=== PATIENT | male | born 1955 | race Caucasian/White ===

== ENCOUNTER 2024-07-25 11:10 | Emergency (ER) | payer MEDICARE, SELFPAY ==
[2024-07-25 11:11] VITALS: BP 145/95; PULSE 107; RESP 18; TEMP 36.7; O2SAT 98; BMI 31.5
--- NOTE | 2024-07-25 11:21 | EKG12_ITS ---
Test Reason : SOB Blood Pressure : */* mmHG Vent. Rate : 104 BPM Atrial Rate : 104 BPM P-R Int : 136 ms QRS Dur : 68 ms QT Int : 326 ms P-R-T Axes : 52 -15 82 degrees QTcB Int : 428 ms Sinus tachycardia with Premature atrial complexes Inferior infarct , age undetermined Abnormal ECG No previous ECGs available Confirmed by Jeramy Samson ([id number]), sound editor IAN STRANGE ([id number]) on 07/30/2024 10:05:40 AM Referred By: SHAWNEE Confirmed By: Jeramy Samson
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
--- NOTE | 2024-07-25 11:30 | RAD_ITS ---
PROCEDURE: CHEST 1 VIEW (PORTABLE) 07/25/2024 REASON FOR EXAM: CHEST PAIN TECHNIQUE: Frontal view of the chest. COMPARISON: Chest radiograph 07/25/2024 FINDINGS: Hardware: None. Heart: Normal size and appearance. Lungs: Lungs are clear. Bones: Unremarkable. Other: No pleural effusions. No pneumothorax RAD/Chest 1 View (Portable) IMPRESSION: No radiographic evidence of an acute cardiopulmonary process Reading Location: [facility]
[2024-07-25 11:59] LABS: Absolute Lymphocyte Count 1.72 X10^3/uL (0.83-4.51); Absolute Neutrophil Count 5.5 X10^3/uL (2.0-7.7); Basophil# 0.04 X10^3/uL; Basophil% 0.5 % (0-1); Eosinophil# 0.32 X10^3/uL; Eosinophils% 3.9 % (0-5); Hematocrit 41.3 % (40-54); Hemoglobin 14.5 g/dL (13.0-16.5); Lymphocyte # 1.72 X10^3/ul (0.83-4.51); Lymphocyte % 21.1 % (19-41); Mean Corp Hgb Conc 35.1 g/dL (32-36); Mean Corpuscular Hgb 31.3 pg (27.0-32.0); Mean Platelet Vol. 10.2 fl (6.2-12.0); Monocyte# 0.53 X10^3/uL; Monocyte% 6.5 % (0-10); NRBC Flagged by Analyzer 0 % (0-5); Neutrophil % 67.6 % (47-70); Platelet Count 317 K/mm3 (150-450); RBC Distribution Width CV 12.2 % (11.6-14.6); Red Blood Count 4.64 M/mm3 (4.6-6.2); White Blood Count 8.1 K/mm3 (4.4-11.0)
[2024-07-25 12:15] LABS: D-Dimer Quantitative (DVT/PE) 0.47 FEU/ug/m (0.27-0.49)
[2024-07-25 12:55] LABS: Anion Gap 12 (5-15); BUN 28 mg/dL (4-19); BUN/Creat Ratio 24.8 RATIO (10-20); Calcium,Total 10.2 mg/dL (7.6-11.0); Carbon Dioxide 20.1 mmol/L (21.0-32.0); Chloride 107 mmol/L (98-108); Creatinine, Serum 1.13 mg/dL (0.70-1.20); EST Glomerular Filtration Rate 71 (>60); Estimated Creatinine Clearance 81.92 ml/min (50-250); Glucose 98 mg/dL (70-99); Potassium 4.2 mmol/L (3.3-5.1); Sodium Level 139 mmol/L (133-145); Troponin T High Sensitivity 15 ng/L (<=22)
[2024-07-25 13:03] VITALS: BP 143/94; PULSE 106; O2SAT 96
[2024-07-25 13:14] VITALS: BP 143/94; PULSE 109; RESP 18; TEMP 36.6; O2SAT 96
[2024-07-25] MEDS: Aspirin 325 MG Tablet PO (13:29)
[2024-07-25 15:00] VITALS: BP 148/81; PULSE 106; RESP 19
[2024-07-25 15:27] LABS: Troponin T High Sens 2 HR 16 ng/L (<=22)
[2024-07-25 15:47] VITALS: BP 160/83; PULSE 103; RESP 15; O2SAT 96
== END 2024-07-25 15:47 | disposition home or self-care (01) ==
PROVIDERS: Emergency Provider Emergency Medicine; PCP Internal Medicine; Visit Provider Emergency Medicine
DX: R06.09 Other forms of dyspnea (principal); I10 Essential (primary) hypertension; Z79.899 Other long term (current) drug therapy; Z87.891 Personal history of nicotine dependence
CPT/HCPCS: 71045; 80048; 84484; 85025; 85379; 93005; 99283; A4216

== ENCOUNTER → 2024-07-29 | Outpatient (CLI) | payer MEDICARE, SELFPAY ==
--- NOTE | 2024-07-29 06:24 | ECHOCS_ITS ---
Reason For Study : DYSPNEA/SOB Procedure This was a 2D Doppler, Color Flow transthoracic echocardiogram. The study was technically difficult. Exam performed in department. Left Ventricle Normal LV size. Mild concentric left ventricular hypertrophy. Left ventricular systolic function is normal. The left ventricular ejection fraction is 60 %. Stage 1 diastolic dysfunction. No regional wall motion abnormalities noted. Right Ventricle Normal RV size. Normal systolic function. Atria Normal left atrium. Normal right atrium. Mitral Valve Normal mitral valve. Tricuspid Valve Normal tricuspid valve. Mild tricuspid valve insufficiency. Pulmonary artery systolic pressure is 26 mmHg. Aortic Valve Trisinus/trileaflet aortic valve. Pulmonic Valve Normal pulmonic valve. Great Vessels Normal aortic root. The pulmonary artery is normal size. Inferior vena cava collapse with respiration. Pericardium/Pleural No pericardial effusion. Medication Diluted definity 2ml given slow IV push to enhance endocardial definition. Performed a rapid injection of agitated mix of 9 cc saline and 1cc air to assess for atrial septal defect. MMode/2D Measurements & Calculations LVIDd: 4.3 cm IVSd: 1.3 cm Ao root diam: 3.2 cm LVIDs: 2.9 cm LVPWd: 1.3 cm RVDd: 3.1 cm FS: 30.8 % LAV(MOD-bp): 33.5 ml LVAd ap4: 30.9 cm2 SV(MOD-sp4): 55.9 ml LAV(MOD-bp) Indexed: 14.5 ml/m2 LVLd ap4: 8.1 cm SI(MOD-sp4): 24.1 ml/m2 LAV(MOD-sp2): 35.9 ml EDV(MOD-sp4): 98.0 ml LAV(MOD-sp4): 29.7 ml EDV(sp4-el): 100.0 ml LVAs ap4: 18.1 cm2 LVLs ap4: 7.0 cm ESV(MOD-sp4): 42.1 ml ESV(sp4-el): 39.9 ml EF(MOD-sp4): 57.0 % EF(sp4-el): 60.1 % SV(sp4-el): 60.1 ml LA A4 area: 13.1 cm2 LA dimension(2D): 3.5 cm RA A4 area: 13.1 cm2 TAPSE: 2.2 cm Time Measurements MV dec time: 0.27 sec Doppler Measurements & Calculations MV E max tyler: 39.9 cm/sec Lat Peak E' Tyler: 6.2 cm/sec Med Peak E' Tyler: 6.4 cm/sec MV A max tyler: 87.9 cm/sec E/E' lat: 6.5 E/E' med: 6.2 MV E/A: 0.45 Ao V2 max: 116.4 cm/sec LV V1 max: 88.3 cm/sec PA V2 max: 128.2 cm/sec Ao max P.4 mmHg LV V1 max P.1 mmHg TR max tyler: 240.5 cm/sec TR max P.1 mmHg ECHO/Echo Complete W/ Contrast Interpretation Summary Normal LV size. Left ventricular systolic function is normal. The left ventricular ejection fraction is 60 %. Mild concentric left ventricular hypertrophy. Stage 1 diastolic dysfunction. Contrast injection was performed. Ordering Physician: Yunior Edgar Referring Physician: ROB BACK Performed By: Jessica Lizama RDCS
--- NOTE | 2024-07-29 17:17 | STRESSREP ---
Stress Test Report Pharmacologic myocardial perfusion stress test. 69-year-old man with a history of dyspnea on exertion Resting EKG demonstrates sinus rhythm with a rate of 76 bpm. Resting blood pressure is 146/88 mmHg. 0.4 mg of regadenoson was infused per usual protocol followed by rapid intravenous saline flush injection. Continuous EKG monitoring was performed. The maximum heart rate was 111 bpm which was 72% of max impacted heart rate the maximum workload was 1 metabolic equivalent. At rest there were no ST or T wave changes noted to suggest ischemia and at peak infusion nonspecific ST changes were noted which did not meet the criteria for ischemia. No clinical angina is noted. The final blood pressure was 128/80 mmHg. Myocardial perfusion protocol. 14.8 mCi of technetium 99m sestamibi was injected at rest. 0.4 mg of regadenoson was infused per usual protocol. At peak infusion 44.5 mCi of technetium 99m sestamibi was injected stress images were obtained stress and rest images were reconstructed and compared in the short axis vertical long and horizontal long axis. Gated images were also obtained. Perfusion SPECT analysis: Review of the stress images demonstrate normal uptake of tracer noted in all areas of the myocardium. The resting images similar demonstrated normal uptake of tracer noted in all areas of the myocardium. No areas of reversibility are noted to suggest ischemia and no previous infarct is noted. Gated SPECT analysis: The gated ejection fraction is 63%. Conclusion: Normal pharmacologic myocardial perfusion stress test. Preserved ejection fraction.
== END | disposition home or self-care (01) ==
PROVIDERS: PCP Internal Medicine; Referring Provider Emergency Medicine; Visit Provider Emergency Medicine
DX: R06.09 Other forms of dyspnea (principal); R06.02 Shortness of breath
CPT/HCPCS: 78452; 93017; 93306; A9500; Q9957; A4216; C8929; J2785

== ENCOUNTER → 2024-09-14 | Outpatient (CLI) | payer MEDICARE, SELFPAY | END | disposition home or self-care (01) | LOC: PSN 07:54 | PROVIDERS: PCP Internal Medicine; Referring Provider Internal Medicine Critical Care Medicine; Visit Provider Internal Medicine Critical Care Medicine | DX: R06.02 Shortness of breath (principal) | CPT/HCPCS: 94060; 94726; 94729 ==

== ENCOUNTER → 2024-09-25 | Outpatient (CLI) | payer MEDICARE, SELFPAY ==
--- NOTE | 2024-09-25 07:06 | US_ITS ---
PROCEDURE: ABD LIMITED W/ ELASTOGRAPHY REASON FOR EXAM: ABD PAIN, BLOATING, NAUSEA COMPARISON: None. TECHNIQUE: Right upper quadrant abdominal ultrasound. Lopez ElastQ Imaging shear wave elastography for non-invasive assessment of liver tissue stiffness. Lopez EPIQ Elite. FINDINGS: LIVER: Size: Unremarkable Length: 16.7 cm Echotexture: Diffusely echogenic suggesting fatty infiltration Contour: Normal Lesions: None identified Elastography: EQI Med: 10.2 kPa EQI Med Tyler: 1.83 m/s IQR/Med: 20 %* GALLBLADDER: Normal COMMON BILE DUCT: Normal measuring 3.8 mm . PANCREAS: Normal Visualized portions of the right kidney are unremarkable. No right upper quadrant ascites. US/ABD Limited w/ Elastography IMPRESSION: MODERATE HEPATIC FIBROSIS Fatty infiltration of the liver. Reference Values: SRU <1.37 m/s (5.7kPa): No to mild fibrosis 1.37 m/s - 2.2 m/s: Moderate to severe fibrosis >2.2 m/s (15kPa): Significant fibrosis / cirrhosis METAVIR Score F2 or higher: 1.34 m/s (5.7kPa) F3 or higher: 1.55 m/s (7.3kPa) F4: 1.80 m/s (10kPa) * If the IQR/Med is >30%, the variance in the measurements is a large and the a ccuracy of the measurement may be in question. Reading Location: [place] [id number]
== END | disposition home or self-care (01) ==
PROVIDERS: PCP Internal Medicine; Referring Provider Nurse Practitioner Acute Care; Visit Provider Nurse Practitioner Acute Care
DX: R10.9 Unspecified abdominal pain (principal); R14.0 Abdominal distension (gaseous); R11.0 Nausea
CPT/HCPCS: 76705; 76981

== ENCOUNTER → 2024-10-01 | Outpatient (CLI) | payer MEDICARE, SELFPAY ==
[2024-10-01 12:46] VITALS: PULSE 101; PULSE 104; PULSE 106; PULSE 108; PULSE 110; PULSE 113; PULSE 114; PULSE 115; O2SAT 95; O2SAT 96; O2SAT 97; O2SAT 98
--- OUTSIDE RECORDS SUMMARY | 2024-10-01 21:12 | XMS RPT_ITS | CCD ---
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 Name Role Phone Pcp, No Primary Care Provider UnavailPaola Ventura Primary Care Provider Paola Lofton Primary Care Provider Paola Lofton MD Primary Care Provider DR PAOLA LOFTON MD Primary Care Physician Paola Lofton Attending Unavailable PROVIDER, UNKNOWN Referring Unavailable Paola Lofton Primary Care Unavailable Lauren Renner Primary Care Unavailable Lauren Renner Attending Unavailable PROVIDER, UNKNOWN Referring Unavailable Lauren Renner Primary Care Unavailable Lauren Renner Attending Unavailable PROVIDER, UNKNOWN Referring Unavailable Rob Back MD Primary Care Provider [phone] Rob Back MD Primary Care Provider Dr. Yunior Edgar MD Emergency Provider [phone] Dr. Rob Back MD Primary Care Provider Dr. Yunior Edgar MD Attending Provider [phone] Dr. Yunior Edgar MD Referring Provider Dr. Leon Boyd MD Other Provider Dr. Leon Boyd MD Attending Provider Dr. Rob Back MD Referring Provider Dr. Bryan Zhang DO Attending Provider Dr. Bryan Zhang DO Referring Provider Osman WALTERS-CCynthia Attending Provider ROB BACK Primary Care Unavailable ROB BACK Attending Unavailable OSMAN BRAND Attending Unavailable ROB BACK Primary Care Unavailable ROB BACK Primary Care Unavailable OSMAN BRAND Attending Unavailable ROB BACK Primary Care Unavailable KINGSROB ZAMUDIO Attending Unavailable Bryan Zhang Referring Unavailable Bryan Zhang Attending Unavailable [facility], Rob Primary Care Unavailable Cynthia Brewer Attending Unavailable Wiliam, Rob Primary Care Unavailable Cynthia Brewer Referring Unavailable Bryan Zhang Referring Unavailable Bryan Zhang Attending Unavailable Wiliam, Rob Primary Care Unavailable Wiliam, Rob Primary Care Unavailable Leon Boyd Attending Unavailable Bryan Zhang Attending Unavailable WiliamRob Referring Unavailable [facility], Rob Primary Care Unavailable [facility], Rob Primary Care Unavailable Wiliam, Rob Referring Unavailable Cynthia Brewer Attending Unavailable Wiliam, Rob Primary Care Unavailable Leon Boyd Consulting Unavailable Yunior Edgar Referring Unavailable Yunior Edgar Attending Unavailable [facility] Rob Primary Care Unavailable Yunior Edgar Attending Unavailable Rolan Grace Attending Unavailable Rob Back Primary Care Unavailable Medications Current Medications Medication Drug Class(es) Dates Sig (Normalized) Sig (Original) [id number] 200 actuat albuterol 0.09 mg/actuat metered dose inhaler (9 sources) beta2-Adrenergic Agonist Start: 08-27-2024 Albuterol Sulfate 90 mcg/actuation HFA aerosol inhaler Active 2 NMA INHALATION EVERY 4 HOURS as needed August 27, 2024 12:00am Start: 08-06-2024 End: 08-06-2025 take 2 puff(s) by inhalation every four hours as needed for wheezing albuterol (ProAir HFA) 108 (90 Base) MCG/ACT inhaler Inhale 2 puffs every 4 hours as needed for wheezing or shortness of breath. 8.5 g 3 08/06/2024 08/06/2025 Active amLODIPine 10 mg oral tablet (20 sources) Dihydropyridine Calcium Channel Mehran Start: 02-07-2022 End: 09-28-2024 take 1 tablet by mouth once daily amLODIPine (Norvasc) 10 MG tablet TAKE 1 TABLET (10 MG) BY MOUTH DAILY. 90 tablet 1 09/28/2024 Active amphetamine aspartate 5 mg / amphetamine sulfate 5 mg / dextroamphetamine saccharate 5 mg / dextroamphetamine sulfate 5 mg oral tablet (20 sources) Central Nervous System Stimulant Start: 07-25-2024 Dextroamphetami ne-Amphetamine 20 mg tablet Active 1 {tbl} PO TWICE A DAY July 25, 2024 12:00am Start: 02-13-2023 take 1 tablet by oscar th twice daily amphetamine-dextroamphetamine (Adderall) 20 MG tablet Take 1 tablet by mouth 2 times daily. 02/13/2023 Active bifidobacterium animalis [id number] unt / lactobacillus acidophilus [id number] unt oral capsule (5 sources) Start: 09-02-2024 take 1 capsule by mouth once daily Probiotic Product (Align) 10 MG capsule Take 1 capsule by mouth daily. 15 capsule 09/02/2024 Active hydroCHLOROthiazide (1 source) Thiazide Diuretic Start: 03-08-2018 hydroCHLOROthiazide Oral, qDay, 0 Refill(s) Start Date: 03/08/18 Status: Ordered lisinopril 40 mg oral tablet (20 sources) Angiotensin Converting Enzyme Inhibitor Start: 02-07-2022 End: 09-28-2024 take 1 tablet by mouth once daily lisinopril 40 MG tablet TAKE 1 TABLET BY MOUTH EVERY DAY 90 tablet 1 09/28/2024 Active Start: 12-26-2016 take 1 dose by mouth once huy y lisinopril Dose : 20 mg =, Oral, qDay Start Date: 12/26/16 Status: Ordered pantoprazole 40 mg delayed release oral tablet (20 sources) Proton Pump Inhibitor Start: 09-02-2024 take 1 tablet by mouth once daily pantoprazole (ProtoNix) 40 MG EC tablet Indications: Dyspepsia Take 1 tablet (40 mg) by mouth daily. Do not crush, chew, or split. 90 tablet 1 09/02/2024 Active Start: 02-09-2022 End: 07-24-2024 take 1 tablet by mouth once daily before mealtime pantoprazole (ProtoNix) 40 MG EC tablet take 1 tablet by mouth every morning before meals 02/09/2022 07/24/2024 Discontinued polyethylene glycol 3350 953067 mg / potassium chloride 2970 mg / sodium bicarbonate 6740 mg / sodium chloride 5860 mg / sodium sulfate 69548 mg powder for oral solution (1 source) Osmotic Laxative Start: 09-14-2024 Peg 3350-Electrolytes (Golytely) 236-22.74-6.74 -5.86 gram recon soln Active 240 mL PO Q10M 4000 September 14, 2024 12:00am as directed for split dose bowel prep QUEtiapine 25 mg oral tablet (18 sources) Atypical Antipsychotic Start: 07-07-2024 take 1 tablet by mouth once daily QUEtiapine (SEROquel) 25 MG tablet Take 25 mg by mouth Nightly. 07/07/2024 Active 24 hr venlafaxine 37.5 mg extended release oral capsule (20 sources) Serotonin and Norepinephrine Reuptake Inhibitor Start: 02-10-2023 take 1 capsule by mouth once daily venlafaxine XR (Effexor XR) 37.5 MG 24 hr capsule Take 37.5 mg by mouth daily. 02/10/2023 Active Start: 02-23-2022 End: 07-24-2024 take 1 capsule by mouth once daily in the evening venlafaxine XR (Effexor XR) 75 MG 24 hr capsule Take 75 mg by mouth every evening. 02/23/2022 07/24/2024 Discontinued Completed/Discontinued Medications Medication Drug Class(es) Dates Sig (Normalized) Sig (Original) cyclobenzaprine hydrochloride 10 mg oral tablet (16 sources) Muscle Relaxant Start: 02-19-2022 End: 07-24-2024 take 1 tablet by mouth three times daily as needed cyclobenzaprine (Flexeril) 10 MG tablet Take 10 mg by mouth 3 times daily as needed. 02/19/2022 07/24/2024 Discontinued meloxicam 15 mg oral tablet (20 sources) Nonsteroidal Anti-inflammatory Drug Start: 08-27-2024 End: 09-14-2024 take 1 tablet by mouth once daily Meloxicam 15 mg tablet Discontinued 15 mg PO daily August 27, 2024 12:00am September 14, 2024 2:38pm Start: 12-30-2022 End: 08-05-2024 take 1 tablet by mouth once daily meloxicam (Mobic) 15 MG tablet Take 15 mg by mouth daily. 12/30/2022 08/05/2024 Discontinued (Therapy completed) predniSONE 20 mg oral tablet (17 sources) Start: 06-24-2023 End: 07-24-2024 take 1 tablet by mouth every twenty-four hours as needed predniSONE (Deltasone) 20 MG tablet Take 1 tablet (20 mg) by mouth Daily as needed (severe joint pain). 20 tablet 1 03/06/2024 07/24/2024 Discontinued Start: 05-16-2022 End: 04-30-2023 take 1 tablet by mouth every twenty-four hours as needed predniSONE (Deltasone) 20 MG tablet Take 1 tablet (20 mg) by mouth Daily as needed (severe joint pain). 10 tablet 1 04/30/2023 Active Problems Active Problems Problem Classification Problem Date Documented Da te Episodic/Chronic Abdominal pain (14 sources) Right upper quadrant pain; Translations: [Indigestion] Onset: 02-15-2021 Episodic Anxiety disorders (1 source) Anxiety 12-26-2016 Chronic Essential hypertension (6 sources) Hypertensive disorder; Translations: [Essential hypertension] Onset: 09-10-2024 12-26-2016 Chronic Hypertension with complications and secondary hypertension (1 source) Secondary hypertension; Translations: [Secondary hypertension, unspecified] 07-24-2024 Chronic Malaise and fatigue (6 sources) Fatigue; Translations: [Other fatigue] Onset: 09-02-2024 09-02-2024 Episodic Nausea and vomiting (4 sources) Nausea; Translations: [Nausea] Onset: 09-14-2024 09-14-2024 Episodic Nonspecific chest pain (7 sources) Chest pain; Translations: [Chest pain, unspecified] Onset: 09-10-2024 07-24-2024 Episodic Nutritional deficiencies (3 sources) Vitamin D deficiency; Translations: [Vitamin D deficiency, unspecified] Onset: 09-02-2024 09-02-2024 Chronic Nutritional deficiencies (3 sources) Cobalamin deficiency; Translations: [Deficiency of other specified B group vitamins] Onset: 09-02-2024 09-02-2024 Episodic Other disorders of stomach and duodenum (1 source) Indigestion 09-02-2024 Episodic Other gastrointestinal disorders (2 sources) Swollen abdomen; Translations: [Abdominal distension (gaseous)] 09-02-2024 Episodic Other gastrointestinal disorders (2 sources) Diarrhea; Translations: [Diarrhea, unspecified] 09-14-2024 Episodic Other gastrointestinal disorders (2 sources) Abdominal bloating; Translations: [Abdominal distension (gaseous)] 09-14-2024 Episodic Other gastrointestinal disorders (4 sources) Abdominal distension (gaseous); Translations: [Abdominal distension (gaseous)] Onset: 09-02-2024 Episodic Other liver diseases (2 sources) Fatty (change of) liver, not elsewhere classified; Translations: [Fatty (change of) liver, not elsewhere classified] Onset: 02-15-2021 Chronic Other lower respiratory disease (6 sources) Dyspnea; Translations: [Dyspnea, unspecified] 07-24-2024 Episodic Other lower respiratory disease (3 sources) Dyspnea on exertion; Translations: [Other forms of dyspnea] 07-25-2024 Episodic Other lower respiratory disease (4 sources) Shortness of breath; Translations: [Shortness of breath] Onset: 09-02-2024 Episodic Other lower respiratory disease (2 sources) Shortness of breath; Translations: [Shortness of Breath] Onset: 07-24-2024 Episodic Other lower respiratory disease (1 source) Other forms of dyspnea; Translations: [Other forms of dyspnea] Onset: 08-04-2024 Episodic Other nervous system disorders (5 sources) Slurred speech; Translations: [Slurred speech] Onset: 09-10-2024 09-10-2024 Episodic Other nervous system disorders (1 source) Slurred speech; Translations: [Slurred speech] Onset: 09-10-2024 Episodic Other screening for suspected conditions (not mental disorders or infectious disease) (6 sources) Patient encounter status; Translations: [Encounter for screening for malignant neoplasm of prostate] Onset: 09-02-2024 09-02-2024 Episodic Syncope (5 sources) Syncope and collapse; Translations: [Syncope and collapse] 02-14-2023 Episodic Unclassified (1 source) Patient encounter status 09-02-2024 Past or Other Problems Problem Classification Problem Date Documented Da te Episodic/Chronic Biliary tract disease (2 sources) Cholecystitis, unspecified; Translations: [Cholecystitis, unspecified] Onset: 02-15-2021 Episodic Other diseases of kidney and ureters (2 sources) Cyst of kidney, acquired; Translations: [Cyst of kidney, acquired] Onset: 02-15-2021 Episodic Other non-traumatic joint disorders (2 sources) Pain in right knee; Translations: [Pain in right knee] Onset: 11-06-2021 Episodic Results Test Name Value Interpretation Reference Range Facility ABD Limited w/ Elastographyo n 09-25-2024 ABD Limited w/ Elastography [facility] Imaging Services [address] [place] [address] [id number] ABD Limited w/ Elastography MR#: [id number] Acct: [id number] Name: LAUREN ESCALANTE Rep #: [id number] : 1955 M 69 From: Tor cross MD PCP: Dr. Rob Back MD Status: REG CLI Study: ABD Limited w/ Elastography Date of Exam: 08/29 Exam# [id number] Ordering Dr: Cynthia Brewer CHEMIST PHYSICALApril Yates PROCEDURE: ABD LIMITED W/ ELASTOGRAPHY REASON FOR EXAM: ABD PAIN, BLOATING, NAUSEA COMPARISON: None. TECHNIQUE: Right upper quadrant abdominal ultrasound. Lopez ElastQ Imaging shear wave elastography for non- invasive assessment of liver tissue stiffness. Lopez EPIQ Elite. FINDINGS: LIVER: Size: Unremarkable Length: 16.7 cm Echotexture: Diffusely echogenic suggesting fatty infiltration Contour: Normal Lesions: None identified Elastography: EQI Med: 10.2 kPa EQI Med Irasema: 1.83 m/s IQR/Med: 20 %* GALLBLADDER: Normal COMMON BILE DUCT: Normal measuring 3.8 mm . PANCREAS: Normal Visualized portions of the right kidney are unremarkable. No right upper quadrant ascites. US/ABD Limited w/ Elastography IMPRESSION: MODERATE HEPATIC FIBROSIS Fatty infiltration of the liver. Reference Values: SRU <1.37 m/s (5.7kPa): No to mild fibrosis 1.37 m/s - 2.2 m/s: Moderate to severe fibrosis >2.2 m/s (15kPa): Significant fibrosis / cirrhosis METAVIR Score F2 or higher: 1.34 m/s (5.7kPa) F3 or higher: 1.55 m/s (7.3kPa) F4: 1.80 m/s (10kPa) * If the IQR/Med is >30%, the variance in the measurements is a large and the accuracy of the measurement may be in question. Reading Location: [place] [address] CC: MARCELO Brewer; Dr. Rob Back MD Manager Social Responsibility: Signed Normal [facility] 36on 09-23-2024 36 S: pt calling [facility] with question about labs B: today A: pt has been feeling unwell lately. Has been seen and had multiple tests done. Concerned about lyme disease. R: RN advised pt that he can have the lab test done whenever he is able. Pt asking for the lab requisition to be printed out for him to pickle maker, he can be in tomorrow, he does not have a printer. Advised pt that RN will send message to the office for the morning, pt voiced understanding. Reason for Disposition Question about upcoming scheduled surgery, procedure or test, no triage required, and triager able to answer question Protocols used: Information Only Call - No [facility] Message released to patient as written. I placed an order for a Lyme disease test that is not in our system so had to be entered as a miscellaneous send out. He can print out the paper and have it done at [facility], although it may be better for him to come the appointment to discuss since testing for Lyme disease is not straightforward. Patient's further questions if applicable: Patient verbalized understanding. Were all questions from office addressed or relayed to the patient from encounter: N/A [facility] 36on 09-22-2024 36 S: Patient is calling the [facility] with request for lab test B: Symptom onset: chronic, GARCIA 09/10/24 (reviewed) A: Patient complains of: Chronic fatigue/SOB with exertion, joint pains/stiffness, intermittent headaches (no current headache), intermittent slurred speech and watery eyes/light sensitivity Currently speaking in full sentences, speech is clear These are not new symptoms. 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 Back. Advised a message would be sent to provider for review and consideration of his request. Patient verbalizes understanding. Advised patient to call back with new or worsening symptoms. Reason for Disposition MILD longstanding difficulty breathing (e.g., minimal/no SOB at rest, SOB with walking, pulse <100) and SAME as normal Protocols used: Breathing [facility] Repor ton 09-14-2024 Gastroenterology Visit Report [facility] Gastroenterology [address] [address] OFFICE VISIT Date of Service: 09/14/24 MR#: [id number] Acct: [id number] Name: LAUREN ESCALANTE Rep #: [id number] : 1955 Provider: MARCELO remy Age/Sex: 69/M [place] [facility] Status: Signed Intake Vital Signs 08/27/24 08:07 09/14/24 14:39 Height 6 ft 1 in 6 ft 1 in Weight: 242 lb 241 lb 4 oz BMI 31.9 31.8 BP 137/91 H 160/89 H Blood Pressure Location Lt brachial Position Sitting Respiration 18 18 Pulse 96 109 H Pulse Source Monitor Temp 97.5 F L Pulse Oximetry (%) 95 96 Oxygen Delivery Method room air room air Intake Visit Reasons: Right Upper Quadrant Pain Chief Complaint: abdominal pain, SOB Band Instrument Maker Required: No Accompanied by: Self Is patient in pain?: No Allergies No Known Allergies Allergy (Verified 09/14/24 14:37) Medications ???Medication ???Instructions ???Recorded ???Confirmed ???Type amlodipine 10 mg tablet 10 mg PO DAILY 07/25/24 09/14/24 H istory dextroamphetamine-a mphetamine 20 1 tab PO BID 07/25/24 09/14/24 His tory mg tablet lisinopril 40 mg tablet 40 mg PO DAILY 07/25/24 09/14/24 H istory quetiapine 25 mg tablet 25 mg PO QHS 07/25/24 09/14/24 His tory venlafaxine 37.5 mg 37.5 mg PO DAILY 07/25/24 09/14/24 History capsule,extended release 24 hr albuterol sulfate 90 mcg/actuation 2 puff inhalation Q4 PRN 5 09/14/24 History aerosol inhaler pantoprazole 40 mg tablet,delayed 40 mg PO QDAY 09/14/24 09/14/24 H istory release peg 3350-electrolytes 236 240 ml PO Q10M #4,000 mL 09/14/24 09/14/24 Rx gram-22.74 gram-6.74 gram-5.86 gram solution (Golytely) Have you fallen in the past year?: Yes PFSH Medical History Depression Pneumothorax Surgical History History of tonsillectomy H/O hernia repair History of appendectomy History of right knee surgery Family History Mother Heart disease Cancer ovarian Hypertension Father Myocardial infarction Social History household members: none current occupational status: retired pets and animals: Yes pets and animals: dog(s) history of recent travel: No Smoking Status: Former smoker alcohol intake: current alcohol intake frequency: holidays/special occasions only substance use type: does not use well-balanced diet: about half the time caffeine: Yes what type of physical activity do you participate in: none HPI HPI Chief Complaint: abdominal pain, SOB Details: LAUREN ESCALANTE, is a 69 M who presents to the office today for PULMONARY CONSULT 08/27/2024 The patient reported that he has been experiencing worsening dyspnea since the beginning of June 2024. His outpatient cardiac workup has been negative to date, including pharmacologic stress test and echocardiogram. Surface echocardiogram completed here in July 2024 did reveal evidence of stage I diastolic dysfunction with a pulmonary artery systolic pressure of 26 mmHg. The patient has a very limited 70-txro-ongt smoking history, having quit completely in 2019. He did not grow up in a smoking household. The patient has never previously been diagnosed with asthma. The patient is currently retired, having worked previously in the [employer] trades. The patient's primary care provider did provide him with an albuterol rescue inhaler in the past. However, the patient reported that the medication did not provide any symptom relief. He denied any recent medication changes. His weight has been steadily increasing over the course of the last several years. In fact, the patient reported that over the last year his weight has increased by approximately 30 pounds. He currently denies any fevers, chills or night sweats. In addition, he denies any chest tightness, wheezing or cough. - abdominal cramping, bloating - reports he is not one to go to the doctor - seen by pulmonology for SOB - reports he was not going to retire until he was 70y/o but had to retire due to increased SOB 07/25/2024 HGB 14.5 - reports he does not feel well today, bloated, gassy, and fatigued - RUQ pain, can be cramping - experiences acid reflux c/o weight gain - weight is up about 30lbs in the past 18 months - reports he had an episode of white/qiu stool 2 years ago - reports stools are now very yellow - EtOH - occasional, couple drinks a month - IBU infrequent use - he has never had a colonoscopy - he now has urgency with BM - having accidents with stools - watery stools, has urgency to go and then reports he will sit (more content not included)... Normal [facility] Office Visiton 09-10-2024 Follow-up visit [id number] Lauren Escalante 1955 M Date Provider Department Center 09/10/2024 [id number] BRAND [facility] Family History Problem Relation Age of Onset Heart disease Mother Ovarian cancer Mother High Blood Pressure Mother Family Status - Relation Status Age at Mother Level of Service:12901 CO OFFICE/OUTPATIENT ESTABLISHED MOD MDM 30 MIN Reason for Visit and Comments: Follow-up [660191] - Patient states here for lab results Normal [facility] Progress Noteon 09-10-2024 Progress Note . [facility] [address] [facility] [address] Dept: [phone] Dept Visit type: Established Reason for Visit: Follow-up (Patient states here for lab results) Assessment and Plan Hypertension Stable on amlodipine 10 mg and lisinopril 40 mg daily. No changes at this time. Dyspepsia Patient recently started on pantoprazole. Patient states slight improvement in symptoms. Fatigue Reviewed lab work with patient which is not concerning. Patient has upcoming appointment with GI and Pulmonology. Referred patient to cardiology as follow up for previous ED visit and neurology for evaluation. Patient has upcoming appointment with Dr. Back. 1. Primary hypertension 2. Dyspepsia 3. Fatigue, unspecified type 4. Chest pain, unspecified type - [facility] 5. Slurred speech - [facility] Neu[facility] No follow-ups on file. Subjective This is a 69-year-old gentleman with past medical history significant for ADHD, hypertension, obesity presents today for follow-up for fatigue. Patient was previously seen by Dr. Back who ordered lab work to evaluate patient's ongoing fatigue and shortness of breath. Patient was also referred to pulmonology and gastroenterology. States he does have appointment with gastroenterology this upcoming Saturday. Was prescribed an inhaler which he states has been improving his shortness of breath. Patient states he uses the inhaler a couple of times per day. Patient had previously been seen in this office in early June and was sent to the emergency department for chest pain and shortness of breath. Statesworkup in the emergency department was unremarkable. Patient was advised to remain in the hospital for observation but patient declined. Patient did have outpatient stress test on July 29 which was normal. Patient states he does continue to have chest pains that come and go randomly. Patient feels this could be related to his GERD. Patient is also concerned about vague neurological symptoms. Patient states he notices his speech is somewhat slurred, shuffles his feet when he walks, and is difficult for him to climb stairs because his legs feel heavy. Review of Systems HENT: Negative. Respiratory: Negative. Cardiovascular: Negative. Gastrointestinal: Negative. Musculoskeletal: Negative. Allergies[1] Current Medications[2] Medical History[3] Social History Tobacco Use Smoking status: Never Smokeless tobacco: Never Substance Use Topics Alcohol use: Never Surgical History[4] Family History[5] Objective BP 135/84 Pulse 104 Ht 6' 1 (1.854 m) Wt 240 lb (109 kg) SpO2 95% BMI 31.66 kg/m? Physical Exam Vitals reviewed. Constitutional: Appearance: Normal appearance. Cardiovascular: Rate and Rhythm: Normal rate and regular rhythm. Heart sounds: Normal heart sounds. Pulmonary: Effort: Pulmonary effort is normal. Breath sounds: Normal breath sounds. Musculoskeletal: General: Normal range of motion. Neurological: General: No focal deficit present. Mental Status: He is alert. Psychiatric: Mood and Affect: Mood normal. Data Reviewed and Summarized Labs: Imaging/Testing: Osman Brand APRN - JAMES [1] No Known Allergies [2] Current Outpatient Medications Medication Sig Dispense Refill albuterol (ProAir HFA) 108 (90 Base) MCG/ACT inhaler Inhale 2 puffs every 4 hours as needed for wheezing or shortness of breath. 8.5 g 3 amLODIPine (Norvasc) 10 MG tablet TAKE 1 TABLET (10 MG) BY MOUTH DAILY. 30 tablet 0 amphetamine-dextroa mphetamine (Adderall) 20 MG tablet Take 1 tablet by mouth 2 times daily. lisinopril 40 MG tablet TAKE 1 TABLET BY MOUTH EVERY DAY 30 tablet 0 pantoprazole (ProtoNix) 40 MG EC tablet Take 1 tablet (40 mg) by mouth daily. Do not crush, chew, or split. 90 tablet 1 Probiotic Product (Align) 10 MG capsule Take 1 capsule by mouth daily. 15 capsule 0 QUEtiapine (SEROquel) 25 MG tablet Take 25 mg by mouth Nightly. venlafaxine XR (Effexor XR) 37.5 MG 24 hr capsule Take 37.5 mg by mouth daily. No current facility-administer ed medications for this visit. [3] Past Medical History: Diagnosis Date Depression Hypertension [4] Past Surgical History: Procedure Laterality Date APPENDECTOMY HERNIA REPAIR KNEE CARTILAGE SURGERY TONSILLECTOMY (HISTORICAL) [5] Family History Problem Relation Name Age of Onset Heart disease Mother Ovarian cancer Mother High Blood Pressure Mother Normal [facility] Office Visiton 09-02-2024 Follow-up visit [id number] Lauren Escalante 1955 M Date Provider Department Center 09/02/2024 [id number] BACK [facility] Family History Problem Relation Age of Onset Heart disease Mother Ovarian cancer Mother High Blood Pressure Mother Family Status - Relation Status Age at Mother Level of Service:86926 CO OFFICE/OUTPATIENT ESTABLISHED MOD MDM 30 MIN Reason for Visit and Comments: Follow-up [205644] - Follow up for abdominal fluid retention and bloating, SOB Normal [facility] Progress Noteon 09-02-2024 Progress Note . [facility] [address] [place] [address] [facility] [address] Dept: [phone] Dept Visit type: Established Reason for Visit: Follow-up (Follow up for abdominal fluid retention and bloating, SOB) Assessment and Plan 1. Fatigue, unspecified type - TSH - T4, free - CBC auto differential - Comprehensive metabolic panel - Vitamin D Deficiency Screening (Vit D 25) - Vitamin B12 2. B12 deficiency - Vitamin B12 3. Vitamin D deficiency - Comprehensive metabolic panel - Vitamin D Deficiency Screening (Vit D 25) 4. Shortness of breath - Comprehensive metabolic panel 5. Encounter for screening prostate specific antigen (PSA) measurement - PSA Screening 6. Dyspepsia - pantoprazole (ProtoNix) 40 MG EC tablet; Take 1 tablet (40 mg) by mouth daily. Do not crush, chew, or split., Starting 09/02/2024, Normal - External referral to Gastroenterology 7. Generalized abdominal pain 8. Encounter for screening colonoscopy - External referral to Gastroenterology 9. Abdominal distension - External referral to Gastroenterology Fatigue -symptoms are concerning. Check TSH, CBC, CMP, vitamin D, vitamin B12. Abdominal distention/bloating /GERD -symptoms are concerning for dyspepsia although he also has fairly full abdomen on exam. We will treat for dyspepsia with pantoprazole, monitor progress and plan for follow-up visit in 1 month. I also recommended that he take a probiotic for the next 2 weeks. He has never had a screening colonoscopy. Given his ongoing abdominal symptoms and lack of prior colonoscopy he was referred to gastroenterology for additional evaluation. Shortness of breath -following with [facility] [place] in [place]. Subjective HPI This is a 69-year-old gentleman with past medical history significant for ADHD, hypertension, obesity presents today for ongoing evaluation of shortness of breath and fatigue symptoms. He had been seen most recently by Osman Brand on 07/24/2024. Shortness of breath - patient had interval follow up visit with [place] [facility] in [place]. He is planning to have 6 minute walk test ordered and PFTs. Abdominal bloating - states that symptoms have worsened. States that when he eats he feels much worse. Feels that abdomen is full. He has been having increase in acid reflex symptoms as well. States that if he eats anything salad he gets an upset stomach. He has been waking up nauseated for the past few weeks. He states that he has had increase in flatulence as well. He has had fecal urgency, has to use RR first thing in the morning, sometimes has to have 2-3 BM at the beginning of the day. Shortness of breath - seems to have worsened since last visit. He thinks that this may be due to worsening abdominal issues / distention. Fatigue - states that with worsening shortness of breath he has developed worsened fatigue, drowsiness. Review of Systems Constitutional: Positive for fatigue. Respiratory: Positive for shortness of breath. Gastrointestinal: Positive for abdominal distention. Negative for constipation. No Known Allergies Current Outpatient Medications Medication Sig Dispense Refill albuterol (ProAir HFA) 108 (90 Base) MCG/ACT inhaler Inhale 2 puffs every 4 hours as needed for wheezing or shortness of breath. 8.5 g 3 amLODIPine (Norvasc) 10 MG tablet TAKE 1 TABLET (10 MG) BY MOUTH DAILY. 30 tablet 0 amphetamine-dextroa mphetamine (Adderall) 20 MG tablet Take 1 tablet by mouth 2 times daily. lisinopril 40 MG tablet TAKE 1 TABLET BY MOUTH EVERY DAY 30 tablet 0 QUEtiapine (SEROquel) 25 MG tablet Take 25 mg by mouth Nightly. venlafaxine XR (Effexor XR) 37.5 MG 24 hr capsule Take 37.5 mg by mouth daily. pantoprazole (ProtoNix) 40 MG EC tablet Take 1 tablet (40 mg) by mouth daily. Do not crush, chew, or split. 90 tablet 1 Probiotic Product (Align) 10 MG capsule Take 1 capsule by mouth daily. 15 capsule 0 No current facility-administer ed medications for this visit. Past Medical History: Diagnosis Date Depression Hypertension Social History Tobacco Use Smoking status: Never Smokeless tobacco: Never Substance Use Topics Alcohol use: Never Past Surgical History: Procedure Laterality Date APPENDECTOMY HERNIA REPAIR KNEE CARTILAGE SURGERY TONSILLECTOMY (HISTORICAL) Family History Problem Relation Name Age of Onset Heart disease Mother Ovarian cancer Mother High Blood Pressure Mother Objective BP (!) 144/85 Pulse 100 Ht 6' 1 (1.854 m) Wt 236 lb (107 kg) SpO2 98% BMI 31.14 kg/m? Physical Exam Constitutional: General: He is not in acute distress. Appearance: He is not toxic-appearing. HENT: Head: Normocephalic and atraumatic. Eyes: General: No scleral icterus. Pulmonary: Effort: No respiratory distress. Abdominal: Tenderness: There is no abdominal tenderness. There is no guarding. (more content not included)... Normal [facility] Pulmonary Visit Reporton Pulmonary Visit Report [facility] [place] [address] [place] [address] OFFICE VISIT Date of Service: 08/27/24 MR#: [id number] Acct: [id number] Name: LAUREN ESCALANTE Rep #: [id number] : 1955 Provider: Dr. Bryan Zhang DO Age/Sex: 69/M Location: [facility] Status: Signed Assessment and Plan Assessment and Plan (1) Shortness of breath: Status: Chronic Plan: The patient presented today for the evaluation of exertional dyspnea, without any significant tobacco abuse history. He has had a full cardiac workup already completed, which was negative. His surface echocardiogram did reveal evidence of stage I diastolic dysfunction, but there was no evidence of pulmonary hypertension. At this time, we will plan to obtain baseline pulmonary function studies along with a 6-minute walk test to assess for any exertional hypoxemia. I do suspect that the patient's shortness of breath may be secondary to his significant weight gain over the course the last several years coupled with generalized deconditioning. Orders: Orders Simple Pulmonary Exercise Test Today R06.02 - Shortness of breath PFT Complete - DLCO, Spirometry b/a bronchodilators, lung volumes Today R06.02 - Shortness of breath HPI HPI Comments Details: The patient is a 69-year-old male who presents to the clinic today in referral for the evaluation of shortness of breath. The patient reported that he has been experiencing worsening dyspnea since the beginning of June 2024. His outpatient cardiac workup has been negative to date, including pharmacologic stress test and echocardiogram. Surface echocardiogram completed here in July 2024 did reveal evidence of stage I diastolic dysfunction with a pulmonary artery systolic pressure of 26 mmHg. The patient has a very limited [id number] smoking history, having quit completely in 2019. He did not grow up in a smoking household. The patient has never previously been diagnosed with asthma. 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 The patient's primary care provider did provide him with an albuterol rescue inhaler in the past. However, the patient reported that the medication did not provide any symptom relief. He denied any recent medication changes. His weight has been steadily increasing over the course of the last several years. In fact, the patient reported that over the last year his weight has increased by approximately 30 pounds. He currently denies any fevers, chills or night sweats. In addition, he denies any chest tightness, wheezing or cough. 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 Required: No Accompanied by: Self Allergies No Known Allergies Allergy (Verified 08/27/24 09:34) Medications ???Medication ???Instructions ???Recorded ???Confirmed ???Type amlodipine 10 mg tablet 10 mg PO DAILY 07/25/24 08/27/24 H istory dextroamphetamine-a mphetamine 20 1 tab PO BID 07/25/24 08/27/24 His tory mg tablet lisinopril 40 mg tablet 40 mg PO DAILY 07/25/24 08/27/24 H istory quetiapine 25 mg tablet 25 mg PO QHS 07/25/24 08/27/24 His tory venlafaxine 37.5 mg 37.5 mg PO DAILY 07/25/24 08/27/24 History capsule,extended release 24 hr albuterol sulfate 90 mcg/actuation 2 puff inhalation Q4 PRN 5 08/27/24 History aerosol inhaler meloxicam 15 mg tablet 15 mg PO QDAY 08/27/24 08/27/24 Hi story Have you [facility] in the past year?: [facility] History (Updated 08/27/24 @ 11:[address] Bryan Zhang, DO) Pneumothorax Surgical History (Updated 08/27/24 @ 09:36 by Migdalia Smith LPN) History of right knee surgery Family History (Updated 08/27/24 @ 09:37 by Migdalia Smith LPN) Mother Heart disease Cancer ovarian Father Myocardial infarction Social History (Updated 08/27/24 @ 09:39 by Migdalia Smith LPN) household members: none current occupational status: retired pets and animals: Yes pets and animals: dog(s) history of recent travel: No Smoking Status: Former smoker alcohol intake: current alcohol intake frequency: holidays/special occasions only substance use type: does not use well-balanced diet: about half the time caffeine: Yes what type of physical activity do you participate in: none Review of Systems Resp Respiratory: Yes as per HPI Exam Const Constitutional: Positive conversant, cooperative, in no ac (more content not included)... Normal [facility] 08-13-2024 36 Faxed again to [facility]. [facility] 08-12-2024 36 Message released to patient as written. Please call [facility] for an appt [phone] Patient's further questions if applicable: Pt called and states that the pulm office has not received his referral. Please advise Were all questions from office addressed or relayed to the patient from encounter: Any [facility] 08-10-2024 36 Name of caller: Lauren Contact phone number: [phone] Relationship to Patient: patient Provider: Wiliam Practice: Soheila SERRANO Chief Complaint/Reason for Call: A referral was placed for External referral to Pulmonology for Shortness of breath [R06.02] and weakness of legs. Patient has appointment with pulmonology on 08.27.2024. He wants to switch to [facility] because it is closer to his home and a sooner appointment. This is at [facility]. Wants it to be urgent. Best time of day caller can be reached: any Patient advised that office/PCP has 24-48 business hours to return their call: Yes [facility] 08-06-2024 36 Faxed to location [facility] 36 Name of caller: Lauren Contact phone number: [phone] Relationship to Patient: patient Provider: Dr Back Practice: Martita SERRANO Chief Complaint/Reason for Call: Please fax Please send referral to Dr. Gilberto Rice in [place] Best time of day caller can be reached: any Patient advised that office/PCP has 24-48 business hours to return their call: Yes [facility] 36 Name of caller: Lauren Contact phone number: [phone] Relationship to Patient: patient Provider: Wiliam Practice: Soheila SERRANO Chief Complaint/Reason for Call: Patient states he still waiting for new inhaler prescription to be sent to pharmacy [facility]/pharm[id number] - [place], [place] - [address] patient needs that as soon as possible. Please advise patient when done. Best time of day caller can be reached: any Patient advised that office/PCP has 24-48 business hours to return their call: Yes Normal [facility] Office Visiton 08-05-2024 Follow-up visit [id number] Lauren Escalante 1955 M Date Provider Department Center 08/05/2024 [id number] BACK [facility] Family History Problem Relation Age of Onset Heart disease Mother Ovarian cancer Mother High Blood Pressure Mother Family Status - Relation Status Age at Mother Level of Service:24111 CO OFFICE/OUTPATIENT ESTABLISHED MOD MDM 30 MIN Reason for Visit and Comments: Results [95] - To review labs from [facility], to know what the next step will be Normal [facility] Progress Noteon 08-05-2024 Progress Note . [facility] [address] [facility] [address] Dept: [phone] Dept Visit type: Established Reason for Visit: Results (To review labs from [facility], to know what the next step will be ) Assessment and Plan 1. Shortness of breath - External referral to Pulmonology Exertional shortness of breath -reviewed recent evaluation which included emergency department visit with troponin which was negative, pharmacologic stress test which was negative, and echocardiogram which did not show any abnormalities explaining shortness of breath symptoms. Patient will be trialed on albuterol, referred to pulmonology for additional evaluation given worsening shortness of breath symptoms. Subjective HPI This is a 69-year-old gentleman with past medical history significant for ADHD, hypertension, obesity presents today for ongoing evaluation of shortness of breath and fatigue symptoms. He had been seen most recently by Osman Brand on 07/24/2024. SOB / Fatigue - had previously been seen by Osman for this with several tests ordered/completed which did not explain his symptoms - stress test, echocardiogram, and bloodwork completed in the emergency department. He endorses shortness of breath and fatigue. He had retired in June 29. 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 Review of Systems Constitutional: Positive for fatigue. Respiratory: Positive for shortness of breath. No Known Allergies Current Outpatient Medications Medication Sig Dispense Refill amLODIPine (Norvasc) 10 MG tablet Take 1 tablet (10 mg) by mouth daily. 30 tablet 0 lisinopril 40 MG tablet Take 1 tablet (40 mg) by mouth daily. 30 tablet 0 QUEtiapine (SEROquel) 25 MG tablet Take 25 mg by mouth Nightly. venlafaxine XR (Effexor XR) 37.5 MG 24 hr capsule Take 37.5 mg by mouth daily. amphetamine-dextroa mphetamine (Adderall) 20 MG tablet Take 1 tablet by mouth 2 times daily. (Patient not taking: Reported on 08/05/2024) meloxicam (Mobic) 15 MG tablet Take 15 mg by mouth daily. (Patient not taking: Reported on 08/05/2024) No current facility-administer ed medications for this visit. Past Medical History: Diagnosis Date Depression Hypertension Social History Tobacco Use Smoking status: Never Smokeless tobacco: Never Substance Use Topics Alcohol use: Never Past Surgical History: Procedure Laterality Date APPENDECTOMY HERNIA REPAIR KNEE CARTILAGE SURGERY TONSILLECTOMY (HISTORICAL) Family History Problem Relation Name Age of Onset Heart disease Mother Ovarian cancer Mother High Blood Pressure Mother Objective BP (!) 159/85 Pulse (!) 113 Ht 6' 1 (1.854 m) Wt 238 lb (108 kg) SpO2 98% BMI 31.40 kg/m? Physical Exam Constitutional: General: He is not in acute distress. Appearance: He is not toxic-appearing. HENT: Head: Normocephalic and atraumatic. Eyes: General: No scleral icterus. Cardiovascular: Rate and Rhythm: Normal rate and regular rhythm. Heart sounds: No murmur heard. No gallop. Pulmonary: Effort: No respiratory distress. Breath sounds: No wheezing or rales. Musculoskeletal: Cervical back: Normal range of motion. Skin: General: Skin is warm and dry. Neurological: Mental Status: He is alert. Mental status is at baseline. Psychiatric: Mood and Affect: Mood normal. Data Reviewed and Summarized Labs: Imaging/Testing: Rob Back MD [facility] 36on 08-03-2024 36 Scanned into media [facility] 36 No records received yet. [facility] 36 Name of caller: Lauren Contact phone number: [phone] Relationship to Patient: patient Provider: Wiliam Practice: LUIS SERRANO Chief Complaint/Reason for Call: Patient following up on status of record request. Patient states he was originally seen in [place] ED for a suspected blockage, but declined admission and decided to come back for outpatient testing. Patient is anxious to get these results as he feels like something is wrong. Please advise. Best time of day caller can be reached: any Patient advised that office/PCP has 24-48 business hours to return their call: No [facility] 36on 07-31-2024 36 Called to request medical records from [facility]. Recently lab results from 07/25/24. Patient is also requesting from results from stress test and cardio ultrasound. All records were requested [facility] 36 Name of caller: Lauren Contact phone number: [phone] Relationship to Patient: patient Provider: Practice: Martita SERRANO Chief Complaint/Reason for Call: Patient calling for lab result done at [facility]. Labs, stress trest and US of heart. Please advise. Best time of day caller can be reached: any Patient advised that office/PCP has 24-48 business hours to return their call: no [facility] 36on 07-30-2024 36 Reviewed chart. It appears he has another PCP filling his meds. Also appears to be seeing psychiatry. Was seen here acutely. We cannot refill the seroquel-needs to come from psychiatry. Need to clarify if he is seeing other provider for BP meds-if not he needs FU here because last OV was just sent to ER . [facility] 36 GARCIA: 07/24/2024, no follow up on file [facility] Cardiovascular stress test r eportOrdered By: Leon Boyd on 07-29-2024 Study report [facility] [address] [place] [address] MR#: [id number] Acct: [id number] Name: ESCALATNELAUREN MAURILIO Rep #: [id number] : 1955 69 From: Leon Boyd MD Primary Care: Dr. Rob Back MD Status: REG CLI Referring Dr: Yunior Edgar MD Sex: M C Stress Test Report Pharmacologic myocardial perfusion stress test. 69-year-old man with a history of dyspnea on exertion Resting EKG demonstrates sinus rhythm with a rate of 76 bpm. Resting blood pressure is 146/88 mmHg. 0.4 mg of regadenoson was infused per usual protocol followed by rapid intravenous saline flush injection. Continuous EKG monitoringwas performed. The maximum heart rate was 111 bpm which was 72% of max impactedheart rate the maximum workload was 1 metabolic equivalent. At rest there were no ST or T wave changes noted to suggest ischemia and at peak infusion nonspecific ST changes were noted which did not meet the criteria for ischemia. No clinical angina is noted. The final blood pressure was 128/80 mmHg. Myocardial perfusion protocol. 14.8 mCi of technetium 99m sestamibi was injected at rest. 0.4 mg of regadenoson was infused per usual protocol. At peak infusion 44.5 mCi of technetium 99m sestamibi was injected stress images were obtained stress and rest images were reconstructed and compared in the short axis vertical long and horizontal long axis. Gated images were also obtained. Perfusion SPECT analysis: Review of the stress images demonstrate normal uptake of tracer noted in all areas of the myocardium. The resting images similar demonstrated normal uptake of tracer noted in all areas of the myocardium. No areas of reversibility are noted to suggest ischemia and no previous infarct is noted. Gated SPECT analysis: The gated ejection fraction is 63%. Conclusion: Normal pharmacologic myocardial perfusion stress test. Preserved ejection fraction. 07/29/241717 Date _ Leon Boyd MD CC: Dr. Yunior Edgar MD; Dr. Rob Back MD ~ Date Dictated: 07/29/241716 Date Transcribed: 07/29/241716 Manager Social Responsibility: [place] Signed [facility] Work Phone: Echo Complete W/ Contraston 07-29-2024 Echo Complete W/ Contrast [facility] [address] [place] [id number] Echo Complete W/ Contrast 07/29/24825 MR#: [id number] Acct: [id number] Name: LAUREN ESCALANTE Rep #: [id number] : 1955 69 From: Leon Boyd MD Attending Dr: Dr. Yunior Edgar MD Status: REG C Ordering Dr: Yunior Edgar MD Date: 07/29/24 Location: CVS Sex: M C Admitted: Reason For Study : DYSPNEA/SOB Procedure This was a 2D Doppler, Color Flow transthoracic echocardiogram. The study was technically difficult. Exam performed in department. Left Ventricle Normal LV size. Mild concentric left ventricular hypertrophy. Left ventricular systolic function is normal. The left ventricular ejection fraction is 60 %. Stage 1 diastolic dysfunction. No regional wall motion abnormalities noted. Right Ventricle Normal RV size. Normal systolic function. Atria Normal left atrium. Normal right atrium. Mitral Valve Normal mitral valve. Tricuspid Valve Normal tricuspid valve. Mild tricuspid valve insufficiency. Pulmonary artery systolic pressure is 26 mmHg. Aortic Valve Trisinus/trileaflet aortic valve. Pulmonic Valve Normal pulmonic valve. Great Vessels Normal aortic root. The pulmonary artery is normal size. Inferior vena cava collapse with respiration. Pericardium/Pleural No pericardial effusion. Medication Diluted definity 2ml given slow IV push to enhance endocardial definition. Performed a rapid injection of agitated mix of 9 cc saline and 1cc air to assess for atrial septal defect. MMode/2D Measurements Calculations LVIDd: 4.3 cm IVSd: 1.3 cm Ao root diam: 3.2 cm LVIDs: 2.9 cm LVPWd: 1.3 cm RVDd: 3.1 cm FS: 30.8 % __ LAV(MOD-bp): 33.5 ml LVAd ap4: 30.9 cm2 SV(MOD-sp4): 55.9 ml LAV(MOD-bp) Indexed: 14.5 ml/m2 LVLd ap4: 8.1 cm SI(MOD-sp4): 24.1 ml/m2 LAV(MOD-sp2): 35.9 ml EDV(MOD-sp4): 98.0 ml LAV(MOD-sp4): 29.7 ml EDV(sp4-el): 100.0 ml LVAs ap4: 18.1 cm2 LVLs ap4: 7.0 cm ESV(MOD-sp4): 42.1 ml ESV(sp4-el): 39.9 ml EF(MOD-sp4): 57.0 % EF(sp4-el): 60.1 % __ SV(sp4-el): 60.1 ml LA A4 area: 13.1 cm2 LA dimension(2D): 3.5 cm __ RA A4 area: 13.1 cm2 TAPSE: 2.2 cm Time Measurements MV dec time: 0.27 sec Doppler Measurements Calculations MV E max irasema: 39.9 cm/sec Lat Peak E' Irasema: 6.2 cm/sec Med Peak E' Irasema: 6.4 cm/sec MV A max irasema: 87.9 cm/sec E/E' lat: 6.5 E/E' med: 6.2 MV E/A: 0.45 __ Ao V2 max: 116.4 cm/sec LV V1 max: 88.3 cm/sec PA V2 max: 128.2 cm/sec Ao max P.4 mmHg LV V1 max P.1 mmHg __ TR max irasema: 240.5 cm/sec TR max P.1 mmHg ECHO/Echo Complete W/ Contrast Interpretation Summary Normal LV size. Left ventricular systolic function is normal. The left ventricular ejection fraction is 60 %. Mild concentric left ventricular hypertrophy. Stage 1 diastolic dysfunction. Contrast injection was performed. __ Ordering Physician: Yunior Edgar Referring Physician: ROB BACK Performed By: Jessica Lizama RDCS 07/29/24 1608 Date Leon Boyd MD CC: Dr. Yunior Edgar MD; Dr. Rob Back MD Date Dictated: 07/29/24825 Date Transcribed: 07/29/24 1607 Manager Social Responsibility: Signed Normal [facility] Echocardiogram study reportO rdered By: Leon Boyd on 07-29-2024 Study report [facility] Cardi[facility] [place] [address] Echo Complete W/ Contrast 07/29/24825 MR#: [id number] Acct: [id number] Name: LAUREN ESCALANTE Rep #:[id number] : 1955 69 From: Leon Hurtado Attending Dr: Dr. Yunior Edgar MD S tatus: REG CLI Ordering Dr: Yunior Edgar MD Date: 06/23 Location: CVS Sex: M C Admitted: Reason For Study : DYSPNEA/SOB Procedure This was a 2D Doppler, Color Flow transthoracic echocardiogram. The study was technically difficult. Exam performed in department. Left Ventricle Normal LV size. Mild concentric left ventricular hypertrophy. Left ventricular systolic function is normal. The left ventricular ejection fraction is 60 %. Stage 1 diastolic dysfunction. No regional wall motion abnormalities noted. Right Ventricle Normal RV size. Normal systolic function. Atria Normal left atrium. Normal right atrium. Mitral Valve Normal mitral valve. Tricuspid Valve Normal tricuspid valve. Mild tricuspid valve insufficiency. Pulmonary artery systolic pressure is 26 mmHg. Aortic Valve Trisinus/trileaflet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 of symptoms and patient's history of not adequately controlled hypertension my concern is that patient is having some sort of cardiac event Ihave recurrent referred patient to the emergency department. Patient states he will make arrangements to take care of his dog and go to [place] emergency room. 1. Secondary hypertension 2. Dyspnea, unspecified type 3. Chest pain, unspecified type No follow-ups on file. Subjective This is a pleasant 67-year-old gentleman with past medical history significant for ADHD, hypertension, and obesity who presents today for various symptoms. Patient states that approximately 3 weeks he is having difficulty completing tasks that he was previously able to complete without interference. Patient reports increased shortness of breath especially when exerting himself such as going up stairs, overall lack of energy, palpitations, chest tightness and chest pain, and generalized weakness. Denies headache, blurred vision, dizziness. Patient reports compliance with medications except for his Adderall which he states he has not been taking since onset of symptoms. Review of Systems Constitutional: Positive for activity change. Respiratory: Positive for chest tightness and shortness of breath. Cardiovascular: Positive for chest pain and palpitations. Neurological: Positive for weakness. No Known Allergies Current Outpatient Medications Medication Sig Dispense Refill amLODIPine (Norvasc) 10 MG tablet Take 10 mg by mouth in the morning. amphetamine-dextroa mphetamine (Adderall) 20 MG tablet Take 1 tablet by mouth 2 times daily. lisinopril 40 MG tablet Take 40 mg by mouth in the morning. meloxicam (Mobic) 15 MG tablet Take 15 mg by mouth daily. QUEtiapine (SEROquel) 25 MG tablet Take 25 mg by mouth Nightly. venlafaxine XR (Effexor XR) 37.5 MG 24 hr capsule Take 37.5 mg by mouth daily. No current facility-administer ed medications for this visit. Past Medical History: Diagnosis Date Depression Hypertension Social History Tobacco Use Smoking status: Never Smokeless tobacco: Never Substance Use Topics Alcohol use: Never Past Surgical History: Procedure Laterality Date APPENDECTOMY HERNIA REPAIR KNEE CARTILAGE SURGERY TONSILLECTOMY (HISTORICAL) Family History Problem Relation Name Age of Onset Heart disease Mother Ovarian cancer Mother High Blood Pressure Mother Objective BP (!) 146/96 Pulse (!) 112 Ht 6' 1 (1.854 m) Wt 239 lb (108 kg) SpO2 96% BMI 31.53 kg/m? Physical Exam Vitals reviewed. Constitutional: Appearance: Normal appearance. Cardiovascular: Rate and Rhythm: Normal rate and regular rhythm. Heart sounds: Normal heart sounds. Pulmonary: Effort: Pulmonary effort is normal. Breath sounds: Normal breath sounds. Musculoskeletal: General: Normal range of motion. Neurological: General: No focal deficit present. Mental Status: He is alert. Psychiatric: Mood and Affect: Mood normal. Data Reviewed and Summarized Labs: Imaging/Testing: Osman Brand APRN - [facility] 36on 07-20-2024 36 S: Patient spoke with [facility] nurse regarding SOB with exertion, weak, HR concerns B: Onset of symptoms/concern 3 weeks A: Patient is SOB, weak. Resting HR is 120 (used his pulse ox), pulse ox in the high 90s. Results were from 07/21/2024. Patient has had multiple episodes with exertion, then elevated heartrate. Patient was told for a mitral valve prolapse, then told he didn't have it. Patient had blacked out at work about 1 1/2 years ago. Patient has been dizzy at times lately. Patient has had angina. R: Patient scheduled on 07/24/2024 at 10:20 am with Chava Brand [facility]. Insurance verified. Patient instructed to arrive 15 minutes prior to appointment, bring photo ID, insurance cards, copayment if required. Patient instructed to call back with new or worsening symptoms. Reason for Disposition Palpitations and no improvement after following Care Advice Protocols used: Heart Rate and Heartbeat [id number]-[place] [facility] 36on 03-06-2024 36 Pt informed, encouraged him to schedule a follow up after the first of the year when he has insurance [facility] 36 S: Patient spoke with [facility] nurse regarding medication request B: Onset of symptoms/concern several months A: Patient having generalized oint pain today, requesting prednisone to be ordered. Patient is active, still able to move around. Patient has aching and stiffness, 5/10 pain. Noted in chart, patient was ordered prednisone 20 mg tablets in the past to take as needed for severe joint pain. Last RX was 05/16/2022. GARCIA-02/14/2023 Allergies & pharmacy verified. Patient is currently without insurance, states he should have it starting April 2024. R: Message sent to provider's office for review. Reason for Disposition Caller has NON-URGENT medicine question about med that PCP or specialist prescribed and triager unable to answer question Protocols used: Medication [facility] 09-27-2023 36 S: Patient spoke with [facility] nurse regarding achy joints B: Onset of symptoms/concern couple days A: Patient states all his joints ache. States this last happened 06/24/[address] Back prescribed Prednisone 20 mg to be taken daily as needed for joint pain. He is requesting a precription for the prednisone be sent to his pharmacy: [facility] [address] [place] [address] in [place]. R: Please call patient at # [phone] when prescription sent to pharmacy or with further recommendations. Allergies and Pharmacy reviewed. No further needs at this time. Reason for Disposition Prescription refill request for NON-ESSENTIAL medicine (i.e., no harm to patient if med not taken) and triager unable to refill per department policy Prescription request for new medicine (not a refill) Protocols used: Medication Refill and Renewal [id number], Medication Question [facility] .Auto Diffon 12-29-2021 Basophil, Absolute 0.0 10 3/mcL Normal 0.0-0.2 [facility] ([place]) Comment on above: Performed By: #### B MP, GFR #### [address] [address] Basophils/100 WBC (Bld) 0.5 % Normal 0.0-2.5 [facility] ([place]) Comment on above: Performed By: #### B MP, GFR #### [address] [address] Eosinophil, Absolute 0.0 10 3/mcL Normal 0.0-0.4 [facility] ([place]) Comment on above: Performed By: #### B MP, GFR #### [address] [address] Eosinophils/100 WBC (Bld) 0.3 % Normal 0.0-7.0 [facility] ([place]) Comment on above: Performed By: #### B MP, GFR #### [address] [address] Lymphocyte, Absolute 1.9 10 3/mcL Normal 0.8-3.9 [facility] ([place]) Comment on above: Performed By: #### B MP, GFR #### [address] [address] Lymphocytes/100 WBC (Bld) 24.4 % Normal 10.0-50.0 [facility] ([place]) Comment on above: Performed By: #### B MP, GFR #### [address] [address] Monocyte, Absolute 0.5 10 3/mcL Normal 0.2-1.0 [facility] ([place]) Comment on above: Performed By: #### B MP, GFR #### [address] [address] Monocytes/100 WBC (Bld) 6.4 % Normal 1.7-13.0 A [facility] ([place]) Comment on above: Performed By: #### B MP, GFR #### [address] [address] Neutrophils/100 WBC (Bld) 68.4 % Normal 37.0-80.0 [facility] ([place]) Comment on above: Performed By: #### B MP, GFR #### [address] [address] .GFRon 12-29-2021 GFR 92 ml/min/1.73sqm Normal [facility] ([place]) Comment on above: Result Comment: GFR Population mean for , Non- Americans Ages 20-29 = 116 mL/min/1.73 sq.m. Ages 30-39 = 107 mL/min/1.73 sq.m. Ages 40-49 = 99 mL/min/1.73 sq.m. Ages 50-59 = 93 mL/min/1.73 sq.m. Ages 60-69 = 85 mL/min/1.73 sq.m. Ages 70+ = 75 mL/min/1.73 sq.m. Chronic Kidney Disease: Less than 60 mL/min/1.73 square meters End Stage Renal Disease: Less than 15 mL/min/1.73 square meters Performed By: #### B MP, GFR #### [address] [address] GFR Non- 76 ml/min/1.73sqm Normal [facility] ([place]) Comment on above: Result Comment: GFR Population mean for , Non- Americans Ages 20-29 = 116 mL/min/1.73 sq.m. Ages 30-39 = 107 mL/min/1.73 sq.m. Ages 40-49 = 99 mL/min/1.73 sq.m. Ages 50-59 = 93 mL/min/1.73 sq.m. Ages 60-69 = 85 mL/min/1.73 sq.m. Ages 70+ = 75 mL/min/1.73 sq.m. Chronic Kidney Disease: Less than 60 mL/min/1.73 square meters End Stage Renal Disease: Less than 15 mL/min/1.73 square meters Performed By: #### B MP, GFR #### [address] [address] .NEUABSon 12-29-2021 Neutrophil, Absolute 5.2 10 3/mcL Normal 2.9-6.2 [facility] ([place]) Comment on above: Performed By: #### B MP, GFR #### [address] [address] BMPon 12-29-2021 BUN/Creatinine Ratio 21 ratio Normal 7-27 [facility] ([place]) Comment on above: Performed By: #### B MP, GFR #### [address] [address] Calcium [Mass/Vol] 9.1 mg/dL Normal 8.4-10.2 Counts include 234 beds at the [facility] ([place]) Comment on above: Performed By: #### B MP, GFR #### [address] [address] Chloride [Moles/Vol] 108 mmol/L High 98-107 [facility] ([place]) Comment on above: Performed By: #### B MP, GFR #### [address] [address] CO2 [Moles/Vol] 27 mmol/L Normal 23-31 [facility] ([place]) Comment on above: Performed By: #### B MP, GFR #### [address] [address] Creatinine [Mass/Vol] 0.99 mg/dL Normal 0.70-1.30 [facility] ([place]) Comment on above: Performed By: #### B MP, GFR #### [address] [address] Electrolyte Balance 9.0 mEq/L Normal 4.0-15.0 [facility] ([place]) Comment on above: Performed By: #### B MP, GFR #### [address] [address] Glucose [Mass/Vol] 108 mg/dL Normal 80-115 Counts include 234 beds at the [facility] ([place]) Comment on above: Performed By: #### B MP, GFR #### [address] [address] Potassium [Moles/Vol] 4.4 mmol/L Normal 3.5-5.1 [facility] ([place]) Comment on above: Performed By: #### B MP, GFR #### [address] [address] Sodium [Moles/Vol] 144 mmol/L Normal 136-145 Counts include 234 beds at the [facility] ([place] Comment on above: Performed By: #### B MP, GFR #### [address] [address] Urea nitrogen [Mass/Vol] 21 mg/dL High 7-18 [facility] ([place]) Comment on above: Performed By: #### B MP, GFR #### [address] [address] CBCon 12-29-2021 Erythrocyte distribution width (RBC) [Ratio] 13.2 % Normal 11.5-14.5 [facility] ([place] Comment on above: Performed By: #### B MP, GFR #### [address] [address] Hematocrit (Bld) [Volume fraction] 42.7 % Normal 42.0-52.0 [facility] ([place] Comment on above: Performed By: #### B MP, GFR #### [address] [address] Hgb 14.7 G/dL Normal 14.0-18.0 [facility] ([place] Comment on above: Performed By: #### B MP, GFR #### [address] [address] MCH (RBC) [Entitic mass] 31.2 pg Normal 27.0-31.2 [facility] ([place] Comment on above: Performed By: #### B MP, GFR #### [address] [address] MCHC 34.5 G/dL Normal 31.8-35.4 [facility] ([place] Comment on above: Performed By: #### B MP, GFR #### [address] [address] MCV (RBC) [Entitic vol] 90.4 fL Normal 80.0-94.0 A [facility] ([place] Comment on above: Performed By: #### B MP, GFR #### [address] [address] Platelet 284 10 3/mcL Normal 130-400 [facility] ([place] Comment on above: Performed By: #### B MP, GFR #### [address] [address] Platelet mean volume (Bld) [Entitic vol] 9.2 fL Normal 7.4-10.4 [facility] ([place] Comment on above: Performed By: #### B MP, GFR #### [address] [place], [place] [address] RBC 4.72 10 6/mcL Normal 4.04-6.13 [facility] ([place] Comment on above: Performed By: #### B MP, GFR #### [address] [place], [place] [address] WBC 7.6 10 3/mcL Normal 4.6-10.8 [facility] ([place] Comment on above: Performed By: #### B MP, GFR #### [address] [place], [place] [address] LABORATORYOrdered By: Annmarie Rutledge on 12-29-2021 Basophil, Absolute 0.0 103/mcL Invalid Interpretation Code 0.0 - 0.2 10^3/mcL AO Workflow SS Basophils/100 WBC (Bld) 0.5 % Invalid Interpretation Code 0.0 - 2.5 % AO Workflow SS Eosinophil, Absolute 0.0 103/mcL Invalid Interpretation Code 0.0 - 0.4 10^3/mcL AO Workflow SS Eosinophils/100 WBC (Bld) 0.3 % Invalid Interpretation Code 0.0 - 7.0 % AO Workflow SS Erythrocyte distribution width (RBC) [Ratio] 13.2 % Invalid Interpretation Code 11.5 - 14.5 % AO Workflow SS Hematocrit (Bld) [Volume fraction] 42.7 % Invalid Interpretation Code 42.0 - 52.0 % AO Workflow SS Hemoglobin (Bld) [Mass/Vol] 14.7 G/dL Invalid Interpretation Code 14.0 - 18.0 G/dL AO Workflow SS Lymphocyte, Absolute 1.9 103/mcL Invalid Interpretation Code 0.8 - 3.9 10^3/mcL AO Workflow SS Lymphocytes/100 WBC (Bld) 24.4 % Invalid Interpretation Code 10.0 - 50.0 % AO Workflow SS MCH (RBC) [Entitic mass] 31.2 pg Invalid Interpretation Code 27.0 - 31.2 pg AO Workflow SS MCHC 34.5 G/dL Invalid Interpretation Code 31.8 - 35.4 G/dL AO Workflow SS MCV (RBC) [Entitic vol] 90.4 fL Invalid Interpretation Code 80.0 - 94.0 fL AO Workflow SS Monocyte, Absolute 0.5 103/mcL Invalid Interpretation Code 0.2 - 1.0 10^3/mcL AO Workflow SS Monocytes/100 WBC (Bld) 6.4 % Invalid Interpretation Code 1.7 - 13.0 % AO Workflow SS Neutrophil, Absolute 5.2 103/mcL Invalid Interpretation Code 2.9 - 6.2 10^3/mcL AO Workflow SS Neutrophils/100 WBC (Bld) 68.4 % Invalid Interpretation Code 37.0 - 80.0 % AO Workflow SS Platelet mean volume (Bld) [Entitic vol] 9.2 fL Invalid Interpretation Code 7.4 - 10.4 fL AO Workflow SS Platelets (Bld) [#/Vol] 284 103/mcL Invalid Interpretation Code 130 - 400 10^3/mcL AO Workflow SS RBC (Bld) [#/Vol] 4.72 106/mcL Invalid Interpretation Code 4.04 - 6.13 10^6/mcL AO Workflow SS WBC (Bld) [#/Vol] 7.6 103/mcL Invalid Interpretation Code 4.6 - 10.8 10^3/mcL AO Workflow SS LABORATORYOrdered By: Mary York on 12-29-2021 Calcium [Mass/Vol] 9.1 mg/dL Invalid Interpretation Code 8.4 - 10.2 mg/dL AO ADM SS Chloride [Moles/Vol] 108 mmol/L Invalid Interpretation Code 98 - 107 mmol/L AO ADM SS CO2 [Moles/Vol] 27 mmol/L Invalid Interpretation Code 23 - 31 mmol/L AO ADM SS Creatinine [Mass/Vol] 0.99 mg/dL Invalid Interpretation Code 0.70 - 1.30 mg/dL AO ADM SS Electrolyte Balance 9.0 mEq/L Invalid Interpretation Code 4.0 - 15.0 mEq/L AO ADM SS Glucose [Mass/Vol] 108 mg/dL Invalid Interpretation Code 80 - 115 mg/dL AO ADM SS Potassium [Moles/Vol] 4.4 mmol/L Invalid Interpretation Code 3.5 - 5.1 mmol/L AO ADM SS Sodium [Moles/Vol] 144 mmol/L Invalid Interpretation Code 136 - 145 mmol/L AO ADM SS Urea nitrogen [Mass/Vol] 21 mg/dL Invalid Interpretation Code 7 - 18 mg/dL AO ADM SS Urea nitrogen/Creatinine [Mass ratio] 21 ratio Invalid Interpretation Code 7 - 27 ratio AO ADM SS LABORATORYOrdered By: SYSTEM SYSTEM on 12-29-2021 GFR 92 ml/min/1.73sqm Invalid Interpretation Code AO Chemistry S GFR Non- 76 ml/min/1.73sqm Inval id Interpretation Code AO Chemistry S MRI Knee w/o Righton 022 MRI Knee w/o Right Submitted Clinical Information: Knee pain Study Technique: MRI of the right knee was performed using routine protocols. Sequences were obtained in the axial, sagittal, and coronal planes. Comparisons: None Findings: No acute fracture or destructive osseous lesion. Medial femorotibial compartment: No marrow edema in the medial femorotibial compartment. Horizontal tear in body and posterior horn of medial meniscus. Mild chondral thinning in central weight bearing medial femoral condyle. Rest of the articular cartilage and medial collateral ligament are intact. Lateral femorotibial compartment: No marrow edema in the lateral femorotibial compartment. Articular cartilage, lateral meniscus, fibular collateral ligament, iliotibial band, biceps femoris and popliteus are intact. Patellofemoral compartment: Patella is normal in position. Extensor mechanism is intact. 0.7 cm intermediate to high grade chondral loss in superomedial facet of patella. Rest of the articular cartilage and patellofemoral ligaments are intact. Cruciate ligaments: Anterior and posterior cruciate ligaments are intact. Mild joint effusion. No Egan's cyst. Neurovascular structures are unremarkable. Impressions: 1. Horizontal tear in body and posterior horn of medial meniscus. 2. Mild chondral thinning in central weight bearing medial femoral condyle. 3. 0.7 cm intermediate to high grade chondral loss in superomedial facet of patella. Referring physician: The radiologist can be reached at [phone] if you would like to discuss the findings. END OF REPORT 1424 Normal [place] [employer] CR Knee Complete 4+ Views Shazia gomez 11-06-2021 CR Knee Complete 4+ Views Right Patient Name: LAUREN ESCALANTE Diagnostic Radiology ACCESSION EXAM DATE/TIME PROCEDURE ORDERING PROVIDER [id number] 11/06/2021 14:03 EDT CR Knee Complete 4+ MD SARAN, LAUREN H Views Right CPT code 36774 Reason For Exam (CR Knee Complete 4+ Views Right) pain Report CLINICAL INFORMATION: Right knee pain. AP, tunnel, lateral, and sunrise views of the right knee are provided. There are no comparison studies. FINDINGS: Mild degenerative changes are noted with spurring of the tibial spine. There is no evidence of fracture or dislocation. No joint effusion is seen. The bone mineralization is within normal limits. IMPRESSION: 1. Mild degenerative changes. 2. No fracture or effusion. Report Dictated on Final Dictating Physician: MD TOBAR JEFFREY Signed Date and Time: 11/08/2021 10:12 am Signed by: MD TOBAR JEFFREY Transcribed Date and Time: 11/08/2021 10:13 Normal [facility] US Abdomen Completeon 2020 US Abdomen Complete Patient Name: LAUREN ESCALANTE Ultrasound ACCESSION EXAM DATE/TIME PROCEDURE ORDERING PROVIDER [id number] 02/15/2021 15:38 EDT US Abdomen Complete Hakan LOFTON MICHAEL CPT code 95414 Reason For Exam (US Abdomen Complete) cholecystitis Report Indication: Right upper quadrant pain. Ultrasound of the abdomen was performed. The liver is dense consistent with fatty infiltration and/or hepatocellular disease. There are no focal intrahepatic masses. The gallbladder is visualized and is without evidence of cholelithiasis. There is no intra or extrahepatic biliary ductal dilatation. The common bile duct measures 3.8 mm. The pancreas is suboptimally visualized due to overlying bowel gas. Cursory evaluation of the kidneys shows no evidence of hydronephrosis. A 1.9 x 1.6 x 1.6 cm exophytic left renal cyst is visualized. This appears to be simple. The spleen is not enlarged. The proximal portions of the aorta and IVC are within normal limits. Impression: 1. Dense liver consistent with fatty infiltration and/or hepatocellular disease. No evidence of cholelithiasis or biliary ductal dilatation. 2. 1.9 cm left renal cyst. 3. Suboptimal visualization of the pancreas. Report Dictated on Final Dictating Physician: DO GUEVARA ANTHONY Signed Date and Time: 02/16/2021 9:04 am Signed by: DO GUEVARA ANTHONY Transcribed Date and Time: 02/16/2021 9:05 Normal [facility] XR Shoulder Right 2 VWon Patient Name: LAUREN ESCALANTE Diagnostic Radiology ACCESSION EXAM DATE/TIME PROCEDURE ORDERING PROVIDER [id number] 04/07/2020 16:35 EST CR Shoulder 2+ Views Hakan LOFTON MICHAEL Right CPT code 66042 Reason For Exam (CR Shoulder 2+ Views Right) Unspecified Fracture of upper end of right humerus, S42.201D Report RIGHT SHOULDER 4 VIEWS CLINICAL INDICATION: Unspecified Fracture of upper end of right humerus, S42.201D TECHNIQUE: 4 views of the right shoulder. COMPARISON: None. FINDINGS: No acute fracture or dislocation. Mild degenerative change in the glenohumeral joint and more pronounced degenerative change in the AC joint, with somewhat lateral downward tilting acromion process. Soft tissues grossly unremarkable. IMPRESSION: 1. No acute osseous abnormality. 2. Degenerative change. Report Dictated on Workstation: MAURILIO --- Final --- Dictating Physician: MD MONACO WENDELL Signed Date and Time: 04/07/2020 5:25 pm Signed by: MD MONACO WENDELL Transcribed Date and Time: 04/07/2020 5:26 [facility], [facility], [facility] Incoming Rad[facility] - 04/07/2020 5:27 PM EST Patient Name: LAUREN ESCALANTE Diagnostic Radiology ACCESSION EXAM DATE/TIME PROCEDURE ORDERING PROVIDER [id number] 04/07/2020 16:35 EST CR Shoulder 2+ Views Hakan LOFTON MICHAEL Right CPT code 85736 Reason For Exam (CR Shoulder 2+ Views Right) Unspecified Fracture of upper end of right humerus, S42.201D Report RIGHT SHOULDER 4 VIEWS CLINICAL INDICATION: Unspecified Fracture of upper end of right humerus, S42.201D TECHNIQUE: 4 views of the right shoulder. COMPARISON: None. FINDINGS: No acute fracture or dislocation. Mild degenerative change in the glenohumeral joint and more pronounced degenerative change in the AC joint, with somewhat lateral downward tilting acromion process. Soft tissues grossly unremarkable. IMPRESSION: 1. No acute osseous abnormality. 2. Degenerative change. Report Dictated on Workstation: MAURILIO --- Final --- Dictating Physician: MD MONACO WENDELL Signed Date and Time: 04/07/2020 5:25 pm Signed by: MD MONACO WENDELL Transcribed Date and Time: 04/07/2020 5:26 [place], [place] Comprehensive Metabolic Pane hubert 02-11-2019 Albumin [Mass/Vol] 4.0 g/dL 3.5 - 5 g/dL [place], [place] ALP [Catalytic activity/Vol] 65 U/L 38 - 126 U/L [place] ALT [Catalytic activity/Vol] 38 U/L 13 - 69 U/L [place] Anion gap [Moles/Vol] 9 mmol/L [place], [place] AST [Catalytic activity/Vol] 29 U/L 15 - 46 U/L [place] Bilirubin Ql (U) 0.4 mg/dL 0.2 - 1.3 mg/dL [place] Calcium [Mass/Vol] 9.3 mg/dL 8.4 - 10. 4 mg/dL [place] Chloride [Moles/Vol] 108 mmol/L High 98 - 10 7 mmol/L [place] CO2 [Moles/Vol] 26 mmol/L 22 - 30 mmol/L [place] Creatinine [Mass/Vol] 0.84 mg/dL 0.52 - 1.25 mg/dL [place] EGFR IF NonAfrican Macedonian >60.0 >60 mL/min [place] Comment on above: Source- MDRD equatio n with creatinine calibration to IDMS(NKDEP) eGFR not recommended for drug dose adjustment GFR/1.73 sq M predicted among blacks MDRD (S/P/Bld) [Vol rate/Area] mL/min/{1.73_m2} >60 mL/min [place] Glucose [Mass/Vol] 80 mg/dL 70 - 100 mg/dL [place] Interpretation and review of laboratory results Abnormal [place] Potassium [Moles/Vol] 4.3 mmol/L 3.5 - 5.1 mmol/L [facility], [place] Protein [Mass/Vol] 6.7 g/dL 6.3 - 8.2 g/dL [place] Sodium [Moles/Vol] 143 mmol/L 135 - 145 mmol/L [facility], [place] Urea nitrogen [Mass/Vol] 18 mg/dL 7 - 20 mg/d L [place], [place] Test Performed by [facility], [address] [place] [address]. , [address] Otheron 04-18-1999 CONVERTED FINAL DIAGNOSIS A&B) TWO SEGMENTS OF TRANSECTED VAS DEFERENS, CLINICALLY RIGHT AND LEFT. [facility] CONVERTED ORDERING PROVIDER Ordering Provider: SOO HUERTA [facility] Thyroidon 04-18-1999 TSH Eric DELATORRE M.D., PATHOLOGIST (Electronic signature on file) Final Signed Out: 04/18/1999 15:15 [facility] Vital Signs Date Time Vital Sign Value Performing Clinician Dilani marce 09-14-2024 14:39-0400 Body height 185.[address] Yunior Edgar MD Work Phone: [facility] 09-14-2024 14:39-0400 Body mass index (BMI) [Ratio] 31.8 kg/m2 Dr. Yunior Edgar MD Work Phone: [facility] 09-14-2024 14:39-0400 Body weight 109.[address] Yunior Edgar MD Work Phone: [facility] 09-14-2024 14:39-0400 Diastolic blood pressure 89 mm[Hg] Dr. Yunior Edgar MD Work Phone: [facility] 09-14-2024 14:39-0400 Heart rate 109 /min Dr. Yunior Edgar MD Work Phone: [facility] 09-14-2024 14:39-0400 Respiratory rate 18 /min Dr. Yunior Edgar MD Work Phone: [facility] 09-14-2024 14:39-0400 SaO2% (BldA) [Mass fraction] 96 % Dr. Yunior Edgar MD Work Phone: [facility] 09-14-2024 14:39-0400 Systolic blood pressure 160 mm[Hg] Dr. Yunior Edgar MD Work Phone: [facility] 09-10-2024 08:09-0400 Body height 185.4 cm Osman Brand SLOT SUPERVISOR - AGRICULTURAL INSPECTOR Work Phone: [facility] 09-10-2024 08:09-0400 Body mass index (BMI) [Ratio] 31.66 kg/m2 Osman Brand SLOT SUPERVISOR - AGRICULTURAL INSPECTOR Work Phone: [facility] 09-10-2024 08:09-0400 Body weight 108.86 kg Osman Brand SLOT SUPERVISOR - AGRICULTURAL INSPECTOR Work Phone: [facility] 09-10-2024 08:09-0400 Diastolic blood pressure 84 mm[Hg] Osman Brand SLOT SUPERVISOR - AGRICULTURAL INSPECTOR Work Phone: [facility] 09-10-2024 08:09-0400 Heart rate 104 /min Osman Brand SLOT SUPERVISOR - AGRICULTURAL INSPECTOR Work Phone: [facility] 09-10-2024 08:09-0400 SaO2% (BldA) [Mass fraction] 95 % Osman Brand SLOT SUPERVISOR - AGRICULTURAL INSPECTOR Work Phone: [facility] 09-10-2024 08:09-0400 Systolic blood pressure 135 mm[Hg] Osman Brand SLOT SUPERVISOR - AGRICULTURAL INSPECTOR Work Phone: [facility] 09-02-2024 10:36-0400 Body height 185.4 cm Rob Back MD Work Phone: [facility] 09-02-2024 10:36-0400 Body mass index (BMI) [Ratio] 31.14 kg/m2 Rob Back MD Work Phone: [facility] 09-02-2024 10:36-0400 Body weight 107.05 kg Rob Back MD Work Phone: [facility] 09-02-2024 10:36-0400 Diastolic blood pressure 85 mm[Hg] Rob Back MD Work Phone: [facility] 09-02-2024 10:36-0400 Heart rate 100 /min Rob Back MD Work Phone: [facility] 09-02-2024 10:36-0400 SaO2% (BldA) [Mass fraction] 98 % Rob Back MD Work Phone: [facility] 09-02-2024 10:36-0400 Systolic blood pressure 144 mm[Hg] Rob Back MD Work Phone: [facility] 08-27-2024 08:07-0400 Body mass index (BMI) [Ratio] 31.9 kg/m2 Dr. Yunior Edgar MD Work Phone: [facility] 08-27-2024 08:07-0400 Body temperature 97.5 [degF] Dr. Yunior Edgar MD Work Phone: [facility] 08-27-2024 08:07-0400 Body weight 109.[address] Yunior Edgar MD Work Phone: [facility] 08-27-2024 08:07-0400 Diastolic blood pressure 91 mm[Hg] Dr. Yunior Edgar MD Work Phone: [facility] 08-27-2024 08:07-0400 Heart rate 96 /min Dr. Yunior Edgar MD Work Phone: [facility] 08-27-2024 08:07-0400 Respiratory rate 18 /min Dr. Yunior Edgar MD Work Phone: [facility] 08-27-2024 08:07-0400 SaO2% (BldA) [Mass fraction] 95 % Dr. Yunior Edgar MD Work Phone: [facility] 08-27-2024 08:07-0400 Systolic blood pressure 137 mm[Hg] Dr. Yunior Edgar MD Work Phone: [facility] 08-05-2024 13:23-0400 Body height 185.4 cm Rob Back MD Work Phone: [facility] 08-05-2024 13:23-0400 Body mass index (BMI) [Ratio] 31.4 kg/m2 Rob Back MD Work Phone: [facility] 08-05-2024 13:23-0400 Body weight 107.96 kg Rob Back MD Work Phone: [facility] 08-05-2024 13:23-0400 Diastolic blood pressure 85 mm[Hg] Rob Back MD Work Phone: [facility] 08-05-2024 13:23-0400 Heart rate 113 /min Rob Back MD Work Phone: [facility] 08-05-2024 13:23-0400 SaO2% (BldA) [Mass fraction] 98 % Rob Back MD Work Phone: [facility] 08-05-2024 13:23-0400 Systolic blood pressure 159 mm[Hg] Rob Back MD Work Phone: [facility] 07-25-2024 15:47-0400 Diastolic blood pressure 83 mm[Hg] Dr. Yunior Edgar MD Work Phone: [facility] 07-25-2024 15:47-0400 Heart rate 103 /min Dr. Yunior Edgar MD Work Phone: [facility] 07-25-2024 15:47-0400 Respiratory rate 15 /min Dr. Yunior Edgar MD Work Phone: [facility] 07-25-2024 15:47-0400 SaO2% (BldA) [Mass fraction] 96 % Dr. Yunior Edgar MD Work Phone: [facility] 07-25-2024 15:47-0400 Systolic blood pressure 160 mm[Hg] Dr. Yunior Edgar MD Work Phone: [facility] 07-25-2024 13:14-0400 Body temperature 98 [degF] Dr. Yunior Edgar MD Work Phone: [facility] 07-25-2024 11:11-0400 Body height 185.[address] Yunior Edgar MD Work Phone: [facility] 07-25-2024 11:11-0400 Body mass index (BMI) [Ratio] 31.5 kg/m2 Dr. Yunior Edgar MD Work Phone: [facility] 07-25-2024 11:11-0400 Body weight 108.[address] Yunior Edgar MD Work Phone: [facility] 07-24-2024 10:41-0400 Body height 185.4 cm Osman Brand APRN - AGRICULTURAL INSPECTOR Work Phone: [facility] [employer] 07-24-2024 10:41-0400 Body mass index (BMI) [Ratio] 31.53 kg/m2 Osman Brand APRN - AGRICULTURAL INSPECTOR Work Phone: [facility] [employer] 07-24-2024 10:41-0400 Body weight 108.41 kg Osman Brand APRN - AGRICULTURAL INSPECTOR Work Phone: [facility] [employer] 07-24-2024 10:41-0400 Diastolic blood pressure 96 mm[Hg] Osman Brand APRN - AGRICULTURAL INSPECTOR Work Phone: [facility] [employer] 07-24-2024 10:41-0400 Heart rate 112 /min Osman Brand APRN - AGRICULTURAL INSPECTOR Work Phone: [facility] [employer] 07-24-2024 10:41-0400 SaO2% (BldA) [Mass fraction] 96 % Osman Brand APRN - AGRICULTURAL INSPECTOR Work Phone: [facility] [employer] 07-24-2024 10:41-0400 Systolic blood pressure 146 mm[Hg] Osman Brand SLOT SUPERVISOR - AGRICULTURAL INSPECTOR Work Phone: [facility] [employer] 02-14-2023 15:04-0400 Diastolic blood pressure 77 mm[Hg] Rob Back MD Work Phone: [employer] 02-14-2023 15:04-0400 Systolic blood pressure 136 mm[Hg] Rob Back MD Work Phone: [employer] 02-14-2023 14:47-0400 Body height 185.4 cm Rob Back MD Work Phone: [employer] 02-14-2023 14:47-0400 Body mass index (BMI) [Ratio] 29.34 kg/m2 Rob Back MD Work Phone: [employer] 02-14-2023 14:47-0400 Body weight 100.88 kg Rob Back MD Work Phone: [employer] 02-14-2023 14:47-0400 Heart rate 110 /min Rob Back MD Work Phone: [employer] 02-14-2023 14:47-0400 SaO2% (BldA) [Mass fraction] 94 % Rob Back MD Work Phone: [facility] [employer] Encounters Encounter Date Encounter Type Care Provider Facility Start: 11-13-2024 ambulatory Rolan Grace Facility :[facility] Start: 10-01-2024 ambulatory Bryan Zhang Facility:[facility] Start: 09-28-2024 End: 09-28-2024 Refill Osman Brand SLOT SUPERVISOR - AGRICULTURAL INSPECTOR Work Phone: [facility] [place] Start: 09-25-2024 ambulatory Cynthia Heredia ty:[facility] Start: 09-22-2024 End: 09-23-2024 ambulatory Jana Ivan Clinical Communication Start: 09-22-2024 End: 09-23-2024 Patient encounter procedure Jana Ivan Clinical Communication Comment on above: Fatigue, unspecified type (Primary Dx) Start: 09-14-2024 End: 09-14-2024 Patient encounter procedure Cynthia ROBERTSON -[facility] Work Phone: Start: 09-14-2024 End: 09-14-[address] Yunior Edgar MD Work Phone: [facility] Work Phone: Start: 09-14-[address] Bryan Zhang DO -Pulmonary Services/Neurology Work Phone: Start: 09-14-2024 End: 09-14-2024 ambulatory Bryan Zhang Facility:[facility] Start: 09-10-2024 End: 09-10-2024 Office outpatient visit 25 minutes Osman Chen [facility] Work Phone: [facility] Comment on above: Primary hypertension (Primary Dx); Dyspepsia; Fatigue, unspecified type; Chest pain, unspecified type; Slurred speech Start: 09-10-2024 End: 09-10-2024 ambulatory ROB [facility] Start: 09-02-2024 End: 09-02-2024 Office outpatient visit 25 minutes Rob Back MD Work Phone: [facility] Comment on above: Fatigue, unspecified type (Primary Dx); B12 deficiency; Vitamin D deficiency; Shortness of breath; Encounter for screening prostate specific antigen (PSA) measurement; Dyspepsia; Generalized abdominal pain; Encounter for screening colonoscopy; Abdominal distension Start: 09-02-2024 End: 09-02-2024 ambulatory ROB LIZZ [facility] Start: 08-27-2024 End: 08-27-2024 Jennifer Antonio MD Work Phone: [facility] Start: 08-27-2024 End: 08-27-[address] Bryan Zhang DO -[facility] Work Phone: Start: 08-27-2024 End: 08-27-2024 ambulatory Bryan Zhang Facility:[facility] Start: 08-10-2024 End: 08-21-2024 Telephone encounter Rob Back MD Work Phone: [facility] Comment on above: Referral Start: 08-06-2024 End: 08-11-2024 Telephone encounter Rob Back MD Work Phone: [facility] Comment on above: New Med Request Other (Please send r devonteal to Dr. Gilberto Rice in [facility]) Start: 08-05-2024 End: 08-05-2024 Office outpatient visit 25 minutes Rob Back MD Work Phone: [facility] Comment on above: Shortness of breath (Primary Dx) Start: 08-05-2024 End: 08-05-2024 ambulatory [facility] Start: 07-31-2024 End: 07-31-2024 Telephone encounter Rob Back MD Work Phone: [facility] Comment on above: Results Start: 07-29-2024 Non-patient / Non-visit Dr. Leon Boyd MD -[facility] Start: 07-29-2024 End: 07-29-[address] Yunior Edgar MD -Cardiovascular Services Work Phone: Start: 07-29-2024 End: 07-30-2024 Refill Rob Back MD Work Phone: [facility] Start: 07-29-2024 End: 07-29-2024 ambulatory [facility] Facility:[facility] Start: 07-25-2024 End: 07-25-2024 Emergency department patient visit Dr. Yunior Edgar MD Work Phone: -Emergency Department Work Phone: Start: 07-24-2024 End: 07-24-2024 ambulatory OSMAN BRAND [facility] Start: 07-24-2024 End: 07-24-2024 Office outpatient visit 15 minutes Osman Brand APRN - AGRICULTURAL INSPECTOR Work Phone: [facility] Internal [facility] [place] Comment on above: Secondary hypertensi on (Primary Dx); Dyspnea, unspecified type; Chest pain, unspecified type Start: 07-20-2024 End: 07-20-2024 ambulatory Elise Nair RN [facility] Clinical Communication Start: 07-20-2024 End: 07-20-2024 Patient encounter procedure Elise Nair RN [facility] Clinical Communication Start: 03-06-2024 End: 03-06-2024 ambulatory Elise Nair RN [facility] Clinical Communication Start: 03-06-2024 End: 03-06-2024 Patient encounter procedure Elise Nair RN [facility] Clinical Communication Start: 09-30-2023 Refill Rob rodriguez MD Work Phone: [facility] Internal Medicine Start: 09-27-2023 End: 11-17-2023 ambulatory Rob Yun RN [facility] Clinical Communication Start: 09-27-2023 End: 11-17-2023 Patient encounter procedure Rob Yun RN [facility] Clinical Communication Start: 04-30-2023 Orders Only Rob rodriguez MD Work Phone: [facility] Internal Medicine Start: 02-20-2023 End: 02-20-2023 Subsequent hospital visit by physician Rob Back MD Work Phone: [facility] Non-Invasive Cardiology Comment on above: Syncope and collapse Start: 02-14-2023 End: 02-14-2023 Subsequent hospital visit by physician Rob Back MD Work Phone: [facility] Non-Invasive Cardiology Comment on above: Syncope and collapse Start: 02-14-2023 End: 02-14-2023 Office outpatient visit 25 minutes Rob Back MD Work Phone: [facility] Internal Medicine Comment on above: Syncope and collapse (Primary Dx) Start: 02-14-2023 ambulatory Judy Robison RN [facility] linical Communication Start: 02-14-2023 Patient encounter procedure Judy Robison RN [facility] Clinical Communication Start: 01-18-2023 Orders Only Rob rodriguez MD Work Phone: [facility] Internal Medicine Start: 05-14-2022 Telephone encounter Rob Back MD Work Phone: [facility] Internal Medicine Comment on above: Med Refill Start: 12-29-2021 End: 12-29-[address] PAOLA CLAY DO [facility] Start: 12-08-2021 ambulatory Lauren Renner [facility] Start: 11-06-2021 ambulatory Lauren Renner [facility] Start: 11-06-2021 End: 11-06-2021 Subsequent hospital visit by physician Lauren Renner MD Work Phone: [facility] Start: 02-15-2021 [facility] Start: 02-15-2021 End: 02-15-2021 Subsequent hospital visit by physician Paola Lofton MD Work Phone: [facility] Comment on above: Arrived Start: 04-07-2020 End: 04-07-2020 Subsequent hospital visit by physician Paola Lofton Work Phone: [facility] Start: 02-11-2019 End: 02-11-2019 Subsequent hospital visit by physician Paola Lofton Work Phone: [facility] Start: 04-14-1999 End: 04-14-1999 Patient encounter procedure Soo Huerta Work Phone: [facility] Start: 04-14-1999 Results Only Soo Huerta Work Phone: [facility] Procedures Date Procedure Procedure Detail Performing Clinician Start: 07-29-2024 Cardiovascular stres s test using pharmacologic stress agent Dr. Yunior Edgar MD Work Phone: Start: 07-25-2024 D-dimer assay, quantitative Dr. Yunior Edgar MD Work Phone: Comment on above: NORMAL D-Dimer level (<0.50) indicates no DVT or PE. Start: 07-25-[address] Yunior Edagr MD Work Phone: Start: 07-25-2024 Plain chest X-ray Dr. Iván Edgar MD Work Phone: Start: 02-14-2023 Ecg routine ecg w/le ast 12 lds trcg only w/o i&r Rob Back MD Work Phone: Start: 02-09-2022 Lipid 1996 panel - S claude or Plasma Rob Back MD Work Phone: Start: 04-07-2020 Radex shoulder compl ete minimum 2 views Paola Lofton Work Phone: Start: 02-11-2019 Comprehensive metabo lic panel Paola Lofton Work Phone: Start: 04-14-1999 CONVERTED SURGICAL PATHOLOGY Soo Huerta Work Phone: Plan of Treatment Date Care Activity Detail Author Start: 2032 RSV Immunization for Adults (1 - 1-dose 75+ series) RSV Immunization for Adults (1 - 1-dose 75+ series) [facility] Start: 02-09-2027 Lipid panel Lipid Panel [facility] Start: 02-09-2025 Diabetes mellitus screening Diabetes Screening [facility] Start: 02-04-2025 Depression Monitoring Depression [facility] Start: 02-03-2025 Depression Monitoring Depression [facility] Start: 01-24-2025 Depression Monitoring Depression [facility] Start: 12-31-2024 End: 12-31-2024 Patient encounter procedure 12/31/2024 7:20 AM EDT Office Visit [facility] [address] [place] [address] Twan Youssef MD [address] [place] [address] [facility] Start: 12-28-2024 Influenza vaccination Influenz a Vaccine (Season Ended) [facility] Start: 10-02-2024 End: 10-02-2024 Patient encounter procedure 10/02/2024 10:20 AM EDT Office Visit [facility] Internal Medicine [facility] [address] [place] [id number] Rob Back MD [address] [place] [address] [facility] Internal Medicine [facility] Start: 10-01-2024 Walking distance 6 minutes [facility] Start: 09-23-2024 End: 09-23-2025 Borrelia Species DNA, Qualitative Real-Time PCR, [facility] CODE 13610 - Miscellaneous Test Borrelia Species DNA, Qualitative Real-Time PCR, [facility] CODE 73117 - Miscellaneous Test Lab Routine Fatigue, unspecified type Expected: 09/23/2024 (Approximate), Expires: 09/23/2025 [facility] Comment on above: Expected: 09/23/2024 (Approximate), Expires: 09/23/2025 Start: 09-23-2024 End: 09-23-2025 Miscellaneous Test [facility] Miscellaneous Test [facility] Lab Routine Fatigue, unspecified type Expected: 09/23/2024 (Approximate), Expires: 09/23/2025 [facility] Work Phone: Comment on above: Expected: 09/23/2024 (Approximate), Expires: 09/23/2025 Start: 09-02-2024 End: 09-02-2025 25-hydroxyvitamin D3 [Mass/volume] in Serum or Plasma Vitamin D Deficiency Screening (Vit D 25) Lab Routine Fatigue, unspecified type Vitamin D deficiency Expected: 09/02/2024 (Approximate), Expires: 09/02/2025 [facility] Comment on above: Expected: 09/02/2024 (Approximate), Expires: 09/02/2025 Start: 09-02-2024 End: 09-02-2025 CBC W Auto Differential panel - Blood CBC auto differential Lab Routine Fatigue, unspecified type Expected: 09/02/2024, Expires: 09/02/2025 [facility] Comment on above: Expected: 09/02/2024 , Expires: 09/02/2025 Start: 09-02-2024 End: 09-02-2025 Cobalamin (Vitamin B12) [Mass/volume] in Serum or Plasma Vitamin B12 Lab Routine Fatigue, unspecified type B12 deficiency Expected: 09/02/2024 (Approximate), Expires: 09/02/2025 [facility] Comment on above: Expected: 09/02/2024 (Approximate), Expires: 09/02/2025 Start: 09-02-2024 End: 09-02-2025 Comprehensive metabolic 1998 panel - Serum or Plasma Comprehensive metabolic panel Lab Routine Fatigue, unspecified type Vitamin D deficiency Shortness of breath Expected: 09/02/2024 (Approximate), Expires: 09/02/2025 [facility] Comment on above: Expected: 09/02/2024 (Approximate), Expires: 09/02/2025 Start: 09-02-2024 End: 09-02-2025 PSA screening PSA Screening Lab Routine Encounter For Screening Prostate Specific Antigen (Psa) Measurement Expected: 09/02/2024 (Approximate), Expires: 09/02/2025 [facility] Comment on above: Expected: 09/02/2024 (Approximate), Expires: 09/02/2025 Start: 09-02-2024 End: 09-02-2025 Thyrotropin [Units/volume] in Serum or Plasma TSH Lab Routine Fatigue, unspecified type Expected: 09/02/2024 (Approximate), Expires: 09/02/2025 [facility] Work Phone: Comment on above: Expected: 09/02/2024 (Approximate), Expires: 09/02/2025 Start: 09-02-2024 End: 09-02-2025 Thyroxine (T4) free [Mass/volume] in Serum or Plasma T4, free Lab Routine Fatigue, unspecified type Expected: 09/02/2024 (Approximate), Expires: 09/02/2025 [facility] Comment on above: Expected: 09/02/2024 (Approximate), Expires: 09/02/2025 Start: 08-05-2024 End: 08-05-2024 Patient encounter procedure 08/05/2024 1:40 PM EDT Office Visit [facility] Internal Medicine - [address] [place] [phone] Rob Back MD [address] [place] [address] [facility] Internal Medicine [facility] Start: 07-25-2024 [facility] Start: 07-25-2024 [facility] Start: 07-24-2024 End: 07-24-2024 Patient encounter procedure 07/24/2024 10:20 AM EDT Office Visit [facility] Internal Medicine [facility] [address] [place] [phone] Osman Brand, SLOT SUPERVISOR - [facility] [address] [place] [phone] [facility] Internal Medicine [facility] Start: 12-29-2023 COVID-19 Vaccine ( season) COVID-19 Vaccine ( season) [facility] Start: 12-29-2023 Influenza vaccination [facility] Start: 05-31-2023 End: 05-31-2023 Patient encounter procedure 05/31/2023 1:20 PM EST Office Visit [facility] Internal Medicine [address] [place] [phone] Rob Back MD [address] [facility] [address] [place] [address] [facility] Internal Medicine Start: 02-14-2023 End: 02-14-2025 Cardiac holter monitor (8- 15 days) Cardiac holter monitor (8- 15 days) [facility] Routine Syncope and collapse Expected: 02/14/2023, Expires: 02/14/2025 [facility] Comment on above: Expected: 02/14/2023 , Expires: 02/14/2025 Start: 02-14-2023 End: 02-15-2024 CBC W Auto Differential panel - Blood CBC auto differential Lab Routine Syncope and collapse Expected: 02/14/2023 (Approximate), Expires: 02/15/2024 [facility] [employer] Comment on above: Expected: 02/14/2023 (Approximate), Expires: 02/15/2024 Start: 02-14-2023 End: 02-15-2024 Comprehensive metabolic 1998 panel - Serum or Plasma Comprehensive metabolic panel Lab Routine Syncope and collapse Expected: 02/14/2023 (Approximate), Expires: 02/15/2024 [facility] [employer] [facility] Work Phone: Comment on above: Expected: 02/14/2023 (Approximate), Expires: 02/15/2024 Start: 02-14-2023 End: 02-15-2024 Magnesium [Mass/volume] in Serum or Plasma Magnesium Lab Routine Syncope and collapse Expected: 02/14/2023 (Approximate), Expires: 02/15/2024 [facility] Comment on above: Expected: 02/14/2023 (Approximate), Expires: 02/15/2024 Start: 02-14-2023 End: 02-15-2024 Thyrotropin [Units/volume] in Serum or Plasma TSH Lab Routine Syncope and collapse Expected: 02/14/2023 (Approximate), Expires: 02/15/2024 [facility] Comment on above: Expected: 02/14/2023 (Approximate), Expires: 02/15/2024 Start: 12-28-2022 COVID-19 Vaccine ( season) COVID-19 Vaccine ( season) [facility] Start: 12-28-2022 Influenza vaccination Influenza Vacc ine (#1) [facility] Start: 05-23-2022 End: 05-23-2022 Patient encounter procedure 05/23/2022 Office Visit Internal Medicine Rob Back MD [address] [place] [address] [address] [place] [address] [facility] Medicine Start: 2022 Pneumococcal Vaccine : 65+ Years (1 - PCV) Pneumococcal Vaccine: 65+ Years (1 - PCV) [facility] Start: 2022 Pneumococcal Vaccine : 65+ Years (1 of 1 - PCV) Pneumococcal Vaccine: 65+ Years (1 of 1 - PCV) [facility] Start: 12-28-2021 Influenza vaccination S [facility] Start: 08-15-2021 Lipid panel [facility] Start: 12-28-2020 Influenza vaccination Flu vaccine (# 1) [facility] Work Phone: Start: 12-29-2019 Influenza vaccination C [facility] Start: 12-28-2018 Influenza vaccination Flu vaccine (# 1) [place], [place] Start: 08-15-2017 Prostate specific an tigen measurement Prostate Specific Antigen (PSA) Screening or Monitoring [facility] Start: 2017 RSV Immunization age d 60 or older (1 - 1-dose 60+ series) RSV Immunization aged 60 or older (1 - 1-dose 60+ series) [facility] Start: 2012 PROSTATE CANCER SCRE ENING DISCUSSION PROSTATE CANCER SCREENING DISCUSSION [facility] Start: 2007 Pneumococcal Vaccine : 50+ Years (1 of 1 - PCV) Pneumococcal Vaccine: 50+ Years (1 of 1 - PCV) [facility] Start: 2007 Shingles Vaccine (1 of 2) Rosario gles Vaccine (1 of 2) [facility] Start: 2007 SHINGRIX VACCINE (1 of 2) ROSARIO GRIX VACCINE (1 of 2) [facility] Start: 2007 Tuberculosis screening [facility] LIZZIE CANCER SCREENING,SEE MODIFIER [facility] Start: 2007 Zoster Vaccines (1 of 2) Zoste r Vaccines (1 of 2) [facility] Start: 2002 DIABETES SCREEN DIABETES SCREEN [facility] Start: 2002 Screening for malign ant neoplasm of colon [facility] Start: 1992 LIPID SCREEN LIPID SCREEN [facility] Start: 1976 DTaP/Tdap/Td vaccine (1 - Tdap) DTaP/Tdap/Td vaccine (1 - Tdap) [facility] Start: 1976 DTaP/Tdap/Td Vaccine s (1 - Tdap) DTaP/Tdap/Td Vaccines (1 - Tdap) [facility] Start: 1976 Urine microalbumin profile DTAP,TDAP,TD (1 - Tdap) [facility] Start: 1975 HEPATITIS C SCREENING HEPATITIS C SC [facility] Start: 1975 Hepatitis C screening S [facility] Start: 1975 HIV SCREENING HIV SCREENING [facility] Start: 1972 HIV screening HIV screen [facility] Start: 1969 COVID-19 Vaccine (1) COVID-19 Vaccin e (1) [facility] Work Phone: Start: 1969 Depression Monitoring Depression Mon itoring [facility] Start: 1969 Depression Screen Depression Screen [facility] Start: 1969 Depression Screening Depression Scre ening [facility] Start: 1962 COVID-19 Vaccine (1) COVID-19 Vaccin e (1) [facility] Start: 1957 COVID-19 Vaccine (#1) COVID-19 Vacci ne (#1) [facility] Start: 1957 Annual wellness visit Medicare Initial Physical (IPPE) [facility] Start: 1957 Hepatitis B Vaccines (1 of 3 - 3-dose series) Hepatitis B Vaccines (1 of 3 - 3-dose series) [facility] Start: 1957 Hepatitis C screening Hepatitis C sc reen [facility] Work Phone: Start: 1957 Lipid panel Lipid Panel [facility] Start: 1957 Medicare Annual Well ness (AWV) Medicare Annual Wellness (AWV) [facility] Start: 1957 Screening for malign ant neoplasm of colon [facility] End: 02-20-2023 Cardiac holter monitor (8- 15 days) [facility] Work Phone: Comment on above: Once for 1 Occurrenc es starting 02/20/2023 until 02/20/2023 ECG 12 lead ECG 12 lead CV E CG Routine Syncope and collapse 02/14/2023 3:31 PM EDT [facility] Liver stiffness by US.transient elastography [facility] Patient Education ED Dyspnea [facility] Work Phone: Patient referral [facility] Work Phone: Stress echocardiography [facility] End: 02-15-2021 US ABDOMEN COMPLETE US ABDOMEN COMPLETE Imaging Routine Once for 1 Occurrences starting 02/15/2021 until 02/15/2021 [facility] Work Phone: Comment on above: Once for 1 Occurrenc es starting 02/15/2021 until 02/15/2021 US ABDOMEN COMPLETE US ABDOMEN C OMPLETE Imaging Routine 02/15/2021 3:38 PM EDT [facility] Work Phone: End: 11-06-2021 XR KNEE RIGHT (MIN 4 VIEWS) [facility] Work Phone: Comment on above: Once for 1 Occurrenc es starting 11/06/2021 until 11/06/2021 Payers Date Payer Category Payer Self-pay [id number] 2024 Medicare MEDICARE PART A AND B [id number] 2024 Medicare [id number] 2020 Unknown 1957 Unknown [id number] 1957 Unknown [id number] 1957 Unknown [id number] Unknown [id number] Unknown [id number] Unknown [id number] Unknown [id number] Unknown [id number] Unknown [id number] Unknown [id number] Unknown [id number] Unknown [id number] Social History Date Type Detail Facility [facility] [place] [place] Start: 1955 Sex Assigned At Not on file [place], [place] [facility] Tobacco smoking consumption unknown [facility] Tobacco smoking status Never smo ked tobacco (finding) [facility] Sex Assigned At Sex [facility] Start: 02-14-2023 End: 08-05-2024 Alcohol intake Lifetime non-drinker (finding) [facility] Start: 02-14-2023 End: 08-04-2024 History of Social function [facility] Start: 02-14-2023 End: 08-04-2024 Tobacco use panel [facility] Start: 11-27-2021 End: 08-04-2024 Sex Male (finding) [facility] Start: 07-25-2024 End: 08-27-2024 Tobacco smoking status NHIS Ex-smoker (finding) [facility] Start: 1955 Sex Assigned At Male [facility] How often do you nee d to have someone help you when you read instructions, pamphlets, or other written material from your doctor or pharmacy [SILS] Never [facility] Has the electric, [employer], [employer], or water [employer] threatened to shut off services in your home in past 12Mo No [facility] How often to you hav e a drink containing alcohol? Monthly or less [facility] How often do you hav e 6 or more drinks on 1 occasion? Less than monthly [facility] How often do you nee d to have someone help you when you read instructions, pamphlets, or other written material from your doctor or pharmacy [SILS] Never [facility] Clinical Notes 05-14-2022 to 09-22-2024 Telephone Encounter - Jana Palma RN - 09/22/2024 12:08 PM EDTTelephone Encounter - Jana Palma RN - 09/22/2024 12:08 PM Ludmila Brand APRN - AGRICULTURAL INSPECTOR - 09/10/2024 8:20 AM EDT Note Date & Type Note Facility 09-22-2024 Telephone encounter Note Form atting of this note might be different from the original. S: Patient is calling the [facility] with request for lab test B: Symptom onset: chronic, GARCIA 09/10/24 (reviewed) A: Patient complains of: Chronic fatigue/SOB with exertion, joint pains/stiffness, intermittent headaches (no current headache), intermittent slurred speech and watery eyes/light sensitivity Currently speaking in full sentences, speech is clear These are not new symptoms. 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 Back. Advised a message would be sent to provider for review and consideration of his request. Patient verbalizes understanding. Advised patient to call back with new or worsening symptoms. Reason for Disposition MILD longstanding difficulty breathing (e.g., minimal/no SOB at rest, SOB with walking, pulse <100) and SAME as normal Protocols used: Breathing [id number] [facility] 09-22-2024 Miscellaneous Notes Formattin g of this note might be different from the original. S: Patient is calling the [facility] with request for lab test B: Symptom onset: chronic, GARCIA 09/10/24 (reviewed) A: Patient complains of: Chronic fatigue/SOB with exertion, joint pains/stiffness, intermittent headaches (no current headache), intermittent slurred speech and watery eyes/light sensitivity Currently speaking in full sentences, speech is clear These are not new symptoms. 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 Back. Advised a message would be sent to provider for review and consideration of his request. Patient verbalizes understanding. Advised patient to call back with new or worsening symptoms. Reason for Disposition MILD longstanding difficulty breathing (e.g., minimal/no SOB at rest, SOB with walking, pulse <100) and SAME as normal Protocols used: Breathing [id number] documented in this encounter [facility] 09-10-2024 History of Presen t illness Narrative Images from the original note were not included. . [facility] [address] [place] [address] [address] [facility] [address] Dept: [phone] Dept Visit type: Established Reason for Visit: Follow-up (Patient states here for lab results) Assessment and Plan Hypertension Stable on amlodipine 10 mg and lisinopril 40 mg daily. No changes at this time. Dyspepsia Patient recently started on pantoprazole. Patient states slight improvement in symptoms. Fatigue Reviewed lab work with patient which is not concerning. Patient has upcoming appointment with GI and Pulmonology. Referred patient to cardiology as follow up for previous ED visit and neurology for evaluation. Patient has upcoming appointment with Dr. Back. 1. Primary hypertension 2. Dyspepsia 3. Fatigue, unspecified type 4. Chest pain, unspecified type - [facility] Cardiology 5. Slurred speech - [facility] Neurology No follow-ups on file. Subjective This is a 69-year-old gentleman with past medical history significant for ADHD, hypertension, obesity presents today for follow-up for fatigue. Patient was previously seen by Dr. Back who ordered lab work to evaluate patient's ongoing fatigue and shortness of breath. Patient was also referred to pulmonology and gastroenterology. States he does have appointment with gastroenterology this upcoming Saturday. Was prescribed an inhaler which he states has been improving his shortness of breath. Patient states he uses the inhaler a couple of times per day. Patient had previously been seen in this office in early June and was sent to the emergency department for chest pain and shortness of breath. States workup in the emergency department was unremarkable. Patient was advised to remain in the hospital for observation but patient declined. Patient did have outpatient stress test on July 29 which was normal. Patient states he does continue to have chest pains that come and go randomly. Patient feels this could be related to his GERD. Patient is also concerned about vague neurological symptoms. Patient states he notices his speech is somewhat slurred, shuffles his feet when he walks, and is difficult for him to climb stairs because his legs feel heavy. Review of Systems Allergies[1] Current Medications[2] Medical History[3] Social History Tobacco Use Smoking status: Never Smokeless tobacco: Never Substance Use Topics Alcohol use: Never Surgical History[4] Family History[5] Objective BP 135/84 Pulse 104 Ht 6' 1 (1.854 m) Wt 240 lb (109 kg) SpO2 95% BMI 31.66 kg/m Physical Exam Data Reviewed and Summarized Labs: Imaging/Testing: Osman Brand APRN - JAMES [1] No Known Allergies [2] Current Outpatient Medications Medication Sig Dispense Refill albuterol (ProAir HFA) 108 (90 Base) MCG/ACT inhaler Inhale 2 puffs every 4 hours as needed for wheezing or shortness of breath. 8.5 g 3 amLODIPine (Norvasc) 10 MG tablet TAKE 1 TABLET (10 MG) BY MOUTH DAILY. 30 tablet 0 amphetamine-dextroamphetamine (Adderall) 20 MG tablet Take 1 tablet by mouth 2 times daily. lisinopril 40 MG tablet TAKE 1 TABLET BY MOUTH EVERY DAY 30 tablet 0 pantoprazole (ProtoNix) 40 MG EC tablet Take 1 tablet (40 mg) by mouth daily. Do not crush, chew, or split. 90 tablet 1 Probiotic Product (Align) 10 MG capsule Take 1 capsule by mouth daily. 15 capsule 0 QUEtiapine (SEROquel) 25 MG tablet Take 25 mg by mouth Nightly. venlafaxine XR (Effexor XR) 37.5 MG 24 hr capsule Take 37.5 mg by mouth daily. No current facility-administered medications for this visit. [3] Past Medical History: Diagnosis Date Depression Hypertension [4] Past Surgical History: Procedure Laterality Date APPENDECTOMY HERNIA REPAIR KNEE CARTILAGE SURGERY TONSILLECTOMY (HISTORICAL) [5] Family History Problem Relation Name Age of Onset Heart disease Mother Ovarian cancer Mother High Blood Pressure Mother documented in this encounter [facility] 09-10-2024 History of Presen t illness Narrative Images from the original note were not included. . [facility] [address] [place] [address] [address] [facility] [address] Dept: [phone] Dept Visit type: Established Reason for Visit: Follow-up (Patient states here for lab results) Assessment and Plan Hypertension Stable on amlodipine 10 mg and lisinopril 40 mg daily. No changes at this time. Dyspepsia Patient recently started on pantoprazole. Patient states slight improvement in symptoms. Fatigue Reviewed lab work with patient which is not concerning. Patient has upcoming appointment with GI and Pulmonology. Referred patient to cardiology as follow up for previous ED visit and neurology for evaluation. Patient has upcoming appointment with Dr. Back. 1. Primary hypertension 2. Dyspepsia 3. Fatigue, unspecified type 4. Chest pain, unspecified type - [facility] Cardiology 5. Slurred speech - [facility] Neurology No follow-ups on file. Subjective This is a 69-year-old gentleman with past medical history significant for ADHD, hypertension, obesity presents today for follow-up for fatigue. Patient was previously seen by Dr. Back who ordered lab work to evaluate patient's ongoing fatigue and shortness of breath. Patient was also referred to pulmonology and gastroenterology. States he does have appointment with gastroenterology this upcoming Saturday. Was prescribed an inhaler which he states has been improving his shortness of breath. Patient states he uses the inhaler a couple of times per day. Patient had previously been seen in this office in early June and was sent to the emergency department for chest pain and shortness of breath. States workup in the emergency department was unremarkable. Patient was advised to remain in the hospital for observation but patient declined. Patient did have outpatient stress test on July 29 which was normal. Patient states he does continue to have chest pains that come and go randomly. Patient feels this could be related to his GERD. Patient is also concerned about vague neurological symptoms. Patient states he notices his speech is somewhat slurred, shuffles his feet when he walks, and is difficult for him to climb stairs because his legs feel heavy. Review of Systems HENT: Negative. Respiratory: Negative. Cardiovascular: Negative. Gastrointestinal: Negative. Musculoskeletal: Negative. Allergies[1] Current Medications[2] Medical History[3] Social History Tobacco Use Smoking status: Never Smokeless tobacco: Never Substance Use Topics Alcohol use: Never Surgical History[4] Family History[5] Objective BP 135/84 Pulse 104 Ht 6' 1 (1.854 m) Wt 240 lb (109 kg) SpO2 95% BMI 31.66 kg/m Physical Exam Vitals reviewed. Constitutional: Appearance: Normal appearance. Cardiovascular: Rate and Rhythm: Normal rate and regular rhythm. Heart sounds: Normal heart sounds. Pulmonary: Effort: Pulmonary effort is normal. Breath sounds: Normal breath sounds. Musculoskeletal: General: Normal range of motion. Neurological: General: No focal deficit present. Mental Status: He is alert. Psychiatric: Mood and Affect: Mood normal. Data Reviewed and Summarized Labs: Imaging/Testing: CLARIBEL Ludwig CNP [1] No Known Allergies [2] Current Outpatient Medications Medication Sig Dispense Refill albuterol (ProAir HFA) 108 (90 Base) MCG/ACT inhaler Inhale 2 puffs every 4 hours as needed for wheezing or shortness of breath. 8.5 g 3 amLODIPine (Norvasc) 10 MG tablet TAKE 1 TABLET (10 MG) BY MOUTH DAILY. 30 tablet 0 amphetamine-dextroamphetamine (Adderall) 20 MG tablet Take 1 tablet by mouth 2 times daily. lisinopril 40 MG tablet TAKE 1 TABLET BY MOUTH EVERY DAY 30 tablet 0 pantoprazole (ProtoNix) 40 MG EC tablet Take 1 tablet (40 mg) by mouth daily. Do not crush, chew, or split. 90 tablet 1 Probiotic Product (Align) 10 MG capsule Take 1 capsule by mouth daily. 15 capsule 0 QUEtiapine (SEROquel) 25 MG tablet Take 25 mg by mouth Nightly. venlafaxine XR (Effexor XR) 37.5 MG 24 hr capsule Take 37.5 mg by mouth daily. No current facility-administered medications for this visit. [3] Past Medical History: Diagnosis Date Depression Hypertension [4] Past Surgical History: Procedure Laterality Date APPENDECTOMY HERNIA REPAIR KNEE CARTILAGE SURGERY TONSILLECTOMY (HISTORICAL) [5] Family History Problem Relation Name Age of Onset Heart disease Mother Ovarian cancer Mother High Blood Pressure Mother documented in this encounter [facility] 09-02-2024 History of Presen t illness Narrative Images from the original note were not included. . [facility] [address] [place] [address] [address] [facility] [address] Dept: [phone] Dept Visit type: Established Reason for Visit: Follow-up (Follow up for abdominal fluid retention and bloating, SOB) Assessment and Plan 1. Fatigue, unspecified type - TSH - T4, free - CBC auto differential - Comprehensive metabolic panel - Vitamin D Deficiency Screening (Vit D 25) - Vitamin B12 2. B12 deficiency - Vitamin B12 3. Vitamin D deficiency - Comprehensive metabolic panel - Vitamin D Deficiency Screening (Vit D 25) 4. Shortness of breath - Comprehensive metabolic panel 5. Encounter for screening prostate specific antigen (PSA) measurement - PSA Screening 6. Dyspepsia - pantoprazole (ProtoNix) 40 MG EC tablet; Take 1 tablet (40 mg) by mouth daily. Do not crush, chew, or split., Starting 09/02/2024, Normal - External referral to Gastroenterology 7. Generalized abdominal pain 8. Encounter for screening colonoscopy - External referral to Gastroenterology 9. Abdominal distension - External referral to Gastroenterology Fatigue -symptoms are concerning. Check TSH, CBC, CMP, vitamin D, vitamin B12. Abdominal distention/bloating/GERD -symptoms are concerning for dyspepsia although he also has fairly full abdomen on exam. We will treat for dyspepsia with pantoprazole, monitor progress and plan for follow-up visit in 1 month. I also recommended that he take a probiotic for the next 2 weeks. He has never had a screening colonoscopy. Given his ongoing abdominal symptoms and lack of prior colonoscopy he was referred to gastroenterology for additional evaluation. Shortness of breath -[facility] [place]. Subjective HPI This is a 69-year-old gentleman with past medical history significant for ADHD, hypertension, obesity presents today for ongoing evaluation of shortness of breath and fatigue symptoms. He had been seen most recently by Osman Brand on 07/24/2024. Shortness of breath - patient had interval follow up visit with [facility] in [place]. He is planning to have 6 minute walk test ordered and PFTs. Abdominal bloating - states that symptoms have worsened. States that when he eats he feels much worse. Feels that abdomen is full. He has been having increase in acid reflex symptoms as well. States that if he eats anything salad he gets an upset stomach. He has been waking up nauseated for the past few weeks. He states that he has had increase in flatulence as well. He has had fecal urgency, has to use RR first thing in the morning, sometimes has to have 2-3 BM at the beginning of the day. Shortness of breath - seems to have worsened since last visit. He thinks that this may be due to worsening abdominal issues / distention. Fatigue - states that with worsening shortness of breath he has developed worsened fatigue, drowsiness. Review of Systems Constitutional: Positive for fatigue. Respiratory: Positive for shortness of breath. Gastrointestinal: Positive for abdominal distention. Negative for constipation. No Known Allergies Current Outpatient Medications Medication Sig Dispense Refill albuterol (ProAir HFA) 108 (90 Base) MCG/ACT inhaler Inhale 2 puffs every 4 hours as needed for wheezing or shortness of breath. 8.5 g 3 amLODIPine (Norvasc) 10 MG tablet TAKE 1 TABLET (10 MG) BY MOUTH DAILY. 30 tablet 0 amphetamine-dextroamphetamine (Adderall) 20 MG tablet Take 1 tablet by mouth 2 times daily. lisinopril 40 MG tablet TAKE 1 TABLET BY MOUTH EVERY DAY 30 tablet 0 QUEtiapine (SEROquel) 25 MG tablet Take 25 mg by mouth Nightly. venlafaxine XR (Effexor XR) 37.5 MG 24 hr capsule Take 37.5 mg by mouth daily. pantoprazole (ProtoNix) 40 MG EC tablet Take 1 tablet (40 mg) by mouth daily. Do not crush, chew, or split. 90 tablet 1 Probiotic Product (Align) 10 MG capsule Take 1 capsule by mouth daily. 15 capsule 0 No current facility-administered medications for this visit. Past Medical History: Diagnosis Date Depression Hypertension Social History Tobacco Use Smoking status: Never Smokeless tobacco: Never Substance Use Topics Alcohol use: Never Past Surgical History: Procedure Laterality Date APPENDECTOMY HERNIA REPAIR KNEE CARTILAGE SURGERY TONSILLECTOMY (HISTORICAL) Family History Problem Relation Name Age of Onset Heart disease Mother Ovarian cancer Mother High Blood Pressure Mother Objective BP (!) 144/85 Pulse 100 Ht 6' 1 (1.854 m) Wt 236 lb (107 kg) SpO2 98% BMI 31.14 kg/m Physical Exam Constitutional: General: He is not in acute distress. Appearance: He is not toxic-appearing. HENT: Head: Normocephalic and atraumatic. Eyes: General: No scleral icterus. Pulmonary: Effort: No respiratory distress. Abdominal: Tenderness: There is no abdominal tenderness. There is no guarding. Comments: Full, ND Musculoskeletal: Cervical back: Normal range of motion. Skin: General: Skin is warm and dry. Neurological: Mental Status: He is alert. Mental status is at baseline. Psychiatric: Mood and Affect: Mood normal. Data Reviewed and Summarized Labs: Imaging/Testing: Rob Back MD documented in this encounter [facility] 08-27-2024 Evaluation note Diagnosis Onset Date Resolution SOB (shortness of breath) chronic August 27, 2024 9: 28am Abdominal pain acute September 14, 2024 1:51pm Bloating acute September 14, 2024 1:51pm Diarrhea acute September 14, 2024 1:51pm Nausea acute September 14, 2024 1:51pm [facility] Work Phone: [phone] 481-364904-17-2025 Telephone encounter Note* Telephone Encounter - Radha Lee - 08/13/2024 7:19 AM EDT Faxed again to [facility]. [id number] Miscellaneous Notes* Telephone Encounter - Radha Lee - 08/13/2024 7:19 AM EDT Faxed again to [facility]. * Telephone Encounter - Loli Guerrero - 08/12/2024 12:26 PM EDT Message released to patient as written. Please call [facility] for an appt [phone] Patient's further questions if applicable: [facility]. Please advise Were all questions from office addressed or relayed to the patient from encounter: Any * Telephone Encounter - Triston Zhang - 08/10/2024 3:23 PM EDT Name of caller: Lauren Contact phone number: [phone] Relationship to Patient: patient Provider: [facility] Practice: [facility] Chief Complaint/Reason for Call: A referral was placed for External referral to Pulmonology for Shortness of breath [R06.02] and weakness of legs. Patient has appointment with pulmonology on 08.27.2024. He wants to switch to [facility] because it is closer to his home and a sooner appointment. This is at [facility]. Wants it to be urgent. Best time of day caller can be reached: any Patient advised that office/PCP has 24-48 business hours to return their call: Yes documented in this [facility]04-16-2025 Telephone encounter Note* Telephone Encounter - Loli Guerrero - 08/12/2024 12:26 PM EDT Message released to patient as written. Please call [facility] for an appt [phone] Patient's further questions if applicable: Pt called and states that the pulm office has not received his referral. Please advise Were all questions from office addressed or relayed to the patient from encounter: Any [facility] [id number] Telephone encounter Note* Telephone Encounter - Triston Zhang - 08/10/2024 3:23 PM EDT Name of caller: Lauren Contact phone number: [phone] Relationship to Patient: patient Provider: [facility]am Practice: [facility] Chief Complaint/Reason for Call: A referral was placed for External referral to Pulmonology for Shortness of breath [R06.02] and weakness of legs. Patient has appointment with pulmonology on 08.27.2024. He wants to switch to [facility] because it is closer to his home and a sooner appointment. This is at [facility]. Wants it to be urgent. Best time of day caller can be reached: any Patient advised that office/PCP has 24-48 business hours to return their call: Yes [facility] [id number] Telephone encounter Note* Telephone Encounter - Radha Lee - 08/06/2024 10:13 AM EDT [id number] Miscellaneous Notes* Telephone Encounter - Radha Lee - 08/06/2024 10:13 AM EDT Faxed to location * Telephone Encounter - Yadi Rosario - 08/06/2024 9:44 AM EDT Name of caller: Lauren Contact phone number: [phone] Relationship to Patient: patient Provider: Dr Back Practice: [facility] Chief Complaint/Reason for Call: Please fax Please send referral to Dr. Gilberto Rice in [place] Best time of day caller can be reached: any Patient advised that office/PCP has 24-48 business hours to return their call: Yes documented in this encounterSCincinnati [facility] [id number] Telephone encounter Note* Telephone Encounter - Yadi Rosario - 08/06/2024 9:44 AM EDT Name of caller: Lauren Contact phone number: [phone] Relationship to Patient: patient Provider: Dr Back Practice: [facility] Chief Complaint/Reason for Call: Please fax Please send referral to Dr. Gilberto Rice in [place] Best time of day caller can be reached: any Patient advised that office/PCP has 24-48 business hours to return their call: Yes [facility] [id number] Telephone encounter Note* Telephone Encounter - Catherine Houser - 08/06/2024 9:35 AM EDT Name of caller: Lauren Contact phone number: [phone] Relationship to Patient: patient Provider: [facility] Practice: [facility] Chief Complaint/Reason for Call: Patient states he still waiting for new inhaler prescription to [facility] to pharmacy [facility]/pharmacy #[id number] - [place], [place] - [address] patient needs that as soon as possible. Please advise patient when done. Best time of day caller can be reached: any Patient advised that office/PCP has 24-48 business hours to return their call: Yes [facility] [id number] Miscellaneous Notes* Telephone Encounter - Catherine Houser - 08/06/2024 9:35 AM EDT Name of caller: Lauren Contact phone number: [phone] Relationship to Patient: patient Provider: [facility]am Practice: [facility] Chief Complaint/Reason for Call: Patient states he still waiting for new inhaler prescription to [place] to pharmacy [facility]/pharmacy #[id number] - [place], [place] - [address] patient needs that as soon as possible. Please advise patient when done. Best time of day caller can be reached: any Patient advised that office/PCP has 24-48 business hours to return their call: Yes documented in this [facility]04-09-2025 History of Present illness Narrative* Rob Back MD - 08/05/2024 1:40 PM EDT Images from the original note were not included. . [facility] [address] [facility] [address] Dept: [phone] Dept Visit type: Established Reason for Visit: Results (To review labs from [facility], to know what the next step will be) Assessment and Plan 1. Shortness of breath - External referral to Pulmonology Exertional shortness of breath -reviewed recent evaluation which included emergency department visit with troponin which was negative, pharmacologic stress test which was negative, and echocardiogramwhich did not show any abnormalities explaining shortness of breath symptoms. Patient will be trialed on albuterol, referred to pulmonology for additional evaluation given worsening shortness of breath symptoms. Subjective HPI This is a 69-year-old gentleman with past medical history significant for ADHD, hypertension, obesity presents today for ongoing evaluation of shortness of breath and fatigue symptoms. He had been seen most recently by Osman Brand on 07/24/2024. SOB / Fatigue - had previously been seen by Osman for this with several tests ordered/completed which did not explain his symptoms - stress test, echocardiogram, and bloodwork completed in the emergency department. He endorses shortness of breath and fatigue. He had retired in June 29. 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 Review of Systems Constitutional: Positive for fatigue. Respiratory: Positive for shortness of breath. No Known Allergies Current Outpatient Medications Medication Sig Dispense Refill amLODIPine (Norvasc) 10 MG tablet Take 1 tablet (10 mg) by mouth daily. 30 tablet 0 lisinopril 40 MG tablet Take 1 tablet (40 mg) by mouth daily. 30 tablet 0 QUEtiapine (SEROquel) 25 MG tablet Take 25 mg by mouth Nightly. venlafaxine XR (Effexor XR) 37.5 MG 24 hr capsule Take 37.5 mg by mouth daily. amphetamine-dextroamphetamine (Adderall) 20 MG tablet Take 1 tablet by mouth 2 times daily. (Patient not taking: Reported on 08/05/2024) meloxicam (Mobic) 15 MG tablet Take 15 mg by mouth daily. (Patient not taking: Reported on 08/05/2024) No current facility-administered medications for this visit. Past Medical History: Diagnosis Date Depression Hypertension Social History Tobacco Use Smoking status: Never Smokeless tobacco: Never Substance Use Topics Alcohol use: Never Past Surgical History: Procedure Laterality Date APPENDECTOMY HERNIA REPAIR KNEE CARTILAGE SURGERY TONSILLECTOMY (HISTORICAL) Family History Problem Relation Name Age of Onset Heart disease Mother Ovarian cancer Mother High Blood Pressure Mother Objective BP (!) 159/85 Pulse (!) 113 Ht 6' 1 (1.854 m) Wt 238 lb (108 kg) SpO2 98% BMI 31.40 kg/m Physical Exam Constitutional: General: He is not in acute distress. Appearance: He is not toxic-appearing. HENT: Head: Normocephalic and atraumatic. Eyes: General: No scleral icterus. Cardiovascular: Rate and Rhythm: Normal rate and regular rhythm. Heart sounds: No murmur heard. No gallop. Pulmonary: Effort: No respiratory distress. Breath sounds: No wheezing or rales. Musculoskeletal: Cervical back: Normal range of motion. Skin: General: Skin is warm and dry. Neurological: Mental Status: He is alert. Mental status is at baseline. Psychiatric: Mood and Affect: Mood normal. Data Reviewed and Summarized Labs: Imaging/Testing: Rob Back MD documented in this [facility]04-07-2025 Telephone encounter Note* Telephone Encounter - Rukhsana Suárez MA - 08/03/2024 1:39 PM EDT Scanned into media [place] [id number] Miscellaneous Notes* Telephone Encounter - Rukhsana Suárez MA - 08/03/2024 1:39 PM EDT Scanned into media * Telephone Encounter - Keena Saab LPN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 personally reviewed and interpreted this EKG as follows: Interpretation: No Acute Injury Pattern and Sinus Tachycardia Comments: Sinus tachycardia rate of 104 no acute signs of AR or ischemia. No S1Q3T3. Prior: No Prior Discharge Plan Triage Chief Complaint: Shortness of Breath ED Provider: Yunior Edgar Dx/Rx/DC Orders Clinical Impression: Exertional dyspnea Instructions: ED Dyspnea Prescriptions: No Action quetiapine 25 mg tablet 25 mg PO QHS venlafaxine 37.5 mg capsule,extended release 24hr 37.5 mg PO DAILY dextroamphetamine-amphetamine 20 mg tablet 1 tab PO BID Patient Comments: hasn't taken for about a month amlodipine 10 mg tablet 10 mg PO DAILY lisinopril 40 mg tablet 40 mg PO DAILY Other Ambulatory Orders: Stress Test Echo W/Contrast (Routine) Timeframe: 1 Day Facility: [facility] - Location: [facility] Ordered By: Dr. Yunior Edgar Primary Care Provider: Rob Back Referrals: Rob Back MD [Primary Care Provider] - As soon as possible Activity Restrictions/Additional Instructions: Tests today were normal. Concern with your exertional shortness of breath as it is could be underlying cardiac disease. There is no signs of a heart attack at this time. I have ordered an outpatient stress test. You can call them Saturday,July 27 after 10AM and see what they they can set you up to get this done. It should be done inthe next several days. For now we will take a daily full aspirin. Return if you are feeling worse or you develop chest pain or worsening shortness of breath. I would not do a lot of exertional activity at this time till we make sure your heart is okay. Print Language: Spanish Disposition Disposition: Home, Self Care What to do if you have Problems For any increased pain, shortness of breath, bleeding, nausea or vomiting, chestpain, or any unexpected problems, contact your Primary Care Provider. Call [facility] ([phone]) or report to the closest Emergency Room. Call 911 if necessary. 07/25/24 1540 <Electronically signed by Yunior Edgar MD> Cosigner Signature (if applicable): CC: Dr. Rob Back MD ~ Signed [facility] Work Phone: [phone] 863-311503-29-2025 Radiology Diagnostic study note [facility] Imaging Services [address] [place], [place] [address] Chest 1 View (Portable) MR#: [id number] Acct: [id number] Name: LAUREN ESCALANTE Rep #: [id number] : 1955 M 69 From: Pet er Peer DO PCP: Status: PRE ER Study:Chest 1 View (Portable) Date of Exam: 07/25/24 Exam# [id number] Ordering Dr: Iván Edgar MD PROCEDURE: CHEST 1 VIEW (PORTABLE) 07/25/2024 REASON FOR EXAM: CHEST PAIN TECHNIQUE: Frontal view of the chest. COMPARISON: Chest radiograph 07/25/2024 FINDINGS: Hardware: None. Heart: Normal size and appearance. Lungs: Lungs are clear. Bones: Unremarkable. Other: No pleural effusions. No pneumothorax RAD/Chest 1 View (Portable) IMPRESSION: No radiographic evidence of an acute cardiopulmonary process Reading Location[facility] CC: Dr. Yunior Edgar MD ~ Manager Social Responsibility: Signed [facility]03-28-2025 History of Present illness Narrative* Osman Brand, CLARIBEL - AGRICULTURAL INSPECTOR - 07/24/2024 10:20 AM EDT Images from the original note were not included. . [facility] [address] [place] [address] Dept: [phone] Dept Visit type: Established Reason for Visit: Shortness of Breath (States that SOB to just take a shower and go up stairs. States that he is weak at times with dizzy ness. ) Assessment and Plan Chest pain To sudden onset of symptoms and patient's history of not adequately controlled hypertension my concern is that patient is having some sort of cardiac event Ihave recurrent referred patient to the emergency department. Patient states he will make arrangements to take care of his dog and go to [place] emergency room. 1. Secondary hypertension 2. Dyspnea, unspecified type 3. Chest pain, unspecified type No follow-ups on file. Subjective This is a pleasant 67-year-old gentleman with past medical history significant for ADHD, hypertension, and obesity who presents today for various symptoms. Patient states that approximately 3 weeks he is having difficulty completing tasks that he was previously able to complete without interference. Patient reports increased shortness of breath especially when exerting himself such as going up stairs, overall lack of energy, palpitations, chest tightness and chest pain, and generalized weakness. Denies headache, blurred vision, dizziness. Patient reports compliance with medications except forhis Adderall which he states he has not been taking since onset of symptoms. Review of Systems Constitutional: Positive for activity change. Respiratory: Positive for chest tightness and shortness of breath. Cardiovascular: Positive for chest pain and palpitations. Neurological: Positive for weakness. No Known Allergies Current Outpatient Medications Medication Sig Dispense Refill amLODIPine (Norvasc) 10 MG tablet Take 10 mg by mouth in the morning. amphetamine-dextroamphetamine (Adderall) 20 MG tablet Take 1 tablet by mouth 2 times daily. lisinopril 40 MG tablet Take 40 mg by mouth in the morning. meloxicam (Mobic) 15 MG tablet Take 15 mg by mouth daily. QUEtiapine (SEROquel) 25 MG tablet Take 25 mg by mouth Nightly. venlafaxine XR (Effexor XR) 37.5 MG 24 hr capsule Take 37.5 mg by mouth daily. No current facility-administered medications for this visit. Past Medical History: Diagnosis Date Depression Hypertension Social History Tobacco Use Smoking status: Never Smokeless tobacco: Never Substance Use Topics Alcohol use: Never Past Surgical History: Procedure Laterality Date APPENDECTOMY HERNIA REPAIR KNEE CARTILAGE SURGERY TONSILLECTOMY (HISTORICAL) Family History Problem Relation Name Age of Onset Heart disease Mother Ovarian cancer Mother High Blood Pressure Mother Objective BP (!) 146/96 Pulse (!) 112 Ht 6' 1 (1.854 m) Wt 239 lb (108 kg) SpO2 96% BMI 31.53 kg/m Physical Exam Vitals reviewed. Constitutional: Appearance: Normal appearance. Cardiovascular: Rate and Rhythm: Normal rate and regular rhythm. Heart sounds: Normal heart sounds. Pulmonary: Effort: Pulmonary effort is normal. Breath sounds: Normal breath sounds. Musculoskeletal: General: Normal range of motion. Neurological: General: No focal deficit present. Mental Status: He is alert. Psychiatric: Mood and Affect: Mood normal. Data Reviewed and Summarized Labs: Imaging/Testing: CLARIBEL Ludwig CNP documented in this [facility]03-24-2025 Telephone encounter Note* Telephone Encounter - Elise Nair RN - 07/20/2024 3:16 PM EDT S: Patient spoke with [facility] nurse regarding SOB with exertion, weak, HR concerns B: Onset of symptoms/concern 3 weeks A: Patient is SOB, weak. Resting HR is 120 (used his pulse ox), pulse ox in the high 90s. Results were from 07/21/2024. Patient has had multiple episodes with exertion, then elevated heartrate. Patient was told for a mitral valve prolapse, then told he didn't have it. Patient had blacked out at work about 1 1/2 years ago. Patient has been dizzy at times lately. Patient has had angina. R: Patient scheduled on 07/24/2024 at 10:20 am with Chava Brand NP. Insurance verified. Patient instructed to arrive 15 minutes prior to appointment, bring photo ID, insurance cards, copayment if required. Patient instructed to call back with new or worsening symptoms. Reason for Disposition Palpitations and no improvement after following Care Advice Protocols used: Heart Rate and Heartbeat [id number] [facility] [id number] Miscellaneous Notes* Telephone Encounter - Elise Nair RN - 07/20/2024 3:16 PM EDT S: Patient spoke with [facility] nurse regarding SOB with exertion, weak, HR concerns B: Onset of symptoms/concern 3 weeks A: Patient is SOB, weak. Resting HR is 120 (used his pulse ox), pulse ox in the high 90s. Results were from 07/21/2024. Patient has had multiple episodes with exertion, then elevated heartrate. Patient was told for a mitral valve prolapse, then told he didn't have it. Patient had blacked out at work about 1 1/2 years ago. Patient has been dizzy at times lately. Patient has had angina. R: Patient scheduled on 07/24/2024 at 10:20 am with Chava Brand NP. Insurance verified. Patient instructed to arrive 15 minutes prior to appointment, bring photo ID, insurance cards, copayment if required. Patient instructed to call back with new or worsening symptoms. Reason for Disposition Palpitations and no improvement after following Care Advice Protocols used: Heart Rate and Heartbeat [id number] documented in this [facility]11-08-2024 Telephone encounter Note* Telephone Encounter - Ankur Stein MA - 03/06/2024 1:48 PM EST Pt informed, encouraged him to schedule a follow up after the first of the year when he has insurance [facility] [id number] Miscellaneous Notes* Telephone Encounter - Ankur Stein MA - 03/06/2024 1:48 PM EST Pt informed, encouraged him to schedule a follow up after the first of the year when he has insurance * Telephone Encounter - Elise Nair RN - 03/06/2024 12:23 PM EST S: Patient spoke with [facility] nurse regarding medication request B: Onset of symptoms/concern several months A: Patient having generalized oint pain today, requesting prednisone to be ordered. Patient is active, still able to move around. Patient has aching and stiffness, 5/10 pain. Noted in chart, patient was ordered prednisone 20 mg tablets in the past to take as needed for severe joint pain. Last RX was 05/16/2022. GARCIA-02/14/2023 Allergies & pharmacy verified. Patient is currently without insurance, states he should have it starting April 2024. R: Message sent to provider's office for review. Reason for Disposition Caller has NON-URGENT medicine question about med that PCP or specialist prescribed and triager unable to answer question Protocols used: Medication Question [id number] documented in this [facility]11-08-2024 Telephone encounter Note* Telephone Encounter - Elise Nair RN - 03/06/2024 12:23 PM EST S: Patient spoke with [facility] nurse regarding medication request B: Onset of symptoms/concern several months A: Patient having generalized oint pain today, requesting prednisone to be ordered. Patient is active, still able to move around. Patient has aching and stiffness, 5/10 pain. Noted in chart, patient was ordered prednisone 20 mg tablets in the past to take as needed for severe joint pain. Last RX was 05/16/2022. GARCIA-02/14/2023 Allergies & pharmacy verified. Patient is currently without insurance, states he should have it starting April 2024. R: Message sent to provider's office for review. Reason for Disposition Caller has NON-URGENT medicine question about med that PCP or specialist prescribed and triager unable to answer question Protocols used: Medication Question [id number] [facility] [id number] Telephone encounter Note* Telephone Encounter - Rob Yun RN - 09/27/2023 3:44 PM EDT S: Patient spoke with CAC nurse regarding achy joints B: Onset of symptoms/concern couple days A: Patient states all his joints ache. States this last happened 06/24/[address] Back prescribed Prednisone 20 mg to be taken daily as needed for joint pain. He is requesting a precription for the prednisone be sent to his pharmacy: [facility] [address] [place] [address] in [place]. R: Please call patient at # [phone] when prescription sent to pharmacy or with further recommendations. Allergies and Pharmacy reviewed. No further needs at this time. Reason for Disposition Prescription refill request for NON-ESSENTIAL medicine (i.e., no harm to patient if med not taken) and triager unable to refill per department policy Prescription request for new medicine (not a refill) Protocols used: Medication Refill and Renewal [id number], Medication Question [id number] [facility] [id number] Miscellaneous Notes* Telephone Encounter - Rob Yun RN - 09/27/2023 3:44 PM EDT S: Patient spoke with CAC nurse regarding achy joints B: Onset of symptoms/concern couple days A: Patient states all his joints ache. States this last happened 06/24/[address] Back prescribed Prednisone 20 mg to be taken daily as needed for joint pain. He is requesting a precription for the prednisone be sent to his pharmacy: [facility] [address] [facility]. in [place]. R: Please call patient at # [phone] when prescription sent to pharmacy or with further recommendations. Allergies and Pharmacy reviewed. No further needs at this time. Reason for Disposition Prescription refill request for NON-ESSENTIAL medicine (i.e., no harm to patient if med not taken) and triager unable to refill per department policy Prescription request for new medicine (not a refill) Protocols used: Medication Refill and Renewal [id number], Medication Question [id number] documented in this [facility]10-19-2023 History of Present illness Narrative* Rob Back MD - 02/14/2023 2:20 PM EDT Images from the original note were not included. . [facility] [address] [address] [address] [facility] [address] Dept: [phone] Dept Visit type: Established Reason for Visit: Follow-up (Pt states their bp is high and pt states they passed out at work) Assessment and Plan 1. Syncope and collapse - Comprehensive metabolic panel - CBC auto differential - TSH - Magnesium - ECG 12 lead - Cardiac holter monitor (8- 15 days) Syncope and collapse -unclear etiology. Patient had prodromal palpitations and does not recall passing out. Denies pain/injury. He was evaluated by EMS who recommended emergency department visit but patient declined. Blood pressure at scene was over 200/110. In office, blood pressure 136/77. Patient compliant with lisinopril and amlodipine and reports adequate blood pressures at home. Check laboratory studies as per above. Check EKG today. Arrange for 15-day cardiac event monitor to further evaluate for causes of palpitations. Encouraged hydration. Advised patient to discuss Adderall use in the context of palpitations/syncope with psychiatrist. Cautioned against use of caffeine. Patient will follow-up with me following conclusion of monitoring study or should symptoms recur. Subjective HPI This is a very pleasant 67-year-old gentleman with past medical history significant for ADHD, hypertension, obesity who presents today for same-day visit following syncopal episode. Syncope - Had episode of palpitations / syncope earlier today around 9AM while working. 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 Passed out, not sure how long he was out. States than when squad arrived his blood pressure was 200/110. He was advised to go to the emergency department but declined and scheduled same-day visit. States that he had similar palpitation symptoms about3 weeks earlier without syncope. Glaucoma - was recently started on Latanoprost HTN - compliant with lisinopril/amlodipine ADHD / depression - venlafaxine and adderall (managed by psychiatry). No recent changes to Adderalldose. Review of Systems Constitutional: Negative for chills. HENT: Negative for congestion. Respiratory: Negative for shortness of breath. Cardiovascular: Positive for palpitations. Neurological: Positive for syncope. Psychiatric/Behavioral: Negative for agitation. No Known Allergies Outpatient Medications Prior to Visit Medication Sig Dispense Refill amLODIPine (Norvasc) 10 MG tablet Take 10 mg by mouth in the morning. cyclobenzaprine (Flexeril) 10 MG tablet Take 10 mg by mouth 3 times daily as needed. lisinopril 40 MG tablet Take 40 mg by mouth in the morning. pantoprazole (ProtoNix) 40 MG EC tablet take 1 tablet by mouth every morning before meals predniSONE (Deltasone) 20 MG tablet Take 1 tablet (20 mg) by mouth Daily as needed (severe joint pain). 10 tablet 1 venlafaxine XR (Effexor XR) 75 MG 24 hr capsule Take 75 mg by mouth every evening. No facility-administered medications prior to visit. Past Medical History: Diagnosis Date Depression Hypertension Social History Tobacco Use Smoking status: Never Smokeless tobacco: Never Substance Use Topics Alcohol use: Never Past Surgical History: Procedure Laterality Date APPENDECTOMY HERNIA REPAIR KNEE CARTILAGE SURGERY TONSILLECTOMY (HISTORICAL) Family History Problem Relation Name Age of Onset Heart disease Mother Ovarian cancer Mother High Blood Pressure Mother Objective BP (!) 161/92 Pulse 110 Ht 6' 1 (1.854 m) Wt 222 lb 6.4 oz (101 kg) SpO2 94% BMI 29.34 kg/m Physical Exam HENT: Head: Normocephalic and atraumatic. Eyes: General: No scleral icterus. Pulmonary: Effort: Pulmonary effort is normal. Musculoskeletal: Cervical back: Normal range of motion. Neurological: General: No focal deficit present. Mental Status: He is alert and oriented to person, place, and time. Data Reviewed and Summarized Labs: Imaging/Testing: Rob Back MD documented in this [facility]10-19-2023 Instructions* Patient Instructions* Rob Back MD - 02/14/2023 2:20 PM EDT To schedule your heart monitor, please call the following number: Central Scheduling [phone] documented in this [facility]10-19-2023 Telephone encounter Note* Telephone Encounter - Judy Robison RN - 02/14/2023 12:28 PM EDT S: Patient spoke with CAC nurse regarding Blacked out at work today, BP was 200/110, heart palpations B: Onset of symptoms/concern Today A: Patient calling in due to he blacked out at work after having palpitations then woke up on floor, employer called EMS, BP at that time 200/110. Patient declined transport to ED at that time. Patient sent home from work. Calling in to schedule appointment. Patient states he has had palpitations in the past, but has never blacked out. Reports history of high blood pressure. Endorses ringing in the ears and dull headache at times, but declines at this time. Denies: Shortness of breath, chest pain. R: Patient advised he needs to be checked out in ED and is refusing to go in at this time. RN stressed importance of getting checked out today. States he can go to ED tomorrow. Second level triage performed with Dr. Back for recommendations. Informed patient is refusing to go to ED at this time. OK from Dr. Back to schedule patient in office today at 2:20p. Patient informed that he can come in to the office today and to make sure he goes into his appointment. No further needs at this time. Patient instructed to call back with new or worsening symptoms. Reason for Disposition Passed out (i.e., lost consciousness, collapsed and was not responding) Answer Assessment - Initial Assessment Questions 1. DESCRIPTION: Please describe your heart rate or heartbeat that you are having (e.g., fast/slow, regular/irregular, skipped or extra beats, palpitations) Feels ok now 2. ONSET: When did it start? (Minutes, hours or days) After 9am 3. DURATION: How long does it last (e.g., seconds, minutes, hours) Unsure how long it lasted 4. PATTERN Does it come and go, or has it been constant since it started? Does it get worse withexertion? Are you feeling it now? Palpitations, has been a few weeks since last episode, has never blacked out in past 5. TAP: Using your hand, can you tap out what you are feeling on a chair or table in front of you,so that I can hear? (Note: not all patients can do this) *No Answer* 6. HEART RATE: Can you tell me your heart rate? How many beats in 15 seconds? (Note: not all patients can do this) *No Answer* 7. RECURRENT SYMPTOM: Have you ever had this before? If Yes, ask: When was the last time? and What happened that time? Palpiations but never blacked out 8. CAUSE: What do you think is causing the palpitations? *No Answer* 9. CARDIAC HISTORY: Do you have any history of heart disease? (e.g., heart attack, angina, bypasssurgery, angioplasty, arrhythmia) High blood pressure 10. OTHER SYMPTOMS: Do you have any other symptoms? (e.g., dizziness, chest pain, sweating, difficulty breathing) Has noticed ringing in ears last couple of days, has had a few headaches in evening, dull headache 11. : Is there any chance you are ? When was your last menstrual period? *No Answer* Protocols used: Heart Rate and Heartbeat [id number] [facility]10-19-2023 Miscellaneous Notes* Telephone Encounter - Judy Robison RN - 02/14/2023 12:28 PM EDT S: Patient spoke with CAC nurse regarding Blacked out at work today, BP was 200/110, heart palpations B: Onset of symptoms/concern Today A: Patient calling in due to he blacked out at work after having palpitations then woke up on floor, employer called EMS, BP at that time 200/110. Patient declined transport to ED at that time. Patient sent home from work. Calling in to schedule appointment. Patient states he has had palpitations in the past, but has never blacked out. Reports history of high blood pressure. Endorses ringing in the ears and dull headache at times, but declines at this time. Denies: Shortness of breath, chest pain. R: Patient advised he needs to be checked out in ED and is refusing to go in at this time. RN stressed importance of getting checked out today. States he can go to ED tomorrow. Second level triage performed with Dr. Back for recommendations. Informed patient is refusing to go to ED at this time. OK from Dr. Back to schedule patient in office today at 2:20p. Patient informed that he can come in to the office today and to make sure he goes into his appointment. No further needs at this time. Patient instructed to call back with new or worsening symptoms. Reason for Disposition Passed out (i.e., lost consciousness, collapsed and was not responding) Answer Assessment - Initial Assessment Questions 1. DESCRIPTION: Please describe your heart rate or heartbeat that you are having (e.g., fast/slow, regular/irregular, skipped or extra beats, palpitations) Feels ok now 2. ONSET: When did it start? (Minutes, hours or days) After 9am 3. DURATION: How long does it last (e.g., seconds, minutes, hours) Unsure how long it lasted 4. PATTERN Does it come and go, or has it been constant since it started? Does it get worse withexertion? Are you feeling it now? Palpitations, has been a few weeks since last episode, has never blacked out in past 5. TAP: Using your hand, can you tap out what you are feeling on a chair or table in front of you,so that I can hear? (Note: not all patients can do this) *No Answer* 6. HEART RATE: Can you tell me your heart rate? How many beats in 15 seconds? (Note: not all patients can do this) *No Answer* 7. RECURRENT SYMPTOM: Have you ever had this before? If Yes, ask: When was the last time? and What happened that time? Palpiations but never blacked out 8. CAUSE: What do you think is causing the palpitations? *No Answer* 9. CARDIAC HISTORY: Do you have any history of heart disease? (e.g., heart attack, angina, bypasssurgery, angioplasty, arrhythmia) High blood pressure 10. OTHER SYMPTOMS: Do you have any other symptoms? (e.g., dizziness, chest pain, sweating, difficulty breathing) Has noticed ringing in ears last couple of days, has had a few headaches in evening, dull headache 11. : Is there any chance you are ? When was your last menstrual period? *No Answer* Protocols used: Heart Rate and Heartbeat [id number] documented in this [facility]01-16-2023 Telephone encounter Note* Telephone Encounter - Blanca Hdz - 05/14/2022 2:44 PM EST Name of caller: Lauren Contact phone number: [phone] Relationship to Patient: Pt Provider: Wiliam Practice: [facility] Chief Complaint/Reason for Call: Pt called in needing a refill of his Prednisone 20mg 1x daily PRN for his joint pain. I did not see any documentation of this on his chart. Pt states it was prescribed by his previous doctor and it helps with his joint pain. He also states it was discussed with Dr Back at his last visit. Pharmacy verified [id number] - [address] [phone]. Please advise. Best time of day caller can be reached: Any Patient advised that office/PCP has 24-48 business hours to return their call: No [id number] Miscellaneous Notes* Telephone Encounter - Blanca Hdz - 05/14/2022 2:44 PM EST Name of caller: Lauren Contact phone number: [phone] Relationship to Patient: Pt Provider: Wiliam Practice: [facility] Chief Complaint/Reason for Call: Pt called in needing a refill of his Prednisone 20mg 1x daily PRN for his joint pain. I did not see any documentation of this on his chart. Pt states it was prescribed by his previous doctor and it helps with his joint pain. He also states it was discussed with Dr Back at his last visit. Pharmacy verified [id number] - [address] [phone]. Please advise. Best time of day caller can be reached: Any Patient advised that office/PCP has 24-48 business hours to return their call: No documented in this [facility] + Plan note No data available for this section [facility] Evaluation note* Diagnosis Syncope and collapse- Primary documented in this encounter [facility] note* Diagnosis Syncope and collapse documented in this encounter [facility] note* Diagnosis Syncope and collapse documented in this encounter [facility] note* Diagnosis Secondary hypertension- Primary Other secondary hypertension, unspecified Dyspnea, unspecified type Chest pain, unspecified type documented in this encounter [facility] noteNo assessment information availableWMorrow County Hospital Work Phone: Evaluation note* Diagnosis Shortness of breath- Primary [facility] in [facility] encounter [facility]* Diagnosis Fatigue, unspecified type- Primary B12 deficiency Vitamin D deficiency Shortness of breath Encounter for screening prostate specific antigen (PSA) measurement Dyspepsia Dyspepsia and other specified disorders of function of stomach Generalized abdominal pain Abdominal pain, generalized Encounter for screening colonoscopy Abdominal distension Flatulence, eructation, and gas pain documented in this encounter [facility]* Diagnosis Primary hypertension- Primary Unspecified essential hypertension Dyspepsia Dyspepsia and other specified disorders of function of stomach Fatigue, unspecified type Chest pain, unspecified type Slurred speech Other speech disturbance [facility]* Diagnosis Fatigue, unspecified type- Primary [facility] No data available for this section [facility] Hospital Discharge instructions Additional Instructions Tests today were normal. Concern with your exertional shortness of breath as it is could be underlying cardiac disease. There is no signs of a heart attack at this time. I have ordered an outpatient stress test. You can call them Saturday,July 27 after 10 AM and see what they they can set you up to get this done. It should be done in the next several days. For now we will take a daily full aspirin. Return if you are feeling worse or you develop chest pain or worsening shortness of breath. I would not do a lot of exertional activity at this time till we make sure your heart is okay.[facility] Work Phone: Progress note No data available for this section [facility] Reason for referral (narrative)No reason for referral information availableWMorrow County Hospital Work Phone: Summary Purpose Family History No Family History Records Found Relationship Condition Age at Onset Recorded Date/T hardik mother Cardiac disease Unknown Malignant neoplasm Unknown Hypertension Unknown father Myocardial infarction Unknown Advance Directives No Advanced Directives Records Found Advance Directive Response Recorded Date/ Time Living Will Yes July 25, 2024 11:28am Do you have a Healthcare Power of Sapphire Stylus Grinder? Yes July 25, 2024 11:28am Name of Medical Power of Sapphire Stylus Grinder [place] July 25, 2024 11:28am Reason for Referral Specialty Diagnoses / Procedures Referred By Contac t Referred To Contact Cardiology Diagnoses Syncope and collapse Procedures Cardiac holter monitor (8- 15 days) CO EXTERNAL ECG REC>48HR<7D REVIEW & INTERPRETATION CO EXTERNAL ECG REC>48HR<7D RECORDING CO EXTERNAL ECG REC>7D<15D RECORDING CO EXTERNAL ECG REC>7D<15D REVIEW & INTERPRETATION Rob Back MD [address] [place] [address] [address] [place] [address] Referral ID Status Reason Start Date Expiration Date V isits Requested Visits Authorized [id number] Authorized 02/14/2023 08/13/2023 1 1 Chief Complaint and Reason for Visit Chief Complaint Admit Date SOB July 25, 2024 11: 10am Chief Complaint Admit Date SOB July 25, 2024 11: 10am ROMERO July 29, 2024 6:12 am Chief Complaint Admit Date SOB July 25, 2024 11: 10am ROMERO July 29, 2024 6:12 am Shortness of breath August 27, 2024 9:28am R06.02 - Shortness of breath September 14, 025 7:54am Right Upper Quadrant Pain September 14, 2024 1:51pm Reason for Visit Admit Date SOB (shortness of breath) August 27, 2024 9:28am Abdominal pain September 14, 2024 1:51p m Bloating September 14, 2024 1:51p m Diarrhea September 14, 2024 1:51p m Nausea September 14, 2024 1:51p m Additional Source Comments Source Comments (unrecognize d section and content) In the event this informatio n is protected by the Federal Confidentiality of Alcohol and Drug Abuse Patient Records regulations: The Federal rules restrict any use of the information to criminally investigate or prosecute any alcohol or drug abuse patient.[facility] Care Teams (unrecognized sec tion and content) Nail Making Machine Tender Relationship Specialty Start Date End Date Paola Lofton MD PCP - General 08/15/16 Nail Making Machine Tender Relationship Specialty Start Date End Date Rob Back MD [address] [place] [id number] PCP - General Internal Medicine 03/23/22 Nail Making Machine Tender Relationship Specialty Start Date End Date Rob Back MD [address] [place] [address] PCP - General Internal Medicine 03/23/22 Nail Making Machine Tender Relationship Specialty Start Date End Date Rob Back MD [address] [place] [address] PCP - General Internal Medicine 03/23/22 Nail Making Machine Tender Relationship Specialty Start Date End Date Rob Back MD [address] [place] [address] PCP - General Internal Medicine 03/23/22 Nail Making Machine Tender Relationship Specialty Start Date End Date Rob Back MD [address] [place] [address] PCP - General Internal Medicine 03/23/22 Nail Making Machine Tender Relationship Specialty Start Date End Date Rob Back MD [address] [place] [address] PCP - General Internal Medicine 03/23/22 Nail Making Machine Tender Relationship Specialty Start Date End Date Rob Back MD [address] [place] [address] PCP - General Internal Medicine 03/23/22 Nail Making Machine Tender Relationship Specialty Start Date End Date Rob Back MD [address] [place] [address] PCP - General Internal Medicine 03/23/22 Nail Making Machine Tender Relationship Specialty Start Date End Date Rob Back MD [address] [place] [address] [place] [address] PCP - General Internal Medicine 03/23/22 Team Status: Active Member Role Status Dates Dr. Rob Back MD Primary Care Provider Active Team Status: Inactive Member Role Status Dates Dr. Yunior Edgar MD Emergency Provider Active S tart: July 25, 2024 End: July 25, 2024 Dr. Rob Back MD Primary Care Provider Active Start: July 25, 2024 End: July 25, 2024 Nail Making Machine Tender Relationship Specialty Start Date End Date Rob Back MD [address] [place] [address] [place] [address] PCP - General Internal Medicine 03/23/22 Nail Making Machine Tender Relationship Specialty Start Date End Date Rob Back MD [address] [place] [address] PCP - General Internal Medicine 03/23/22 Team Status: Inactive Member Role Status Dates Dr. Yunior Edgar MD Attending Provider Active S tart: July 25, 2024 End: July 25, 2024 Dr. Yunior Edgar MD Emergency Provider Active S tart: July 25, 2024 End: July 25, 2024 Dr. Rob Back MD Primary Care Provider Active Start: July 25, 2024 End: July 25, 2024 Team Status: Inactive Member Role Status Dates Dr. Yunior Edgar MD Attending Provider Active S tart: July 29, 2024 End: July 29, 2024 Dr. Yunior Edgar MD Referring Provider Active S tart: July 29, 2024 End: July 29, 2024 Dr. Rob Back MD Primary Care Provider Active Start: July 29, 2024 End: July 29, 2024 Dr. Leon Boyd MD Other Provider Active Start : July 29, 2024 End: July 29, 2024 Team Status: Active Member Role Status Dates Dr. Rob Back MD Primary Care Provider Active Start: July 29, 2024 Dr. Leon Boyd MD Attending Provider Active S tart: July 29, 2024 Nail Making Machine Tender Relationship Specialty Start Date End Date Rob Back MD [address] [place] [address] [place] [address] PCP - General Internal Medicine 03/23/22 Nail Making Machine Tender Relationship Specialty Start Date End Date Rob Back MD [address] [facility] [place] [address] PCP - General Internal Medicine 03/23/22 Nail Making Machine Tender Relationship Specialty Start Date End Date Rob Back MD [address] [facility] [place] [address] PCP - General Internal Medicine 03/23/22 Nail Making Machine Tender Relationship Specialty Start Date End Date Rob Back MD [address] [facility] [place] [address] [place] [address] PCP - General Internal Medicine 03/23/22 Team Status: Inactive Member Role Status Dates Dr. Rob Back MD Primary Care Provider Active Start: August 27, 2024 End: August 27, 2024 Dr. Rob Back MD Referring Provider Active S tart: August 27, 2024 End: August 27, 2024 Dr. Bryan Zhang DO Attending Provider Active S tart: August 27, 2024 End: August 27, 2024 Team Status: Active Member Role Status Dates Dr. Rob Back MD Primary Care Provider Active Start: September 14, 2024 Dr. Bryan Zhang DO Attending Provider Active S tart: September 14, 2024 Dr. Bryan Zhang DO Referring Provider Active S tart: September 14, 2024 Team Status: Inactive Member Role Status Dates Dr. Rob Back MD Primary Care Provider Active Start: September 14, 2024 End: September 14, 2024 Dr. Rob Back MD Referring Provider Active S tart: September 14, 2024 End: September 14, 2024 MARCELO Delaney Attending Provider Active Start: September 14, 2024 End: September 14, 2024 Nail Making Machine Tender Relationship Specialty Start Date End Date Rob Back MD [address] [place] [address] [address] [place], [place] [id number] PCP - General Internal Medicine 03/23/22 (unrecognized sect ion and content) No Status Records FoundNo Status Records FoundNo Status Records FoundNo Status Records FoundNo Status Records Found INFORMATION SOURCE (unrecogn ized section and content) DATE CREATED AUTHOR 12/08/2021 [facility] dical Specialist DATE CREATED AUTHOR AUTHOR'S ORGANIZ ATION 12/30/2021 [facility] ([place]) DATE CREATED AUTHOR AUTHOR'S ORGANIZ ATION 02/05/2022 [facility] DATE CREATED AUTHOR AUTHOR'S ORGANIZ ATION 09/25/2024 [facility] DATE CREATED AUTHOR AUTHOR'S ORGANIZ ATION 10/01/2024 [facility] Care Team (unrecognized sect ion and content) Care Team Personnel Name: PAOLA LOFTON MD Member Role: Primary Care Physician Address: Address: [address] [place] [address] [id number] Care Team Related Persons Name: MARIBEL ESCALANTE Reason for Visit (unrecogniz ed section and content) Reason Comments Follow-up Pt states their bp i s high and pt states they passed out at work Specialty Diagnoses / Procedures Referred By Contenoch t Referred To Contact Cardiology Diagnoses Syncope and collapse Procedures Cardiac holter monitor (8- 15 days) CO EXTERNAL ECG REC>48HR<7D REVIEW & INTERPRETATION CO EXTERNAL ECG REC>48HR<7D RECORDING CO EXTERNAL ECG REC>7D<15D RECORDING CO EXTERNAL ECG REC>7D<15D REVIEW & INTERPRETATION Rob Back MD [address] [place] [address] [address] [place] [address] Referral ID Status Reason Start Date Expiration Date Visits Re quested Visits Authorized [id number] Closed 02/14/2023 08/13/2023 1 1 Reason Onset Date Comments Palpitations 02/14/2023 Reason Onset Date Comments Med Refill 09/30/2023 Reason Onset Date Comments Generalized Body Aches 09/27/2023 Reason Onset Date Comments Medication Problem 03/06/2024 Reason Onset Date Comments Med Refill 05/14/2022 Reason Onset Date Comments Palpitations 07/20/2024 Reason Comments Shortness of Breath States that SOB to iván byrdt take a shower and go up stairs. States that he is weak at times with dizzy ness. Reason Onset Date Comments Med Refill 07/29/2024 Reason Onset Date Comments Results 07/31/2024 Reason Comments Results To review labs from [facility], to know what the next step will be Reason Onset Date Comments New Med Request 08/06/2024 Reason Onset Date Comments Other 08/06/2024 Please send refe rral to Dr. Gilberto Rice in [place] Reason Onset Date Comments Referral 08/10/2024 Reason Comments Med Refill Reason Comments Follow-up Follow up for abdomi nal fluid retention and bloating, SOB Reason Comments Follow-up Patient states here for lab results Reason Onset Date Comments Fatigue 09/22/2024 Goals (unrecognized section and content) Goals may be documented in a n alternate section FOR RECORDS PERTAINING TO PATIENTS WHO ARE OR HAVE BEEN ENROLLED IN A CHEMICAL DEPENDENCY/SUBSTANCEABUSE PROGRAM, SOME INFORMATION MAY BE OMITTED. This clinical summary was aggregated from multiple sources. Caution should be exercised in using it in the provision of clinical care. This summary normalizes information from multiple sources, and as a consequence, information in this document may materially change the coding, format and clinical context of patient data. In addition, data may be omitted in some cases. CLINICAL DECISIONS SHOULD BE BASED ON THE PRIMARY CLINICAL RECORDS. [employer] provides no warranty or guarantee of the accuracy or completeness of information in this document.
--- NOTE | 2024-10-02 13:04 | PCM.PSN.6M ---
PSN 6 Minute Walk Test 6 Minute Walk Test 6 Minute Walk Test: 6 Minute Walk Test PSN:6-Minute Walk Test Start: 10/01/24 12:46 Freq: Status: Active Protocol: RESP.6MINW Document 10/01/24 12:46 [facility] (Rec: 10/01/24 12:52 [facility] [id number]) 6 Minute Walk Test Date Performed 10/01/24 Time Performed 12:30 Height 6 ft Weight: 242 lb Weight in Pounds 242.[address]: Bryan Zhang Assistive device None used: Pre-test Oxygen Delivery Room Air Method Pulse Ox (%) 97 Pulse Rate (60-100 101 H beats/min) Dyspnea Frank Scale ( 0 0-10) Exertion Frank Scale 6 (6-20) 1st minute Oxygen Delivery Room Air Method Pulse Ox (%) 95 Pulse Rate (60-100 106 H beats/min) Dyspnea Frank Scale ( 2 0-10) Number of Rests 0 Taken Reported Symptoms Increased Work of Breathing 2nd minute Oxygen Delivery Room Air Method Pulse Ox (%) 96 Pulse Rate (60-100 108 H beats/min) Dyspnea Frank Scale ( 3 0-10) Number of Rests 0 Taken Reported Symptoms Increased Work of Breathing 3rd minute Oxygen Delivery Room Air Method Pulse Ox (%) 96 Pulse Rate (60-100 110 H beats/min) Dyspnea Frank Scale ( 3 0-10) Number of Rests 0 Taken Reported Symptoms Increased Work of Breathing 4th minute Oxygen Delivery Room Air Method Pulse Ox (%) 96 Pulse Rate (60-100 113 H beats/min) Dyspnea Frank Scale ( 3 0-10) Number of Rests 0 Taken Reported Symptoms Increased Work of Breathing 5th minute Oxygen Delivery Room Air Method Pulse Ox (%) 95 Pulse Rate (60-100 114 H beats/min) Dyspnea Frank Scale ( 3 0-10) Number of Rests 0 Taken Reported Symptoms Increased Work of Breathing 6th minute Oxygen Delivery Room Air Method Pulse Ox (%) 96 Pulse Rate (60-100 115 H beats/min) Dyspnea Frank Scale ( 3 0-10) Exertion Frank Scale 6 (6-20) Number of Rests 0 Taken Reported Symptoms Increased Work of Breathing Post-test Oxygen Delivery Room Air Method Pulse Ox (%) 98 Pulse Rate (60-100 104 H beats/min) Dyspnea Frank Scale ( 0 0-10) Full Laps Walked 21 Partial Lap, Number 7 of Tiles Walked Total Distance 1246 Walked (ft) Interpretation Interpretation: The patient ambulated 1246 feet over the course of 6 minutes beginning on room air without assistive devices. Pretesting oxygen saturation was noted to be 97% on room air. With ambulation, the aleksey oxygen saturation was 95%. There was no significant exertional oxygen desaturation. Recommendations Recommendations: There is no indication for the use of supplemental oxygen at this time.
== END | disposition home or self-care (01) ==
LOC: PSN 12:20
PROVIDERS: PCP Internal Medicine; Referring Provider Internal Medicine Critical Care Medicine; Visit Provider Internal Medicine Critical Care Medicine
DX: R06.02 Shortness of breath (principal)
CPT/HCPCS: 94618

== ENCOUNTER → 2024-10-14 | Outpatient (CLI) | payer MEDICARE, SELFPAY ==
--- NOTE | 2024-10-14 17:25 | CT_ITS ---
PROCEDURE: CHEST WITHOUT CONTRAST 10/14/2024 REASON FOR EXAM: SOB TECHNIQUE: Chest CT without contrast. Coronal and Sagittal reconstruction series were provided. One or more dose reduction techniques were used (e.g., Automated exposure control, adjustment of the mA and/or kV according to patient size, use of iterative reconstruction technique RADIATION DOSE SUMMARY: CTDlvol: 17.05 mGy DLP: 741 mGycm COMPARISON: 07/25/2024. FINDINGS: Moderate coronary artery calcifications. 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 Subsegmental atelectatic changes/infiltrates in the left lower lobe. Please evaluate to exclude superimposed pneumonia. Fluid-filled, mildly prominent esophagus, probably mild reflux. Mild bilateral basilar atelectatic pulmonary changes. Moderate coronary artery calcifications. Mild diffuse spondylosis. Normal unenhanced main pulmonary artery and right and left pulmonary arteries. Normal bilateral peripheral pulmonary arteries. Normal thoracic aorta and visualized great vessels. There is no demonstrated aortic aneurysm. Normal heart and pericardium. Normal mediastinum. Normal hilar regions. Normal visualized trachea and bronchi. Normal pleura. Normal visualized upper abdomen. CT/Chest without Contrast IMPRESSION: IMPRESSION: Coronary artery calcification (CAC) is is present Moderate coronary artery calcifications. Left posterolateral diaphragmatic hernia is noted containing nonincarcerated fa t, chronic finding. Subsegmental atelectatic changes/infiltrates in the left lower lobe. Please anita luate to exclude superimposed pneumonia. Fluid-filled, mildly prominent esophagus, probably mild reflux. Mild bilateral basilar atelectatic pulmonary changes. Moderate coronary artery calcifications. Mild diffuse spondylosis. Reading Location: [place] [address]
== END | disposition home or self-care (01) ==
LOC: CT 17:24
PROVIDERS: PCP Internal Medicine; Referring Provider Internal Medicine; Visit Provider Internal Medicine
DX: M62.81 Muscle weakness (generalized) (principal); R06.02 Shortness of breath
CPT/HCPCS: 71250

== ENCOUNTER → 2024-10-15 | Outpatient (CLI) | payer MEDICARE, SELFPAY | END | disposition home or self-care (01) | LOC: SL 11:31 | PROVIDERS: PCP Internal Medicine; Referring Provider Nurse Practitioner Acute Care; Visit Provider Nurse Practitioner Acute Care | DX: G47.33 Obstructive sleep apnea (adult) (pediatric) (principal); G47.10 Hypersomnia, unspecified | CPT/HCPCS: 95806 ==

== ENCOUNTER 2024-11-13 10:18 | Day surgery (SDC) | payer MEDICARE, SELFPAY ==
--- NOTE | 2024-11-10 18:15 | PAT.ANE_ITS ---
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 When Was Last Pacemaker Check QUESTION #4 FULL TEXT: You/Your Family Experience fever (hyperthermia) with Anesthesia Last Oral Intake Last Oral intake: Last Oral Intake NPO since Meds taken in AM with sips of water? Meds patient instructed to take am of surgery PONV PONV - guidance and control system engineer: PONV - guidance and control system engineer Female No 11/10/24 14:53 HX of Motion Sickness Yes 11/10/24 14:53 HX of N/V After Surgery No 11/10/24 14:53 Non-Smoker Yes 11/10/24 14:53 Duration of Surgery greater No 11/10/24 14:53 than 60 minutes Number of Risk Factors 2 11/10/24 14:53 PONV Score Moderate Risk 11/10/24 14:53 Height & Weight Height & Weight: Anesthesia: Height & Weight Height 6 ft 10/27/24 08:21 Respiratory Assessment Respiratory Assessment - guidance and control system engineer: Respiratory Tract Infection Hx - guidance and control system engineer Hx Respiratory Tract Infection No 11/10/24 14:53 STOP Sleep Apnea STOP Sleep Apnea - guidance and control system engineer: STOP Sleep Apnea - guidance and control system engineer Hx Hypertension Yes 11/10/24 14:53 Hx Sleep Apnea No 11/10/24 14:53 CPAP BIPAP Do you snore loudly (louder No 11/10/24 14:53 than talking or can be heard Do you often feel tired/ No 11/10/24 14:53 fatigued/ sleepy during daytime? Has anyone observed you stop No 11/10/24 14:53 breathing during sleep? STOP Results Negative 11/10/24 14:53 QUESTION #5 FULL TEXT : Do you snore loudly (louder than talking or can be heard through closed doors)? 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 Specify any problems Hx of Preganancy in last 3 N/A 11/10/24 14:53 Months Nurse Filling Out Transfusion [facility] 11/10/24 14:53 & Questions: Date: 11/10/24 11/10/24 14:53 Time: 15:03 11/10/24 14:53 Patient unable to answer at this time (ie. confused, unrespo /Reproduction History /Reproductive History - guidance and control system engineer: /Reproductive Hx- guidance and control system engineer Hx Now No 11/10/24 14:53 Gestational Age (in weeks): EDC: Hx Hx Para Hx Section SAB No 11/10/24 14:53 PFSH Medical History Wears glasses History of steroid therapy Blackout Former smoker Shortness of breath on exertion Leg cramps History of Holter monitoring History of stress test History of echocardiogram Cardiology follow-up encounter Chest pain TD (obstructive sleep apnea) Hypertension Depression SOB (shortness of breath) Pneumothorax Home Medications ?Medication ?Instructions ?Recorded ?Last Taken ?Type amlodipine 10 mg tablet 10 mg PO DAILY 07/25/24 03/12/21 History quetiapine 25 mg tablet 25 mg PO QHS 07/25/24 History venlafaxine 37.5 mg 37.5 mg PO DAILY 07/25/24 History capsule,extended release 24 hr albuterol sulfate 90 mcg/actuation 2 puff inhalation Q 4 PRN shortness 08/27/24 Unknown History aerosol inhaler of breath or wheezing pantoprazole 40 mg tablet,delayed 40 mg PO QDAY Unknown History release peg 3350-electrolytes 236 240 ml PO Q10M #4,000 mL Unknown Rx gram-22.74 gram-6.74 gram-5.86 gram solution (Golytely) dextroamphetamine-amphetamine 20 1 tab PO BID PRN ADHD 10/27/24 Unknown History mg tablet losartan 100 mg tablet 200 mg PO QDAY 10/27/24 Unkn own History Allergy/AdvReac Type Severity Reaction Status Date / Time No Known Allergies Allergy Verified 11/10/24 14:51 Family History Mother Heart disease Cancer ovarian Hypertension Father Myocardial infarction Surgical History History of tonsillectomy H/O hernia repair History of appendectomy History of right knee surgery Social History household members: none current occupational status: retired pets and animals: Yes pets and animals: dog(s) history of recent travel: No Smoking Status: Former smoker alcohol intake: current alcohol intake frequency: holidays/special occasions only substance use type: does not use well-balanced diet: about half the time caffeine: Yes what type of physical activity do you participate in: none Audit: Pertinent Findings Pertinent Findings EKG Perinent findings: 07/25/2024. Sinus tachycardia 104 bpm. With premature atrial complexes. Inferior infarct, age undetermined. Stress test pertinent findings: July 29, 2024. EF of 63%. No areas of reversibility are noted to suggest ischemia. No previous infarct. Echo (EF%) pertinent findings: July 29, 2024. EF is 60%. PASP is 26 mmHg. No aortic valve stenosis is noted. Consult pertinent findings: October 27, 2024. Dr. Samson. 1. Tachycardia ?acute-longstanding history of sinus tachycardia. No documentation of any atrial fibrillation. Does complain of some lightheadedness and syncope. He had 1 of these when he was wearing a Holter monitor but it did not show any ectopy at the time. 2. Hypertension?blood pressure is elevated in the office today. Patient is on combination amlodipine and losartan at max doses. Patient start working on diet and exercise. And treating his sleep apnea. Patient to continue monitoring blood pressures and reassess in 3 months for possible changes to his blood pressure management. 3. Shortness of breath?chronic-no cardiovascular etiology for shortness of breath and dyspnea. Likely deconditioning. 4. Obstructive sleep apnea?acute-patient is to start CPAP in the near future. Additional pertinent findings: Holter report. 02/20/2023. Predominant rhythm was sinus rhythm to sinus tachycardia. 94 ventricular beats with a burden of less than 1%. 1174 supraventricular beats with a burden of less than 1%. There were 4 patient triggers. Recommendation Anesthesia Recommendation Anesthesia recommendation: OPTIMIZED for anesthesia
[2024-11-13] VITALS (8 sets, daily range): BP systolic 100–168; BP diastolic 61–98; PULSE 73–96; RESP 16; TEMP 36.1–36.6; O2SAT 94–99; BMI 31.0
[2024-11-13] MEDS: Lactated Ringers 1,000 ML 15 ML IV (10:58)
--- NOTE | 2024-11-13 11:45 | EGD_PTH ---
PATIENT: LAUREN ZEE LOC: EN U#:[id number] AGE/SX: 69/M ROOM: RE11/13/[address]: Dr. Rolan Grace DO : 1955 BED: DIS: 11/13/2024 SPEC #: [id number] RECD: 11/13/24 13:09 STATUS: REMY DOMINGUEZ #: [id number] ROSALVA: 11/13/24 11:[address]: Rolan Grace DEPT: SURGICAL PATHOLOGY RECD BY: Kirit Rivera ENTERED: 11/16/24 11:12 SP TYPE: EGD BIOPSY HUMAIRA DR: Dr. Todd Swain MD Tissues: A - Esophagus, NOS B - Duodenum, NOS C - Gastric mucous membrane D - Ileum, NOS E - COLON BIOPSY Procedures: Immunohistochemical Stains Surgery Specimen Level IV HEADER OPERATION: Colonoscopy with biopsy, EGD with biopsy PRE-OP DIAGNOSIS: Abdominal pain TISSUE SUBMITTED: A- Distal esophagus biopsy, B- Duodenum biopsy, C- Gastric body biopsy, D- Terminal ileum biopsy, E- Random colon biopsy MICROSCOPIC DIAGNOSIS A. Distal esophagus, biopsy: - Squamous mucosa with reactive changes and focally 16 eosinophils per high power field. 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 - Negative for dysplasia. Note: The diagnosis depends on the location of the biopsy and the extent of the mucosal irregularity. If the biopsy originates from the tubular esophagus and the mucosal irregularity extends at least 1 cm above the top of the gastric folds, this represents Almonte mucosa. If the biopsy originates from the gastric cardia an/ or the mucosal irregularity is less than 1 cm in extent, this represents intestinal metaplasia. B. Duodenum, biopsy: - Normal villous architecture without increased intraepithelial lymphocytes. C. Gastric body, biopsy: - Oxyntic mucosa with no specific pathologic change. - IHC negative for H.pylori organisms. D. Terminal ileum, biopsy: - Normal villous architecture with focal prominent mucosal lymphoid aggregates, favor reactive. E. Colon, random biopsy: - No specific pathologic change. - The histologic features of microscopic colitis are not demonstrated. MICROSCOPIC DESCRIPTION Slides are reviewed. All matched controls reacted appropriately. These tests were developed and their performance characteristics determined by [facility]. They may not have been cleared or approved by the [place]. Food and Drug Administration. The FDA has determined that such clearance or approval is not necessary. The above immunohistochemical/dualISH markers are viewed by the Pathologist. GROSS DESCRIPTION A. Received in fixative is one container labeled with the patient's name and designated Distal esophagus biopsy. The specimen consists of three irregular fragments of light otoole soft tissue that in aggregate measure 0.1 to 0.4 cm. The specimen is totally submitted in one cassette. B. Received in fixative is one container labeled with the patient's name and designated Duodenum biopsy. The specimen consists of three irregular fragments of light otoole soft tissue that in aggregate measure 0.1 to 0.3 cm. The specimen is totally submitted in one cassette. C. Received in fixative is one container labeled with the patient's name and designated Gastric body biopsy. The specimen consists of two irregular fragments of light otoole soft tissue that in aggregate measure 0.1 and 0.9 cm. The specimen is totally submitted in one cassette. D. Received in fixative is one container labeled with the patient's name and designated Terminal ileum biopsy. The specimen consists of multiple irregular fragments of light otoole soft tissue that in aggregate measure 0.1 to 0.5 cm. The specimen is totally submitted in one cassette. E. Received in fixative is one container labeled with the patient's name and designated Random colon biopsy. The specimen consists of multiple irregular fragments of light otoole soft tissue that in aggregate measure 1.9 x 0.7 x 0.1 cm. The specimen is totally submitted in one cassette. KYArash 11/16/2024 CPT:[id number]
--- NOTE | 2024-11-13 11:47 | PCM.PRE.AN2 ---
ASA Classification* ASA Classification ASA Classification: 3 Assessment & Plan Anesthesia* Anesthesia Assessment Anesthesia Assessment: Discussed sedation and/or anesthesia options, risks, benefits, and alternatives with patient/parents/legal guardian/POA. Questions invited. The patient/parents/legal guardian/POA seems to understand and agrees to proceed with anesthesia plan. Reviewed the physical assessment, medical history, allergy history and patient home medications list prior to surgery/procedure/anesthetic and documented any changes. Performed airway and anesthesia risk assessments. Anesthesia Type Anesthesia Type: MAC History Source History Obtained from:: Patient and Chart Anesthesia Focused Assessment* Temperature: 97.8 F Pulse Rate: 96 Blood Pressure: 168/98 Respiratory Rate: 16 Pulse Ox: 99 Oxygen Delivery Method: Room Air Airway Assessment Mouth opens: >3 cm Mallampati Score: II Teeth Condition: Intact, Chipped/Broken (Several chipped teeth.) and Missing (Patient is missing several teeth.) Neck Range of motion (ROM): Limited ROM (Decreased extension) Labs Anesthesia Preop lab: CBC WBC 8.1 K/mm3 (4.4-11.0) 07/25/24 11:45 07/25/24 RBC 4.64 M/mm3 (4.6-6.2) 07/25/24 11:45 07/25/24 Hgb 14.5 g/dL (13.0-16.5) 07/25/24 11:45 07/25/24 Hct 41.3 % (40-54) 07/25/24 11:45 07/25/24 Plt Count 317 K/mm3 (150-450) 07/25/24 11:45 07/25/24 CHEMISTRY Potassium 4.2 mmol/L (3.3-5.1) 07/25/24 11:45 07/25/24 Sodium 139 mmol/L (133-145) 07/25/24 11:45 07/25/24 BUN 28 mg/dL (4-19) H 07/25/24 11:45 07/25/24 Creatinine 1.13 mg/dL (0.70-1.20) 07/25/24 11:45 07/25/24 Glucose 98 mg/dL (70-99) 07/25/24 11:45 07/25/24 COAG Pre-Assessment Diagnosis/Proposed Procedure Planned Operative Procedure(s): EGD, COLONOSCOPY Anesthesia History 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 When Was Last Pacemaker Check QUESTION #4 FULL TEXT: You/Your Family Experience fever (hyperthermia) with Anesthesia Last Oral Intake Last Oral intake: Last Oral Intake NPO since 05:00 11/13/24 10:55 Meds taken in AM with sips of No 11/13/24 10:55 water? Meds patient instructed to take am of surgery Any additional information?: Yes NPO since: 05:00 (Patient finished prep at 5 AM.) Meds taken in AM with sips of water?: No PONV PONV - linoleum layer helper: PONV - linoleum layer helper Female No 11/10/24 14:53 HX of Motion Sickness Yes 11/10/24 14:53 HX of N/V After Surgery No 11/10/24 14:53 Non-Smoker Yes 11/10/24 14:53 Duration of Surgery greater No 11/10/24 14:53 than 60 minutes Number of Risk Factors 2 11/10/24 14:53 PONV Score Moderate Risk 11/10/24 14:53 Height & Weight Height & Weight: Anesthesia: Height & Weight Height 6 ft 1 in 11/13/24 10:55 Weight: 106.8 kg 11/13/24 10:55 Body Mass Index (BMI) 31.0 11/13/24 10:55 Respiratory Assessment Respiratory Assessment - linoleum layer helper: Respiratory Tract Infection Hx - linoleum layer helper Hx Respiratory Tract Infection No 11/10/24 14:53 STOP Sleep Apnea STOP Sleep Apnea - linoleum layer helper: STOP Sleep Apnea - linoleum layer helper Hx Hypertension Yes 11/10/24 14:53 Hx Sleep Apnea No 11/10/24 14:53 CPAP BIPAP Do you snore loudly (louder No 11/10/24 14:53 than talking or can be heard Do you often feel tired/ No 11/10/24 14:53 fatigued/ sleepy during daytime? Has anyone observed you stop No 11/10/24 14:53 breathing during sleep? STOP Results Negative 11/10/24 14:53 QUESTION #5 FULL TEXT : Do you snore loudly (louder than talking or can be heard through closed doors)? 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 Specify any problems Hx of Preganancy in last 3 N/A 11/10/24 14:53 Months Nurse Filling Out Transfusion [facility] 11/10/24 14:53 & Questions: Date: 11/10/24 11/10/24 14:53 Time: 15:03 11/10/24 14:53 Patient unable to answer at this time (ie. confused, unrespo /Reproduction History /Reproductive History - linoleum layer helper: /Reproductive Hx- linoleum layer helper Hx Now No 11/10/24 14:53 Gestational Age (in weeks): EDC: Hx Hx Para Hx Section SAB No 11/10/24 14:53 Active Medications Active Medications: Current Medications Generic Name Dose Route Start Last Admin Trade Name Freq PRN Reason Stop Dose Admin Lactated Ringer's 1,000 mls @ 15 mls/hr 11/13/24 10:45 11/13/24 10:58 IV 15 mls/hr .Q48H DEJA Administration PFSH Medical History Wears glasses History of steroid therapy Blackout Former smoker Shortness of breath on exertion Leg cramps History of Holter monitoring History of stress test History of echocardiogram Cardiology follow-up encounter Chest pain TD (obstructive sleep apnea) Hypertension Depression SOB (shortness of breath) Pneumothorax Home Medications ?Medication ?Instructions ?Recorded ?Last Taken ?Type amlodipine 10 mg tablet 10 mg PO DAILY 07/25/24 07/24/24 History quetiapine 25 mg tablet 25 mg PO QHS 07/25/24 07/24/24 History venlafaxine 37.5 mg 37.5 mg PO DAILY 07/25/24 07/25/24 History capsule,extended release 24 hr albuterol sulfate 90 mcg/actuation 2 puff inhalation Q4 PRN shortness 08/27/24 Unknown History aerosol inhaler of breath or wheezing pantoprazole 40 mg tablet,delayed 40 mg PO QDAY 09/14/24 Unknown History release peg 3350-electrolytes 236 240 ml PO Q10M #4,000 mL 09/14/24 Unknown Rx gram-22.74 gram-6.74 gram-5.86 gram solution (Golytely) dextroamphetamine-amphetamine 20 1 tab PO BID PRN ADHD 10/27/24 Unknown History mg tablet losartan 100 mg tablet 200 mg PO QDAY 10/27/24 Unknown History Allergy/AdvReac Type Severity Reaction Status Date / Time No Known Allergies Allergy Verified 11/13/24 10:54 Family History Mother Heart disease Cancer ovarian Hypertension Father Myocardial infarction Surgical History History of tonsillectomy H/O hernia repair History of appendectomy History of right knee surgery Social History household members: none current occupational status: retired pets and animals: Yes pets and animals: dog(s) history of recent travel: No Smoking Status: Former smoker alcohol intake: current alcohol intake frequency: holidays/special occasions only substance use type: does not use well-balanced diet: about half the time caffeine: Yes what type of physical activity do you participate in: none Review of Systems (Anesthesia) ROS Narrative System reviewed and no additional complaints, except as documented.
--- NOTE | 2024-11-13 12:18 | PCM.HP.STD ---
HPI - General General Date of Admission: 11/13/24 Date of Service: 11/13/24 Chief Complaint: Abdominal pain and diarrhea HPI Narrative LAUREN ZEE, is a 69 M who presentsChief Complaint: abdominal pain and diarrhea PULMONARY CONSULT 08/27/2024 The patient reported that he has been experiencing worsening dyspnea since the beginning of June 2024. His outpatient cardiac workup has been negative to date, including pharmacologic stress test and echocardiogram. Surface echocardiogram completed here in July 2024 did reveal evidence of stage I diastolic dysfunction with a pulmonary artery systolic pressure of 26 mmHg. The patient has a very limited [id number] smoking history, having quit completely in 2019. He did not grow up in a smoking household. The patient has never previously been diagnosed with asthma. 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 The patient's primary care provider did provide him with an albuterol rescue inhaler in the past. However, the patient reported that the medication did not provide any symptom relief. He denied any recent medication changes. His weight has been steadily increasing over the course of the last several years. In fact, the patient reported that over the last year his weight has increased by approximately 30 pounds. He currently denies any fevers, chills or night sweats. In addition, he denies any chest tightness, wheezing or cough. - abdominal cramping, bloating - reports he is not one to go to the doctor - seen by pulmonology for SOB - reports he was not going to retire until he was 70y/o but had to retire due to increased SOB 07/25/2024 HGB 14.5 - reports he does not feel well today, bloated, gassy, and fatigued - RUQ pain, can be cramping - experiences acid reflux c/o weight gain - weight is up about 30lbs in the past 18 months - reports he had an episode of white/qiu stool 2 years ago - reports stools are now very yellow - EtOH - occasional, couple drinks a month - IBU infrequent use - he has never had a colonoscopy - he now has urgency with BM - having accidents with stools - watery stools, has urgency to go and then reports he will sit there and when he finally goes it is watery - he does have some solid stools - denies any family h/o colon CA - brother with Crohn's - denies any melena but can have dark stools after taking pepto - Waking at night with bowel movements - denies any new medications - HB - can be severe, just started a medication - h/o smoking ABD 2020 1. Dense liver consistent with fatty infiltration and/or hepatocellular disease. No evidence of cholelithiasis or biliary ductal dilatation. 2. 1.9 cm left renal cyst. 3. Suboptimal visualization of the pancreas. [facility] Medical History Wears glasses History of steroid therapy Blackout Former smoker Shortness of breath on exertion Leg cramps History of Holter monitoring History of stress test History of echocardiogram Cardiology follow-up encounter Chest pain TD (obstructive sleep apnea) Hypertension Depression SOB (shortness of breath) Pneumothorax Home Medications ?Medication ?Instructions ?Recorded ?Last Taken ?Type amlodipine 10 mg tablet 10 mg PO DAILY 07/25/24 07/24/24 History quetiapine 25 mg tablet 25 mg PO QHS 07/25/24 07/24/24 History venlafaxine 37.5 mg 37.5 mg PO DAILY 07/25/24 07/25/24 History capsule,extended release 24 hr albuterol sulfate 90 mcg/actuation 2 puff inhalation Q4 PRN shortness 08/27/24 Unknown History aerosol inhaler of breath or wheezing pantoprazole 40 mg tablet,delayed 40 mg PO QDAY 09/14/24 Unknown History release peg 3350-electrolytes 236 240 ml PO Q10M #4,000 mL 09/14/24 Unknown Rx gram-22.74 gram-6.74 gram-5.86 gram solution (Golytely) dextroamphetamine-amphetamine 20 1 tab PO BID PRN ADHD 10/27/24 Unknown History mg tablet losartan 100 mg tablet 200 mg PO QDAY 10/27/24 Unknown History Allergy/AdvReac Type Severity Reaction Status Date / Time No Known Allergies Allergy Verified 11/13/24 10:54 Family History Mother Heart disease Cancer ovarian Hypertension Father Myocardial infarction Surgical History History of tonsillectomy H/O hernia repair History of appendectomy History of right knee surgery Social History household members: none current occupational status: retired pets and animals: Yes pets and animals: dog(s) history of recent travel: No Smoking Status: Former smoker alcohol intake: current alcohol intake frequency: holidays/special occasions only substance use type: does not use well-balanced diet: about half the time caffeine: Yes what type of physical activity do you participate in: none ROS Constitutional Constitutional: Denies fatigue, fever(s), poor appetite, weight gain or weight loss Gastrointestinal Gastrointestinal: Denies belching, bloating, change in bowel habits, change in stool character, chewing difficulty, coffee ground emesis, constipation, cramping, diarrhea, dyspepsia, dysphagia, early satiety, excessive flatus, fecal incontinence, heartburn, hematemesis, hematochezia, hemorrhoids, loose stools, melena, nausea, odynophagia, rectal bleeding, tenesmus, vomiting or weight changes Vital Signs Vital Signs Vital Signs: 11/13/24 10:55 11/13/24 10:55 11/13/24 11:57 Temperature 97.8 F 97.8 F Temperature Source Temporal Pulse Rate 96 96 Respiratory Rate 16 16 Respiratory Pattern Normal Blood Pressure 168/98 H 168/98 H Blood Pressure Mean 121 Blood Pressure Source Monitor Blood Pressure Position Semi-Fowlers Blood Pressure Location Left Arm Pulse Ox 99 99 Oxygen Delivery Method Room Air Room Air Weight Weight: 235 lb 7.259 oz Body Mass Index (BMI) 31.0 Physical Exam Const alert, oriented x3, no apparent distress and healthy appearing General Appearance: cooperative GI normal to inspection, nondistended, normoactive bowel sounds, soft to palpation, non-tender and non-distended Percussion: normal to percussion Rectal Exam: deferred Assessment & Plan Assessment/Plan (1) Abdominal pain: (2) Nausea: (3) Bloating: (4) Diarrhea: PLAN: Assessment and Plan Assessment and Plan (1) Abdominal pain: Status: Acute (2) Bloating: Status: Acute (3) Nausea: Status: Acute (4) Diarrhea: Status: Acute Orders: Orders ABD Limited w/ Elastography Today R10.9 - Unspecified abdominal pain, R11.0 - Nausea, R14.0 - Abdominal distension (gaseous) Medications: New peg 3350-electrolytes 236-22.74-6.74 -5.86 gram (Golytely) as directed for split dose bowel prep 240 mL PO Q10M 4,000 mL 0RF Plan 69-year-old male presents for initial consultation with complaints of nausea, heartburn, bloating, RUQ pain, and change in bowel habits. Symptoms have been ongoing for the past 1 to 2 years with a reported weight weight gain of approximately 30 pounds in the past 18 months. He has noted moderate improvement in heartburn symptoms with pantoprazole daily. He reports a generalized malaise and retiring secondary to symptoms. He reports prior cardiac and pulmonary w/u were unremarkable. He reports experiencing watery stools with urgency and difficulty with evacuation. His family history is significant for brother with Crohn's disease. He denies any prior colonoscopy or endoscopy. Abdominal ultrasound was performed in 2020 and revealed liver steatosis. I have ordered an abdominal ultrasound, stool testing, and scheduled him for bidirectional endoscopies. He will follow-up in office post procedure.
--- NOTE | 2024-11-13 12:53 | OP.CCLET_ITS ---
11/13/2024 Leonie Sands Md Re : Upper GI endoscopy procedure for Aristeo Escalante Dear Shavon This procedure was performed on Wednesday, November 13, 2024. My impressions and recommendations are as follows: Impressions : - Z-line irregular, 40 cm from the incisors. Biopsied. - Small hiatal hernia. - Erythematous mucosa in the gastric body. Biopsied. - Erythematous duodenopathy. Biopsied. Recommendations : - Discharge patient to home. - Resume previous diet. - Continue present medications. - Await pathology results. My findings are described in the full procedure note, which is enclosed. If I can be of further assistance, please feel free to contact me at . Sincerely, Rolan Grace, 11/13/2024 12:53:16 PM This report has been signed electronically.
--- NOTE | 2024-11-13 12:53 | OP.EGD_ITS ---
Patient Name: Aristeo Escalante Procedure Date: 11/13/2024 12:16 PM Date of : 1955 Age: 69 Procedure: Upper GI endoscopy Indications: Epigastric abdominal pain, Heartburn, Suspected esophageal reflux, Failure to respond to medical treatment Providers: Rolan Grace DO Medicines: Monitored Anesthesia Care Patient Profile: This is a 69 year old male. Refer to note in patient chart for documentation of history and physical. Patient has symptoms of acute abdominal cramping, chronic abdominal distention, chronic epigastric abdominal pain, chronic dyspepsia and chronic heartburn. Complications: No immediate complications. Procedure: Pre-Anesthesia Assessment: - Prior to the procedure, a History and Physical was performed, and patient medications and allergies were reviewed. The patient is competent. The risks and benefits of the procedure and the sedation options and risks were discussed with the patient. All questions were answered and informed consent was obtained. Patient identification and proposed procedure were verified by the physician in the pre-procedure area. Mental Status Examination: alert and oriented. Airway Examination: normal oropharyngeal airway and neck mobility. Respiratory Examination: clear to auscultation. CV Examination: normal. Prophylactic Antibiotics: The patient does not require prophylactic antibiotics. Prior Anticoagulants: The patient has taken no anticoagulant or antiplatelet agents except for NSAID medication. ASA Grade Assessment: II - A patient with mild systemic disease. After reviewing the risks and benefits, the patient was deemed in satisfactory condition to undergo the procedure. The anesthesia plan was to use monitored anesthesia care (MAC). Immediately prior to administration of medications, the patient was re-assessed for adequacy to receive sedatives. The heart rate, respiratory rate, oxygen saturations, blood pressure, adequacy of pulmonary ventilation, and response to care were monitored throughout the procedure. The physical status of the patient was re-assessed after the procedure. After obtaining informed consent, the endoscope was passed under direct vision. Throughout the procedure, the patient's blood pressure, pulse, and oxygen saturations were monitored continuously. The Colonoscope was introduced through the mouth, and advanced to the third part of the duodenum. Small bowel enteroscopy was deemed necessary. The upper GI endoscopy was accomplished without difficulty. The patient tolerated the procedure well. Scope In: 12:31:51 PM Scope Out: 12:35:25 PM Total Procedure Duration Time 0 hours 3 minutes 34 seconds Findings: The Z-line was irregular and was found 40 cm from the incisors. Biopsies were taken with a cold forceps for histology. A small hiatal hernia was present. Patchy mildly erythematous mucosa without bleeding was found in the gastric body. Biopsies were taken with a cold forceps for histology. Biopsies were taken with a cold forceps for Helicobacter pylori testing. Patchy mildly erythematous mucosa without active bleeding and with no stigmata of bleeding was found in the entire duodenum. Biopsies were taken with a cold forceps for histology. Verification of patient identification for the specimen was done. Estimated blood loss was minimal. Impression: - Z-line irregular, 40 cm from the incisors. Biopsied. - Small hiatal hernia. - Erythematous mucosa in the gastric body. Biopsied. - Erythematous duodenopathy. Biopsied. Recommendation: - Discharge patient to home. - Resume previous diet. - Continue present medications. - Await pathology results. Procedure Code(s): --- Professional --- 92562, Small intestinal endoscopy, enteroscopy beyond second portion of duodenum, not including ileum; with biopsy, single or multiple CPT copyright 2021 [employer]. All rights reserved. The codes documented in this report are preliminary and upon table inspector review may be revised to meet current compliance requirements. Rolan Grace DO 11/13/2024 12:53:16 PM This report has been signed electronically. Number of Addenda: 0 Note Initiated On: 11/13/2024 12:16 PM
--- NOTE | 2024-11-13 12:55 | OP.COLON_ITS ---
Patient Name: Aristeo Escalante Procedure Date: 11/13/2024 12:35 PM Date of : 1955 Age: 69 Procedure: Colonoscopy Indications: Generalized abdominal pain, Clinically significant diarrhea of unexplained origin Providers: Rolan Grace DO Medicines: Monitored Anesthesia Care Patient Profile: This is a 69 year old male. Refer to note in patient chart for documentation of history and physical. Patient has symptoms of acute abdominal cramping, chronic abdominal distention, chronic epigastric abdominal pain, chronic dyspepsia and chronic heartburn. Last Colonoscopy: several years ago. Complications: No immediate complications. Procedure: Pre-Anesthesia Assessment: - Prior to the procedure, a History and Physical was performed, and patient medications and allergies were reviewed. The patient is competent. The risks and benefits of the procedure and the sedation options and risks were discussed with the patient. All questions were answered and informed consent was obtained. Patient identification and proposed procedure were verified by the physician in the pre-procedure area. Mental Status Examination: alert and oriented. Airway Examination: normal oropharyngeal airway and neck mobility. Respiratory Examination: clear to auscultation. CV Examination: normal. Prophylactic Antibiotics: The patient does not require prophylactic antibiotics. Prior Anticoagulants: The patient has taken no anticoagulant or antiplatelet agents except for NSAID medication. ASA Grade Assessment: II - A patient with mild systemic disease. After reviewing the risks and benefits, the patient was deemed in satisfactory condition to undergo the procedure. The anesthesia plan was to use monitored anesthesia care (MAC). Immediately prior to administration of medications, the patient was re-assessed for adequacy to receive sedatives. The heart rate, respiratory rate, oxygen saturations, blood pressure, adequacy of pulmonary ventilation, and response to care were monitored throughout the procedure. The physical status of the patient was re-assessed after the procedure. After I obtained informed consent, the scope was passed under direct vision. Throughout the procedure, the patient's blood pressure, pulse, and oxygen saturations were monitored continuously. The Colonoscope was introduced through the anus and advanced to the terminal ileum. The colonoscopy was performed without difficulty. The patient tolerated the procedure well. The quality of the bowel preparation was adequate. The terminal ileum, ileocecal valve, appendiceal orifice, and rectum were photographed. Scope In: 12:36:47 PM Scope Withdrawal Time 0 hours 9 minutes 8 seconds Scope Out: 12:47:53 PM Total Procedure Duration Time 0 hours 11 minutes 6 seconds Findings: The perianal and digital rectal examinations were normal. An area of mildly congested mucosa was found in the entire colon. Biopsies were taken with a cold forceps for histology. Verification of patient identification for the specimen was done. Estimated blood loss was minimal. The terminal ileum appeared normal. Biopsies were taken with a cold forceps for histology. Verification of patient identification for the specimen was done. Estimated blood loss was minimal. Impression: - Congested mucosa in the entire examined colon. Biopsied. - The examined portion of the ileum was normal. Biopsied. Recommendation: - Discharge patient to home. - Resume previous diet. - Continue present medications. - Await pathology results. - Repeat colonoscopy in 5 years for surveillance. Procedure Code(s): --- Professional --- 79952, Colonoscopy, flexible; with biopsy, single or multiple CPT copyright 2021 [employer]. All rights reserved. The codes documented in this report are preliminary and upon automatic vulcanizing operator review may be revised to meet current compliance requirements. Rolan Grace DO 11/13/2024 12:55:16 PM This report has been signed electronically. Number of Addenda: 0 Note Initiated On: 11/13/2024 12:35 PM
--- NOTE | 2024-11-13 12:56 | OP.CCLET_ITS ---
11/13/2024 Leonie Sands Md Re : Colonoscopy procedure for Aristeo Escalante Dear Shavon This procedure was performed on Wednesday, November 13, 2024. My impressions and recommendations are as follows: Impressions : - Congested mucosa in the entire examined colon. Biopsied. - The examined portion of the ileum was normal. Biopsied. Recommendations : - Discharge patient to home. - Resume previous diet. - Continue present medications. - Await pathology results. - Repeat colonoscopy in 5 years for surveillance. My findings are described in the full procedure note, which is enclosed. If I can be of further assistance, please feel free to contact me at . Sincerely, Rolan Grace, 11/13/2024 12:55:16 PM This report has been signed electronically.
--- NOTE | 2024-11-13 12:56 | PCM.POST.ANE ---
Anesthesia: Postop Eval I Current Vital Signs Temperature: 97 F Pulse Rate: 81 Blood Pressure: 100/63 Respiratory Rate: 16 Pulse Ox: 97 Oxygen Delivery Method: Room Air Assessment Airway patent: Yes Spontaneous unlabored respirations: Yes Mental status: Awake nausea: No Vomiting: No Anesthesia Complication: No Fluid Hydration Crystalloid volume administer (ml): 600 Total IV fluid infused: 600 Progress Note Anesthesia document: Postop Eval 1 completed: Yes
--- NOTE | 2024-11-13 14:20 | PCM.POSTANE2 ---
Anesthesia Postop Eval I Sum Postop Eval Completion status Anesthesia document: Postop Eval 1 completed: Yes Anesthesia Postop Eval I Summary Anesthesia Postop Eval I Summary: Anesthesia Postop Eval I: Assessment Summary Airway patent Yes 11/13/24 12:57 [email or web address] Spontaneous unlabored Yes 11/13/24 12:57 [email or web address] respirations Mental status Awake 11/13/24 12:57 [email or web address] nausea No 11/13/24 12:57 [email or web address] Vomiting No 11/13/24 12:57 [email or web address] Anesthesia Postop Eval I: Fluid Summary Crystalloid volume administer 600 11/13/24 12:57 [email or web address] (ml) Colloids volume administered ( ml) Blood Product volume administered (ml) Total IV fluid infused 600 11/13/24 12:57 [email or web address] Anesthesia Postop Eval I: Summary Notes Anesthesia Complication No 11/13/24 12:57 [email or web address] Anesthesia Complication Comment: Post-operative progress note Anesthesia: Postop Eval II Evaluation Mental status: Awake Pain Level: 0 nausea: No Vomiting: No
== END 2024-11-13 13:33 | disposition home or self-care (01) ==
LOC: EN 10:30 → AC 10:31
PROVIDERS: PCP Internal Medicine; Referring Provider Internal Medicine Gastroenterology; Visit Provider Internal Medicine Gastroenterology
PROC: 0DJD8ZZ Inspection of Lower Intestinal Tract, Via Natural or Artificial Opening Endoscopic (ICD-10-PCS; CPT 45378; principal; 2024-11-13 11:40)
DX: K22.70 Barrett's esophagus without dysplasia (principal); R10.9 Unspecified abdominal pain; K44.9 Diaphragmatic hernia without obstruction or gangrene; R19.7 Diarrhea, unspecified; R14.0 Abdominal distension (gaseous); I10 Essential (primary) hypertension; G47.33 Obstructive sleep apnea (adult) (pediatric); Z79.899 Other long term (current) drug therapy; Z87.891 Personal history of nicotine dependence
CPT/HCPCS: 44361; 45380; 88305; 88342; J2405

== ENCOUNTER 2025-01-10 10:31 | Emergency (ER) | payer MEDICARE, SELFPAY ==
[2025-01-10 10:34] VITALS: BP 168/114; PULSE 84; RESP 16; TEMP 36.9; O2SAT 99
--- NOTE | 2025-01-10 10:38 | ED.RN ---
Dr. Casarez notified of patient's blurred vision. States he will assess patient when they are in a room.
--- NOTE | 2025-01-10 10:46 | ED.RN ---
Pt was seen walking out the door without a word. Dr Casarez was on his way back to see the pt.
--- NOTE | 2025-01-10 10:46 | EX.ED.DYSGE1 ---
HPI History of Present Illness Chief Complaint: Dizziness Narrative Narrative: This 69-year-old male signed into triage with some vision disturbance and vertiginous symptoms. container washer machine came to tell me that he has an NIHSS of 0 for her but she is responding to the possibility that this could be a stroke and asked me to come evaluate the patient. Intending to quickly, I was in the middle of patient care with another patient and asked her to put the patient in an available room since we had them. As I finished and went back to evaluate the patient properly, I unknowingly passed him in the hallway, and his room was empty with the gown on the bed, and I immediately followed him but he left the hospital and did not same thing anyone. As I was passing him in the hallway, I was able to see that he was walking normally without ataxia but other than that I was not able to evaluate this patient and he did not offer an exponential to anyone as to why he left. [facility] Medical History Wears glasses History of steroid therapy Blackout Former smoker Shortness of breath on exertion Leg cramps History of Holter monitoring History of stress test History of echocardiogram Cardiology follow-up encounter Chest pain TD (obstructive sleep apnea) Hypertension Depression SOB (shortness of breath) Pneumothorax Home Medications ?Medication ?Instructions ?Recorded ?Last Taken ?Type amlodipine 10 mg tablet 10 mg PO DAILY 07/25/24 07/24/24 History quetiapine 25 mg tablet 25 mg PO QHS 07/25/24 07/24/24 History venlafaxine 37.5 mg 37.5 mg PO DAILY 07/25/24 07/25/24 History capsule,extended release 24 hr albuterol sulfate 90 mcg/actuation 2 puff inhalation Q4 PRN shortness 08/27/24 Unknown History aerosol inhaler of breath or wheezing pantoprazole 40 mg tablet,delayed 40 mg PO QDAY 09/14/24 Unknown History release dextroamphetamine-amphetamine 20 1 tab PO BID PRN ADHD 10/27/24 Unknown History mg tablet losartan 100 mg tablet 200 mg PO QDAY 10/27/24 Unknown History Allergy/AdvReac Type Severity Reaction Status Date / Time No Known Allergies Allergy Verified 01/10/25 10:38 Family History Mother Heart disease Cancer ovarian Hypertension Father Myocardial infarction Surgical History History of tonsillectomy H/O hernia repair History of appendectomy History of right knee surgery Social History household members: none current occupational status: retired pets and animals: Yes pets and animals: dog(s) history of recent travel: No Smoking Status: Former smoker alcohol intake: current alcohol intake frequency: holidays/special occasions only substance use type: does not use well-balanced diet: about half the time caffeine: Yes what type of physical activity do you participate in: none EXAM Physical Exam Const Vital Signs: 01/10/25 10:34 Temperature 98.5 F Temperature Source Oral Pulse Rate 84 Respiratory Rate 16 Blood Pressure 168/114 H Blood Pressure Mean 132 Pulse Ox 99 Oxygen Delivery Method Room Air Discharge Plan Triage Chief Complaint: Dizziness ED Provider: Marquis Casarez Dx/Rx/DC Orders Clinical Impression: Dizziness, Visual disturbance Prescriptions: No Action albuterol sulfate 90 mcg/actuation HFA aerosol inhaler 2 puff inhalation Q4 PRN (Reason: shortness of breath or wheezing) losartan 100 mg tablet 200 mg PO QDAY pantoprazole 40 mg tablet,delayed release (DR/EC) 40 mg PO QDAY quetiapine 25 mg tablet 25 mg PO QHS venlafaxine 37.5 mg capsule,extended release 24hr 37.5 mg PO DAILY amlodipine 10 mg tablet 10 mg PO DAILY dextroamphetamine-amphetamine 20 mg tablet 1 tab PO BID PRN (Reason: ADHD) Primary Care Provider: Todd Swain Referrals: Todd Swain MD [Primary Care Provider] - Print Language: Sinhala Disposition Disposition: Elopement
--- OUTSIDE RECORDS SUMMARY | 2025-01-10 10:55 | XMS RPT_ITS | CCD ---
Author Organization [facility] CliniSymn Care Team Providers Care Upholstery Covers Inspector Name Role Phone Pcp, No Primary Care Provider Unavailabl e Paola Lofton Primary Care Provider Paola Lofton Primary Care Provider [phone] Paola Lofton MD Primary Care Provider DR PAOLA LOFTON MD Primary Care Physician Paola Lofton Attending Unavailable PROVIDER, UNKNOWN Referring Unavailable Paola Lofton Primary Care Unavailable Gunadeola, Lauren Primary Care Unavailable Gunadeola, Lauren Attending Unavailable PROVIDER, UNKNOWN Referring Unavailable Gunning, Lauren Primary Care Unavailable Gunning, Lauren Attending Unavailable PROVIDER, UNKNOWN Referring Unavailable Wong BUCIO, Rob Tamayo Primary Care Provider Wong BUCIO, Rob Tamayo Primary Care Provider Dr. Yunior Edgar MD Emergency Provider Dr. Rob Back MD Primary Care Provider Dr. Yunior Edgra MD Attending Provider Dr. Yunior Edgar MD Referring Provider Dr. Leon Boyd MD Other Provider Dr. Leon Boyd MD Attending Provider Dr. Rob Back MD Referring Provider Dr. Bryan Zhang DO Attending Provider Dr. Bryan Zhang DO Referring Provider Osman BIODIESEL PRODUCT MANAGER-CCynthia Attending Provider Osman BIODIESEL PRODUCT MANAGER-CCynthia Referring Provider Brown DO, Dr. Bryan Other Provider Cathie BIODIESEL PRODUCT MANAGER-C, Sara Attending Provider Wong BUCIO, Dr. Brooks Attending Provider Cathie BIODIESEL PRODUCT MANAGER-C, Sara Referring Provider Chapin BUCIO, Dr. Deshpande Attending Provider Shavon BUCIO, Dr. Hadley Primary Care Provider Lesly WINTER, Dr. Gongora Attending Provider Friend DO, Dr. Gongora Referring Provider Friend , Dr. Gongora Other Provider Wong BUCIO, Dr. Brooks Primary Care Provider Tom BUCIO, Dr. Hogan Attending Provider Wong BUCIO, Dr. Brooks Primary Care Provider Unavai kaden Weeman, Rob Referring Unavailable Weeman, Rob Primary Care Unavailable Edison Santos Attending Unavailable Leonie Sands Primary Care Unavailable Weeman, Rob Referring Unavailable Paola Samson Attending Unavailable Weeman, Rob Primary Care Unavailable Weeman, Rob Referring Unavailable Brand BIODIESEL PRODUCT MANAGER, Sara Attending Unavailable Weeman, Rob Primary Care Unavailable Brown, Bryan Attending Unavailable Brown, Bryan Consulting Unavailable Brown, Bryan Referring Unavailable Weeman, Rob Primary Care Unavailable Weeman, Rob Referring Unavailable Cathie BIODIESEL PRODUCT MANAGERSara Attending Unavailable Weeman, Rob Primary Care Unavailable Weeman, Rob Referring Unavailable BrownJenniek Attending Unavailable Weeman, Rob Primary Care Unavailable Weeman, Rob Referring Unavailable Cynthia Brewer Attending Unavailable Weeman, Rob Primary Care Unavailable Brown, Bryan Attending Unavailable Brown, Bryan Referring Unavailable Weeman, Rob Primary Care Unavailable Albino Boydril Attending Unavailable Friend, Rolan Referring Unavailable Friend, Rolan Attending Unavailable Friend, Rolan Consulting Unavailable Weeman, Rbo Primary Care Unavailable Weeman, Rob Primary Care Unavailable OsmanNkechiCynthia Referring Unavailable OsmanCynthia Attending Unavailable Brown, Bryan Attending Unavailable Weeman, Rob Primary Care Unavailable Brown, Bryan Referring Unavailable Weeman, Rob Primary Care Unavailable Weeman, Rob Referring Unavailable Weeman, Rob Attending Unavailable Weeman, Rob Primary Care Unavailable Yunior Edgar Attending Unavailable Weeman, Rob Primary Care Unavailable Brand BIODIESEL PRODUCT MANAGER, Sara Referring Unavailable Cathie BIODIESEL PRODUCT MANAGER, Sara Attending Unavailable Friend, Rolan Referring Unavailable Friend, Rolan Attending Unavailable WeRob avalos Primary Care Unavailable Webailey, Rob Primary Care Unavailable Bryan Zhang Referring Unavailable Bryan Zhang Attending Unavailable Lenoie Sands Primary Care Unavailable Cathie BIODIESEL PRODUCT MANAGER, Sara Referring Unavailable Cathie BIODIESEL PRODUCT MANAGER, Sara Attending Unavailable Yunior Edgar Attending Unavailable Wong, Rob Primary Care Unavailable Leon Boyd Unavailable Yunior Edgar Referring Unavailable RONNIE BOSTON Attending Unavailable OSMAN BRAND Referring Unavailable WONG, ROB Primary Care Unavailable ROB BACK Attending Unavailable WONG, ROB Primary Care Unavailable ROB BACK Attending Unavailable WONG, ROB Primary Care Unavailable ROB BACK Attending Unavailable WONG, ROB Primary Care Unavailable ROB BACK Attending Unavailable WONG, ROB Primary Care Unavailable OSMAN BRAND Attending Unavailable WONG, ROB Primary Care Unavailable OSMAN BRAND Attending Unavailable WONG, ROB Primary Care Unavailable ROB BACK Attending Unavailable ROB BACK Referring Unavailable ROB BACK Primary Care Unavailable RONNIE BOSTON Attending Unavailable RONNIE BOSTON Referring Unavailable WONG, ROB Primary Care Unavailable ROB BACK Attending Unavailable WONG, ROB Primary Care Unavailable Medications Current Medications Medication Drug Class(es) Dates Sig (Normalized) Sig (Original) [id number] 200 actuat albuterol 0.09 mg/actuat metered dose inhaler (20 sources) beta2-Adrenergic Agonist Start: 08-27-2024 Albuterol Sulfate 90 mcg/actuation HFA aerosol inhaler Active 2 NMA INHALATION EVERY 4 HOURS as needed for shortness of breath or wheezing August 27, 2024 12:00am Start: 08-06-2024 End: [...] sources) Central Nervous System Stimulant Start: 07-25-2024 End: 10-27-2024 Dextroamphetami ne-Amphetamine 20 mg tablet Active 1 {tbl} PO TWICE A DAY as needed for ADHD October 27, 2024 8:25am Start: 02-13-2023 take 1 tablet by oscar twice daily amphetamine-dextroamphetamine (Adderall) 20 MG tablet Take 1 tablet by mouth 2 times daily. 02/13/2023 Active bifidobacterium animalis [id number] unt / lactobacillus acidophilus [id number] unt oral capsule (20 sources) Start: 09-02-2024 take 1 capsule by mouth once daily Probiotic Product (Align) 10 MG capsule Take 1 capsule by mouth daily. 15 capsule 09/02/2024 Active hydroCHLOROthiazide (1 source) Thiazide Diuretic Start: 03-08-2018 hydroCHLOROthiazide Oral, qDay, 0 Refill(s) Start Date: 03/08/18 Status: Ordered losartan potassium 100 mg oral tablet (20 sources) Angiotensin 2 Receptor Mehran Start: 10-27-2024 take 2 tablets by mouth once daily Losartan 100 mg tablet Active 200 mg PO daily October 27, 2024 8:25am Start: 10-02-2024 End: 11-22-2024 take 1 tablet by mouth once daily losartan (Cozaar) 100 MG tablet Indications: Essential hypertension Take 1 tablet (100 mg) by mouth daily. 60 tablet 3 11/23/2024 Active pantoprazole 40 mg delayed release oral tablet (20 sources) Proton Pump Inhibitor Start: 09-02-2024 End: 11-23-2024 take 1 tablet by mouth once daily pantoprazole (ProtoNix) 40 MG EC tablet Indications: Dyspepsia Take 1 tablet (40 mg) by mouth daily. Do not crush, chew, or split. 90 tablet 1 11/23/2024 Active Start: 02-09-2022 End: 07-24-2024 take 1 tablet by mouth once daily before mealtime pantoprazole (ProtoNix) 40 MG EC tablet take 1 tablet by mouth every morning before meals 02/09/2022 07/24/2024 Discontinued polyethylene glycol 3350 211579 mg / potassium chloride 2970 mg / sodium bicarbonate 6740 mg / sodium chloride 5860 mg / sodium sulfate 19847 mg powder for oral solution (10 sources) Osmotic Laxative Start: 09-14-2024 Peg 3350-Electrolytes (Golytely) 236-22.74-6.74 -5.86 gram recon soln Active 240 mL PO Q10M 4000 0 September 14, 2024 12:00am as directed for split dose bowel prep QUEtiapine 25 mg oral tablet (20 sources) Atypical Antipsychotic Start: 07-07-2024 take 1 [...] times daily as needed. 02/19/2022 07/24/2024 Discontinued iopamidol (Isovue-370) 76 % injection 75 mL (2 sources) Start: 11-16-2024 End: 11-16-2024 take 75 mL intravenously once as needed 75 mL, IntraVENous, IMG once PRN, contrast, Starting on 11/16/24 at 1340, For 1 dose lisinopril 40 mg oral tablet (20 sources) Angiotensin Converting Enzyme Inhibitor Start: 02-07-2022 End: 10-13-2024 take 1 tablet by mouth once daily Lisinopril 40 mg tablet Discontinued 40 mg PO DAILY July 25, 2024 12:00am October 13, 2024 9:07am Start: 12-26-2016 take 1 dose by mouth once huy y lisinopril Dose : 20 mg =, Oral, qDay Start Date: 12/26/16 Status: Ordered meloxicam 15 mg oral tablet (20 sources) [...] mouth daily. 12/30/2022 08/05/2024 Discontinued (Therapy completed) metoprolol tartrate 100 mg oral tablet (9 sources) beta-Adrenergic Mehran Start: 11-05-2024 End: 11-24-2024 metoprolol tartrate (Lopressor) 100 MG tablet If resting HR >70 bpm then take 100mg PO metoprolol tartrate the evening prior and morning of exam. 2 tablet 11/05/2024 11/24/2024 Discontinued (Therapy completed) nitroglycerin 0.4 mg sublingual tablet (2 sources) Nitrate Vasodilator Start: 11-16-2024 End: 11-16-2024 0.8 mg, SubLINGual, Once, On Sat11/16/24 at 1345, For 1 dose, Administer one during CTA procedure Start: 11-16-2024 End: 11-16-2024 0.8 mg, SubLINGual, Once, On Sat11/16/24 at 1345, For 1 dose, Administer one during CTA procedure predniSONE 50 mg oral tablet (20 sources) Start: 10-02-2024 End: 03-31-2025 take 1 tablet by mouth once daily predniSONE (Deltasone) 50 MG tablet Indications: Muscle weakness (generalized) Take 1 tablet (50 mg) by mouth daily. 5 tablet 10/02/2024 11/24/2024 Discontinued (Therapy completed) Start: 06-24-2023 End: 07-24-2024 take 1 tablet [...] Classification Problem Date Documented Da te Episodic/Chronic Anxiety disorders (1 source) Anxiety 12-26-2016 Chronic Cardiac dysrhythmias (18 sources) Tachycardia; Translations: [Tachycardia, unspecified] Onset: 5 10-13-2024 Episodic Coronary atherosclerosis and other heart disease (8 sources) Coronary atherosclerosis; Translations: [Atherosclerotic heart disease of [place] coronary artery without angina pectoris] Onset: 5 10-29-2024 Chronic Esophageal disorders (2 sources) Gastroesophageal reflux disease; Translations: [Gastro-esophageal reflux disease without esophagitis] 12-02-2024 Chronic Essential hypertension (20 sources) Hypertensive disorder; Translations: [Essential hypertension] Onset: 5 12-26-2016 Chronic Hypertension with complications and secondary hypertension (1 source) Secondary hypertension; Translations: [Secondary hypertension, unspecified] 07-24-2024 Chronic Immunizations and screening for infectious disease (1 source) Extractable nuclear antigen positive; Translations: [Other specified abnormal immunological findings in serum] 10-16-2024 Episodic Malaise and fatigue (15 sources) Fatigue; Translations: [Other fatigue] Onset: 5 09-02-2024 Episodic Nausea and vomiting (20 sources) Nausea; Translations: [Nausea] Onset: 5 09-14-2024 Episodic Nutritional deficiencies (3 sources) Vitamin D deficiency; Translations: [Vitamin D deficiency, unspecified] Onset: 5 09-02-2024 Chronic Other connective tissue disease (7 sources) Other symptoms and signs involving the musculoskeletal system; Translations: [Other musculoskeletal symptoms referable to limbs] Onset: 5 12-31-2024 Episodic Other disorders of stomach and duodenum (1 source) Indigestion 09-02-2024 Episodic Other gastrointestinal disorders (2 sources) Swollen abdomen; Translations: [Abdominal distension (gaseous)] 09-02-2024 Episodic Other gastrointestinal disorders (20 sources) Diarrhea; Translations: [Diarrhea, unspecified] 09-14-2024 Episodic Other gastrointestinal disorders (20 sources) Abdominal bloating; Translations: [Abdominal distension (gaseous)] 09-14-2024 Episodic Other gastrointestinal disorders (1 source) Diarrhea, unspecified; Translations: [Diarrhea, unspecified] Onset: Episodic Other liver diseases (2 sources) Fatty (change of) liver, not elsewhere classified; Translations: [Fatty (change of) liver, not elsewhere classified] Onset: Chronic Other liver diseases (8 sources) Steatosis of liver; Translations: [Fatty (change of) liver, not elsewhere classified] 10-07-2024 Chronic Other lower respiratory disease (20 sources) Dyspnea; Translations: [Dyspnea, unspecified] 07-24-2024 Episodic Other lower respiratory disease (12 sources) Dyspnea on exertion; Translations: [Other forms of dyspnea] 07-25-2024 Episodic Other nervous system disorders (7 sources) Dysphasia; Translations: [Dysphasia] Onset: 5 12-31-2024 Episodic Other nervous system disorders (6 sources) Tremor; Translations: [Tremor, unspecified] 12-31-2024 Episodic Other nervous system disorders (6 sources) Paresthesia of foot ; Translations: [Paresthesia of skin] 12-31-2024 Episodic Other nervous system disorders (2 sources) Paresthesia of skin; Translations: [Paresthesia of skin] Onset: 5 Episodic Other nervous system disorders (1 source) Dysphasia; Translations: [Dysphasia] Onset: Episodic Other nervous system disorders (2 sources) Tremor, unspecified; Translations: [Tremor, unspecified] Onset: Episodic Other non-traumatic joint disorders (3 sources) Hip pain; Translations: [Pain in right hip] 12-31-2024 Episodic Other non-traumatic joint disorders (2 sources) Pain in right hip; Translations: [Pain in right hip] Onset: Episodic Other non-traumatic joint disorders (2 sources) Pain in left hip; Translations: [Pain in left hip] Onset: Episodic Other nutritional; endocrine; and metabolic disorders (15 sources) Obesity; Translations: [Obesity, unspecified] 10-13-2024 Chronic Other nutritional; endocrine; and metabolic disorders (1 source) Other obesity due to excess calories; Translations: [Other obesity due to excess calories] Onset: Chronic Other nutritional; endocrine; and metabolic disorders (1 source) Body mass index (BMI) 32.0-32.9, adult; Translations: [Body mass index [BMI] 32.0-32.9, adult] Onset: Chronic Residual codes; unclassified (14 sources) Daytime hypersomnia; Translations: [Hypersomnia, unspecified] 10-13-2024 Chronic Residual codes; unclassified (8 sources) Obstructive sleep apnea syndrome; Translations: [Obstructive sleep apnea (adult) (pediatric)] 10-26-2024 Chronic Comment on above: AHI 8.4 Residual codes; unclassified (1 source) Obstructive sleep apnea (adult) (pediatric); Translations: [Obstructive sleep apnea (adult) (pediatric)] Onset: Chronic Residual codes; unclassified (7 sources) Contact with and (suspected) exposure to other hazardous metals; Translations: [Contact with and (suspected) exposure to other hazardous metals] Onset: 5 12-31-2024 Episodic Spondylosis; intervertebral disc disorders; other back problems (10 sources) Low back pain; Translations: [Bilateral low back pain without sciatica, unspecified chronicity] 12-31-2024 Episodic Syncope (5 sources) Syncope and collapse; Translations: [Syncope and collapse] 02-14-2023 Episodic Unclassified (1 source) Patient encounter status 09-02-2024 Unclassified (1 source) Obesity, class 1; Translations: [Obesity, class 1] Onset: Unclassified (1 source) Low back pain, unspecified; Translations: [Low back pain, unspecified] Onset: Unclassified (2 sources) Other; Translations: [Other] Onset: Past or Other Problems Problem Classification Problem Date Documented Da te Episodic/Chronic Abdominal pain (20 sources) Right upper quadrant pain; Translations: [Indigestion] Onset: 02-15-2021 Episodic Biliary tract disease (2 sources) Cholecystitis, unspecified; Translations: [Cholecystitis, unspecified] Onset: 02-15-2021 Episodic Nonspecific chest pain (7 sources) Chest pain; Translations: [Chest pain, unspecified] Onset: 09-10-2024 07-24-2024 Episodic Nutritional deficiencies (3 sources) Cobalamin deficiency; Translations: [Deficiency of other specified B group vitamins] Onset: 09-02-2024 09-02-2024 Episodic Other connective tissue disease (7 sources) Muscle weakness; Translations: [Muscle weakness (generalized)] Onset: 10-02-2024 10-02-2024 Episodic Other connective tissue disease (2 sources) Muscle weakness (generalized); Translations: [Muscle weakness (generalized)] Onset: 10-02-2024 Episodic Other diseases of kidney and ureters (2 sources) Cyst of kidney, acquired; Translations: [Cyst of kidney, acquired] Onset: 02-15-2021 Episodic Other gastrointestinal disorders (4 sources) Abdominal distension (gaseous); Translations: [Abdominal distension (gaseous)] Onset: 09-02-2024 Episodic Other lower respiratory disease (4 sources) Shortness of breath; Translations: [Shortness of breath] Onset: 08-05-2024 Episodic Other lower respiratory disease (1 source) Other forms of dyspnea; Translations: [Other forms of dyspnea] Onset: 08-04-2024 Episodic Other lower respiratory disease (2 sources) Shortness of breath; Translations: [Shortness of Breath] Onset: 07-24-2024 Episodic Other nervous system disorders (5 sources) Slurred speech; Translations: [Slurred speech] Onset: 09-10-2024 09-10-2024 Episodic Other nervous system disorders (1 source) Slurred speech; Translations: [Slurred speech] Onset: 09-10-2024 Episodic Other non-traumatic joint disorders (2 sources) Pain in right knee; Translations: [Pain in right knee] Onset: 11-06-2021 Episodic Other screening for suspected conditions (not mental disorders or infectious disease) (7 sources) Patient encounter status; Translations: [Encounter for screening for malignant neoplasm of prostate] Onset: 09-02-2024 09-02-2024 Episodic Unclassified (8 sources) Bilateral leg weakness 12-31-2024 Unclassified (5 sources) Exposure to heavy metals 12-31-2024 Unclassified (1 source) Low back pain, unspecified; Translations: [Low back pain, unspecified] Onset: 12-31-2024 Results Test Name Value Interpretation Reference Range Facility 36on 01-06-2025 36 S: [facility] of [facility]igo. B: Symptoms began three months prior to call, worsening since nerve conduction test yesterday. A: Patient reporting vertigo, unsteady gait, head pressure, neck soreness, weakness in his legs, tunnel vision, and foggy feeling. Sensation exacerbated by movement. Is able, however, to stand and walk. Patient reports gradual loss of strength over the last few months. Denies earache, tinnitus, any pain, nausea, vomiting, or garbled speech. R: Dr. Boston paged for directive. Provider states these are not normal symptoms following an EMG/NCS, but it sounds like high blood pressure. Return call placed to patient, who reports BP of 137/86, NC 120. Provider directs patient to emergency department for tachycardia and stroke-like symptoms. Patient verbalizes understanding, however states he will proceed to ED in the morning. Reason for Disposition [1] Dizziness (vertigo) present now AND [2] one or more STROKE RISK FACTORS (i.e., hypertension, diabetes, prior stroke/TIA, heart attack) (Exception: Prior doctor or BIODIESEL PRODUCT MANAGER/PA evaluation for this AND no different/worse than usual.) Protocols used: Dizziness - [id number] Normal [facility] IG CONCENTRATION, BLOOD (IMM UNOFIXATION ELECTROPHORESIS)on 12-31-2024 IGA, BLOOD 237 mg/dL Normal 85-600 [facility] Comment on above: Order Comment: THIS IS A CARVE-OUT LAB: SPECIMEN MUST BE SENT TO [facility] FOR PROCESSING Performed By: #### L [id number] ####Life Skills Educator: CRIS TRIANA ([id number])[facility] ([address] IGG, BLOOD 1081 mg/dL Normal 540-1722 [facility] Comment on above: Order Comment: THIS IS A CARVE-OUT LAB: SPECIMEN MUST BE SENT TO [facility] FOR PROCESSING Performed By: #### L [id number] ####Life Skills Educator: CRIS TRIANA ([id number])[facility])[address] [place] [address] IGM, BLOOD 55 mg/dL Normal 25-265 [facility] Comment on above: Order Comment: THIS IS A CARVE-OUT LAB: SPECIMEN MUST BE SENT TO [facility] FOR PROCESSING Performed By: #### L [id number] ####Life Skills Educator: CRIS TRIANA ([id number])[facility] ([facility])[address] [place] [address] IMMUNOFIXATION ELECTROPHORES Kirsten 12-31-2024 IMMUNOFIXATION ELECTROPHORESIS Normal Pattern Normal [facility] Comment on above: Order Comment: THIS IS A CARVE-OUT LAB: SPECIMEN MUST BE SENT TO [facility] FOR PROCESSING Performed By: #### L [id number] ####Life Skills Educator: CRIS TRIANA ([id number])[facility])[address] [place] [address] RELEASED BY Cris Triana M.D. [facility] Comment on above: Order Comment: THIS IS A CARVE-OUT LAB: SPECIMEN MUST BE SENT TO [facility] FOR PROCESSING Performed By: #### L [id number] ####Life Skills Educator: CRIS TRIANA ([id number])[address] REVIEWED BY Mariya Zhang D.O. [facility] Comment on above: Order Comment: THIS IS A CARVE-OUT LAB: SPECIMEN MUST BE SENT TO [facility] FOR PROCESSING Performed By: #### L [id number] ####Life Skills Educator: CRIS TRIANA ([id number])[facility])[address] [place] [address] Laboratory - Chemistry and C hemistry - challengeon 12-31-2024 IgA [Mass/Vol] 237 mg/dL 85 - 600 mg/dL [facility] IgG [Mass/Vol] 1081 mg/dL 540 - 1722 mg/dL [facility] IgM [Mass/Vol] 55 mg/dL 25 - 265 mg/dL [facility] Protein [Mass/Vol] 6.8 g/dL 6.4 - 8.3 g/dL [facility] Comment on above: Serum protein values are higher than plasma values. Samples from recumbent persons are lower by up to 0.5 g/dL as compared to ambulatory persons. After 60 years values are lower by up to 0.2 g/dL. No Panel Informationon 12-31 Interpretation and review of laboratory results Normal [facility] Interpretation and review of laboratory results Normal [facility] Office Visiton 12-31-2024 Follow-up visit [id number] Lauren Escalante 1955 M Date Provider Department Center 12/31/2024 [id number]-MMHOARONNIE BOSTON [facility] None Family History Problem Relation Age of Onset Heart disease Mother Ovarian cancer Mother High Blood Pressure Mother Family Status - Relation Status Age at Mother Level of Service:67189 [place] OFFICE/OUTPATIENT NEW MODERATE MDM 45 MINUTES Reason for Visit and Comments: New Patient [542] Extremity Weakness [059029] Gait Problem [855425] Normal [facility] Progress Noteon 12-31-2024 Progress Note [facility] [address] [facility] [address] Dept: [phone] Dept Loc: [phone] Ronnie Boston MD Thank you for your kind request for a neurological consultation on this patient. CHIEF COMPLAINT: Chief Complaint Patient presents with New Patient Extremity Weakness Gait Problem HISTORY OF PRESENT ILLNESS: The patient is a 69 y.o. person who presents with weakness from the waist down and trouble with his talking. He reports that he feels that his upper body is strong, but his legs from the hips down are getting steadily weak over the last 4-5 years. He reports that the weakness got worse after an illness in March. Later, he denies that it was an illness, just he got more easily short of breath. 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 He reports that sometimes he is having trouble getting in and out of truck. He has to physically lift up his knees with his hands to get in and out of his truck. He has tingling in the bottom of the feet and back of the distal leg. The tingling and weird sensation is present whatever he is doing on not doing things. They are also sensitive to touch. Ibuprofen helps. He reports that he has been having lower back pain during this. Not referrring from the lower back. He is having trouble with getting words out. He sometimes has trouble getting words out that he wants to say. Further questionning reveals a tendency to stutter. Past Medical History: has a past medical history of Concussion, Depression, Hypertension, Pelvic fracture (HCC), and Sacral fracture (HCC). Past Surgical History: has a past surgical history that includes Knee cartilage surgery; Appendectomy; Hernia repair; and Tonsillectomy. Medications: Current Medications[1] Allergies: Patient has no known allergies. Social History: Social History Socioeconomic History Marital status: Spouse name: Not on file Number of children: Not on file Years of education: Not on file Highest education level: Not on file Occupational History Not on file Tobacco Use Smoking status: Never Smokeless tobacco: Never Vaping Use Vaping status: Never Used Substance and Sexual Activity Alcohol use: Yes Comment: occ Drug use: Never Sexual activity: Yes Partners: Female Other Topics Concern Not on file Social History Narrative Not on file Social Drivers of Health Financial Resource Strain: Patient Declined (08/04/2024) Overall Financial Resource Strain (CARDIA) Difficulty of Paying Living Expenses: Patient declined Food Insecurity: Patient Declined (08/04/2024) Hunger Vital Sign Worried About Running Out of Food in the Last Year: Patient declined Ran Out of Food in the Last Year: Patient declined Transportation Needs: Patient Declined (08/04/2024) PRAPARE - Transportation Lack of Transportation (Medical): Patient declined Lack of Transportation (Non-Medical): Patient declined Physical Activity: Insufficiently Active (02/09/2022) Received from [facility] Exercise Vital Sign Days of Exercise per Week: 3 days Minutes of Exercise per Session: 30 min Stress: No Stress Concern Present (02/09/2022) Received from [facility] [place] [facility] [employer] [facility] - Occupational Stress Questionnaire Feeling of Stress : Only a little Social Connections: Unknown (08/04/2024) Social Connection and Isolation Panel [NHANES] Frequency of Communication with Friends and Family: More than three times a week Frequency of Social Gatherings with Friends and Family: Patient declined Attends Yazidism Services: Patient declined Active Member of Clubs or Organizations: Patient declined Attends Club or Organization Meetings: Patient declined Marital Status: Patient declined Intimate Partner Violence: Not At Risk (02/09/2022) Received from [facility] Humiliation, Afraid, Rape, and Kick questionnaire Fear of Current or Ex-Partner: No Emotionally Abused: No Physically Abused: No Sexually Abused: No Housing Stability: Unknown (08/04/2024) Housing Stability Vital Sign Unable to Pay for Housing in the Last Year: No Number of Times Moved in the Last Year: Not on file Homeless in the Last Year: No Family History: Family History[2] REVIEW OF SYSTEMS: Review of Systems Constitutional: Negative for appetite change, chills, diaphoresis, fever and unexpected weight change. HENT: Negative for dental problem and mouth sores. Eyes: Negative for discharge and itching. Respiratory: Negative for chest tightness. Cardiovascular: Negative for chest pain and leg swelling. Gastrointestinal: Negative for rectal pain and vomiting. Endocrine: Negative for polydipsia, polyphagia and polyuria. Genitourinary: Negative for decrea (more content not included)... Normal [facility] SERUM ELECTROPHORESISon 09-0 Albumin [Mass/Vol] 4.0 g/dL Normal 3.1-4.8 [facility] Comment on above: Order Comment: THIS IS A CARVE-OUT LAB: SPECIMEN MUST BE SENT TO [facility] FOR PROCESSING Performed By: #### L [id number] ####Life Skills Educator: CRIS TRIANA ([phone])[address] ALPHA 1 0.3 g/dL Normal 0.2-0.4 [facility] Comment on above: Order Comment: THIS IS A CARVE-OUT LAB: SPECIMEN MUST BE SENT TO [facility] FOR PROCESSING Performed By: #### L [id number] ####Life Skills Educator: CRIS TRIANA ([phone])[address] [place] [address] [place] ALPHA 2 0.8 g/dL Normal 0.6-1.0 [facility] Comment on above: Order Comment: THIS IS A CARVE-OUT LAB: SPECIMEN MUST BE SENT TO [facility] FOR PROCESSING Performed By: #### L [id number] ####Life Skills Educator: CRIS TRIANA ([phone])[facility])[address] [place] [address] BETA 1 0.4 g/dl Normal 0.3-0.6 [facility] Comment on above: Order Comment: THIS IS A CARVE-OUT LAB: SPECIMEN MUST BE SENT TO [facility] FOR PROCESSING Performed By: #### L [id number] ####Life Skills Educator: CRIS TRIANA ([phone])[facility])[address] [place] [address] BETA 2 0.4 g/dl Normal 0.3-0.5 [facility] Comment on above: Order Comment: THIS IS A CARVE-OUT LAB: SPECIMEN MUST BE SENT TO [facility] FOR PROCESSING Performed By: #### L [id number] ####Life Skills Educator: CRIS TRIANA ([phone])[facility])[address] [place] [address] GAMMA GLOBULIN 1.0 g/dL Normal 0.4-1.4 [facility] Comment on above: Order Comment: THIS IS A CARVE-OUT LAB: SPECIMEN MUST BE SENT TO [facility] FOR PROCESSING Performed By: #### L [id number] ####Life Skills Educator: CRIS TRIANA ([phone])[facility])[address] [place] [address] PROTEIN FRACTION (INTERPRETATION) IN SER/PLAS BY ELECTROPHORESIS See Below Normal [facility] Comment on above: Order Comment: THIS IS A CARVE-OUT LAB: SPECIMEN MUST BE SENT TO [facility] FOR PROCESSING Result Comment: Noel Calderón. See AMPARO for additional information. Performed By: #### L [id number] ####Life Skills Educator: CRIS TRIANA ([id number])[facility])[address] [place] [address] RELEASED BY [facility] Comment on above: Order Comment: THIS IS A CARVE-OUT LAB: SPECIMEN MUST BE SENT TO [facility] FOR PROCESSING Performed By: #### L [id number] ####Life Skills Educator: CRIS TRIANA ([phone])[facility])[address] [place] [address] REVIEWED BY Sandro Gil, Ph.D. [facility] Comment on above: Order Comment: THIS IS A CARVE-OUT LAB: SPECIMEN MUST BE SENT TO [facility] FOR PROCESSING Performed By: #### L [id number] ####Life Skills Educator: CRIS TRIANA ([phone])[address] TOTAL PROTEIN (SERUM PROTEIN ELECTROPHORESIS)on 12-31-2024 Protein [Mass/Vol] 6.8 g/dL Normal 6.4-8.3 [facility] Comment on above: Order Comment: THIS IS A CARVE-OUT LAB: SPECIMEN MUST BE SENT TO [facility] FOR PROCESSING Result Comment: Seru m protein values are higher than plasma values. Samples from recumbent persons are lower by up to 0.5 g/dL as compared to ambulatory persons. After 60 years values are lower by up to 0.2 g/dL. Performed By: #### L [id number] ####Life Skills Educator: CRIS TRIANA ([phone])[address] Gastroenterology Visit Repor ton 12-02-2024 Gastroenterology Visit Report [facility] [address] [place] [address] OFFICE VISIT Date of Service: 12/02/24 MR#: [id number] Acct: [id number] Name: LAUREN ESCALANTE Rep #: [id number] : 1955 Provider: Dr. Edison hurtado MD Age/Sex: 69/M Location: [facility] [place] Status: Signed with Addenda ADDENDUM by Dr. Edison Santos MD on 12/02/24 at 1156 HPI Details: LAUREN ESCALANTE, is a 69 M who presents to the office today for Addendum Fasting profile in 2021 shows high triglyceride 247. Repeat fasting lipid profile ordered 12/02/24 1156 Date Edison Santos MD cc: [employer] MANAGER-C Cynthia Brewer; Dr. Rob Back MD * Signed Intake Vital Signs 10/26/24 08:54 11/13/24 10:55 12/02/24 10:31 Height 6 ft 6 ft 1 in 6 ft 1 in Weight: 240 lb BMI 31.6 BP 160/97 H Blood Pressure Location Lt brachial Position Sitting Pulse 112 H Pulse Oximetry (%) 96 Oxygen Delivery Method room air Intake Visit Reasons: FU Chief Complaint: Liver fibrosis Allergies No Known Allergies Allergy (Verified 12/02/24 10:21) Medications ???Medication ???Instructions ???Recorded ???Confirmed ???Type amlodipine 10 mg tablet 10 mg PO DAILY 07/25/24 12/02/24 H istory quetiapine 25 mg tablet 25 mg PO QHS 07/25/24 12/02/24 His tory venlafaxine 37.5 mg 37.5 mg PO DAILY 07/25/24 12/02/24 History capsule,extended release 24 hr albuterol sulfate 90 mcg/actuation 2 puff inhalation Q4 PRN shortne ss 08/27/24 12/02/24 History aerosol inhaler of breath or wheezing pantoprazole 40 mg tablet,delayed 40 mg PO QDAY 09/14/24 12/02/24 H istory release peg 3350-electrolytes 236 240 ml PO Q10M #4,000 mL 09/14/24 12/02/24 Rx gram-22.74 gram-6.74 gram-5.86 gram solution (Golytely) dextroamphetamine-am phetamine 20 1 tab PO BID PRN ADHD 10/27/2410/21 History mg tablet losartan 100 mg tablet 200 mg PO QDAY 10/27/24 12/02/24 H istory Have you fallen in the past year?: No [facility] Medical History Wears glasses History of steroid therapy Blackout Former smoker Shortness of breath on exertion Leg cramps History of Holter monitoring History of stress test History of echocardiogram Cardiology follow-up encounter Chest pain TD (obstructive sleep apnea) Hypertension Depression SOB (shortness of breath) Pneumothorax Surgical History History of tonsillectomy H/O [...] participate in: none HPI HPI Chief Complaint: Liver fibrosis Details: LAUREN ESCALANTE, is a 69 M who presents to the office today for hepatology consult for liver steatosis. US abd/ elastography 6.3.25- Liver measures 18.4. Stiffness 8.1 kPa 7.31.25- Fib-4 0.89 Colonoscopy 11/13/2024 Impressions : - Congested mucosa in the entire examined colon. No specific pathology change, histologic features of microscopic colitis not demonstrated - The examined portion of the ileum was normal. Normal villous architecture with focal prominent mucosal lymphoid aggregate favor reactive. EGD 11/14/2019 Impression: Z-line irregular, 40 cm from the incisors. Squamous mucosa with reactive changes and focally, 16 eosinophils per hpf. 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 - Erythematous mucosa in the gastric body. Oxyntic mucosa with no specific pathology change. IHC negative for H. pylori organisms. Erythematous duodenopathy. Normal villous architecture without increased intraepithelial lymphocytes ROS Const Constitutional: Positive for fatigue, frequent falls, headache(s) and weakness; No fever(s) or weight change ENT ENT: Positive for headache(s) and difficulty swallowing Resp Respiratory: No shortness of breath or wheezing Cardio Cardiology: No chest pain at rest or dyspnea on exertion Gastro GI: Positive for bloating, diarrhea, difficulty swallowing, excessive flatus and nausea/dyspepsia; No abdominal pain, belching, change in bowel hab (more content not included)... Normal [facility] Office Visiton 11-24-2024 Follow-up visit [id number] Lauren Escalante 1955 M Date Provider Department Center 11/24/2024 [id number] [facility] Family History Problem Relation Age of Onset Heart disease Mother Ovarian cancer Mother High Blood Pressure Mother Family Status - Relation Status Age at Mother Level of Service:89583 NC OFFICE/OUTPATIENT ESTABLISHED MOD MDM 30 MIN Reason for Visit and Comments: Other [0] - Pt wants to discuss health issues and CT scan, etc. Normal [facility] Progress Noteon 11-24-2024 Progress Note . [facility] [address] [address] [facility] [address] Dept: [phone] Dept Visit type: Established Reason for Visit: Other (Pt wants to discuss health issues and CT scan, etc.) Assessment and Plan 1. Muscle weakness (generalized) 2. Primary hypertension 3. Essential hypertension 4. Shortness of breath Muscle weakness/shortness of breath -remains of unclear etiology. I reviewed his previous evaluation which was inclusive of stress test (normal), coronary CTA (negative for obstructive disease), PFTs (essentially normal). His auto inflammatory evaluation has been essentially unremarkable except for a mildly positive CARDIOVASCULAR INVASIVE SPECIALIST antibody. He is scheduled to be evaluated by rheumatology in 2 weeks. My primary concern is that there is a neuromuscular disorder that may be causing his symptoms. He is scheduled to be evaluated by neurology on 12/31/2024. Hypertension -stable, continue current therapies. Subjective HPI This is a 69-year-old gentleman with past medical history significant for ADHD, hypertension, obesity presents today for ongoing evaluation of shortness of breath and fatigue symptoms. In interval, feels like his symptoms are accelerating. States that he has noticed some cognitive changes. He states that he has been recollecting how symptoms have changed over time - with reflection, now feels that symptoms have been present for about the past 5 years. He states that he seems to be having more bad days than good days. Fatigue / weakness - has been struggling to go up and down stairs, feels less fatigue in the morning. Shortness of breath - has had evaluation w/ pulmonology, cardiology including stress test, CTA coronary, PFT. These have not revealed the cause of his symptoms. Abdominal pain - had interval colonoscopy with biopsies showing congested mucosa of the entire mucosa. On EGD he had erythematous mucosa at gastric body and duodenum. Right-sided weakness - since last visit, he has noticed that he has had increase in right-sided weakness, states that he needs to lead with left side to climb stairs Review of Systems Constitutional: Positive for fatigue. Respiratory: Positive for shortness of breath. Neurological: Positive for weakness. Allergies[1] Current Medications[2] Medical History[3] Social History Tobacco Use Smoking status: Never Smokeless tobacco: Never Substance Use Topics Alcohol use: Never Surgical History[4] Family History[5] Objective BP 138/80 Pulse (!) 125 Ht 6' 1 (1.854 m) Wt 241 lb (109 kg) SpO2 95% BMI 31.80 kg/m? Physical Exam Constitutional: General: He is not in acute distress. Appearance: He is not toxic-appearing. HENT: Head: Normocephalic and atraumatic. Eyes: General: No scleral icterus. Pulmonary: Effort: No respiratory distress. Musculoskeletal: Cervical back: Normal range of motion. Skin: General: Skin is warm and dry. Neurological: Mental Status: He is alert. Mental status is at baseline. Psychiatric: Mood and Affect: Mood normal. Data Reviewed and Summarized Labs: Imaging/Testing: Rob Back MD [1] Not on File [2] Current Outpatient Medications Medication Sig Dispense Refill albuterol (ProAir HFA) 108 (90 Base) MCG/ACT inhaler Inhale 2 puffs every 4 hours as needed for wheezing or shortness of breath. 8.5 g 3 amLODIPine (Norvasc) 10 MG tablet TAKE 1 TABLET (10 MG) BY MOUTH DAILY. 90 tablet 1 amphetamine-dextroam phetamine (Adderall) 20 MG tablet Take 1 tablet by mouth 2 times daily. losartan (Cozaar) 100 MG tablet Take 1 tablet (100 mg) by mouth daily. 60 tablet 3 pantoprazole (ProtoNix) 40 MG EC tablet Take [...] capsule Take 37.5 mg by mouth daily. metoprolol tartrate (Lopressor) 100 MG tablet If resting HR >70 bpm then take 100mg PO metoprolol tartrate the evening prior and morning of exam. 2 tablet 0 predniSONE (Deltasone) 50 MG tablet Take 1 tablet (50 mg) by mouth daily. 5 tablet 0 No current facility-administere d medications for this visit. [3] Past Medical History: Diagnosis Date Depression Hypertension [4] Past Surgical History: Procedure Laterality Date APPENDECTOMY HERNIA REPAIR KNEE CARTILAGE SURGERY TONSILLECTOMY (HISTORICAL) [5] Family History Problem Relation Name Age of Onset Heart disease Mother Ovarian cancer Mother High Blood Pressure Mother Normal [facility] CT CORONARY CTA WITH PROV FF R-CTon 11-18-2024 CT CORONARY CTA WITH PROV FFR-CT Patient Name: LAUREN ESCALANTE : 1955 Exam Date/Time: 11/16/2024 13:26 Procedure: CT CORONARY CTA WITH PROV FFR-CT Ordering Provider: BACK JOHN Reason For Exam: shortness of breath, coronary calcifications on CT chest --------ADDENDUM #1 -------- Addendum: Extracardiac findings: Minimal left lower lobe subsegmental atelectasis versus parenchymal scar. No visualized pulmonary nodule or infiltrate. Small left medial hemidiaphragmatic fat containing hernia. No mediastinal or hilar adenopathy. Please refer to Dr. Junior's coronary CTA report for cardiac and vascular findings. Extracardiac impression: Left lower lobe subsegmental atelectasis versus parenchymal scar. Small left medial hemidiaphragmatic fat containing hernia Report Dictated on Electronically Signed By: Noel Santiago DO Electronically Signed Date/Time: 11/18/2024 5:40 PM EDT --------ORIGINAL REPORT -------- Coronary CTA Indication: 69 year-old man with chest discomfort. Study performed to evaluate for coronary artery disease. Technique: Computed tomography of the heart and surrounding structures was performed using a Caulfield multidetector scanner with cardiac gating and dose reduction techniques. Images were reconstructed and analyzed on an advanced post-processing 3D workstation. Sublingual nitroglycerin was administered for coronary dilation and oral metoprolol was taken in advance for heart rate optimization. See nursing notes for additional details of medications given in the CT department. Contrast: 75 mL Total DLP = 756.8 mGy-cm Study Quality: excellent. Extracardiac Findings: For a complete description of extracardiac structures, please refer to the accompanying radiology addendum. Cardiac Chambers and Valves: The pericardium is normal in thickness; there is moderate pericardial and epicardial fat accumulation with CT attenuation value of -89 HU suggestive of high density fat. The left and right ventricles are normal in size. The left and right atria are normal in size. The left atrial appendage is normal in appearance. The mitral valve is unremarkable by CT appearance. The aortic valve is trileaflet. Great Vessels: The ascending aorta is normal in size. The aortic arch is not included in the present study. The included portions of the descending thoracic aorta are normal in size. Coronary Anatomy: The coronaries have normal origins. There is a pattern of co- coronary dominance. Left Main Trunk: This is a large vessel that bifurcates normally into the LAD and LCx. There is a partially calcified plaque in the proximal LM without significant stenosis. Left Anterior Descending Artery: This is a large vessel that wraps around the apex after providing 3 diagonal branches. There is a diffuse partially calcified plaque in the ostium/proximal LAD with <10% stenosis. The mid LAD (between the first and second diagonal branches) is short and without significant disease. There is a diffuse partially calcified plaque in the distal LAD (just after the second diagonal branch) with mild up to 40% stenosis. There is a smooth segments of myocardial bridging in the distal LAD without significant disease, stenosis or kinks. There is a calcified plaque in the proximal segment of D2 branch without significant stenosis. Left Circumflex Artery: This is a large co-dominant vessel that gives rise to 3 obtuse marginal branches and several posterolateral branches. There is diffuse partially calcified plaque in the proximal LCx with <10% stenosis. There is a calcified plaque in the mid LCx without significant stenosis. OM1 is a tiny vessel. OM 2 is large with a noncalcified plaque in its proximal segments and mild 30-40% stenosis. Right Coronary Artery: This is a large co-dominant vessel. It gives rise to a medium sized PDA. There is a noncalcified plaque in the proximal RCA with mild 40% stenosis. There is a calcified plaque in the distal RCA without significant stenosis. CONCLUSIONS: 1. Nonobstructive coronary atherosclerosis. 2. The coronary calcium score is 123 (Agatston method). 3. Normal cardiac chambers. FFR-CT OPTION: FFR-CT is not requested for this study. CAD-RADS 2, P4 Recommendation: Preventive pharmacotherapy and risk factor modification. Consider non-atherosclerotic causes of symptoms. Beverley Junior MD Report Dictated on Electronically Signed By: Beverley Junior Electronically Signed Date/Time: 11/17/2024 9:57 AM EDT Patient Name: LAUREN ESCALANTE : 1955 Exam Date/Time: 11/16/2024 13:26 Procedure: CT CORONARY CTA WITH PROV FFR-CT Ordering Provider: BACK JOHN Reason For Exam: shortness of breath, coronary calcifications on CT chest Coronary CTA Indication: 69 year-old man with chest discomfort. Study performed to evaluate for coronary artery disease. Mer (more content not included)... Normal [facility] CTA Heart and Coronary arter ies WO and W contrast Jesika 11-17-2024 Patient Name: LAUREN ESCALANTE : 1955 Exam Date/Time: 11/16/2024 13:26 Procedure: CT CORONARY CTA WITH PROV FFR-CT Ordering Provider: BACK JOHN Reason For Exam: shortness of breath, coronary calcifications on CT chest Coronary CTA Indication: 69 year-old man with chest discomfort. Study performed to evaluate for coronary artery disease. Technique: Computed tomography of the heart and surrounding structures was performed using a ITN multidetector scanner with cardiac gating and dose reduction techniques. Images were reconstructed and analyzed on an advanced post-processing 3D workstation. Sublingual nitroglycerin was administered for coronary dilation and oral metoprolol was taken in advance for heart rate optimization. See nursing notes for additional details of medications given in the CT department. Contrast: 75 mL Total DLP = 756.8 mGy-cm Study Quality: excellent. Extracardiac Findings: For a complete description of extracardiac structures, please refer to the accompanying radiology addendum. Cardiac Chambers and Valves: The pericardium is normal in thickness; there is moderate pericardial and epicardial fat accumulation with CT attenuation value of -89 HU suggestive of high density fat. The left and right ventricles are normal in size. The left and right atria are normal in size. The left atrial appendage is normal in appearance. The mitral valve is unremarkable by CT appearance. The aortic valve is trileaflet. Great Vessels: The ascending aorta is normal in size. The aortic arch is not included in the present study. The included portions of the descending thoracic aorta are normal in size. Coronary Anatomy: The coronaries have normal origins. There is a pattern of co- coronary dominance. Left Main Trunk: This is a large vessel that bifurcates normally into the LAD and LCx. There is a partially calcified plaque in the proximal LM without significant stenosis. Left Anterior Descending Artery: This is a large vessel that wraps around the apex after providing 3 diagonal branches. There is a diffuse partially calcified plaque in the ostium/proximal LAD with <10% stenosis. The mid LAD (between the first and second diagonal branches) is short and without significant disease. There is a diffuse partially calcified plaque in the distal LAD (just after the second diagonal branch) with mild up to 40% stenosis. There is a smooth segments of myocardial bridging in the distal LAD without significant disease, stenosis or kinks. There is a calcified plaque in the proximal segment of D2 branch without significant stenosis. Left Circumflex Artery: This is a large co-dominant vessel that gives rise to 3 obtuse marginal branches and several posterolateral branches. There is diffuse partially calcified plaque in the proximal LCx with <10% stenosis. There is a calcified plaque in the mid LCx without significant stenosis. OM1 is a tiny vessel. OM 2 is large with a noncalcified plaque in its proximal segments and mild 30-40% stenosis. Right Coronary Artery: This is a large co-dominant vessel. It gives rise to a medium sized PDA. There is a noncalcified plaque in the proximal RCA with mild 40% stenosis. There is a calcified plaque in the distal RCA without significant stenosis. CONCLUSIONS: 1. Nonobstructive coronary atherosclerosis. 2. The coronary calcium score is 123 (Agatston method). 3. Normal cardiac chambers. FFR-CT OPTION: FFR-CT is not requested for this study. CAD-RADS 2, P4 Recommendation: Preventive pharmacotherapy and risk factor modification. Consider non-atherosclerotic causes of symptoms. Beverley Junior MD Report Dictated on Electronically Signed By: Beverley Junior Electronically Signed Date/Time: 11/17/2024 9:57 AM [facility] RADIOLOGY SYSTEM Beverley Junior MD - 11/17/2024 Patient Name: LAUREN ESCALANTE : 1955 Exam Date/Time: 11/16/2024 13:26 Procedure: CT CORONARY CTA WITH PROV FFR-CT Ordering Provider: BACK JOHN Reason For Exam: shortness of breath, coronary calcifications on CT chest Coronary CTA Indication: 69 year-old man with chest discomfort. Study performed to evaluate for coronary artery disease. Technique: Computed tomography of the heart and surrounding structures was performed using a Caulfield multidetector scanner with cardiac gating and dose reduction techniques. Images were reconstructed and analyzed on an advanced post-processing 3D workstation. Sublingual nitroglycerin was administered for coronary dilation and oral metoprolol was taken in advance for heart rate optimization. See nursing notes for additional details of medications given in the CT department. Contrast: 75 mL Total DLP = 756.8 mGy-cm Study Quality: excellent. Extracardiac Findings: For a complete description of extracardiac structures, please refer to the accompanying radiology addendum. Cardiac Chambers and Valves: The pericardium is normal in thickness; there is moderate pericardial and epicardial fat accumulation with CT attenuation value of -89 HU suggestive of high density fat. The left and right ventricles are normal in size. The left and right atria are normal in size. The left atrial appendage is normal in appearance. The mitral valve is unremarkable by CT appearance. The aortic valve is trileaflet. Great Vessels: The ascending aorta is normal in size. The aortic arch is not included in the present study. The included portions of the descending thoracic aorta are normal in size. Coronary Anatomy: The coronaries have normal origins. There is a pattern of co- coronary dominance. Left Main Trunk: This is a large vessel that bifurcates normally into the LAD and LCx. There is a partially calcified plaque in the proximal LM without significant stenosis. Left Anterior Descending Artery: This is a large vessel that wraps around the apex after providing 3 diagonal branches. There is a diffuse partially calcified plaque in the ostium/proximal LAD with <10% stenosis. The mid LAD (between the first and second diagonal branches) is short and without significant disease. There is a diffuse partially calcified plaque in the distal LAD (just after the second diagonal branch) with mild up to 40% stenosis. There is a smooth segments of myocardial bridging in the distal LAD without significant disease, stenosis or kinks. There is a calcified plaque in the proximal segment of D2 branch without significant stenosis. Left Circumflex Artery: This is a large co-dominant vessel that gives rise to 3 obtuse marginal branches and several posterolateral branches. There is diffuse partially calcified plaque in the proximal LCx with <10% stenosis. There is a calcified plaque in the mid LCx without significant stenosis. OM1 is a tiny vessel. OM 2 is large with a noncalcified plaque in its proximal segments and mild 30-40% stenosis. Right Coronary Artery: This is a large co-dominant vessel. It gives rise to a medium sized PDA. There is a noncalcified plaque in the proximal RCA with mild 40% stenosis. There is a calcified plaque in the distal RCA without significant stenosis. CONCLUSIONS: 1. Nonobstructive coronary atherosclerosis. 2. The coronary calcium score is 123 (Agatston method). 3. Normal cardiac chambers. FFR-CT OPTION: FFR-CT is not requested for this study. CAD-RADS 2, P4 Recommendation: Preventive pharmacotherapy and risk factor modification. Consider non-atherosclerotic causes of symptoms. Beverley Junior MD Report Dictated on Electronically Signed By: Beverley Junior Electronically Signed Date/Time: 11/17/2024 9:57 AM EDT CRV CTA Heart and Coronary arter ies WO and W contrast IVOrdered By: Beverley Junior on 11-17-2024 [facility] Work Phone: CTA Heart and Coronary arter ies WO and W contrast Jesika 11-16-2024 Radiology Study observation (narrative) Moncho Valdivia brice Nursing Noteon 11-16-2024 Nursing Note Patient arrived to CT for CTA of coronary arteries. CT imaging and nitroglycerin administration explained. Patient conveys understanding and agrees to proceed. Baseline HR 64 , BP 136/89. Nitroglycerin 0.8 mg. administered per protocol. CT imaging completed. Repeat BP 119/73 HR 70 . Denies dizziness or lightheadedness. Patient assisted to sitting position, denies dizziness or lightheadedness. Discharge instructions provided. He conveys understanding. 1 bottle of water given. Ambulated from CT with steady gait. Discharged home. Normal [facility] Colonoscopy Reporton 025 Colonoscopy Report [facility] Medical Records Department [address] [place] [address] Colonoscopy Report MR#: [id number] Acct: [id number] Name: LAUREN ESCALANTE Rep #: [id number] : 1955 69 From: Rolan Grace DO PCP: Dr. Rob Back MD Status:[facility] Patient Name: Lauren Escalante Procedure Date: 11/13/2024 12:35 PM Date of : 1955 Age: 69 Procedure: Colonoscopy Indications: Generalized abdominal pain, Clinically significant diarrhea of unexplained origin Providers: Rolan Grace DO Medicines: Monitored Anesthesia Care Patient Profile: This is a 69 year old male. Refer to note in patient chart for documentation of history and physical. Patient has symptoms of acute abdominal cramping, chronic abdominal distention, chronic epigastric abdominal pain, chronic dyspepsia and chronic heartburn. Last Colonoscopy: several years ago. Complications: No immediate complications. Procedure: Pre-Anesthesia Assessment: - Prior to the procedure, a History and Physical was performed, and patient medications and allergies were reviewed. The patient is competent. The risks and benefits of the procedure and the sedation options and risks were discussed with the patient. All questions were answered and informed consent was obtained. Patient identification and proposed procedure were verified by the physician in the pre-procedure area. Mental Status Examination: alert and oriented. Airway Examination: normal oropharyngeal airway and neck mobility. Respiratory Examination: clear to auscultation. CV Examination: normal. Prophylactic Antibiotics: The patient does not require prophylactic antibiotics. Prior Anticoagulants: The patient has taken no anticoagulant or antiplatelet agents except for NSAID medication. ASA Grade Assessment: II - A patient with mild systemic disease. After reviewing the risks and benefits, the patient was deemed in satisfactory condition to undergo the procedure. The anesthesia plan was to use monitored anesthesia care (MAC). Immediately prior to administration of medications, the patient was re-assessed for adequacy to receive sedatives. The heart rate, respiratory rate, oxygen saturations, blood pressure, adequacy of pulmonary ventilation, and response to care were monitored throughout the procedure. The physical status of the patient was re-assessed after the procedure. After I obtained informed consent, the scope was passed under direct vision. Throughout the procedure, the patient's blood pressure, pulse, and oxygen saturations were monitored continuously. The Colonoscope was introduced through the anus and advanced to the terminal ileum. The colonoscopy was performed without difficulty. The patient tolerated the procedure well. The quality of the bowel preparation was adequate. The terminal ileum, ileocecal valve, appendiceal orifice, and rectum were photographed. Scope In: 12:36:47 PM Scope Withdrawal Time 0 hours 9 minutes 8 seconds Scope Out: 12:47:53 PM Total Procedure Duration Time 0 hours 11 minutes 6 seconds Findings: The perianal and digital rectal examinations were normal. An area of mildly congested mucosa was found in the entire colon. Biopsies were taken with a cold forceps for histology. Verification of patient identification for the specimen was done. Estimated blood loss was minimal. The terminal ileum appeared normal. Biopsies were taken with a cold forceps for histology. Verification of patient identification for the specimen was done. Estimated blood loss was minimal. Impression: - Congested mucosa in the entire examined colon. Biopsied. - The examined portion of the ileum was normal. Biopsied. Recommendation: - Discharge patient to home. - Resume previous diet. - Continue present medications. - Await pathology results. - Repeat colonoscopy in 5 years for surveillance. Procedure Code(s): --- Professional --- 19791, Colonoscopy, flexible; with biopsy, single or multiple CPT copyright 2021 [employer]. All rights reserved. The codes documented in this report are preliminary and upon regional manager review may be revised to meet current compliance requirements. Rolan Grace DO 11/13/2024 12:55:16 PM This report has been signed electronically. Number of Addenda: 0 Note Initiated On: 11/13/2024 12:35 PM 11/13/24 1255 Date Rolan Grace DO Cosigner Signature: Date (if indicated) CC: Dr. Leonie Sands MD; Dr. Rob Back MD; Rolan Grace DO Date Dictated: 11/13/24 1235 Date Transcribed: Records Manager: RF Signed Normal [facility] EGD Reporton 11-13-2024 EGD Report [facility] Medical Records Department [address] [place] [address] EGD Report MR#: [id number] Acct: [id number] Name: LAUREN ESCALANTE Rep #: [id number] : 1955 69 From: Rolan Grace DO PCP: Dr. Rob Back MD Status:[facility] Patient Name: Lauren Escalante Procedure Date: 11/13/2024 12:16 PM Date of : 1955 Age: 69 Procedure: Upper GI endoscopy Indications: Epigastric abdominal pain, Heartburn, Suspected esophageal reflux, Failure to respond to medical treatment Providers: Rolan Grace DO Medicines: Monitored Anesthesia Care Patient Profile: This is a 69 year old male. Refer to note in patient chart for documentation of history and physical. Patient has symptoms of acute abdominal cramping, chronic abdominal distention, chronic epigastric abdominal pain, chronic dyspepsia and chronic heartburn. Complications: No immediate complications. Procedure: Pre-Anesthesia Assessment: - Prior to the procedure, a History and Physical was performed, and patient medications and allergies were reviewed. The patient is competent. The risks and benefits of the procedure and the sedation options and risks were discussed with the patient. All questions were answered and informed consent was obtained. Patient identification and proposed procedure were verified by the physician in the pre-procedure area. Mental Status Examination: alert and oriented. Airway Examination: normal oropharyngeal airway and neck mobility. Respiratory Examination: clear to auscultation. CV Examination: normal. Prophylactic Antibiotics: The patient does not require prophylactic antibiotics. Prior Anticoagulants: The patient has taken no anticoagulant or antiplatelet agents except for NSAID medication. ASA Grade Assessment: II - A patient with mild systemic disease. After reviewing the risks and benefits, the patient was deemed in satisfactory condition to undergo the procedure. The anesthesia plan was to use monitored anesthesia care (MAC). Immediately prior to administration of medications, the patient was re-assessed for adequacy to receive sedatives. The heart rate, respiratory rate, oxygen saturations, blood pressure, adequacy of pulmonary ventilation, and response to care were monitored throughout the procedure. The physical status of the patient was re-assessed after the procedure. After obtaining informed consent, the endoscope was passed under direct vision. Throughout the procedure, the patient's blood pressure, pulse, and oxygen saturations were monitored continuously. The Colonoscope was introduced through the mouth, and advanced to the third part of the duodenum. Small bowel enteroscopy was deemed necessary. The upper GI endoscopy was accomplished without difficulty. The patient tolerated the procedure well. Scope In: 12:31:51 PM Scope Out: 12:35:25 PM Total Procedure Duration Time 0 hours 3 minutes 34 seconds Findings: The Z-line was irregular and was found 40 cm from the incisors. Biopsies were taken with a cold forceps for histology. A small hiatal hernia was present. Patchy mildly erythematous mucosa without bleeding was found in the gastric body. Biopsies were taken with a cold forceps for histology. Biopsies were taken with a cold forceps for Helicobacter pylori testing. Patchy mildly erythematous mucosa without active bleeding and with no stigmata of bleeding was found in the entire duodenum. Biopsies were taken with a cold forceps for histology. Verification of patient identification for the specimen was done. Estimated blood loss was minimal. Impression: - Z-line irregular, 40 cm from the incisors. Biopsied. - Small hiatal hernia. - Erythematous mucosa in the gastric body. Biopsied. - Erythematous duodenopathy. Biopsied. Recommendation: - Discharge patient to home. - Resume previous diet. - Continue present medications. - Await pathology results. Procedure Code(s): --- Professional --- 43321, Small intestinal endoscopy, enteroscopy beyond second portion of duodenum, not including ileum; with biopsy, single or multiple CPT copyright 2021 [employer]. All rights reserved. The codes documented in this report are preliminary and upon regional manager review may be revised to meet current compliance requirements. Rolan Grace DO 11/13/2024 12:53:16 PM This report has been signed electronically. Number of Addenda: 0 Note Initiated On: 11/13/2024 12:16 PM 11/13/24 1253 Date Rolan Grace DO Cosigner Signature: Date (if indicated) CC: Dr. Leonie Sands MD; Dr. Rob Back MD; Rolan Grace DO Date Dictated: 11/13/24 1216 Date Transcribed: Records Manager: HANNAH Signed Normal [facility] Immunohistochemical Stainson 11-13-2024 Immunohistochemical Stains Patient Age/Sex Location Account Attending Physician LAUREN ESCALANTE 69/M EN [id number] Rolan Grace DO Specimen: [id number] Received: 11/13/24 Status: REMY Barraza Num: [id number] Spec Type: EGD BIOPSY Subm Dr: Rolan Grace DO HEADER OPERATION: Colonoscopy with biopsy, EGD with biopsy PRE-OP DIAGNOSIS: Abdominal pain TISSUE SUBMITTED: A- Distal esophagus biopsy, B- Duodenum biopsy, C- Gastric body biopsy, D- Terminal ileum biopsy, E- Random colon biopsy MICROSCOPIC DIAGNOSIS A. Distal esophagus, biopsy: - Squamous mucosa with reactive changes and focally 16 eosinophils per high power field. 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 - Negative for dysplasia. Note: The diagnosis depends on the location of the biopsy and the extent of the mucosal irregularity. If the biopsy originates from the tubular esophagus and the mucosal irregularity extends at least 1 cm above the top of the gastric folds, this represents Almonte mucosa. If the biopsy originates from the gastric cardia an/ or the mucosal irregularity is less than 1 cm in extent, this represents intestinal metaplasia. B. Duodenum, biopsy: - Normal villous architecture without increased intraepithelial lymphocytes. C. Gastric body, biopsy: - Oxyntic mucosa with no specific pathologic change. - IHC negative for H.pylori organisms. D. Terminal ileum, biopsy: - Normal villous architecture with focal prominent mucosal lymphoid aggregates, favor reactive. E. Colon, random biopsy: - No specific pathologic change. - The histologic features of microscopic colitis are not demonstrated. MICROSCOPIC DESCRIPTION Slides are reviewed. All matched controls reacted appropriately. These tests were developed and their performance characteristics determined by [facility]. They may not have been cleared or approved by the U.S. Food and Drug Administration. The FDA has determined that such clearance or approval is not necessary. The above immunohistochemical/ dualISH markers are viewed by the Pathologist. Patient Age/Sex Location Account Attending Physician LAUREN ESCALANTE/M EN [id number] Rolan Grace DO GROSS DESCRIPTION A. Received in fixative is one container labeled with the patient's name and designated Distal esophagus biopsy. The specimen consists of three irregular fragments of light otoole soft tissue that in aggregate measure 0.1 to 0.4 cm. The specimen is totally submitted in one cassette. B. Received in fixative is one container labeled with the patient's name and designated Duodenum biopsy. The specimen consists of three irregular fragments of light otoole soft tissue that in aggregate measure 0.1 to 0.3 cm. The specimen is totally submitted in one cassette. C. Received in fixative is one container labeled with the patient's name and designated Gastric body biopsy. The specimen consists of two irregular fragments of light otoole soft tissue that in aggregate measure 0.1 and 0.9 cm. The specimen is totally submitted in one cassette. D. Received in fixative is one container labeled with the patient's name and designated Terminal ileum biopsy. The specimen consists of multiple irregular fragments of light otoole soft tissue that in aggregate measure 0.1 to 0.5 cm. The specimen is totally submitted in one cassette. E. Received in fixative is one container labeled with the patient's name and designated Random colon biopsy. The specimen consists of multiple irregular fragments of light otoole soft tissue that in aggregate measure 1.9 x 0.7 x 0.1 cm. The specimen is totally submitted in one cassette. 11/16/2024 CPT:14486f7,63244 Patient Age/Sex Location Account Attending Physician LAUREN ESCALANTE/Annamarie EN [id number] Rolan Grace DO Signed (signature on file) Dr. Nevaeh Huber MD 11/20/24 1510 --------- (more content not included)... Normal [facility] Comment on above: Performed By: #### P IMHI ####[facility] [id number] [facility] [place], [address] MR/POSTOP.ANE 11-13-2024 MR/POSTOP.[facility] Medical Records Department [address] [place] [address] Anesthesia Postop Eval I 11/13/24 1256 MR#: [id number] Acct: [id number] Name: LAUREN ESCALANTE Rep #: [id number] : 1955 69 From: Hari Carvalho PCP: Dr. Rob Back MD Status:REG SDC Y Race: C Location: [place] [address] Anesthesia: Postop Eval I Current Vital Signs Temperature: 97 F Pulse Rate: 81 Blood Pressure: 100/63 Respiratory Rate: 16 Pulse Ox: 97 Oxygen Delivery Method: Room Air Assessment Airway patent: Yes Spontaneous unlabored respirations: Yes Mental status: Awake nausea: No Vomiting: No Anesthesia Complication: No Fluid Hydration Crystalloid volume administer (ml): 600 Total IV fluid infused: 600 Progress Note Anesthesia document: Postop Eval 1 completed: Yes 11/13/24 1257 Date Hari Cunningham Signature: Date CC: Signed Normal [facility] MR/[id number] 11-13-2024 MR/POSTOPAN2 [facility] Medical Records Department [address] [place] [address] Anesthesia Postop Eval II 11/13/24 1420 MR#: [id number] Acct: [id number] Name: LAUREN ESCALANTE Rep #: [id number] : 1955 69 From: Tor Puri CRNA PCP: Dr. Rob Back MD [place] [place]: C Location: EN Anesthesia Postop Eval I Sum Postop Eval Completion status Anesthesia document: Postop Eval 1 completed: Yes Anesthesia Postop Eval I Summary Anesthesia Postop Eval I Summary: Anesthesia Postop Eval I: Assessment Summary Airway patent Yes 11/13/24 12:57 [email or web address] Spontaneous unlabored Yes 11/13/24 12:57 [email or web address] respirations Mental status Awake 11/13/24 12:57 [email or web address] nausea No 11/13/24 12:57 [email or web address] Vomiting No 11/13/24 12:57 [email or web address] Anesthesia Postop Eval I: Fluid Summary Crystalloid volume administer 600 11/13/24 12:57 [email or web address] (ml) Colloids volume administered ( ml) Blood Product volume administered (ml) Total IV fluid infused 600 11/13/24 12:57 [email or web address] Anesthesia Postop Eval I: Summary Notes Anesthesia Complication No 11/13/24 12:57 [email or web address] Anesthesia Complication Comment: Post-operative progress note Anesthesia: Postop Eval II Evaluation Mental status: Awake Pain Level: 0 nausea: No Vomiting: No 11/13/24 1420 Date Tor Puri ORACLE DATABASE ADMINISTRATOR Cosigner Signature: Date CC: Signed Normal [facility] MR/Cristiane 11-10-2024 MR/[facility] Medical Records Department [address] [place] [address] PAT - Anesthesia 11/10/241814 MR#: [id number] Acct: [id number] Name: LAUREN ESCALANTE Rep #: [id number] : 1955 69 From: Caden Restrepo MD PCP: Dr. Leonie Sands MD Status:PRE SDC Y Race: C Location: EN Pre-Assessment Diagnosis/Proposed Procedure Planned Operative Procedure(s): EGD, COLONOSCOPY Anesthesia History Anesthesia History - instructor looping: Anesthesia History - instructor looping Hx Hospitalization No 11/10/24 14:53 Any Problems With Anesthesia No 11/10/24 14:53 Cholinesterase deficiency No 11/10/24 14:53 You/Your Family Experience No 11/10/24 14:53 fever (hyperthermia) with Relationship Recent Exposure to Contagious Disease Does patient have nerve No 11/10/24 14:53 stimulator Patient instructed to have device shut off --Does patient have Pacemaker or ICD? When Was Last Pacemaker Check QUESTION #4 FULL TEXT: You/Your Family Experience fever (hyperthermia) with Anesthesia Last Oral Intake Last Oral intake: Last Oral Intake NPO since Meds taken in AM with sips of water? Meds patient instructed to take am of surgery PONV PONV - instructor looping: PONV - instructor looping Female No 11/10/24 14:53 HX of Motion Sickness Yes 11/10/24 14:53 HX of N/V After Surgery No 11/10/24 14:53 Non-Smoker Yes 11/10/24 14:53 Duration of Surgery greater No 11/10/24 14:53 than 60 minutes Number of Risk Factors 2 11/10/24 14:53 PONV Score Moderate Risk 11/10/24 14:53 Height Weight Height Weight: Anesthesia: Height Weight Height 6 ft 10/27/24 08:21 Respiratory Assessment Respiratory Assessment - instructor looping: Respiratory Tract Infection Hx - instructor looping Hx Respiratory Tract Infection No 11/10/24 14:53 STOP Sleep Apnea STOP Sleep Apnea - instructor looping: STOP Sleep Apnea - instructor looping Hx Hypertension Yes 11/10/24 14:53 Hx Sleep Apnea No 11/10/24 14:53 CPAP BIPAP Do you snore loudly (louder No 11/10/24 14:53 than talking or can be heard Do you often feel tired/ No 11/10/24 14:53 fatigued/ sleepy during daytime? Has anyone observed you stop No 11/10/24 14:53 breathing during sleep? STOP Results Negative 11/10/24 14:53 QUESTION #5 FULL TEXT : Do you snore loudly (louder than talking or can be heard through closed doors)? Tobacco Use History Tobacco Use History - instructor looping: Tobacco Use History - instructor looping Tobacco Use Smoking Status Former smoker 11/10/24 14:53 Hx Tobacco Use No 11/10/24 14:53 Years Smoking Packs Smoked per Day Smoking Cessation Date was Yes - quit smoking within 11/10/24 14:53 within the last 15 years years Hx Smoking Cessation Date Hx Smoking Cessation Counseling Hematologic Medial History Hematologic Hx - instructor looping: Hematologic Medical Hx - budget counselor Hx of Blood Transfusion No 11/10/24 14:53 Hx of Transfusion in last 3 No 11/10/24 14:53 Months Date of Last Transfusion (if within last 3 months) Ever experience any problems No 11/10/24 14:53 with transfusion(s)? Specify any problems Hx of Preganancy in last 3 N/A 11/10/24 14:53 Months Nurse Filling Out Transfusion [facility] 11/10/24 14:53 Questions: Date: 11/10/24 11/10/24 14:53 Time: 15:03 11/10/24 14:53 Patient unable to answer at this time (ie. confused, unrespo /Reproducti on History /Reproducti ve History - instructor looping: /Reproducti ve Hx- instructor looping Hx Now No 11/10/24 14:53 Gestational Age (in weeks): EDC: Hx Hx Para Hx Section SAB No 11/10/24 14:53 PFSH Medical History Wears glasses History of steroid therapy Blackout Former smoker Shortness of breath on exertion Leg cramps History of Holter monitoring History of stress test History of echocardiogram Cardiology follow-up encounter Chest pain TD (obstructive sleep apnea) Hypertension Depression SOB (shortness of breath) Pneumothorax Home Medications ???Medication ???Instructions ???Recorded ???Last Taken ???Type amlodipine 10 mg tablet 10 mg PO DAILY 07/25/24 07/24/24 H istory quetiapine 25 mg tablet 25 mg PO QHS 07/25/24 07/24/24 His tory venlafaxine 37.5 mg 37.5 mg PO DAILY 07/25/24 07/25/24 History capsule,extended release 24 hr albuterol sulfate 90 mcg/actuation 2 puff inhalation Q4 PRN shortne ss 08/27/24 Unknown History aerosol inhaler of breath or wheezing pantoprazole 40 mg tablet,delayed 40 mg PO QDAY 09/14/24 Unknown Hi stor (more content not included)... Normal [facility] Office Visiton 11-05-2024 Follow-up visit [id number] Lauren Escalante 1955 M Date Provider Department Center 11/05/2024 [id number] BACK [facility] Family History Problem Relation Age of Onset Heart disease Mother Ovarian cancer Mother High Blood Pressure Mother Family Status - Relation Status Age at Mother Level of Service:01870 NC OFFICE/OUTPATIENT ESTABLISHED MOD MDM 30 MIN Reason for Visit and Comments: Follow-up [720791] - No new concerns Normal [facility] Progress Noteon 11-05-2024 Progress Note . [facility] [address] [facility] [address] Dept: [phone] Dept Visit type: Established Reason for Visit: Follow-up (No new concerns) Assessment and Plan 1. Shortness of breath 2. Essential hypertension 3. Fatigue, unspecified type Shortness of breath -has undergone multiple tests, been evaluated by pulmonology and cardiology with previous testing including PFT, sleep study, stress test without clear cause of symptoms. He is scheduled to see neurology in 2 months for potential neuromuscular causes of shortness of breath. Heart disease concerns -previous chest CT showed coronary calcifications. He also had a stress test that was negative. Patient has considerable anxiety regarding calcifications on prior stress test, requested additional evaluation. A CTA was ordered and is scheduled to be completed 11/16/2024. If this does not reveal any concerning abnormalities he plans to increase his activity to increased exercise tolerance and hopefully improve fatigue symptoms. Hypertension -slightly above goal 141/93, continue currently prescribed medications. Encourage patient to continue home monitoring. Subjective HPI This is a 69-year-old gentleman with past medical history significant for ADHD, hypertension, obesity presents today for ongoing evaluation of shortness of breath and fatigue symptoms. Having colonoscopy next Week Liver disease - had elastography ordered which showed risk of progression to severe fibrotic liver disease. Shortness of breath - still present, states that with going up or down stairs, or standing for longer periods he develops worsening shortness of breath. Has been evaluated by pulmonology in [place], completed PFT/6 minute walk test which were not remarkable. He is planning to be fitted for CPAP next week. He was also seen by a dip stand loader in [place] who did not feel that symptoms were heart related based on previous stress test. HTN - 141/93 on repeat, prescribed amlodipine 10, losartan 100 Review of Systems Constitutional: Positive for fatigue. Respiratory: Positive for shortness of breath. Neurological: Positive for weakness. Allergies[1] Current Medications[2] Medical History[3] Social History Tobacco Use Smoking status: Never Smokeless tobacco: Never Substance Use Topics Alcohol use: Never Surgical History[4] Family History[5] Objective BP (!) 151/106 Pulse 100 Ht 6' 1 (1.854 m) Wt 233 lb (106 kg) SpO2 96% BMI 30.74 kg/m? Physical Exam Constitutional: General: He is not in acute distress. Appearance: He is not toxic-appearing. HENT: Head: Normocephalic and atraumatic. Eyes: General: No scleral icterus. Pulmonary: Effort: No respiratory distress. Musculoskeletal: Cervical back: Normal range of motion. Skin: General: Skin is warm and dry. Neurological: Mental Status: He is alert. Mental status is at baseline. Psychiatric: Mood and Affect: Mood normal. Data Reviewed and Summarized Labs: Imaging/Testing: Rob Back MD [1] No Known Allergies [2] Current Outpatient Medications Medication Sig Dispense Refill albuterol (ProAir HFA) 108 (90 Base) MCG/ACT inhaler Inhale 2 puffs every 4 hours as needed for wheezing or shortness of breath. 8.5 g 3 amLODIPine (Norvasc) 10 MG tablet TAKE 1 TABLET (10 MG) BY MOUTH DAILY. 90 tablet 1 amphetamine-dextroam phetamine (Adderall) 20 MG tablet Take 1 tablet by mouth 2 times daily. losartan (Cozaar) 100 MG tablet Take 1 tablet (100 mg) by mouth daily. 60 tablet 3 pantoprazole (ProtoNix) 40 MG EC tablet Take 1 tablet (40 mg) by mouth daily. Do not crush, chew, or split. 90 tablet 1 predniSONE (Deltasone) 50 MG tablet Take 1 tablet (50 mg) by mouth daily. 5 tablet 0 Probiotic Product (Align) 10 MG capsule Take 1 capsule by mouth daily. 15 capsule 0 venlafaxine XR (Effexor XR) 37.5 MG 24 hr capsule Take 37.5 mg by mouth daily. QUEtiapine (SEROquel) 25 MG tablet Take 25 mg by mouth Nightly. (Patient not taking: Reported on 11/05/2024) No current facility-administere d medications for this visit. [3] Past Medical History: Diagnosis Date Depression Hypertension [4] Past Surgical History: Procedure Laterality Date APPENDECTOMY HERNIA REPAIR KNEE CARTILAGE SURGERY TONSILLECTOMY (HISTORICAL) [5] Family History Problem Relation Name Age of Onset Heart disease Mother Ovarian cancer Mother High Blood Pressure Mother [place] [id number] 36 completed [place] [address] Your patient has been scheduled for their CTA Angio on 11/16 at 8pm. If testing requires an insurance authorization, the authorization must be in place 48 hours prior to the scheduled test or testing will be cancelled. Thank you, Central Scheduling [place] [address] Name of caller: Jeffrey Contact phone number: [phone] Relationship to Patient: [facility] Provider: Dr Back Practice: [facility] Chief Complaint/Reason for Call: Jeffrey is requesting information as to if the patient has any chronic conditions such as diabetes, cardiovascular disorders or heart failure. Requesting a callback states patient is enrolled into their special needs program use ref#[id number]. Thank you Best time of day caller can be reached: any Patient advised that office/PCP has 24-48 business hours to return their call: Yes [place] [id number] 36 Called to discuss, will discuss further at visit 11/05/2024. [place] [id number] 36 S: Patient spoke with [facility] nurse regarding productive cough B: Onset of symptoms/concern ongoing A: Patient reports concerns about his the dip stand loader and semiconductor wafer inspector he has been seen and test results. Still having intermittent cough and shortness of breath with activity- which has been ongoing. States instead of repeating himself, has questions for Dr. Back. Is speaking in complete sentences throughout triage. R: Reminded of appointment next week 11-05-24 at 10:20am with Dr. Back. Patient asking if he can speak to Dr. Back before appointment. Patient aware message will be sent for provider's review- would also recommend keeping appointment next week. Patient understands care advice. No further needs at this time. Patient instructed to call back with new/worsening symptoms, concerns or questions. Reason for Disposition [1] Caller requests to speak ONLY to PCP AND [2] NON-URGENT question Protocols used: PCP Call - [facility] Visit Reporton Cardiology Visit Report [facility] [address] [place] [address] OFFICE VISIT Date of Service: 10/27/24 MR#: [id number] Acct: [id number] Name: LAUREN ESCALANTE Rep #: [id number] : 1955 Provider: Dr. Paola constantino MD Age/Sex: 69/M Location: [facility] [place] Status: Signed HPI HPI History of Present Illness Details: Patient is a 69-year-old pleasant white male that comes in today for a new patient visit for shortness of breath. The patient carries a history of obstructive sleep apnea recently diagnosed he is awaiting his CPAP machine to be delivered. He also has a history of hypertension longstanding sinus tachycardia and shortness of breath with fatigue. 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 This he is retired and this was a job that he was doing after prison. The patient has been evaluated by pulmonary he had a CT scan which showed calcium in his coronary arteries. He had a normal pharmacologic stress test July 2024 and his echocardiogram July 2024 showed normal LV size and function with a EF of 60% he had mild concentric LVH stage I diastolic dysfunction which is appropriate for age in someone with hypertension. Remotely the patient had a 14-day event monitor back in January 2023 which shows sinus rhythm and sinus tach maximum heart rate was 177 minimum 59 average 96. He had rare PVCs he had 5 occurrences of SVT the longest being 13 beats. The patient carries a history of sinus tachycardia for years. 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 Patient's blood pressure in office today is elevated 171/116 his heart rate was originally 118 and it dropped down to 100. He was drinking coffee during the interview and evaluation. Last lipids that I can find are from January 2022 total cholesterol 182 HDL 48 LDL 85 and triglycerides were 247. There is a family history of coronary disease the patient is not diabetic his lipids tentatively should be less than 70 on his LDL given his calcified coronary arteries he does have a longstanding history of hypertension he is a non-smoker. Intake Vital Signs 10/26/24 08:54 10/27/24 08:21 Height 6 ft 6 ft Weight: 240 lb 239 lb BMI 32.5 32.4 BP 171/97 H 171/116 H Blood Pressure Location Rt brachial Lt brachial Position Sitting Sitting Respiration 18 18 Pulse 109 H 118 H Pulse Source Monitor Temp 98.0 F Temperature Source Oral Pulse Oximetry (%) 99 95 Oxygen Delivery Method room air room air Intake Visit Reasons: ABN Chest CT (Self) Form Layer Required: No Accompanied by: Self Is patient in pain?: No Allergies No Known Allergies Allergy (Verified 10/27/24 08:21) Medications ???Medication ???Instructions ???Recorded ???Confirmed ???Type amlodipine 10 mg tablet 10 mg PO DAILY 07/25/24 10/27/24 H istory quetiapine 25 mg tablet 25 mg PO QHS 07/25/24 10/27/24 His tory venlafaxine 37.5 mg 37.5 mg PO DAILY 07/25/24 10/27/24 History capsule,extended release 24 hr albuterol sulfate 90 mcg/actuation 2 puff inhalation Q4 PRN 5 10/27/24 History aerosol inhaler pantoprazole 40 mg tablet,delayed 40 mg PO QDAY 09/14/24 10/27/24 H istory release peg 3350-electrolytes 236 240 ml PO Q10M #4,000 mL 09/14/24 10/26/24 Rx gram-22.74 gram-6.74 gram-5.86 gram solution (Golytely) dextroamphetamine-am phetamine 20 1 tab PO BID PRN 10/27/24 10/27/24 History mg tablet losartan 100 mg tablet 200 mg PO QDAY 10/27/24 10/27/24 H istory Ejection fraction %: 60 Have you fallen in the past year?: Yes PFSH Medical History SOB (shortness of breath) Hypertension TD (obstructive sleep apnea) Depression Pneumothorax Surgical History History of tonsillectomy [...] physical activity do you participate in: none ROS Const Con (more content not included)... Normal [facility] Pulmonary Visit Reporton Pulmonary Visit Report [facility] Pulmonary Medicine of [address] [place] [address] OFFICE VISIT Date of Service: 10/26/24 MR#: [id number] Acct: [id number] Name: LAUREN ESCALANTE Rep #: [id number] : 1955 Provider: MARCELO Brand Age/Sex: 69/M Location: [facility] [place].[facility] Status: Signed Assessment and Plan Assessment and Plan (1) TD (obstructive sleep apnea): Status: Acute Comment: AHI 8.4 Plan: New. Lengthy discussion about the pathophysiology of obstructive sleep apnea. We discussed the risks of untreated sleep apnea as well as the benefits. We will proceed with AutoPap 5-15 cmH2O. Initial goal will be to wear PAP at least 4 hours nightly. Ultimately, it should be worn any time spent sleeping. I have encouraged the patient to call the office with any difficulties acclimating to PAP therapy. Follow up in the office in 6 weeks. (2) SOB (shortness of breath): Status: Chronic Plan: Of unclear etiology. He would like to start an exercise program, but is concerned about coronary calcifications seen on chest CT. Cardiology consultation is pending. I did request that they add him to a cancelation wait list, if they have one. (3) Hypertension: Status: Chronic Qualifiers: Hypertension type: primary hypertension Qualified Code(s): I10 - Essential (primary) hypertension Plan: Likely contributing to his shortness of breath. (4) Obesity: Status: Chronic Qualifiers: Body mass index: BMI 32.0-32.9 Obesity classification: adult class 1 (BMI 30 - 34.9) Obesity type: due to excess calories Serious obesity comorbidity presence: with serious comorbidity Qualified Code(s): E66.811 - Obesity, class 1; E66.09 - Other obesity due to excess calories; Z68.32 - Body mass index [BMI] 32.0-32.9, adult Plan: Obstructive sleep apnea can be improved with weight loss. He has mild sleep apnea, which could be reversed with weight loss. Encouraged mild amount of weight loss. (5) Tachycardia with hypertension: Status: Acute Plan: Complicates exam, plan, care and prognosis. Could be a sign of deconditioning. I have asked him to document his heart rate and blood pressure to use for comparison as he proceeds with pap therapy for his sleep apnea. Plan Details Additional Comments: This note was generated with SignalFuse dictation software. It may contain incorrect words, spelling, and punctuation that were not noted in checking the note before signing. Follow Up: 6 Weeks HPI Sleep study results Chief Complaint: Test results HPI Comments Details: This patient presents to the office today to discuss test results. He is ambulatory and on room air. He has not recently been seen in the ED or urgent care for any respiratory illness. He has not required any antibiotics or prednisone for any breathing problems. He is not currently on any maintenance inhalers. He does utilize albuterol 1 or 2 times daily. He has a light smoking history quitting approximately 5 or 6 years ago. He is highest amount of smoking was close to a pack a day for about 4 years. He does not qualify for LDCT. He has shortness of breath on exertion. He has an occasional dry cough. He denies any sputum production or hemoptysis. He does notice occasional wheezing when lying flat. He denies any chest tightness, chest pain or palpitations. He has not had any fever, chills or body aches. He is not feeling rested in the morning. He is tired throughout the day. He does have difficulty with dry mouth. He has at least 1 episode of nocturia nightly. Test results personally reviewed with the patient: Unattended sleep study completed on October 15, 2024. Overall AHI 8.4 events per hour. Diagnosis is mild obstructive sleep apnea. Treatment options suggested are to consider trial of auto adjusting CPAP, dental device or weight loss. His primary care doctor ordered a CT of the chest without contrast that was completed on October 14, 2024. Noted is moderate coronary artery calcifications. Left posterior lateral diaphragmatic hernia is noted containing nonincarcerated fat, chronic finding. Subsegmental atelectasis changes in the left lower lobe. Fluid-filled, mildly prominent esophagus, probably mild reflux. Mild bilateral basilar atelectatic pulmonary changes. Intake Vital Signs 10/13/24 07:55 10/26/24 08:54 Height 6 ft 6 ft Weight: 239 lb 240 lb BMI 32.4 32.5 BP 168/108 H 171/97 H Blood Pressure Location Lt brachial Rt brachial Position Sitting Sitting Respiration 18 18 Pulse 102 H 109 H Pulse Source Monitor Temp 97.4 F L 98.0 F Temperature Source Temporal Artery Oral Pulse Oximetry (%) 97 99 Oxygen Delivery Method room air room air Intake Visit Reasons: Sleep study results Chief Complaint: sleep study results Is patient in pain?: No Allergies No Known Allergies Allerg (more content not included)... Normal [facility] 10-21-2024 36 We have been unable to reach your patient to schedule their testing. Test Name: ct chest 1st Attempt: voice message full, unable to leave message 10/19/24 2nd Attempt: voice message full 10/21/24 Normal [facility] 36on 10-20-2024 36 This was received. I scanned it in and routed it to you. Normal [facility] Chest without Contraston Chest without Contrast [facility] Imaging Services [address] [place] [address] Chest without Contrast MR#: [id number] Acct: [id number] Name: LAUREN ESCALANTE Rep #: [id number] : 1955 M 69 From: Chaya cohen MD PCP: Dr. Rob Back MD Status: REG CLI Study: Chest without Contrast Date of Exam: 10/14/24 Exam# [id number] Ordering Dr: Rob Back MD PROCEDURE: CHEST WITHOUT CONTRAST 10/14/2024 REASON FOR EXAM: SOB TECHNIQUE: Chest CT without contrast. Coronal and Sagittal reconstruction series were provided. One or more dose reduction techniques were used (e.g., Automated exposure control, adjustment of the mA and/or kV according to patient size, use of iterative reconstruction technique RADIATION DOSE SUMMARY: CTDlvol: 17.05 mGy DLP: 741 mGycm COMPARISON: 07/25/2024. FINDINGS: Moderate coronary artery calcifications. 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 Subsegmental atelectatic changes/infiltrates in the left lower lobe. Please evaluate to exclude superimposed pneumonia. Fluid-filled, mildly prominent esophagus, probably mild reflux. Mild bilateral basilar atelectatic pulmonary changes. Moderate coronary artery calcifications. Mild diffuse spondylosis. Normal unenhanced main pulmonary artery and right and left pulmonary arteries. Normal bilateral peripheral pulmonary arteries. Normal thoracic aorta and visualized great vessels. There is no demonstrated aortic aneurysm. Normal heart and pericardium. Normal mediastinum. Normal hilar regions. Normal visualized trachea and bronchi. Normal pleura. Normal visualized upper abdomen. CT/Chest without Contrast IMPRESSION: IMPRESSION: Coronary artery calcification (CAC) is is present Moderate coronary artery calcifications. 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 Subsegmental atelectatic changes/infiltrates in the left lower lobe. Please evaluate to exclude superimposed pneumonia. Fluid-filled, mildly prominent esophagus, probably mild reflux. Mild bilateral basilar atelectatic pulmonary changes. Moderate coronary artery calcifications. Mild diffuse spondylosis. Reading Location: [place] [address] CC: Dr. Rob Back MD Records Manager: Signed [facility] 36on 10-13-2024 36 Message released to patient as written. No answer, mailbox full. If pt calls back, okay to give him message from Dr. Allison Back MD 10/12/24 4:12 PM Borderline positive CARDIOVASCULAR INVASIVE SPECIALIST without any other positive autoimmune marker is not necessarily meaningful. I will place a rheumatology referral since he is having a progressive decline, although I think it would be beneficial to see if we can get a neurology evaluation sooner rather than later - I am going to discuss with Radha tomorrow. Patient's further questions if applicable: Patient verbalized understanding. Patient stated he would like the referral to Neurology to [facility] in [place]. Patient would like the Rheumatology referral to them as well. Patient stated at his last visit he was taken off his Blood Pressure medication and there has been an increase in the Blood Pressure. Patient would like to know if he needs to double up on the medication. Please advise and call the Patient back. Were all questions from office addressed or relayed to the patient from encounter: yes [facility] 36 No answer, mailbox full. If pt calls back, okay to give him message from Dr. Allison Back MD 10/12/24 4:12 PM Borderline positive CARDIOVASCULAR INVASIVE SPECIALIST without any other positive autoimmune marker is not necessarily meaningful. I will place a rheumatology referral since he is having a progressive decline, although I think it would be beneficial to see if we can get a neurology evaluation sooner rather than later - I am going to discuss with Radha tomorrow. Normal [facility] Pulmonary Visit Reporton Pulmonary Visit Report [facility] Pul[facility] Medicine of [place] [address] [place] [address] OFFICE VISIT Date of Service: 10/13/24 MR#: [id number] Acct: [id number] Name: LAUREN ESCALANTE Rep #: [id number] : 1955 Provider: MARCELO Brand Age/Sex: 69/M Location: [facility] [place].[facility] Status: Signed Assessment and Plan Assessment and Plan (1) Daytime hypersomnia: Status: Acute Plan: Suspicious for sleep apnea. Lengthy discussion about the pathophysiology of obstructive sleep apnea. We discussed the risks of untreated sleep apnea as well as the benefits. Sending him for an unattended sleep test. Follow up in 6 weeks to discuss test results. (2) SOB (shortness of breath): Status: Chronic Plan: Of unclear etiology. I suspect that it is likely deconditioning. However, echocardiogram did note stage I diastolic dysfunction. I we will test him for sleep apnea and treat him appropriately if indicated. I suggested that the patient would benefit from starting a light walking program. Initially 15 minutes daily, goal of 30 minutes daily. He conveys understanding and is agreeable with this plan. (3) Hypertension: Status: Chronic Qualifiers: Hypertension type: primary hypertension Qualified Code(s): I10 - Essential (primary) hypertension Plan: Likely contributing to his shortness of breath. (4) Obesity: Status: Chronic Qualifiers: Obesity type: due to excess calories Obesity classification: adult class 1 (BMI 30 - 34.9) Serious obesity comorbidity presence: with serious comorbidity Body mass index: BMI 32.0-32.9 Qualified Code(s): E66.811 - Obesity, class 1; E66.09 - Other obesity due to excess calories; Z68.32 - Body mass index [BMI] 32.0-32.9, adult Plan: Body habitus also can be contributing to his shortness of breath on exertion. The patient conveys understanding and agrees. Encouraged mild amount of weight loss. (5) Tachycardia with hypertension: Status: Acute Plan: Complicates exam, plan, care and prognosis. Could be a sign of deconditioning. May be improved with the treatment of sleep apnea, if discovered. Also could be improved with light consistent walking program. Orders: Orders Unattended Sleep Study Today G47.10 - Hypersomnia, unspecified, G47.33 - Obstructive sleep apnea (adult) (pediatric) Plan Details Additional Comments: This note was generated with SignalFuse dictation software. It may contain incorrect words, spelling, and punctuation that were not noted in checking the note before signing. Follow Up: 6 Weeks HPI 1 M FU Chief Complaint: Test results HPI Comments Details: This patient presents to the office today to discuss test results. He is ambulatory and currently on room air. He has not recently been seen in the ED or urgent care for any respiratory illness. He has not required any antibiotics or prednisone for any breathing problems. He is not currently on any maintenance inhalers. He does utilize albuterol 1 or 2 times daily. He has a light smoking history quitting approximately 5 or 6 years ago. He is highest amount of smoking was close to a pack a day for about 4 years. He has shortness of breath on exertion. He has an occasional dry cough. He denies any sputum production or hemoptysis. He does notice occasional wheezing when lying flat. He denies any chest tightness, chest pain or palpitations. He has not had any fever, chills or body aches. The patient reports that he has persistent daytime hypersomnia. He does not typically nap but is tired throughout the day. He does not matter how much time he has spent sleeping he finds himself to be tired. He does have difficulty with dry mouth. He has at least 1 episode of nocturia nightly. He is unsure if he snores, as he lives alone. Test results personally reviewed with the patient: Pulmonary function test completed on September 14, 2024. Impression, grossly normal. Pulmonary stress test completed on October 01, 2024. He was able to walk 1246 feet in 6 minutes. He did not desaturate and does not require supplemental oxygen. STOP-BANG Assessment: 1. Do you snore? Unknown 2. Are you frequently tired during the day? Y 3. Have you been observed gasping or choking while asleep? N 4. Do you have high blood pressure? Y 5. BMI - greater than 35kg/m2? N 6. Age - over 50 years old? Y 7. Neck Circumference - greater than 37 cm for females or 40 cm for males? 44 CM 8. Gender - male? Y Total STOP-BANG score = 4 which indicates HIGH risk for obstructive sleep apnea (yes to 3 or more questions = high risk of sleep apnea). Intake Vital Signs 08/27/24 08:07 10/13/24 07:55 Height 6 ft 1 in 6 ft Weight: 239 lb BMI 32.4 BP 168/108 H Blood Pressure Location Lt brachial Position Sitting Respiration 18 Pulse 102 H Pulse Source Monitor Temp 97.4 F L Temper (more content not included)... Normal [facility] 36on 10-09-2024 36 Name of caller: Lauren Escalante Contact phone number: [phone] Relationship to Patient: patient Provider: Dr. Back Practice: So[facility] SERRANO Chief Complaint/Reason for Call: Patient stated he saw on his MyChart his results for his blood work which were done 10.02.2024. Patient stated his CARDIOVASCULAR INVASIVE SPECIALIST Antibody came back positive and would like a call back from Dr. Back to discuss this result and to see what he should do next. Please advise. Thank you. Best time of day caller can be reached: Any Patient advised that office/PCP has 24-48 business hours to return their call: Yes Normal [facility] 36 Faxed to number provided Normal [facility] 36on 10-08-2024 36 Name of caller: Lauren Contact phone number: [phone] Relationship to Patient: patient Provider: Dr. Back Practice: Soheila CORTES Chief Complaint/Reason for Call: Patient called in regards to the [employer] message they received with the CT order and states that [facility] needs this order faxed and they have no way of faxing this and they would like this order faxed to #[phone]. Patient would like this faxed BENJAMIN so they can get this scheduled. Please advise. Best time of day caller can be reached: Any Patient advised that office/PCP has 24-48 business hours to return their call: No Normal [facility] 36 Name of caller: Lauren Contact phone number: [phone] Relationship to Patient: Patient Provider: Dr. Back Practice: So[facility] SERRANO Chief Complaint/Reason for Call: Pt requesting ordered CT scan be sent to him via [employer] as he can't see it. Please advise Best time of day caller can be reached: Any Patient advised that office/PCP has 24-48 business hours to return their call: No [facility] 6 Minute Walk Teston 025 6 Minute Walk Test y [facility] Pulmonary Services/Neurology [address] [place] [address] MR#: [id number] Acct: [id number] Name: LAUREN ESCALANTE Rep #: [id number] : 1955 69 From: Bryan Zhang DO Referring Dr: Bryan Zhang DO Status: REG CLI Location: PSN Date: Sex: M C PSN 6 Minute Walk Test 6 Minute Walk Test 6 Minute Walk Test: 6 Minute Walk Test PSN:6-Minute Walk Test Start: 10/01/24 12:46 Freq: Status: Active Protocol: RESP.6MINW Document 10/01/24 12:46 [facility] (Rec: 10/01/24 12:52 [facility] [id number]) 6 Minute Walk Test Date Performed 10/01/24 Time Performed 12:30 Height 6 ft Weight: 242 lb Weight in Pounds 242.[address]: Bryan Zhang Assistive device None used: Pre-test Oxygen Delivery Room Air Method Pulse Ox (%) 97 Pulse Rate (60-100 101 H beats/min) Dyspnea Frank Scale ( 0 0-10) Exertion Frank Scale 6 (6-20) 1st minute Oxygen Delivery Room Air Method Pulse Ox (%) 95 Pulse Rate (60-100 106 H beats/min) Dyspnea Frank Scale ( 2 0-10) Number of Rests 0 Taken Reported Symptoms Increased Work of Breathing 2nd minute Oxygen Delivery Room Air Method Pulse Ox (%) 96 Pulse Rate (60-100 108 H beats/min) Dyspnea Frank Scale ( 3 0-10) Number of Rests 0 Taken Reported Symptoms Increased Work of Breathing 3rd minute Oxygen Delivery Room Air Method Pulse Ox (%) 96 Pulse Rate (60-100 110 H beats/min) Dyspnea Frank Scale ( 3 0-10) Number of Rests 0 Taken Reported Symptoms Increased Work of Breathing 4th minute Oxygen Delivery Room Air Method Pulse Ox (%) 96 Pulse Rate (60-100 113 H beats/min) Dyspnea Frank Scale ( 3 0-10) Number of Rests 0 Taken Reported Symptoms Increased Work of Breathing 5th minute Oxygen Delivery Room Air Method Pulse Ox (%) 95 Pulse Rate (60-100 114 H beats/min) Dyspnea Frank Scale ( 3 0-10) Number of Rests 0 Taken Reported Symptoms Increased Work of Breathing 6th minute Oxygen Delivery Room Air Method Pulse Ox (%) 96 Pulse Rate (60-100 115 H beats/min) Dyspnea Frank Scale ( 3 0-10) Exertion Frank Scale 6 (6-20) Number of Rests 0 Taken Reported Symptoms Increased Work of Breathing Post-test Oxygen Delivery Room Air Method Pulse Ox (%) 98 Pulse Rate (60-100 104 H beats/min) Dyspnea Frank Scale ( 0 0-10) Full Laps Walked 21 Partial Lap, Number 7 of Tiles Walked Total Distance 1246 Walked (ft) Interpretation Interpretation: The patient ambulated 1246 feet over the course of 6 minutes beginning on room air without assistive devices. Pretesting oxygen saturation was noted to be 97% on room air. With ambulation, the aleksey oxygen saturation was 95%. There was no significant exertional oxygen desaturation. Recommendations Recommendations: There is no indication for the use of supplemental oxygen at this time. 10/02/24 1305 Date Bryan Zhang DO CC: Date Dictated: 10/02/24 1304 Date Transcribed: 10/02/241303 Records Manager: Dr. Bryan Zhang DO Signed Normal [facility] Office Visiton 10-02-2024 Follow-up visit [id number] Lauren Escalante 1955 Date Provider Department [place] 10/02/2024 [id number] BACK [facility] Family History Problem Relation Age of Onset Heart disease Mother Ovarian cancer Mother High Blood Pressure Mother Family Status - Relation Status Age at Mother Level of Service:29189 NC OFFICE/OUTPATIENT ESTABLISHED MOD MDM 30 MIN Reason for Visit and Comments: Follow-up [408297] - Pt not feeling well, waiting on testing and labs, fatigue, SOB, bloating, nausea, no appetite Normal [facility] Progress Noteon 10-02-2024 Progress Note . [facility] [address] [place] [address] [address] [facility] [address] Dept: [phone] Dept Visit type: Established Reason for Visit: Follow-up (Pt not feeling well, waiting on testing and labs, fatigue, SOB, bloating, nausea, no appetite) Assessment and Plan 1. Muscle weakness (generalized) - CT chest wo IV contrast - predniSONE (Deltasone) 50 MG tablet; Take 1 tablet (50 mg) by mouth daily., Starting Sat10/02/2024, Until Sat03/31/2025, Normal - CK - Sedimentation rate, automated - C-reactive protein - Myasthenia Gravis Panel with Reflex to MuSK Ab - ANALYZER MARA, IFA WITH REFLEX TITER/PATTERN, SYSTEMIC AUTOIMMUNE PANEL 1 QUEST - MYOSITIS EXTENDED PANEL 2. Shortness of breath - CT chest wo IV contrast 3. Essential hypertension - losartan (Cozaar) 100 MG tablet; Take 1 tablet (100 mg) by mouth daily., Starting Sat10/02/2024, Normal Muscle weakness -patient indicates that symptoms have unfortunately not improved since the previous visit. He continues to have shortness of breath, brain fog, fatigue/muscle weakness. He is already following with a pulmonology provider and gastroenterology provider in [place] and scheduled to have colonoscopy in a month and a half. His previous cardiac and pulmonary testing have not revealed the cause of his symptoms. My previous evaluation for reversible causes of his symptoms has not revealed any abnormalities. We will proceed with additional testing for autoimmune abnormalities that could explain his symptoms, starting with ESR/CRP, myositis/myasthenia panels, MARA reflex panel. Patient had been taking steroids intermittently for joint pain but has not taken for several months. We will trial a prednisone burst to see if it improves any of his symptoms after he is completed his lab. Occasionally patients will develop unusual fatigue/brain fog symptoms with lisinopril. I advised him to discontinue lisinopril, continue to monitor his blood pressure, if he has uncontrolled blood pressure after discontinuing lisinopril, begin losartan 100 mg daily. Shortness of breath -previous evaluation has not revealed an explanation for worsening shortness of breath symptoms. CT chest was ordered to further evaluate. Subjective HPI This is a 69-year-old gentleman with past medical history significant for ADHD, hypertension, obesity presents today for ongoing evaluation of shortness of breath and fatigue symptoms. He states that the his most bothersome symptoms are weakness, shortness of breath, brain fog. Abdominal fullness / lack of appetite - having problems tolerating diet, not eating much. He has seen Dr. Grace in [place] (account officer) and is planning to have colonoscopy in mid November. Shortness of breath - he is following with a semiconductor wafer inspector in [place], had PFT and 6 minute walk test within the past month. Fatigue - is in bed most of the time now due to fatigue, not feeling well. He lacks the strength to sit up and walk. Review of Systems Constitutional: Positive for fatigue. Respiratory: Positive for shortness of breath. Gastrointestinal: Positive for abdominal distention and abdominal pain. Allergies[1] Current Medications[2] Medical History[3] Social History Tobacco Use Smoking status: Never Smokeless tobacco: Never Substance Use Topics Alcohol use: Never Surgical History[4] Family History[5] Objective There were no vitals taken for this visit. Physical Exam Constitutional: General: He is not in acute distress. Appearance: He is not toxic-appearing. HENT: Head: Normocephalic and atraumatic. Eyes: General: No scleral icterus. Pulmonary: Effort: No respiratory distress. Musculoskeletal: Cervical back: Normal range of motion. Skin: General: Skin is warm and dry. Neurological: Mental Status: He is alert. Mental status is at baseline. Psychiatric: Mood and Affect: Mood normal. Data Reviewed and Summarized Labs: Imaging/Testing: Rob Back MD [1] No Known Allergies [2] Current Outpatient Medications Medication Sig Dispense Refill albuterol (ProAir HFA) 108 (90 Base) MCG/ACT inhaler Inhale 2 puffs every 4 hours as needed for wheezing or shortness of breath. 8.5 g 3 amLODIPine (Norvasc) 10 MG tablet TAKE 1 TABLET (10 MG) BY MOUTH DAILY. 90 tablet 1 amphetamine-dextroam phetamine (Adderall) 20 MG tablet Take 1 tablet by mouth 2 times daily. lisinopril 40 MG tablet TAKE 1 TABLET BY MOUTH EVERY DAY 90 tablet 1 pantoprazole (ProtoNix) 40 MG EC tablet Take [...] 37.5 mg by mouth daily. No current facility-administere d medications for th (more content not included)... Normal [facility] ABD Limited w/ Elastographyo n 09-25-2024 ABD Limited w/ Elastography [facility] Imaging Services [address] [place] [address] [id number] ABD Limited w/ Elastography MR#: [id number] Acct: [id number] Name: LAUREN ESCALANTE Rep #: [id number] : 1955 M 69 From: Tor cross MD PCP: Dr. Rob Back MD Status: REG CLI Study: ABD Limited w/ Elastography Date of Exam: 08/29 Exam# [id number] Ordering Dr: Cynthia Brewer PROCEDURE: ABD LIMITED W/ ELASTOGRAPHY REASON FOR EXAM: ABD PAIN, BLOATING, NAUSEA COMPARISON: None. TECHNIQUE: Right upper quadrant abdominal ultrasound. Data Elite ElastQ Imaging shear wave elastography for non- invasive assessment of liver tissue stiffness. Data Elite EPIQ Elite. FINDINGS: LIVER: Size: Unremarkable Length: [...] measurement may be in question. Reading Location: [facility] CC: MARCELO Brewer; Dr. Rob Back MD Records Manager: Signed Normal [facility] 36on 09-23-2024 36 S: pt calling [facility] with question about labs B: today A: pt has been feeling unwell lately. Has been seen and had multiple tests done. Concerned about lyme disease. R: RN advised pt that he can have the lab test done whenever he is able. Pt asking for the lab requisition to be printed out for him to pickle sorter, he can be in tomorrow, he does not have a printer. Advised pt that RN will send message to the office for the morning, pt voiced understanding. Reason for Disposition Question about upcoming scheduled surgery, procedure or test, no triage required, and triager able to answer question Protocols used: Information Only Call - No [facility] Message released to patient as written. I placed an order for a Lyme disease test that is not in our system so had to be entered as a miscellaneous send out. He can print out the paper and have it done at [facility], although it may be better for him to come the appointment to discuss since testing for Lyme disease is not straightforward. Patient's further questions if applicable: Patient verbalized understanding. Were all questions from office addressed or relayed to the patient from encounter: N/A [facility] 36on 09-22-2024 36 S: Patient is calling the [facility] with request for lab test B: Symptom [...] and SAME as normal Protocols used: Breathing [facility] Visit Repor ton 09-14-2024 Gastroenterology Visit Report [facility] Gastroenterology [address] [place] [address] OFFICE VISIT Date of Service: 09/14/24 MR#: [id number] Acct: [id number] Name: LAUREN ESCALANTE Rep #: [id number] : 1955 Provider: MARCELO remy Age/Sex: 69/M Location: [facility] Status: Signed Intake Vital Signs 08/27/24 08:07 [...] Quadrant Pain Chief Complaint: abdominal pain, SOB Form Layer Required: No Accompanied by: Self Is patient in pain?: No Allergies No Known Allergies Allergy (Verified 09/14/24 14:37) Medications ???Medication ???Instructions ???Recorded ???Confirmed ???Type amlodipine 10 mg tablet 10 mg PO DAILY 07/25/24 09/14/24 H istory dextroamphetamine-am phetamine 20 1 tab PO BID 07/25/24 09/14/24 [...] you fallen in the past year?: Yes [facility] Medical History Depression Pneumothorax Surgical History History [...] mmHg. The patient has a very limited 19-jcyj-slhn smoking history, having quit completely in 2019. He did not grow up in a smoking household. The patient has never previously been diagnosed with asthma. The patient is currently retired, having worked previously in the [employer] trades. The patient's primary care provider did [...] will sit (more content not included)... Normal [facility] Office Visiton 09-10-2024 Follow-up visit [id number] Lauren Escalante 1955 M Date Provider Department Center 09/10/2024 [id number] BRANDG [facility] Family History Problem Relation Age of Onset Heart disease Mother Ovarian cancer Mother High Blood Pressure Mother Family Status - Relation Status Age at Mother Level of Service:82822 NC OFFICE/OUTPATIENT ESTABLISHED MOD MDM 30 MIN Reason for Visit and Comments: Follow-up [[id number]] - Patient states here for lab results Normal [facility] Progress Noteon 09-10-2024 Progress Note . [facility] [address] [place] [address] Dept: [phone] Dept Visit type: Established Reason for Visit: [...] type 4. Chest pain, unspecified type - [facility] 5. Slurred speech - [facility] No follow-ups on file. Subjective This [...] MG) BY MOUTH DAILY. 30 tablet 0 amphetamine-dextroam phetamine (Adderall) 20 MG tablet Take 1 tablet [...] 37.5 mg by mouth daily. No current facility-administere d medications for this visit. [3] Past Medical History: Diagnosis Date Depression Hypertension [4] Past Surgical History: Procedure Laterality Date APPENDECTOMY HERNIA REPAIR KNEE CARTILAGE SURGERY TONSILLECTOMY (HISTORICAL) [5] Family History Problem Relation Name Age of Onset Heart disease Mother Ovarian cancer Mother High Blood Pressure Mother Normal [facility] Office Visiton 09-02-2024 Follow-up visit [id number] Lauren Escalante 1955 Date Provider Department Center 09/02/2024 [id number] BARRERA [facility] Family History Problem Relation Age of Onset Heart disease Mother Ovarian cancer Mother High Blood Pressure Mother Family Status - Relation Status Age at Mother Level of Service:67752 NC OFFICE/OUTPATIENT ESTABLISHED MOD MDM 30 MIN Reason for Visit and Comments: Follow-up [[id number]] - Follow up for abdominal fluid retention and bloating, SOB Normal [facility] Progress Noteon 09-02-2024 Progress Note . [facility] [address] [place] [address] Dept: [phone] Dept Visit type: Established Reason for Visit: [...] CBC, CMP, vitamin D, vitamin B12. Abdominal distention/bloating/ GERD -symptoms are concerning for dyspepsia although he [...] additional evaluation. Shortness of breath -following with semiconductor wafer inspector at [facility] in [place]. Subjective HPI This is a 69-year-old gentleman with past medical history significant for ADHD, hypertension, obesity presents today for ongoing evaluation of shortness of breath and fatigue symptoms. He had been seen most recently by Osman Brand on 07/24/2024. Shortness of breath - patient had interval follow up visit with [facility] in [place]. He is planning to have 6 minute [...] MG) BY MOUTH DAILY. 30 tablet 0 amphetamine-dextroam phetamine (Adderall) 20 MG tablet Take 1 tablet [...] mouth daily. 15 capsule 0 No current facility-administere d medications for this visit. Past Medical History: [...] no guarding. (more content not included)... Normal [facility] Pulmonary Visit Reporton Pulmonary Visit Report [facility] [place] [address] [place] [address] OFFICE VISIT Date of Service: 08/27/24 MR#: [id number] Acct: [id number] Name: LAUREN ESCALANTE Rep #: [id number] : 1955 Provider: Dr. Bryan Zhang, Age/Sex: 69/M Location: [facility] Status: Signed Assessment and Plan Assessment and [...] mmHg. The patient has a very limited 37-jumg-qehi smoking history, having quit completely in 2019. [...] air Intake Visit Reasons: Shortness of breath Form Layer Required: No Accompanied by: Self Allergies No Known Allergies Allergy (Verified 08/27/24 09:34) Medications ???Medication ???Instructions ???Recorded ???Confirmed ???Type amlodipine 10 mg tablet 10 mg PO DAILY 07/25/24 08/27/24 H istory dextroamphetamine-am phetamine 20 1 tab PO BID 07/25/24 08/27/24 [...] you fallen in the past year?: Yes [facility] Medical History (Updated 08/27/24 @ 11:50 by [...] in no ac (more content not included)... [facility] 08-13-2024 36 Faxed again to [facility] 08-12-2024 36 Message released to patient as written. Please call [facility] for an appt [phone] Patient's further questions if applicable: Pt called and states that the pulm office has not received his referral. Please advise Were all questions from office addressed or relayed to the patient from encounter: Any [facility] 08-10-2024 36 Name of caller: Lauren Contact phone number: [phone] Relationship to Patient: patient Provider: Wong Practice: Soheila SERRANO Chief Complaint/Reason for Call: A referral was placed for External referral to Pulmonology for Shortness of breath [R06.02] and weakness of legs. Patient has appointment with pulmonology on 08.27.2024. He wants to switch to [facility] because it is closer to his home and a sooner appointment. This is at [facility]. Wants it to be urgent. Best time of day caller can be reached: any Patient advised that office/PCP has 24-48 business hours to return their call: Yes [place] [id number] 36 Faxed to location [facility] 36 Name of caller: Lauren Contact phone number: [phone] Relationship to Patient: patient Provider: Dr Back Practice: Martita SERRANO Chief Complaint/Reason for Call: Please fax Please send referral to Dr. Gilberto Rice in [place] Best time of day caller can be reached: any Patient advised that office/PCP has 24-48 business hours to return their call: Yes [place] [address] Name of caller: Lauren Contact phone number: [phone] Relationship to Patient: patient Provider: Wong Practice: Soheila SERRANO Chief Complaint/Reason for Call: Patient states he still waiting for new inhaler prescription to be sent to pharmacy [facility]pharm[id number] - [place], [place] - [address] patient needs that as soon as possible. Please advise patient when done. Best time of day caller can be reached: any Patient advised that office/PCP has 24-48 business hours to return their call: Yes Normal [facility] Office Visiton 08-05-2024 Follow-up visit [id number] Lauren Escalante 1955 M Date Provider Department Center 08/05/2024 [id number] BARRERA [facility] Family History Problem Relation Age of Onset Heart disease Mother Ovarian cancer Mother High Blood Pressure Mother Family Status - Relation Status Age at Mother Level of Service:78550 NC OFFICE/OUTPATIENT ESTABLISHED MOD MDM 30 MIN Reason for Visit and Comments: Results [95] - To review labs from [facility], to know what the next step will be Normal [facility] Progress Noteon 08-05-2024 Progress Note . [facility] [address] [place] [address] Dept: [phone] Dept Visit type: Established Reason for Visit: Results (To review labs from [facility], to know what the next step will [...] capsule Take 37.5 mg by mouth daily. amphetamine-dextroam phetamine (Adderall) 20 MG tablet Take 1 tablet by mouth 2 times daily. (Patient not taking: Reported on 08/05/2024) meloxicam (Mobic) 15 MG tablet Take 15 mg by mouth daily. (Patient not taking: Reported on 08/05/2024) No current facility-administere d medications for this visit. Past Medical History: [...] and Summarized Labs: Imaging/Testing: Rob Back MD [facility] 36on 08-03-2024 36 Scanned into media [facility] 36 No records received yet. [facility] 36 Name of caller: Lauren Contact phone number: [phone] Relationship to Patient: patient Provider: Wong Practice: LUIS SERRANO Chief Complaint/Reason for Call: Patient following up on status of record request. Patient states he was originally seen in [place] ED for a suspected blockage, but declined admission and decided to come back for outpatient testing. Patient is anxious to get these results as he feels like something is wrong. Please advise. Best time of day caller can be reached: any Patient advised that office/PCP has 24-48 business hours to return their call: No [facility] 36on 07-31-2024 36 Called to request medical records from [facility]. Recently lab results from 07/25/24. Patient is also requesting from results from stress test and cardio ultrasound. All records were requested [facility] 36 Name of caller: Lauren Contact phone number: [phone] Relationship to Patient: patient Provider: Practice: Martita SERRANO Chief Complaint/Reason for Call: Patient calling for lab result done at [facility]. Labs, stress trest and US of heart. Please advise. Best time of day caller can be reached: any Patient advised that office/PCP has 24-48 business hours to return their call: no [facility] 36on 07-30-2024 36 Reviewed chart. It appears he has another PCP filling his meds. Also appears to be seeing psychiatry. Was seen here acutely. We cannot refill the seroquel-needs to come from psychiatry. Need to clarify if he is seeing other provider for BP meds-if not he needs FU here because last OV was just sent to ER . [facility] 36 GARCIA: 07/24/2024, no follow up on file [facility] Cardiovascular stress test r eportOrdered By: Leon Boyd on 07-29-2024 Study report [facility] Cardiovascular Services [address] [place] [address] MR#: [id number] Acct: [id number] Name: YAYOLAUREN MAURILIO Rep #: [id number] : 1955 [...] ~ Date Dictated: 07/29/241716 Date Transcribed: 07/29/241716 Records Manager: CO Signed [facility] Work Phone: Echo Complete W/ Contraston 07-29-2024 Echo Complete W/ Contrast [facility] Cardiovascular [place] [address] [address] Echo Complete W/ Contrast 07/29/24825 MR#: [id number] Acct: [id number] Name: LAUREN ESCALANTE Rep #: [id number] : 1955 69 From: Leon Boyd MD Attending Dr: Dr. Yunior Edgar MD Status: MASTER LOPES Ordering Dr: uYnior Edgar MD Date: 07/29/24 Location: [facility] Sex: [...] cm RVDd: 3.1 cm FS: 30.8 % LAV(MOD-bp): 33.5 ml LVAd ap4: 30.9 cm2 SV(MOD-sp4): 55.9 ml LAV(MOD-bp) Indexed: 14.5 ml/m2 LVLd ap4: 8.1 cm SI(MOD-sp4): 24.1 ml/m2 LAV(MOD-sp2): 35.9 ml EDV(MOD-sp4): 98.0 ml LAV(MOD-sp4): 29.7 ml EDV(sp4-el): 100.0 ml LVAs ap4: 18.1 cm2 LVLs ap4: 7.0 cm ESV(MOD-sp4): 42.1 ml ESV(sp4-el): 39.9 ml EF(MOD-sp4): 57.0 % EF(sp4-el): 60.1 % SV(sp4-el): 60.1 ml LA A4 area: 13.1 cm2 LA dimension(2D): 3.5 cm RA A4 area: 13.1 cm2 TAPSE: 2.2 [...] P.4 mmHg LV V1 max P.1 mmHg TR max irasema: 240.5 cm/sec TR max P.1 mmHg ECHO/Echo Complete W/ Contrast Interpretation Summary Normal LV size. Left ventricular systolic function is normal. The left ventricular ejection fraction is 60 %. Mild concentric left ventricular hypertrophy. Stage 1 diastolic dysfunction. Contrast injection was performed. Ordering Physician: Yunior Edgar Referring Physician: ROB BACK Performed By: Jessica Lizama RDCS 07/29/24 1608 Date Leon Boyd MD CC: Dr. Yunior Edgar MD; Dr. Rob Back MD Date Dictated: 07/29/24825 Date Transcribed: 04/02/25 1607 Records Manager: Signed Normal [facility] Echocardiogram study reportO rdered By: Leon Boyd on 07-29-2024 Study report [facility] Cardiovascular [place] [address] [address] Echo Complete W/ Contrast 07/29/24825 MR#: [id number] Acct: [id number] Name: LAUREN ESCALANTE Rep #:[id number] : 1955 69 From: Leon Hurtado Attending Dr: Dr. Yunior Edgar MD S tatus: REG CLI Ordering Dr: Yunior Edgar MD Date: 06/23 Location: [facility] Sex: M C Admitted: Reason For Study [...] cm RVDd: 3.1 cm FS: 30.8 % LAV(MOD-bp): 33.5 ml LVAd ap4: 30.9 cm2 SV(MOD-sp4): 55.9 ml LAV(MOD-bp) Indexed: 14.5 ml/m2 LVLd ap4: 8.1 cm SI(MOD-sp4): 24.1 ml/m2 LAV(MOD-sp2): 35.9 ml EDV(MOD-sp4): 98.0 ml LAV(MOD-sp4): 29.7 ml EDV(sp4-el): 100.0 ml LVAs ap4: 18.1 cm2 LVLs ap4: 7.0 cm ESV(MOD-sp4): 42.1 ml ESV(sp4-el): 39.9 ml EF(MOD-sp4): 57.0 % EF(sp4-el): 60.1 % SV(sp4-el): 60.1 ml LA A4 area: 13.1 cm2 LA dimension(2D): 3.5 cm RA A4 area: 13.1 cm2 TAPSE: 2.2 [...] P.4 mmHg LV V1 max P.1 mmHg TR max irasema: 240.5 cm/sec TR max P.1 mmHg ECHO/Echo Complete W/ Contrast Interpretation Summary Normal LV size. Left ventricular systolic function is normal. The left ventricular ejection fraction is 60 %. Mild concentric left ventricular hypertrophy. Stage 1 diastolic dysfunction. Contrast injection was performed. Ordering Physician: Yunior Edgar Referring Physician: ROB BACK Performed By: Jessica Lizama RDCS 07/29/24 1608 Date _ Leon Boyd MD CC: Dr. Yunior Edgar MD; Dr. Rob Back MD ~ Date Dictated: 07/29/24825 Date Transcribed: 07/29/241606 Records Manager: Signed [facility] Work Phone: Stress Reporton 07-29-2024 Stress Report [facility] Cardiovascular Services [address] [place] [address] MR#: [id number] Acct: [id number] Name: LAUREN ESCALANTE Rep #: [id number] : 1955 69 From: Leon Boyd MD [...] MD Date Dictated: 07/29/241716 Date Transcribed: 07/29/241716 Records Manager: CO Signed [facility] 12 Lead EKGon 07-25-2024 12 Lead EKG [facility] Cardiovascular Services [address] [place] [address] 12 Lead EKG 07/25/24 1115 MR#: [id number] Acct: [id number] Name: LAUREN ESCALANTE Rep #: [id number] : 1955 69 From: Paola Samson MD [...] previous ECGs available Confirmed by Paola Samson ([id number]), clinical editor IAN STRANGE ([id number]) on 07/30/2024 10:05:40 AM Referred By: JACQUELIN/LINWOOD Confirmed By: Paola Samson 07/30/24 1005 Date Paola Samson MD CC: Dr. Yunior Edgar MD; Dr. Rob Back MD Signed [facility] Absolute lymphocyte countOrd ered By: Yunior Edgar on 07-25-2024 Lymphocytes Auto (Unsp spec) [#/Vol] 1.72 10*3/uL 0.83-4.51 [facility] Absolute neutrophil countOrd ered By: Yunior Edgar on 07-25-2024 Neutrophils (Bld) [#/Vol] 5.5 10*3/uL 2.0-7.7 [facility] Anion gap in Serum or Plasma Ordered By: Yunior Edgar on 07-25-2024 Anion gap [Moles/Vol] 12 mmol/L 5-15 [facility] Automated lymphocyte count a s percentage of total leukocytesOrdered By: Yunior Edgar on 07-25-2024 Lymphocytes/100 WBC Auto (Unsp spec) 21.1 % 19-41 [facility] BUN/creatinine ratioOrdered By: Yunior Edgar on 07-25-2024 Urea nitrogen/Creatinine [Mass ratio] 24.8 mg/mg High 10- [facility] Basic Metabolic Profile (BMP )on 07-25-2024 BUN/CRE 24.8 RATIO High 02-15 [facility] Comment on above: Performed By: #### L 100.0100, L300.8000, L500.2500, L501.4021 ####[facility] [address] [place], [address] Calcium [Mass/Vol] 10.2 mg/dL Normal 7.6-11.0 [facility] Comment on above: Performed By: #### L 100.0100, L300.8000, L500.2500, L501.4021 ####[facility] [address] [place], [address] Chloride [Moles/Vol] 107 mmol/L Normal 98-108 [facility] Comment on above: Performed By: #### L 100.0100, L300.8000, L500.2500, L501.4021 ####[facility] [address] [place], [address] CO2 [Moles/Vol] 20.1 mmol/L Low 21.0-32.0 [facility] Comment on above: Performed By: #### L 100.0100, L300.8000, L500.2500, L501.4021 ####[facility] [address] [place], [address] Creatinine [Mass/Vol] 1.13 mg/dL Normal 0.70-1.20 [facility] Comment on above: Performed By: #### L 100.0100, L300.8000, L500.2500, L501.4021 ####[facility] [address] [place], [address] ECRCL 81.92 ml/min Normal 50-250 [facility] Comment on above: Performed By: #### L 100.0100, L300.8000, L500.2500, L501.4021 ####[facility] [address] [place], [address] GAP 12 Normal 5-15 [facility] Comment on above: Performed By: #### L 100.0100, L300.8000, L500.2500, L501.4021 ####[facility] [address] [place], [address] GFR/1.73 sq M.predicted among non-blacks MDRD (S/P/Bld) [Vol rate/Area] 71 mL/min/{1.73_m2} Normal >60 [facility] Comment on above: Result Comment: mL/m in/1.73m2 CKD-EPI Creatinine Equation (2020) Performed By: #### L 100.0100, L300.8000, L500.2500, L501.4021 ####[facility] [address] [place], [address] Glucose [Mass/Vol] 98 mg/dL Normal 70-99 [facility] Comment on above: Performed By: #### L 100.0100, L300.8000, L500.2500, L501.4021 ####[facility] [address] [place], [address] Potassium [Moles/Vol] 4.2 mmol/L Normal 3.3-5.1 [facility] Comment on above: Performed By: #### L 100.0100, L300.8000, L500.2500, L501.4021 ####[facility] [address] [place], [address] Sodium [Moles/Vol] 139 mmol/L Normal 133-145 [facility] Comment on above: Performed By: #### L 100.0100, L300.8000, L500.2500, L501.4021 ####[facility] [address] [place], [address] Urea nitrogen [Mass/Vol] 28 mg/dL High 4-19 [facility] Comment on above: Performed By: #### L 100.0100, L300.8000, L500.2500, L501.4021 ####[facility] [address] [place], [address] Basophil percentageOrdered B y: Yunior Edgar on 07-25-2024 Basophils/100 WBC (Bld) 0.5 % 0-1 [facility] CBC W/Diff, Automatedon 06-28 Absolute Lymph 1.72 X10 3/uL Normal 0.83-4.51 [facility] Comment on above: Performed By: #### L 100.0100, L300.8000, L500.2500, L501.4021 ####[facility] [address] [place], [address] Absolute Neut 5.5 X10 3/uL Normal 2.0-7.7 [facility] Comment on above: Performed By: #### L 100.0100, L300.8000, L500.2500, L501.4021 ####[facility] [address] [place], [address] Basophils/100 WBC (Bld) 0.5 % Normal 0-1 [facility] Comment on above: Performed By: #### L 100.0100, L300.8000, L500.2500, L501.4021 ####[facility] [address] [place], [address] Eosinophils/100 WBC (Bld) 3.9 % Normal 0-5 [facility] Comment on above: Performed By: #### L 100.0100, L300.8000, L500.2500, L501.4021 ####[facility] [address] [place], [address] Erythrocyte distribution width (RBC) [Ratio] 12.2 % Normal 11.6-14.6 [facility] Comment on above: Performed By: #### L 100.0100, L300.8000, L500.2500, L501.4021 ####[facility] [address] [place], [address] Hematocrit (Bld) [Volume fraction] 41.3 % Normal 40-54 [facility] Comment on above: Performed By: #### L 100.0100, L300.8000, L500.2500, L501.4021 ####[facility] [address] [place], [address] Hemoglobin (Bld) [Mass/Vol] 14.5 g/dL Normal 13.0-16.5 [facility] Comment on above: Performed By: #### L 100.0100, L300.8000, L500.2500, L501.4021 ####[facility] [address] [place], [address] IG% 0.400 Normal 0.0-0.9 [facility] Comment on above: Result Comment: IG% - Immature Granulocytes (promyelocytes, myelocytes and metamyelocytes) > 1% indicates that a LEFT SHIFT is Present. Performed By: #### L 100.0100, L300.8000, L500.2500, L501.4021 ####[facility] [address] [place], [address] Lymphocytes/100 WBC (Bld) 21.1 % Normal 19-41 [facility] Comment on above: Performed By: #### L 100.0100, L300.8000, L500.2500, L501.4021 ####[facility] [address] [place], [address] MCH (RBC) [Entitic mass] 31.3 pg Normal 27.0-32.0 [facility] Comment on above: Performed By: #### L 100.0100, L300.8000, L500.2500, L501.4021 ####[facility] [address] [place], [address] MCHC (RBC) [Mass/Vol] 35.1 g/dL Normal 32-36 [facility] Comment on above: Performed By: #### L 100.0100, L300.8000, L500.2500, L501.4021 ####[facility] [address] [place], [address] MCV (RBC) [Entitic vol] 89.0 fL Normal 80-94 [facility] Comment on above: Performed By: #### L 100.0100, L300.8000, L500.2500, L501.4021 ####[facility] [address] [place], [address] Monocytes/100 WBC (Bld) 6.5 % Normal 0-10 [facility] Comment on above: Performed By: #### L 100.0100, L300.8000, L500.2500, L501.4021 ####[facility] [address] [place], [address] Neutrophils/100 WBC (Bld) 67.6 % Normal 47-70 [facility] Comment on above: Performed By: #### L 100.0100, L300.8000, L500.2500, L501.4021 ####[facility] [address] [place], [address] Nucleated RBC (Bld) [#/Vol] 0 10*3/uL Normal 0-5 [facility] Comment on above: Performed By: #### L 100.0100, L300.8000, L500.2500, L501.4021 ####[facility] [address] [place], [address] Platelet mean volume (Bld) [Entitic vol] 10.2 fL Normal 6.2-12.0 [facility] Comment on above: Performed By: #### L 100.0100, L300.8000, L500.2500, L501.4021 ####[facility] [address] [place], [address] Platelets (Bld) [#/Vol] 317 10*3/uL Normal 150-450 [facility] Comment on above: Performed By: #### L 100.0100, L300.8000, L500.2500, L501.4021 ####[facility] [address] [place], [address] RBC (Bld) [#/Vol] 4.64 10*6/uL Normal 4.6-6.2 [facility] Comment on above: Performed By: #### L 100.0100, L300.8000, L500.2500, L501.4021 ####[facility] [address] [place], [address] RDW SD 40.0 fl Normal 35.1-43.9 [facility] Comment on above: Performed By: #### L 100.0100, L300.8000, L500.2500, L501.4021 ####[facility] [address] [place], [address] WBC (Bld) [#/Vol] 8.1 10*3/uL Normal 4.4-11.0 [facility] Comment on above: Performed By: #### L 100.0100, L300.8000, L500.2500, L501.4021 ####[facility] [address] [place], [address] Carbon dioxide, total [Moles /volume] in Central venous bloodOrdered By: Yunior Edgar on 07-25-2024 CO2 [Moles/Vol] 20.1 mmol/L Low 21.0-32.0 [facility] Chest 1 View (Portable)on Chest 1 View (Portable) [facility] Imaging Services [address] [place], [place] [address] Chest 1 View (Portable) MR#: [id number] Acct: [id number] Name: LAUREN ESCALANTE Rep #: [id number] : 1955 M 69 From: Kota Gibbs DO PCP: Status: PRE ER Study: Chest 1 View (Portable) Date of Exam: 07/25/24 Exam# [id number] Ordering Dr: Yunior Edgar MD PROCEDURE: CHEST 1 VIEW (PORTABLE) 07/25/2024 REASON FOR EXAM: CHEST PAIN TECHNIQUE: Frontal view of the chest. COMPARISON: Chest radiograph 07/25/2024 FINDINGS: Hardware: None. Heart: Normal size and appearance. Lungs: Lungs are clear. Bones: Unremarkable. Other: No pleural effusions. No pneumothorax RAD/Chest 1 View (Portable) IMPRESSION: No radiographic evidence of an acute cardiopulmonary process Reading [facility] CC: Dr. Yunior Edgar MD Records Manager: Signed Normal [facility] Chloride assayOrdered By: Duarte Edgar on 07-25-2024 Chloride [Moles/Vol] 107 mmol/L 98-108 [facility] D-Dimer Quantitative (DVT/PE )on 07-25-2024 D-DIMER QUANT 0.47 FEU/ug/m Normal 0.27-0.49 [facility] Comment on above: Result Comment: NORM AL D-Dimer level (<0.50) indicates no DVT or PE. Performed By: #### L 100.0100, L300.8000, L500.2500, L501.4021 ####[facility] [address] [place], [address] D-dimer measurement for deep venous thrombosisOrdered By: Yunior Edgar on 07-25-2024 D-Dimer Quantitative (PE/DVT) 0.47 FEU/ug/m 0.27-0.49 [facility] Comment on above: NORMAL D-Dimer level (<0.50) indicates no DVT or PE. Emergency Department Summary on 07-25-2024 Emergency Department Summary [facility] Medical Records Department [address] [place] [address] Emergency Department Summary 07/25/24 MR#: [id number] Acct: [id number] Name: LAUREN ESCALANTE Rep #: [id number] : 1955 69 From: Yunior Edgar MD [...] Recent travel Prior similar symptoms: Yes Recent Illness/Hospitalizat ion: No PFSH PFSH Medical History (Updated 07/25/24 @ 11:30 by Radha [place]) Pneumothorax Home Medications ???Medication ???Instructions ???Recorded ???Last Taken ???Type amlodipine 10 mg tablet 10 mg PO DAILY 07/25/24 07/24/24 H istory dextroamphetamine-am phetamine 20 1 tab PO BID 07/25/24 06/26/24 [...] or depression Endocrine Endocrinology: Denies cold intolerance Hematologic/Lymphati c Hematologic/Lymphati c: Denies easy bleeding, easy bruising or lymphadenopathy [...] all 4 extremities. 5 out of 5 medical management specialist strength. Dorsi plantarflexion intact. Equal symmetrical radial [...] well devel (more content not included)... Normal [facility] Eosinophil percentageOrdered By: Yunior Edgar on 07-25-2024 Eosinophils/100 WBC (Bld) 3.9 % 0-5 [facility] Erythrocyte distribution wid th ratioOrdered By: Yunior Edgar on 07-25-2024 Erythrocyte distribution width (RBC) [Ratio] 12.2 % 11.6-14.6 [facility] Erythrocyte distribution wid th standard deviationOrdered By: Yunior Edgar on 07-25-2024 Erythrocyte distribution width (RBC) [Entitic vol] 40.0 fL 35.1-43.9 [facility] Erythrocyte distribution width (RBC) [Ratio] 40.0 fl 35.1-43.9 [facility] Estimation of creatinine jodi aranceOrdered By: Yunior Edgar on 07-25-2024 Estimated Creatinine Clearance Calc 81.92 ml/min 50-250 [facility] GFR/1.73 sq M.predicted francisco javier g non-blacks MDRD (S/P/Bld) [Vol rate/Area]Ordered By: Yunior Edgar on 07-25-2024 Estimated GFR (MDRD) Non-Af Amer 71 >60 [facility] Comment on above: mL/min/1.73m2 CKD-EP I Creatinine Equation (2020) Glomerular filtration rate ( GFR) estimation/1.73 sq m using serum, plasma, or whole bOrdered By: Yunior Edgar on 07-25-2024 GFR/1.73 sq M.predicted among non-blacks MDRD (S/P/Bld) [Vol rate/Area] 71 mL/min/{1.73_m2} >60 [facility] Comment on above: mL/min/1.73m2 CKD-EP I Creatinine Equation (2020) Hematocrit Auto (Bld) [Volum e fraction]Ordered By: Yunior Edgar on 07-25-2024 Hematocrit (Bld) [Volume fraction] 41.3 % 40-54 [facility] Hemoglobin measurementOrdere d By: Yunior Edgar on 07-25-2024 Hemoglobin (Bld) [Mass/Vol] 14.5 g/dL 13.0-16.5 [facility] Immature granulocytes/100 WB C Auto (Bld)Ordered By: Yunior Edgar on 07-25-2024 Immature granulocytes/100 WBC (Bld) 0.400 % 0.0-0.9 [facility] Comment on above: IG% - Immature Granu locytes (promyelocytes, myelocytes and metamyelocytes) > 1% indicates that a LEFT SHIFT is Present. L499.0042on 07-25-2024 Trop T High Sen 16 ng/L Normal <=22 [facility] Comment on above: Performed By: #### L 499.0042 #### [facility] Laboratory [address] [place], [address] L501.4021on 07-25-2024 Trop T High Sen 15 ng/L Normal <=22 [facility] Comment on above: Performed By: #### L 100.0100, L300.8000, L500.2500, L501.4021 ####[facility] [address] [place], [address] Lymphocytes Auto (Unsp spec) [#/Vol]Ordered By: Yunior Edgar on 07-25-2024 Lymphocytes (Bld) [#/Vol] 1.72 10*3/uL 0.83-4.51 [facility] Lymphocytes/100 WBC Auto (Un sp spec)Ordered By: Yunior Edgar on 07-25-2024 Lymphocytes/100 WBC (Bld) 21.1 % 19-41 [facility] MCV (mean corpuscular volume ) determinationOrdered By: Yunior Edgar on 07-25-2024 MCV (RBC) [Entitic vol] 89.0 fL 80-94 [facility] Mean corpuscular hemoglobin (MCH) determinationOrdered By: Yunior Edgar on 07-25-2024 MCH (RBC) [Entitic mass] 31.3 pg 27.0-32.0 [facility] Mean corpuscular hemoglobin concentration (MCHC) determinationOrdered By: Yunior Edgar on 07-25-2024 MCHC (RBC) [Mass/Vol] 35.1 g/dL 32-36 [facility] Mean platelet volume determi nationOrdered By: Yunior Edgar on 07-25-2024 Platelet mean volume (Bld) [Entitic vol] 10.2 fL 6.2-12.0 [facility] Monocyte percentageOrdered B y: Yunior Edgar on 07-25-2024 Monocytes/100 WBC (Bld) 6.5 % 0-10 [facility] Neutrophil percentageOrdered By: Yunior Edgar on 07-25-2024 Neutrophils/100 WBC (Bld) 67.6 % 47-70 [facility] No Panel InformationOrdered By: Yunior Edgar on 07-25-2024 Troponin T High Sensitivity 15 ng/L <22 [facility] Nucleated red blood cell per centageOrdered By: Yunior Edgar on 07-25-2024 Nucleated RBC/100 WBC (Bld) [Ratio] 0 % 0-5 [facility] Platelet countOrdered By: Duarte Edgar on 07-25-2024 Platelets (Bld) [#/Vol] 317 10*3/uL 150-450 [facility] Potassium (Unsp spec) [Mass/ Vol]Ordered By: Yunior Edgar on 07-25-2024 Potassium [Moles/Vol] 4.2 mmol/L 3.3-5.1 [facility] Potassium measurement (mass/ volume)Ordered By: Yunior Edgar on 07-25-2024 Potassium (Unsp spec) [Mass/Vol] 4.2 mmol/L 3.3-5.1 [facility] RBC Auto (Bld) [#/Vol]Ordere d By: Yunior Edgar on 07-25-2024 RBC (Bld) [#/Vol] 4.64 10*6/uL 4.6-6.2 [facility] Serum creatinine measurement (mass/volume)Ordered By: Yunior Edgar on 07-25-2024 Creatinine [Mass/Vol] 1.13 mg/dL 0.70-1.20 [facility] Serum glucose measurement (m ass/volume)Ordered By: Yunior Edgar on 07-25-2024 Glucose [Mass/Vol] 98 mg/dL 70-99 [facility] Serum or plasma calcium cinthia urement (mass/volume)Ordered By: Yunior Edgar on 07-25-2024 Calcium [Mass/Vol] 10.2 mg/dL 7.6-11.0 [facility] Serum or plasma urea nitroge n measurement (mass/volume)Ordered By: Yunior Edgar on 07-25-2024 Urea nitrogen [Mass/Vol] 28 mg/dL High 4-19 [facility] Sodium levelOrdered By: Yunior Edgar on 07-25-2024 Sodium [Moles/Vol] 139 mmol/L 133-145 [facility] Troponin T.cardiac High sens itivity method [Mass/Vol]Ordered By: Yunior Edgar on 07-25-2024 Troponin T High Sensitivity 2 Hour 16 ng/L <22 [facility] Troponin T.cardiac [Mass/vol ume] in Serum or Plasma by High sensitivity methodOrdered By: Yunior Edgar on 07-25-2024 Troponin T.cardiac High sensitivity method [Mass/Vol] 16 ng/L <22 [facility] White blood cell (WBC) count Ordered By: Yunior Edgar on 07-25-2024 WBC (Bld) [#/Vol] 8.1 10*3/uL 4.4-11.0 [facility] Office Visiton 07-24-2024 Follow-up visit [id number] Lauren Escalante 1955 M Date Provider Department [facility] 07/24/2024 [facility] Family History Problem Relation Age of Onset Heart disease Mother Ovarian cancer Mother High Blood Pressure Mother Family Status - Relation Status Age at Mother Level of Service:78080 [place] OFFICE/OUTPATIENT ESTABLISHED LOW MDM 20 MIN Reason for Visit and Comments: Shortness of Breath [] - States that SOB to just take a shower and go up stairs. States that he is weak at times with dizzy ness. Normal [facility] Progress Noteon 07-24-2024 Progress Note . [facility] [address] [facility] [address] Dept: [phone] Dept Visit type: Established Reason for Visit: [...] care of his dog and go to [place] emergency room. 1. Secondary hypertension 2. Dyspnea, [...] 10 mg by mouth in the morning. amphetamine-dextroam phetamine (Adderall) 20 MG tablet Take 1 tablet by mouth 2 times daily. lisinopril 40 MG tablet Take 40 mg by mouth in the morning. meloxicam (Mobic) 15 MG tablet Take 15 mg by mouth daily. QUEtiapine (SEROquel) 25 MG tablet Take 25 mg by mouth Nightly. venlafaxine XR (Effexor XR) 37.5 MG 24 hr capsule Take 37.5 mg by mouth daily. No current facility-administere d medications for this visit. 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 Insurance verified. Patient instructed to arrive 15 minutes prior to appointment, bring photo ID, insurance cards, copayment if required. Patient instructed to call back with new or worsening symptoms. Reason for Disposition Palpitations and no improvement after following Care Advice Protocols used: Heart Rate and Heartbeat [id number] [facility] 36on 03-06-2024 36 Pt informed, encouraged him to schedule a follow up after the first of the year when he has insurance [facility] 36 S: Patient spoke with [facility] nurse regarding medication request B: Onset of [...] to answer question Protocols used: Medication Question [id number] Normal [facility] .Auto Diffon 12-29-2021 Basophil, Absolute 0.0 10 3/mcL Normal 0.0-0.2 [facility] ([place]) Comment on above: Performed By: #### B MP, GFR #### [address] [address] Basophils/100 WBC (Bld) 0.5 % Normal 0.0-2.5 A [facility] ([place]) Comment on above: Performed By: #### B MP, GFR #### [address] [address] Eosinophil, Absolute 0.0 10 3/mcL Normal 0.0-0.4 [facility] ([place]) Comment on above: Performed By: #### B MP, GFR #### [address] [address] Eosinophils/100 WBC (Bld) 0.3 % Normal 0.0-7.0 [facility] ([place]) Comment on above: Performed By: #### B MP, GFR #### [address] [address] Lymphocyte, Absolute 1.9 10 3/mcL Normal 0.8-3.9 [facility] ([place]) Comment on above: Performed By: #### B MP, GFR #### [address] [address] Lymphocytes/100 WBC (Bld) 24.4 % Normal 10.0-50.0 [facility] ([place] Comment on above: Performed By: #### B MP, GFR #### [address] [address] Monocyte, Absolute 0.5 10 3/mcL Normal 0.2-1.0 [facility] ([place]) Comment on above: Performed By: #### B MP, GFR #### [address] [address] Monocytes/100 WBC (Bld) 6.4 % Normal 1.7-13.0 A [facility] ([place]) Comment on above: Performed By: #### B MP, GFR #### Korina [address] [address] Neutrophils/100 WBC (Bld) 68.4 % Normal 37.0-80.0 [facility] ([place] Comment on above: Performed By: #### B MP, GFR #### [address] [address] .GFRon 12-29-2021 GFR 92 ml/min/1.73sqm Normal [facility] ([place]) Comment on above: Result Comment: GFR Population [...] Performed By: #### B MP, GFR #### [address] [address] GFR Non- 76 ml/min/1.73sqm Normal [facility] ([place] Comment on above: Result Comment: GFR Population [...] Performed By: #### B MP, GFR #### [address] [address] .NEUABSon 12-29-2021 Neutrophil, Absolute 5.2 10 3/mcL Normal 2.9-6.2 [facility] ([place]) Comment on above: Performed By: #### B MP, GFR #### [address] [address] BMPon 12-29-2021 BUN/Creatinine Ratio 21 ratio Normal 7-27 [facility] ([place]) Comment on above: Performed By: #### B MP, GFR #### [address] [address] Calcium [Mass/Vol] 9.1 mg/dL Normal 8.4-10.2 [facility] ([place]) Comment on above: Performed By: #### B MP, GFR #### [address] [address] Chloride [Moles/Vol] 108 mmol/L High 98-107 [facility] ([place] Comment on above: Performed By: #### B MP, GFR #### [address] [address] CO2 [Moles/Vol] 27 mmol/L Normal 23-31 [facility] ([place] Comment on above: Performed By: #### B MP, GFR #### [address] [address] Creatinine [Mass/Vol] 0.99 mg/dL Normal 0.70-1.30 [facility] ([place]) Comment on above: Performed By: #### B MP, GFR #### [address] [address] Electrolyte Balance 9.0 mEq/L Normal 4.0-15.0 [facility] ([place] Comment on above: Performed By: #### B MP, GFR #### [address] [address] Glucose [Mass/Vol] 108 mg/dL Normal 80-115 [facility] ([place] Comment on above: Performed By: #### B MP, GFR #### [address] [address] Potassium [Moles/Vol] 4.4 mmol/L Normal 3.5-5.1 [facility] ([place] Comment on above: Performed By: #### B MP, GFR #### [address] [address] Sodium [Moles/Vol] 144 mmol/L Normal 136-145 [facility] ([place] Comment on above: Performed By: #### B MP, GFR #### [address] [address] Urea nitrogen [Mass/Vol] 21 mg/dL High 7-18 [facility] ([place] Comment on above: Performed By: #### B MP, GFR #### [address] [address] CBCon 12-29-2021 Erythrocyte distribution width (RBC) [Ratio] 13.2 % Normal 11.5-14.5 [facility] ([place] Comment on above: Performed By: #### B MP, GFR #### [address] [address] Hematocrit (Bld) [Volume fraction] 42.7 % Normal 42.0-52.0 [facility] ([place] Comment on above: Performed By: #### B MP, GFR #### [address] [address] Hgb 14.7 G/dL Normal 14.0-18.0 [facility] ([place] Comment on above: Performed By: #### B MP, GFR #### Korina [address] [address] MCH (RBC) [Entitic mass] 31.2 pg Normal 27.0-31.2 [facility] ([place] Comment on above: Performed By: #### B MP, GFR #### Korina [address] [address] MCHC 34.5 G/dL Normal 31.8-35.4 [facility] ([place] Comment on above: Performed By: #### B MP, GFR #### Korina [address] [address] MCV (RBC) [Entitic vol] 90.4 fL Normal 80.0-94.0 A [facility] ([place]) Comment on above: Performed By: #### B MP, GFR #### [address] [address] Platelet 284 10 3/mcL Normal 130-400 [facility] ([place] Comment on above: Performed By: #### B MP, GFR #### [address] [address] Platelet mean volume (Bld) [Entitic vol] 9.2 fL Normal 7.4-10.4 [facility] ([place] Comment on above: Performed By: #### B MP, GFR #### [address] [address] RBC 4.72 10 6/mcL Normal 4.04-6.13 [facility] ([place] Comment on above: Performed By: #### B MP, GFR #### Korina [address] [address] WBC 7.6 10 3/mcL Normal 4.6-10.8 [facility] ([place] Comment on above: Performed By: #### B MP, GFR #### Korina [address] [address] LABORATORYOrdered By: Annmarie Rutledge on 12-29-2021 Basophil, [...] AO Chemistry S GFR Non- 76 ml/min/1.73sqm Invalid Interpretation Code AO Chemistry S MRI Knee [...] physician: The radiologist can be reached at [phone] if you would like to discuss the findings. END OF REPORT 1424 Normal [facility] Experimental Mechanic Electrical CR Knee Complete 4+ Views [facility] 11-06-2021 CR Knee Complete 4+ Views Right Patient Name: LAUERN ESCALANTE Diagnostic Radiology ACCESSION EXAM DATE/TIME PROCEDURE ORDERING PROVIDER [id number] 11/06/2021 14:03 EDT CR Knee Complete 4+ MD SARAN, LAUREN Harvey Views Right CPT code 27184 Reason For Exam (CR Knee Complete 4+ [...] Transcribed Date and Time: 11/08/2021 10:13 Normal [facility] US Abdomen Completeon 2020 US Abdomen Complete Patient Name: LAUREN ESCALANTE Ultrasound ACCESSION EXAM DATE/TIME PROCEDURE ORDERING PROVIDER [id number] 02/15/2021 15:38 EDT US Abdomen Complete Hakan LOFTON MICHAEL CPT code 24086 Reason For Exam (US Abdomen Complete) cholecystitis [...] Transcribed Date and Time: 02/16/2021 9:05 Normal [facility] XR Shoulder Right 2 VWon Patient Name: LAUREN ESCALANTE Diagnostic Radiology ACCESSION EXAM DATE/TIME PROCEDURE ORDERING PROVIDER [id number] 04/07/2020 16:35 EST CR Shoulder 2+ Views Hakan LOFTON MICHAEL Right CPT code 95471 Reason For Exam (CR Shoulder 2+ Views [...] WENDELL Transcribed Date and Time: 04/07/2020 5:26 [place], [place] [facility], [facility] Incoming Radiology Results From [facility] - 04/07/2020 5:27 PM EST Patient Name: LAUREN ESCALANTE Diagnostic Radiology ACCESSION EXAM DATE/TIME PROCEDURE ORDERING PROVIDER [id number] 04/07/2020 16:35 EST CR Shoulder 2+ Views Hakan LOFTON, PAOLA Right CPT code 63168 Reason For Exam (CR Shoulder 2+ Views [...] WENDELL Transcribed Date and Time: 04/07/2020 5:26 [place], [place] Comprehensive Metabolic Pane [facility] 02-11-2019 Albumin [Mass/Vol] 4.0 g/dL 3.5 - 5 g/dL [place], [place] ALP [Catalytic activity/Vol] 65 U/L 38 - 126 U/L [place] ALT [Catalytic activity/Vol] 38 U/L 13 - 69 U/L [place] Anion gap [Moles/Vol] 9 mmol/L [place], [place] AST [Catalytic activity/Vol] 29 U/L 15 - 46 U/L [place] Bilirubin Ql (U) 0.4 mg/dL 0.2 - 1.3 mg/dL [place] Calcium [Mass/Vol] 9.3 mg/dL 8.4 - 10. 4 mg/dL [place] Chloride [Moles/Vol] 108 mmol/L High 98 - 10 7 mmol/L [place] CO2 [Moles/Vol] 26 mmol/L 22 - 30 mmol/L [place] Creatinine [Mass/Vol] 0.84 mg/dL 0.52 - 1.25 mg/dL [place] EGFR IF NonAfrican Vietnamese >60.0 >60 mL/min [place] Comment on above: Source- MDRD equatio n with creatinine calibration to IDMS(NKDEP) eGFR not recommended for drug dose adjustment GFR/1.73 sq M predicted among blacks MDRD (S/P/Bld) [Vol rate/Area] mL/min/{1.73_m2} >60 mL/min [place] Glucose [Mass/Vol] 80 mg/dL 70 - 100 mg/dL [place] Interpretation and review of laboratory results Abnormal [place] Potassium [Moles/Vol] 4.3 mmol/L 3.5 - 5.1 mmol/L [place] Protein [Mass/Vol] 6.7 g/dL 6.3 - 8.2 g/dL [place] Sodium [Moles/Vol] 143 mmol/L 135 - 145 mmol/L [place] Urea nitrogen [Mass/Vol] 18 mg/dL 7 - 20 mg/dL [place] Test Per[facility] by [facility], [facility] [place] , [place] [id number] [place] [address], [place] Otheron 04-18-1999 CONVERTED FINAL DIAGNOSIS A&B) TWO SEGMENTS OF TRANSECTED VAS DEFERENS, CLINICALLY RIGHT AND LEFT. [facility] CONVERTED ORDERING PROVIDER Ordering Provider: SOO HUERTA [facility] Thyroidon 04-18-1999 TSH Eric DELATORRE M.D., PATHOLOGIST (Electronic signature on file) Final Signed Out: 04/18/1999 15:15 [facility] Vital Signs Date Time Vital Sign Value Performing Clinician Faci lity 12-31-2024 08:08-0400 Diastolic blood pressure 95 mm[Hg] Ronnie Boston MD Work Phone: [facility] 12-31-2024 08:08-0400 Heart rate 100 /min Ronnie Boston MD Work Phone: [facility] 12-31-2024 08:08-0400 Systolic blood pressure 136 mm[Hg] Ronnie Boston MD Work Phone: [facility] 12-31-2024 07:21-0400 Body height 185.4 cm Ronnie Boston MD Work Phone: [facility] 12-31-2024 07:21-0400 Body mass index (BMI) [Ratio] 30.48 kg/m2 Ronnie Boston MD Work Phone: [facility] 12-31-2024 07:21-0400 Body weight 104.78 kg Ronnie Boston MD Work Phone: [facility] 12-02-2024 10:31-0400 Body height 185.[address] Rob Back MD Work Phone: [facility] 12-02-2024 10:31-0400 Body mass index (BMI) [Ratio] 31.6 kg/m2 Dr. Rob Back MD Work Phone: [facility] 12-02-2024 10:31-0400 Body weight 108.[address] Rob Back MD Work Phone: [facility] 12-02-2024 10:31-0400 Diastolic blood pressure 97 mm[Hg] Dr. Rob Back MD Work Phone: [facility] 12-02-2024 10:31-0400 Heart rate 112 /min Dr. Rob Back MD Work Phone: [facility] 12-02-2024 10:31-0400 SaO2% (BldA) [Mass fraction] 96 % Dr. Rob Back MD Work Phone: [facility] 12-02-2024 10:31-0400 Systolic blood pressure 160 mm[Hg] Dr. Rob Back MD Work Phone: [facility] 11-24-2024 13:52-0400 Body height 185.4 cm Rob Back MD Work Phone: [facility] 11-24-2024 13:52-0400 Body mass index (BMI) [Ratio] 31.8 kg/m2 Rob Back MD Work Phone: [facility] 11-24-2024 13:52-0400 Body weight 109.32 kg Rob Back MD Work Phone: [facility] 11-24-2024 13:52-0400 Diastolic blood pressure 80 mm[Hg] Rob Back MD Work Phone: [facility] 11-24-2024 13:52-0400 Heart rate 125 /min Rob Back MD Work Phone: [facility] 11-24-2024 13:52-0400 SaO2% (BldA) [Mass fraction] 95 % Rbo Back MD Work Phone: [facility] 11-24-2024 13:52-0400 Systolic blood pressure 138 mm[Hg] Rob Back MD Work Phone: [facility] 11-16-2024 13:35-0400 Diastolic blood pressure 89 mm[Hg] Rob Back MD Work Phone: [facility] 11-16-2024 13:35-0400 Heart rate 64 /min Rob Back MD Work Phone: [facility] 11-16-2024 13:35-0400 Systolic blood pressure 136 mm[Hg] Rob Back MD Work Phone: [facility] 11-13-2024 13:06-0400 Body temperature 97 [degF] Dr. Yunior Edgar MD Work Phone: 1(224)823-202159 [place] [address] 11-13-2024 13:06-0400 Diastolic blood pressure 68 mm[Hg] Dr. Yunior Edgar MD Work Phone: 5(992)457-784859 [place] [address] 11-13-2024 13:06-0400 Heart rate 73 /min Dr. Yunior Edgar MD Work Phone: 4(458)321-209959 [place] [address] 11-13-2024 13:06-0400 Respiratory rate 16 /min Dr. Yunior Edgar MD Work Phone: 7(441)698-955459 [place] [address] 11-13-2024 13:06-0400 SaO2% (BldA) [Mass fraction] 96 % Dr. Yunior Edgar MD Work Phone: 8(095)952-311859 [place] [address] 11-13-2024 13:06-0400 Systolic blood pressure 111 mm[Hg] Dr. Yunior Edgar MD Work Phone: 7(051)095-611859 [place] [address] 11-13-2024 10:55-0400 Body height 185.[address] Yunior Edgar MD Work Phone: 8(857)606-962359 [place] [address] 11-13-2024 10:55-0400 Body mass index (BMI) [Ratio] 31 kg/m2 Dr. Yunior Edgar MD Work Phone: 4(280)015-207859 [place] [address] 11-13-2024 10:55-0400 Body weight 106.[address] Yunior Edgar MD Work Phone: 7(380)877-146059 [place] [address] 11-05-2024 10:48-0400 Diastolic blood pressure 93 mm[Hg] Rob Back MD Work Phone: [facility] 11-05-2024 10:48-0400 Systolic blood pressure 141 mm[Hg] Rob Back MD Work Phone: [facility] 11-05-2024 10:17-0400 Body height 185.4 cm Rob Back MD Work Phone: [facility] 11-05-2024 10:17-0400 Body mass index (BMI) [Ratio] 30.74 kg/m2 Rob Back MD Work Phone: [facility] 11-05-2024 10:17-0400 Body weight 105.69 kg Rob Back MD Work Phone: [facility] 11-05-2024 10:17-0400 Heart rate 100 /min Rob Back MD Work Phone: [facility] 11-05-2024 10:17-0400 SaO2% (BldA) [Mass fraction] 96 % Rob Back MD Work Phone: [facility] 10-27-2024 08:21-0400 Body height 182.[address] Yunior Edgar MD Work Phone: [facility] 10-27-2024 08:21-0400 Body mass index (BMI) [Ratio] 32.4 kg/m2 Dr. Yunior Edgar MD Work Phone: 1(043)999-263644 [place] [address] 10-27-2024 08:21-0400 Body weight 108.[address] Yunior Edgar MD Work Phone: [facility] 10-27-2024 08:21-0400 Diastolic blood pressure 116 mm[Hg] Dr. Yunior Edgar MD Work Phone: 4(695)397-202444 [place] [address] 10-27-2024 08:21-0400 Heart rate 118 /min Dr. Yunior Edgar MD Work Phone: 1(339)436-804944 [place] [address] 10-27-2024 08:21-0400 Respiratory rate 18 /min Dr. Yunior Edgar MD Work Phone: 9(468)570-025544 [place] [address] 10-27-2024 08:21-0400 SaO2% (BldA) [Mass fraction] 95 % Dr. Yunior Edgar MD Work Phone: [facility] 10-27-2024 08:21-0400 Systolic blood pressure 171 mm[Hg] Dr. Yunior Edgar MD Work Phone: [facility] 10-26-2024 08:54-0400 Body height 182.[address] Yunior Edgar MD Work Phone: 0(444)885-717659 [place] [address] 10-26-2024 08:54-0400 Body mass index (BMI) [Ratio] 32.5 kg/m2 Dr. Yunior Edgar MD Work Phone: 5(279)747-739359 [place] [address] 10-26-2024 08:54-0400 Body temperature 98 [degF] Dr. Yunior Edgar MD Work Phone: 4(274)621-591459 [place] [address] 10-26-2024 08:54-0400 Body weight 108.[address] Yunior Edgar MD Work Phone: 1(540)225-170559 [place] [address] 10-26-2024 08:54-0400 Diastolic blood pressure 97 mm[Hg] Dr. Yunior Edgar MD Work Phone: 6(748)217-520259 [place] [address] 10-26-2024 08:54-0400 Heart rate 109 /min Dr. Yunior Edgar MD Work Phone: 0(900)889-610859 [place] [address] 10-26-2024 08:54-0400 Respiratory rate 18 /min Dr. Yunior Edgar MD Work Phone: 2(067)120-331159 [place] [address] 10-26-2024 08:54-0400 SaO2% (BldA) [Mass fraction] 99 % Dr. Yunior Edgar MD Work Phone: 5(545)834-453759 [place] [address] 10-26-2024 08:54-0400 Systolic blood pressure 171 mm[Hg] Dr. Yunior Edgar MD Work Phone: 2(894)557-160359 [place] [address] 10-13-2024 07:55-0400 Body mass index (BMI) [Ratio] 32.4 kg/m2 Dr. Yunior Edgar MD Work Phone: 4(394)755-253159 [place] [address] 10-13-2024 07:55-0400 Body temperature 97.4 [degF] Dr. Yunior Edgar MD Work Phone: 2(466)598-444459 [place] [address] 10-13-2024 07:55-0400 Body weight 108.[address] Yunior Edgar MD Work Phone: 0(005)442-764559 [place] [address] 10-13-2024 07:55-0400 Diastolic blood pressure 108 mm[Hg] Dr. Yunior Edgar MD Work Phone: [facility] 10-13-2024 07:55-0400 Heart rate 102 /min Dr. Yunior Edgar MD Work Phone: [facility] 10-13-2024 07:55-0400 Respiratory rate 18 /min Dr. Yunior Edgar MD Work Phone: [facility] 10-13-2024 07:55-0400 SaO2% (BldA) [Mass fraction] 97 % Dr. Yunior Edgar MD Work Phone: [facility] 10-13-2024 07:55-0400 Systolic blood pressure 168 mm[Hg] Dr. Yunior Edgar MD Work Phone: [facility] 10-02-2024 10:26-0400 Body height 185.4 cm Rob Back MD Work Phone: [facility] 10-02-2024 10:26-0400 Body mass index (BMI) [Ratio] 31.14 kg/m2 Rob Back MD Work Phone: [facility] 10-02-2024 10:26-0400 Body weight 107.05 kg Rob Back MD Work Phone: [facility] 10-02-2024 10:26-0400 Diastolic blood pressure 90 mm[Hg] Rob Back MD Work Phone: [facility] 10-02-2024 10:26-0400 Heart rate 106 /min Rob Back MD Work Phone: [facility] 10-02-2024 10:26-0400 SaO2% (BldA) [Mass fraction] 98 % Rob Back MD Work Phone: [facility] 10-02-2024 10:26-0400 Systolic blood pressure 140 mm[Hg] Rob Back MD Work Phone: [facility] 10-01-2024 12:46-0400 Body height 182.[address] Yunior Edgar MD Work Phone: [facility] 10-01-2024 12:46-0400 Body weight 109.[address] Yunior Edgar MD Work Phone: 3(473)842-254744 [place] [address] 10-01-2024 12:46-0400 Heart rate 101 /min Dr. Yunior Edgar MD Work Phone: 3(976)494-102944 [place] [address] 10-01-2024 12:46-0400 SaO2% (BldA) [Mass fraction] 97 % Dr. Yunior Edgar MD Work Phone: 3(982)770-387944 [place] [address] 09-14-2024 14:39-0400 Body height 185.[address] Yunior Edgar MD Work Phone: 6(050)283-071559 [place] [address] 09-14-2024 14:39-0400 Body mass index (BMI) [Ratio] 31.8 kg/m2 Dr. Yunior Edgar MD Work Phone: 3(363)183-699227 [address] 09-14-2024 14:39-0400 Body weight 109.[address] Yunior Edgar MD Work Phone: 6(060)118-784544 [place] [address] 09-14-2024 14:39-0400 Diastolic blood pressure 89 mm[Hg] Dr. Yunior Edgar MD Work Phone: 9(675)875-562644 [place] [address] 09-14-2024 14:39-0400 Heart rate 109 /min Dr. Yunior Edgar MD Work Phone: 3(681)495-393644 [place] [address] 09-14-2024 14:39-0400 Respiratory rate 18 /min Dr. Yunior Edagr MD Work Phone: 9(092)814-084144 [place] [address] 09-14-2024 14:39-0400 SaO2% (BldA) [Mass fraction] 96 % Dr. Yunior Edgar MD Work Phone: 1(535)028-488944 [place] [address] 09-14-2024 14:39-0400 Systolic blood pressure 160 mm[Hg] Dr. Yunior Edgar MD Work Phone: 9(932)251-036044 [place] [address] 09-10-2024 08:09-0400 Body height 185.4 cm Osman Brand APRN [facility] Work Phone: [facility] 09-10-2024 08:09-0400 Body mass index (BMI) [Ratio] 31.66 kg/m2 Osman Brand CLIENT EXECUTIVE - [employer] Work Phone: [facility] 09-10-2024 08:09-0400 Body weight 108.86 kg Osman Brand APRN - [employer] Work Phone: [facility] 09-10-2024 08:09-0400 Diastolic blood pressure 84 mm[Hg] Osman Brand APRN - [employer] Work Phone: [facility] 09-10-2024 08:09-0400 Heart rate 104 /min Osman Brand APRN - [employer] Work Phone: [facility] 09-10-2024 08:09-0400 SaO2% (BldA) [Mass fraction] 95 % Osman Brand APRN - [employer] Work Phone: [facility] 09-10-2024 08:09-0400 Systolic blood pressure 135 mm[Hg] Osman Arnoldshannanmary lousteve CLIENT EXECUTIVE - [employer] Work Phone: [facility] 09-02-2024 10:36-0400 Body height 185.4 cm Rob Back MD Work Phone: [facility] 09-02-2024 10:36-0400 Body mass index (BMI) [Ratio] 31.14 kg/m2 Rob Back MD Work Phone: [facility] 09-02-2024 10:36-0400 Body weight 107.05 kg Rob Back MD Work Phone: [facility] 09-02-2024 10:36-0400 Diastolic blood pressure 85 mm[Hg] Rob Back MD Work Phone: [facility] 09-02-2024 10:36-0400 Heart rate 100 /min Rob Back MD Work Phone: [facility] 09-02-2024 10:36-0400 SaO2% (BldA) [Mass fraction] 98 % Rob Back MD Work Phone: [facility] 09-02-2024 10:36-0400 Systolic blood pressure 144 mm[Hg] Rob Back MD Work Phone: [facility] 08-27-2024 08:07-0400 Body mass index (BMI) [Ratio] 31.9 kg/m2 Dr. Yunior Edgar MD Work Phone: [facility] 08-27-2024 08:07-0400 Body temperature 97.5 [degF] Dr. Yunior Edgar MD Work Phone: [facility] 08-27-2024 08:07-0400 Body weight 109.[address] Yunior Edgar MD Work Phone: [facility] 08-27-2024 08:07-0400 Diastolic blood pressure 91 mm[Hg] Dr. Yunior Edgar MD Work Phone: [facility] 08-27-2024 08:07-0400 Heart rate 96 /min Dr. Yunior Edgar MD Work Phone: [facility] 08-27-2024 08:07-0400 Respiratory rate 18 /min Dr. Yunior Edgar MD Work Phone: [facility] 08-27-2024 08:07-0400 SaO2% (BldA) [Mass fraction] 95 % Dr. Yunior Edgar MD Work Phone: [facility] 08-27-2024 08:07-0400 Systolic blood pressure 137 mm[Hg] Dr. Yunior Edgar MD Work Phone: [facility] 08-05-2024 13:23-0400 Body height 185.4 cm Rob Back MD Work Phone: [facility] 08-05-2024 13:23-0400 Body mass index (BMI) [Ratio] 31.4 kg/m2 Rob Back MD Work Phone: [facility] 08-05-2024 13:23-0400 Body weight 107.96 kg Rob Back MD Work Phone: [facility] 08-05-2024 13:23-0400 Diastolic blood pressure 85 mm[Hg] Rob Back MD Work Phone: [facility] 08-05-2024 13:23-0400 Heart rate 113 /min Rob Back MD Work Phone: [facility] 08-05-2024 13:23-0400 SaO2% (BldA) [Mass fraction] 98 % Rob Back MD Work Phone: [facility] 08-05-2024 13:23-0400 Systolic blood pressure 159 mm[Hg] Rob Back MD Work Phone: [facility] 07-25-2024 15:47-0400 Diastolic blood pressure 83 mm[Hg] Dr. Ynuior Edgar MD Work Phone: 0(406)352-859544 [place] [address] 07-25-2024 15:47-0400 Heart rate 103 /min Dr. Yunior Edgar MD Work Phone: 2(094)737-257059 [place] [address] 07-25-2024 15:47-0400 Respiratory rate 15 /min Dr. Yunior Edgar MD Work Phone: 3(368)612-655527 [address] 07-25-2024 15:47-0400 SaO2% (BldA) [Mass fraction] 96 % Dr. Yunior Edgar MD Work Phone: 7(674)670-519259 [place] [address] 07-25-2024 15:47-0400 Systolic blood pressure 160 mm[Hg] Dr. Yunior Edgar MD Work Phone: 8(368)251-215627 [address] 07-25-2024 13:14-0400 Body temperature 98 [degF] Dr. Yunior Edgar MD Work Phone: 2(283)142-904544 [place] [address] 07-25-2024 11:11-0400 Body height 185.[address] Yunior Edgar MD Work Phone: 3(236)130-810044 [place] [address] 07-25-2024 11:11-0400 Body mass index (BMI) [Ratio] 31.5 kg/m2 Dr. Yunior Edgar MD Work Phone: 7(160)296-609959 [place] [address] 07-25-2024 11:11-0400 Body weight 108.[address] Yunior Edgar MD Work Phone: 6(835)257-683859 [place] [address] 07-24-2024 10:41-0400 Body height 185.4 cm Osman Cathie CLIENT EXECUTIVE - [employer] Work Phone: [facility] 07-24-2024 10:41-0400 Body mass index (BMI) [Ratio] 31.53 kg/m2 Osman Cathie CLIENT EXECUTIVE - [employer] Work Phone: [facility] 07-24-2024 10:41-0400 Body weight 108.41 kg Osman Cathie CLIENT EXECUTIVE - [employer] Work Phone: [facility] 07-24-2024 10:41-0400 Diastolic blood pressure 96 mm[Hg] Osman Cathie CLIENT EXECUTIVE - [employer] Work Phone: [facility] 07-24-2024 10:41-0400 Heart rate 112 /min Osman Cathie CLIENT EXECUTIVE - [employer] Work Phone: [facility] 07-24-2024 10:41-0400 SaO2% (BldA) [Mass fraction] 96 % Osman Cathie CLIENT EXECUTIVE - [employer] Work Phone: [facility] 07-24-2024 10:41-0400 Systolic blood pressure 146 mm[Hg] Osman Cathie CLIENT EXECUTIVE - [employer] Work Phone: [facility] 02-14-2023 15:04-0400 Diastolic blood pressure 77 mm[Hg] Rob Back MD Work Phone: [facility] 02-14-2023 15:04-0400 Systolic blood pressure 136 mm[Hg] Rob Back MD Work Phone: [facility] 02-14-2023 14:47-0400 Body height 185.4 cm Rob Back MD Work Phone: [facility] 02-14-2023 14:47-0400 Body mass index (BMI) [Ratio] 29.34 kg/m2 Rob Back MD Work Phone: [facility] 02-14-2023 14:47-0400 Body weight 100.88 kg Rob Back MD Work Phone: [facility] 02-14-2023 14:47-0400 Heart rate 110 /min Rob Back MD Work Phone: [facility] 02-14-2023 14:47-0400 SaO2% (BldA) [Mass fraction] 94 % Rob Back MD Work Phone: [facility] Encounters Encounter Date Encounter Type Care Provider Facility Start: 01-06-2025 End: 01-08-2025 ambulatory [facility] Start: 01-06-2025 End: 01-08-2025 Patient encounter procedure [facility] Start: 01-05-2025 End: 01-05-2025 Subsequent hospital visit by physician Rob Back MD Work Phone: [facility] Comment on above: Bilateral leg weakne ss; Bilateral low back pain without sciatica, unspecified chronicity; Exposure to heavy metals Start: 01-05-2025 End: 01-05-2025 ambulatory [facility] Start: 12-31-2024 End: 12-31-2024 Office outpatient new 45 minutes Ronnie Boston MD Work Phone: [facility] Comment on above: Bilateral leg weakne ss (Primary Dx); Tingling of both feet; Dysphasia; Bilateral low back pain without sciatica, unspecified chronicity; Bilateral hip pain; Exposure to heavy metals; Fatigue, unspecified type; Tremor Start: 12-31-2024 End: 12-31-2024 ambulatory [facility] Start: 12-02-2024 End: 12-02-[address] Edison Santos MD -[facility] Work Phone: Start: 12-02-2024 End: 12-02-[address] Rob Bcak MD Work Phone: -[facility] Start: 11-24-2024 End: 11-24-2024 Office outpatient visit 25 minutes Rob Back MD Work Phone: [facility] Comment on above: Muscle weakness (gen eralized) (Primary Dx); Primary hypertension; Essential hypertension; Shortness of breath Start: 11-24-2024 End: 11-24-2024 ambulatory ROB BACK [facility] Start: 11-23-2024 End: 11-23-2024 Refill Rob Back MD Work Phone: [facility] Comment on above: Dyspepsia Start: 11-22-2024 End: 11-23-2024 Refill Rob Back MD Work Phone: [facility] Comment on above: Essential hypertensi on Dyspepsia Start: 11-16-2024 End: 11-16-2024 Subsequent hospital visit by physician Rob Back MD Work Phone: [facility] [address] Comment on above: Shortness of breath; Atherosclerosis of [place] coronary artery of [place] heart without angina pectoris Start: 11-16-2024 End: 11-16-2024 ambulatory ROB [facility] Start: 11-13-2024 ambulatory Rolan Grace Facility :[facility] Start: 11-13-2024 Non-patient / Non-visit Rolan Grcae DO -[facility] Start: 11-13-2024 End: 11-13-2024 Admission to same day surgery center Rolan Grace DO -Endoscopy Work Phone: Start: 11-13-2024 End: 11-13-[address] Yunior Edgar MD Work Phone: -Endoscopy Start: 11-09-2024 ambulatory Leonie Vera Facility :[facility] Start: 11-05-2024 End: 11-05-2024 Office outpatient visit 25 minutes Rob Back MD Work Phone: [facility] Comment on above: Shortness of breath (Primary Dx); Essential hypertension; Fatigue, unspecified type Start: 11-05-2024 End: 11-05-2024 ambulatory ROB BAILEY [facility] Start: 11-03-2024 End: 11-04-2024 Telephone encounter Rob Back MD Work Phone: [facility] Comment on above: Other (Diagnosis cod es) Start: 10-29-2024 End: 10-29-2024 Orders Only Rob Back MD Work Phone: [facility] Comment on above: Shortness of breath (Primary Dx); Atherosclerosis of [place] coronary artery of [place] heart without angina pectoris Start: 10-27-2024 End: 10-27-[address] Paola Samson MD -[facility] Work Phone: Start: 10-27-2024 End: 10-27-[address] Yunior Edgar MD Work Phone: -[facility] Start: 10-26-2024 End: 10-26-2024 Patient encounter procedure Sara ROBERTSON -[facility] Work Phone: Start: 10-26-2024 End: 10-26-[address] Yunior Edgar MD Work Phone: -[facility] Start: 10-20-2024 End: 10-20-2024 Orders Only Rob Back MD Work Phone: [facility] Comment on above: Muscle weakness (gen eralized) (Primary Dx) Start: 10-16-2024 End: 10-16-2024 Orders Only Rob Back MD Work Phone: [facility] Comment on above: Positive sm/CARDIOVASCULAR INVASIVE SPECIALIST anti body (Primary Dx); Weakness Start: 10-15-2024 End: 10-15-[address] Yunior Edgar MD Work Phone: -[facility] Start: 10-15-2024 End: 10-15-2024 Patient encounter procedure Sara ROBERTSON -[facility] Work Phone: Start: 10-14-2024 End: 10-15-[address] Yunior Edgar MD Work Phone: [facility] Work Phone: Start: 10-14-2024 End: 10-14-[address] Rob Back MD -[facility] Work Phone: Start: 10-13-2024 End: 10-13-2024 Patient encounter procedure Sara Brand BIOD[employer] PRODUCT MANAGER-C -[facility] Work Phone: Start: 10-13-2024 End: 10-14-[address] Yunior Edgar MD Work Phone: [facility] Work Phone: Start: 10-09-2024 End: 12-25-2024 Telephone encounter Rob Back MD Work Phone: [facility] Comment on above: Results (Blood work from 10.02.2024); Test Scheduling Start: 10-02-2024 ambulatory Rob Back Facility:[facility] Start: 10-02-2024 Non-patient / Non-visit Dr. Bryan Zhang DO -[facility] Start: 10-02-2024 End: 10-02-2024 ambulatory [facility] Start: 10-02-2024 End: 10-02-2024 Office outpatient visit 25 minutes Rob Back MD Work Phone: [facility] Comment on above: Muscle weakness (gen eralized) (Primary Dx); Shortness of breath; Essential hypertension Start: 10-01-2024 End: 10-01-[address] Yunior Edgar MD Work Phone: [facility] Work Phone: Start: 10-01-2024 End: 10-01-[address] Bryan Zhang DO -Pulmonary Services/Neurology Work Phone: Start: 10-01-2024 End: 10-01-2024 ambulatory Bryan Zhang Facility:[facility] Start: 09-29-2024 End: 11-29-2024 Follow-up encounter Rob Back MD Work Phone: [facility] Comment on above: Lyme disease DNA, qu antitative Start: 09-28-2024 End: 09-28-2024 Refill Osman Brand CLIENT EXECUTIVE - [employer] Work Phone: [facility] Start: 09-25-2024 End: 09-25-[address] Yunior Edgar MD Work Phone: [facility] Work Phone: Start: 09-25-2024 End: 09-25-2024 Patient encounter procedure Cynthia ROBERTSON -[facility] Work Phone: Start: 09-25-2024 End: 09-25-2024 ambulatory [facility] Facility:[facility] Start: 09-23-2024 End: 10-14-2024 ambulatory [facility] Start: 09-23-2024 End: 10-14-2024 Patient encounter procedure Hui Medrano [facility] Start: 09-22-2024 End: 09-23-2024 ambulatory Jana Palma RN [facility] Start: 09-22-2024 End: 09-23-2024 Patient encounter procedure Jana Palma [facility] Comment on above: Fatigue, unspecified type (Primary Dx) Start: 09-14-2024 End: 09-14-2024 Patient encounter procedure Cynthia ROBERTSON -[facility] Work Phone: Start: 09-14-2024 End: 09-14-[address] Yunior Edgar MD Work Phone: [facility] Work Phone: Start: 09-14-2024 ambulatory [facility] Facility:[facility] Start: 09-14-2024 Non-patient / Non-visit Dr. Bryan Zhang DO -[facility] Start: 09-14-2024 End: 09-14-[address] Bryan Zhang DO -Pulmonary Services/Neurology Work Phone: Start: 09-14-2024 End: 09-14-2024 ambulatory Rob Wong Facility:[facility] Start: 09-10-2024 End: 09-10-2024 Office outpatient visit 25 minutes Osman Brand APRN [facility] Work Phone: [facility] Comment on above: Primary hypertension (Primary Dx); Dyspepsia; Fatigue, unspecified type; Chest pain, unspecified type; Slurred speech Start: 09-10-2024 End: 09-10-2024 ambulatory OSMAN BRAND [facility] Start: 09-02-2024 End: 09-02-2024 Office outpatient visit 25 minutes Rob Back MD Work Phone: [facility] Comment on above: Fatigue, unspecified type (Primary Dx); B12 deficiency; Vitamin D deficiency; Shortness of breath; Encounter for screening prostate specific antigen (PSA) measurement; Dyspepsia; Generalized abdominal pain; Encounter for screening colonoscopy; Abdominal distension Start: 09-02-2024 End: 09-02-2024 ambulatory ROB BACK [facility] Start: 08-27-2024 End: 08-27-2024 Refill Kim Antonio MD Work Phone: [facility] Start: 08-27-2024 End: 08-27-[address] Bryan Zhang DO -[facility] Work Phone: Start: 08-27-2024 End: 08-27-2024 ambulatory Rob Back Facility:[facility] Start: 08-10-2024 End: 08-21-2024 Telephone encounter Rob Back MD Work Phone: [facility] Comment on above: Referral Start: 08-06-2024 End: 08-11-2024 Telephone encounter Rob Back MD Work Phone: [facility] Comment on above: New Med Request Other (Please send r eferral to Dr. Gilberto Rice in [place]/) Start: 08-05-2024 End: 08-05-2024 Office outpatient visit 25 minutes Rob Back MD Work Phone: [facility] Comment on above: Shortness of breath (Primary Dx) Start: 08-05-2024 End: 08-05-2024 ambulatory ROB BACK [facility] Start: 07-31-2024 End: 07-31-2024 Telephone encounter Rob Back MD Work Phone: [facility] Comment on above: Results Start: 07-29-2024 Non-patient / Non-visit Dr. Leon Boyd MD -[facility] Start: 07-29-2024 End: 07-29-[address] Yunior Edgar MD -Cardiovascular Services Work Phone: Start: 07-29-2024 End: 07-30-2024 Refill Rob Back MD Work Phone: [facility] Start: 07-29-2024 End: 07-29-2024 ambulatory Yunior Edgar Facility:[facility] Start: 07-25-2024 End: 07-25-2024 Emergency department patient visit Dr. Yunior Edgar MD Work Phone: -Emergency Department Work Phone: Start: 07-24-2024 End: 07-24-2024 ambulatory OSMAN BRAND [facility] Start: 07-24-2024 End: 07-24-2024 Office outpatient visit 15 minutes Osman Brand APRN - [facility] Work Phone: [facility] Comment on above: Secondary hypertensi on (Primary Dx); Dyspnea, unspecified type; Chest pain, unspecified type Start: 07-20-2024 End: 07-20-2024 ambulatory Elise Nair RN [facility] Clinical Communication Start: 07-20-2024 End: 07-20-2024 Patient encounter procedure Elise Nair RN [facility] Communication Start: 03-06-2024 End: 03-06-2024 ambulatory Elise Nair RN [facility] Communication Start: 03-06-2024 End: 03-06-2024 Patient encounter procedure Elise Nair RN [facility] Communication Start: 09-30-2023 Refill Rob rodriguez MD Work Phone: [facility] Start: 09-27-2023 End: 11-17-2023 ambulatory Rob Yun RN [facility] Communication Start: 09-27-2023 End: 11-17-2023 Patient encounter procedure Rob Yun RN [facility] Clinical Communication Start: 04-30-2023 Orders Only Rob rodriguez MD Work Phone: [facility] Start: 02-20-2023 End: 02-20-2023 Subsequent hospital visit by physician Rob Back MD Work Phone: [facility] Non-Invasive Cardiology Comment on above: Syncope and collapse Start: 02-14-2023 End: 02-14-2023 Subsequent hospital visit by physician Rob Back MD Work Phone: [facility] Non-Invasive Cardiology Comment on above: Syncope and collapse Start: 02-14-2023 End: 02-14-2023 Office outpatient visit 25 minutes Rob Back MD Work Phone: [facility] Comment on above: Syncope and collapse (Primary Dx) Start: 02-14-2023 ambulatory Judy Robison RN [facility] linical Communication Start: 02-14-2023 Patient encounter procedure Judy Robison RN [facility] Communication Start: 05-16-2022 Orders Only Rob rodriguez MD Work Phone: [facility] Start: 05-14-2022 Telephone encounter Rob Back MD Work Phone: [facility] Comment on above: Med Refill Start: 12-29-2021 End: 12-29-[address] PAOLA CLAY DO [facility] Start: 12-08-2021 [facility]ulatory [facility] Start: 11-06-2021 ambulatory [facility] Start: 11-06-2021 End: 11-06-2021 Subsequent hospital visit by physician Lauren Renner MD Work Phone: [facility] Start: 02-15-2021 ambulatory Paola [facility] Start: 02-15-2021 End: 02-15-2021 Subsequent hospital visit by physician Paola Lofton MD Work Phone: [facility] Comment on above: Arrived Start: 04-07-2020 End: 04-07-2020 Subsequent hospital visit by physician Paola Lofton Work Phone: [facility] Start: 02-11-2019 End: 02-11-2019 Subsequent hospital visit by physician Paola Lofton Work Phone: [facility] Laboratory Start: 04-14-1999 End: 04-14-1999 Patient encounter procedure Soo Huerta Work Phone: [facility] Start: 04-14-1999 Results Only Soo Huerta Work Phone: [facility] Procedures Date Procedure Procedure Detail Performing Clinician Start: 12-31-2024 Protein xcpt refract ometry serum plasma/whl bld Ronnie Boston MD Work Phone: Start: 11-16-2024 Cta hrt cornry art/b ypass grfts contrst 3d post Rob Back MD Work Phone: Start: 11-13-[address] Yunior richter MD Work Phone: Start: 11-05-2024 Follow-up visit Follow-up ROB AVALOS Start: 10-14-2024 CT of chest without contrast Dr. Yunior Edgar MD Work Phone: Start: 09-25-2024 Ultrasound elastogra phy of liver Dr. Yunior Edgra MD Work Phone: Start: 07-29-2024 Cardiovascular stres s test using pharmacologic stress agent Dr. Yunior Edgar MD Work Phone: Start: 07-25-2024 D-dimer assay, quantitative Dr. Yunior Edgar MD Work Phone: Comment on above: NORMAL D-Dimer level (<0.50) indicates no DVT or PE. Start: 07-25-[address] Yunior Edgar MD Work Phone: Start: 07-25-2024 Plain chest [...] for Adults (1 - 1-dose 75+ series) [facility] Start: 01-01-2028 Diabetes mellitus screening Diabetes Screening [facility] Start: 02-09-2027 Lipid panel Lipid Panel [facility] Start: 05-27-2025 Depression Monitoring Depression Monitoring [facility] Start: 04-03-2025 Depression Monitoring Depression Monitoring [facility] Start: 03-12-2025 End: 03-12-2025 Patient encounter procedure 03/12/2025 7:30 AM EST Office Visit [facility] [address] [place] [address] Rayne Segundo, CLIENT EXECUTIVE - [employer] [address] [place] [address] [facility] Start: 02-09-2025 Diabetes mellitus screening Diabetes Screening [facility] Start: 02-04-2025 Depression Monitoring Depression Monitoring [facility] Start: 02-03-2025 Depression Monitoring Depression Monitoring [facility] Start: 01-24-2025 Depression Monitoring Depression Monitoring [facility] Start: 12-31-2024 End: 12-31-2025 EMG two limbs EMG two limbs Neurology Routine Bilateral leg weakness Tingling of both feet Fatigue, unspecified type Expected: 12/31/2024 (Approximate), Expires: 12/31/2025 [facility] Comment on above: Expected: 12/31/2024 (Approximate), Expi res: 12/31/2025 Start: 12-31-2024 End: 12-31-2025 Heavy metals screen, urine Heavy metals screen, urine Lab Routine Bilateral leg weakness Tingling of both feet Exposure to heavy metals Fatigue, unspecified type Expected: 12/31/2024 (Approximate), Expires: 12/31/2025 [facility] Comment on above: Expected: 12/31/2024 (Approximate), Expi res: 12/31/2025 Start: 12-31-2024 End: 12-31-2025 Hemoglobin A1c measurement Hemoglobin A1c Lab Routine Bilateral leg weakness Tingling of both feet Fatigue, unspecified type Expected: 12/31/2024 (Approximate), Expires: 12/31/2025 [facility] Comment on above: Expected: 12/31/2024 (Approximate), Expi res: 12/31/2025 Start: 12-31-2024 End: 12-31-2025 Immunofixation Electrophoresis [facility] Work Phone: Comment on above: Expected: 12/31/2024 (Approximate), Expi res: 12/31/2025 Start: 12-31-2024 End: 12-31-2025 MR Brain WO contrast MR brain wo contrast Imaging Routine Dysphasia Tremor Expected: 12/31/2024, Expires: 12/31/2025 [facility] Comment on above: Expected: 12/31/2024, Expires: Start: 12-31-2024 End: 12-31-2025 Nerve conduction test with EMG Nerve conduction test with EMG Neurology Routine Bilateral leg weakness Bilateral low back pain without sciatica, unspecified chronicity Exposure to heavy metals Expected: 12/31/2024 (Approximate), Expires: 12/31/2025 [facility] Comment on above: Expected: 12/31/2024 (Approximate), Expi res: 12/31/2025 Start: 12-31-2024 End: 12-31-2025 Thyrotropin [Units/volume] in Serum or Plasma TSH Lab Routine Bilateral leg weakness Tingling of both feet Fatigue, unspecified type Expected: 12/31/2024 (Approximate), Expires: 12/31/2025 [facility] Comment on above: Expected: 12/31/2024 (Approximate), Expi res: 12/31/2025 Start: 12-31-2024 End: 12-31-2025 Vitamin B1 ([facility]) Vitamin B1 ([facility]) Lab Routine Bilateral leg weakness Tingling of both feet Fatigue, unspecified type Expected: 12/31/2024 (Approximate), Expires: 12/31/2025 [facility] Comment on above: Expected: 12/31/2024 (Approximate), Expi res: 12/31/2025 Start: 12-31-2024 End: 12-31-2025 Vitamin B6 Vitamin B6 Lab Routine Bilateral leg weakness Tingling of both feet Fatigue, unspecified type Expected: 12/31/2024 (Approximate), Expires: 12/31/2025 [facility] Comment on above: Expected: 12/31/2024 (Approximate), Expi res: 12/31/2025 Start: 12-31-2024 End: 12-31-2025 XR hips bilateral 3 or 4 views XR hips bilateral 3 or 4 views Imaging Routine Bilateral hip pain Expected: 12/31/2024, Expires: 12/31/2025 [facility] Comment on above: Expected: 12/31/2024, Expires: Start: 12-31-2024 End: 12-31-2025 XR Lumbar spine Views W flexion and W extension XR lumbar spine 4-5 view Imaging Routine Bilateral leg weakness Bilateral low back pain without sciatica, unspecified chronicity Expected: 12/31/2024, Expires: 12/31/2025 [facility] Comment on above: Expected: 12/31/2024, Expires: Start: 12-31-2024 End: 12-31-2024 Patient encounter procedure 12/31/2024 7:20 AM EDT Office Visit [facility] [address] [place] [id number] Ronnie Boston MD [address] [place] [address] [facility] Start: 12-28-2024 COVID-19 Vaccine ( season) COVID-19 Vaccine () [facility] Start: 12-28-2024 Influenza vaccination [facility] Start: 11-24-2024 End: 11-24-2024 Patient encounter procedure 11/24/2024 2:00 PM EDT Office Visit [facility] [address] [place] [id number] Rob Back MD [address] [place] [address] [facility] Start: 11-16-2024 End: 11-16-2024 Patient encounter procedure 11/16/2024 2:00 PM EDT Appointment [facility] [address] [place] [address] Rob Back MD [address] [facility] [address] [place] [address] [facility] [address] Start: 11-13-2024 Colonoscopy w/biopsy single/multiple COLONOSCOPY AND BIOPSY [facility] Start: 11-13-2024 Endoscopy upper small intestine w/biopsy SMALL BOWEL ENDOSCOPY/BIOPSY [facility] Start: 11-13-2024 Patient discharge [facility] Start: 11-05-2024 End: 11-05-2024 Patient encounter procedure 11/05/2024 10:20 AM EDT Office Visit [facility] [address] [facility] [address] [place] [phone] Rob Back MD [address] [facility] [address] [place] [address] [facility] Start: 10-29-2024 End: 10-29-2025 CTA Heart and Coronary arteries WO and W contrast IV CTA HEART CORONARY ANGIOGRAM WITH PROV FFR-CT Imaging Routine Shortness of breath Atherosclerosis of [place] coronary artery of [place] heart without angina pectoris Expected: 10/29/2024, Expires: 10/29/2025 [facility] Work Phone: Comment on above: Expected: 10/29/2024, Expires: Start: 10-02-2024 End: 10-02-2025 ANALYZER MARA, IFA WITH REFLEX TITER/PATTERN, SYSTEMIC AUTOIMMUNE PANEL 1 [facility] ANALYZER MARA, IFA WITH REFLEX TITER/PATTERN, SYSTEMIC AUTOIMMUNE PANEL 1 [facility] Lab Routine Muscle weakness (generalized) Expected: 10/02/2024 (Approximate), Expires: 10/02/2025 [facility] Comment on above: Expected: 10/02/2024 (Approximate), Expi res: 10/02/2025 Start: 10-02-2024 End: 10-02-2025 C reactive protein [Mass/volume] in Serum or Plasma C-reactive protein Lab Routine Muscle weakness (generalized) Expected: 10/02/2024 (Approximate), Expires: 10/02/2025 [facility] Comment on above: Expected: 10/02/2024 (Approximate), Expi res: 10/02/2025 Start: 10-02-2024 End: 10-02-2025 Creatine kinase [Enzymatic activity/volume] in Serum or Plasma CK Lab Routine Muscle weakness (generalized) Expected: 10/02/2024 (Approximate), Expires: 10/02/2025 [facility] Comment on above: Expected: 10/02/2024 (Approximate), Expi res: 10/02/2025 Start: 10-02-2024 End: 10-02-2025 CT Chest WO contrast CT chest wo IV contrast Imaging Routine Muscle weakness (generalized) Shortness of breath Expected: 10/02/2024, Expires: 10/02/2025 [facility] Work Phone: Comment on above: Expected: 10/02/2024, Expires: Start: 10-02-2024 End: 10-02-2025 Erythrocyte sedimentation rate Sedimentation rate, automated Lab Routine Muscle weakness (generalized) Expected: 10/02/2024 (Approximate), Expires: 10/02/2025 [facility] Comment on above: Expected: 10/02/2024 (Approximate), Expi res: 10/02/2025 Start: 10-02-2024 End: 10-02-2025 Myasthenia Gravis Panel with Reflex to MuSK Ab Myasthenia Gravis Panel with Reflex to MuSK Ab Lab Routine Muscle weakness (generalized) Expected: 10/02/2024 (Approximate), Expires: 10/02/2025 [facility] Comment on above: Expected: 10/02/2024 (Approximate), Expi res: 10/02/2025 Start: 10-02-2024 End: 10-02-2025 MYOSITIS EXTENDED PANEL MYOSITIS EXTENDED PANEL Lab Routine Muscle weakness (generalized) Expected: 10/02/2024 (Approximate), Expires: 10/02/2025 [facility] Comment on above: Expected: 10/02/2024 (Approximate), Expi res: 10/02/2025 Start: 10-02-2024 End: 10-02-2024 Patient encounter procedure 10/02/2024 10:20 AM EDT Office Visit [facility] [address] [facility] [address] [place] [phone] Rob Back MD [address] [facility] [address] [place] [address] [facility] Start: 10-01-2024 Walking distance 6 minutes [facility] Start: 09-23-2024 End: 09-23-2025 Borrelia Species DNA, Qualitative Real-Time PCR, [facility] CODE 08516 - Miscellaneous Test Borrelia Species DNA, Qualitative Real-Time PCR, [facility] CODE 49884 - Miscellaneous Test Lab Routine Fatigue, unspecified type Expected: 09/23/2024 (Approximate), Expires: 09/23/2025 [facility] Comment on above: Expected: 09/23/2024 (Approximate), Expi res: 09/23/2025 Start: 09-23-2024 End: 09-23-2025 Miscellaneous Test [facility] Miscellaneous Test [facility] Lab Routine Fatigue, unspecified type Expected: 09/23/2024 (Approximate), Expires: 09/23/2025 [facility] Work Phone: Comment on above: Expected: 09/23/2024 (Approximate), Expi res: 09/23/2025 Start: 09-02-2024 End: 09-02-2025 25-hydroxyvitamin D3 [Mass/volume] in Serum or Plasma Vitamin D Deficiency Screening (Vit D 25) Lab Routine Fatigue, unspecified type Vitamin D deficiency Expected: 09/02/2024 (Approximate), Expires: 09/02/2025 [facility] Comment on above: Expected: 09/02/2024 (Approximate), Expi res: 09/02/2025 Start: 09-02-2024 End: 09-02-2025 CBC W Auto Differential panel - Blood CBC auto differential Lab Routine Fatigue, unspecified type Expected: 09/02/2024, Expires: 09/02/2025 [facility] Comment on above: Expected: 09/02/2024, Expires: Start: 09-02-2024 End: 09-02-2025 Cobalamin (Vitamin B12) [Mass/volume] in Serum or Plasma Vitamin B12 Lab Routine Fatigue, unspecified type B12 deficiency Expected: 09/02/2024 (Approximate), Expires: 09/02/2025 [facility] Comment on above: Expected: 09/02/2024 (Approximate), Expi res: 09/02/2025 Start: 09-02-2024 End: 09-02-2025 Comprehensive metabolic 1998 panel - Serum or Plasma Comprehensive metabolic panel Lab Routine Fatigue, unspecified type Vitamin D deficiency Shortness of breath Expected: 09/02/2024 (Approximate), Expires: 09/02/2025 [facility] Comment on above: Expected: 09/02/2024 (Approximate), Expi res: 09/02/2025 Start: 09-02-2024 End: 09-02-2025 PSA screening PSA Screening Lab Routine Encounter For Screening Prostate Specific Antigen (Psa) Measurement Expected: 09/02/2024 (Approximate), Expires: 09/02/2025 [facility] Comment on above: Expected: 09/02/2024 (Approximate), Expi res: 09/02/2025 Start: 09-02-2024 End: 09-02-2025 Thyrotropin [Units/volume] in Serum or Plasma TSH Lab Routine Fatigue, unspecified type Expected: 09/02/2024 (Approximate), Expires: 09/02/2025 [facility] Work Phone: Comment on above: Expected: 09/02/2024 (Approximate), Expi res: 09/02/2025 Start: 09-02-2024 End: 09-02-2025 Thyroxine (T4) free [Mass/volume] in Serum or Plasma T4, free Lab Routine Fatigue, unspecified type Expected: 09/02/2024 (Approximate), Expires: 09/02/2025 [facility] Comment on above: Expected: 09/02/2024 (Approximate), Expi res: 09/02/2025 Start: 08-05-2024 End: 08-05-2024 Patient encounter procedure 08/05/2024 1:40 PM EDT Office Visit [facility] [address] [facility] [address] [place] [phone] Rob Back MD [address] [facility] [address] [place] [address] [facility] Start: 07-25-2024 [facility] Start: 07-25-2024 [facility] Start: 07-24-2024 End: 07-24-2024 Patient encounter procedure 07/24/2024 10:20 AM EDT Office Visit [facility] [address] [facility] [address] [place] [address] Osman Brand, CLIENT EXECUTIVE - [employer] [address] [facility] [address] [place] [phone] [facility] Start: 04-29-2024 Medicare Advantage Annual Wellness Visit Medicare Advantage Annual Wellness Visit [facility] Start: 12-29-2023 COVID-19 Vaccine () COVID-19 Vaccine () [facility] Start: 12-29-2023 Influenza vaccination [facility] Start: 05-31-2023 End: 05-31-2023 Patient encounter procedure 05/31/2023 1:20 PM EST Office Visit [facility] [address] [facility] [address] [place] [address] Rob Back MD [address] [facility] [address] [place] [address] [facility] Start: 02-14-2023 End: 02-14-2025 Cardiac holter monitor (8- 15 days) Cardiac holter monitor (8- 15 days) [facility] Routine Syncope and collapse Expected: 02/14/2023, Expires: 02/14/2025 [facility] Comment on above: Expected: 02/14/2023, Expires: Start: 02-14-2023 End: 02-15-2024 CBC W Auto Differential panel - Blood CBC auto differential Lab Routine Syncope and collapse Expected: 02/14/2023 (Approximate), Expires: 02/15/2024 [facility] Comment on above: Expected: 02/14/2023 (Approximate), Expi res: 02/15/2024 Start: 02-14-2023 End: 02-15-2024 Comprehensive metabolic 1998 panel - Serum or Plasma Comprehensive metabolic panel Lab Routine Syncope and collapse Expected: 02/14/2023 (Approximate), Expires: 02/15/2024 [facility] Work Phone: Comment on above: Expected: 02/14/2023 (Approximate), Expi res: 02/15/2024 Start: 02-14-2023 End: 02-15-2024 Magnesium [Mass/volume] in Serum or Plasma Magnesium Lab Routine Syncope and collapse Expected: 02/14/2023 (Approximate), Expires: 02/15/2024 [facility] Comment on above: Expected: 02/14/2023 (Approximate), Expi res: 02/15/2024 Start: 02-14-2023 End: 02-15-2024 Thyrotropin [Units/volume] in Serum or Plasma TSH Lab Routine Syncope and collapse Expected: 02/14/2023 (Approximate), Expires: 02/15/2024 [facility] Comment on above: Expected: 02/14/2023 (Approximate), Expi res: 02/15/2024 Start: 12-28-2022 COVID-19 Vaccine ( season) COVID-19 Vaccine ( season) [facility] Start: 12-28-2022 Influenza vaccination Influenza Vaccine (#1) [facility] Start: 05-23-2022 End: 05-23-2022 Patient encounter procedure 05/23/2022 Office Visit Internal Medicine Rob Back MD [address] [place] [address] [address] [place] [address] [facility] [place] [facility] Start: 2022 Pneumococcal Vaccine: 65+ Years (1 - PCV) Pneumococcal Vaccine: 65+ Years (1 - PCV) [facility] Start: 2022 Pneumococcal Vaccine: 65+ Years (1 of 1 - PCV) Pneumococcal Vaccine: 65+ Years (1 of 1 - PCV) [facility] Start: 12-28-2021 Influenza vaccination [facility] Start: 08-15-2021 Lipid panel [facility] Start: 12-28-2020 Influenza vaccination Flu vaccine (#1) [facility] Work Phone: Start: 12-29-2019 Influenza vaccination [facility] Start: 12-28-2018 Influenza vaccination Flu vaccine (#1) [place], [place] Start: 08-15-2017 Prostate specific antigen measurement Prostate Specific Antigen (PSA) Screening or Monitoring [facility] Start: 2017 RSV Immunization aged 60 or older (1 - 1-dose 60+ series) RSV Immunization aged 60 or older (1 - 1-dose 60+ series) [facility] Start: 2017 RSV Immunization for Adults (1 - Risk 60-74 years 1-dose series) RSV Immunization for Adults (1 - Risk 60-74 years 1-dose series) [facility] Start: 2012 PROSTATE CANCER SCREENING DISCUSSION PROSTATE CANCER SCREENING DISCUSSION [facility] Start: 2007 Pneumococcal Vaccine: 50+ Years (1 of 1 - PCV) Pneumococcal Vaccine: 50+ Years (1 of 1 - PCV) [facility] Start: 2007 Shingles Vaccine (1 of 2) Shingles Vaccine (1 of 2) [facility] Start: 2007 SHINGRIX VACCINE (1 of 2) SHINGRIX VACCINE (1 of 2) [facility] Start: 2007 Tuberculosis screening COLORECTAL CANCER SCREENING,SEE MODIFIER [facility] Start: 2007 Zoster Vaccines (1 of 2) Zoster Vaccines (1 of 2) [facility] Start: 2002 DIABETES SCREEN DIABETES SCREEN [facility] Start: 2002 Screening for malignant neoplasm of colon [facility] Start: 1992 LIPID SCREEN LIPID SCREEN [facility] Start: 1976 DTaP/Tdap/Td vaccine (1 - Tdap) DTaP/Tdap/Td vaccine (1 - Tdap) [facility] Start: 1976 DTaP/Tdap/Td Vaccines (1 - Tdap) DTaP/Tdap/Td Vaccines (1 - Tdap) [facility] Start: 1976 Pneumococcal Vaccine: 50+ Years (1 of 2 - PCV) Pneumococcal Vaccine: 50+ Years (1 of 2 - PCV) [facility] Start: 1976 Urine microalbumin profile DTAP,TDAP,TD (1 - Tdap) [facility] Start: 1975 HEPATITIS C SCREENING HEPATITIS C SCREENING [facility] Start: 1975 Hepatitis C screening [facility] Start: 1975 HIV SCREENING HIV SCREENING [facility] Start: 1972 HIV screening HIV screen [facility] Start: 1969 COVID-19 Vaccine (1) COVID-19 Vaccine (1) [facility] Work Phone: Start: 1969 Depression Monitoring Depression Monitoring [facility] Start: 1969 Depression Screen Depression Screen [facility] Start: 1969 Depression Screening Depression Screening [facility] Start: 1962 COVID-19 Vaccine (1) COVID-19 Vaccine (1) [facility] Start: 1957 COVID-19 Vaccine (#1) COVID-19 Vaccine (#1) [facility] Start: 1957 Annual wellness visit Medicare Initial Physical (IPPE) [facility] Start: 1957 Hepatitis B Vaccines (1 of 3 - 3-dose series) Hepatitis B Vaccines (1 of 3 - 3-dose series) [facility] Start: 1957 Hepatitis C screening Hepatitis C screen [facility] Work Phone: Start: 1957 Lipid panel Lipid Panel [facility] Start: 1957 Medicare Annual Wellness (AWV) Medicare Annual Wellness (AWV) [facility] Start: 1957 Screening for malignant neoplasm of colon [facility] End: 02-20-2023 Cardiac holter monitor (8- 15 days) [facility] [employer] Work Phone: Comment on above: Once for 1 Occurrences starting 02/21/20 until 02/20/2023 ECG 12 lead ECG 12 lead CV E CG Routine Syncope and collapse 02/14/2023 3:31 PM EDT [facility] Immunofixation Electrophoresis Immunofixation Electrophoresis Lab Routine Bilateral leg weakness Tingling of both feet Fatigue, unspecified type 12/31/2024 8:51 AM EDT [facility] Liver stiffness by US.transient elastography [facility] End: 01-05-2025 Nerve conduction test with EMG [facility] [employer] Work Phone: Comment on above: Once for 1 Occurrences starting 01/06/20 until 01/05/2025 Patient Education ED Dyspnea [facility] Work Phone: Patient referral [facility] Work Phone: Polysomnography [facility] Protein, Total and Protein Electrophoresis Protein, Total and Protein Electrophoresis Lab Routine Bilateral leg weakness Tingling of both feet Fatigue, unspecified type 12/31/2024 8:51 AM EDT CRV Serum Electrophoresis Serum Elec trophoresis Lab Routine Bilateral leg weakness Tingling of both feet Fatigue, unspecified type 12/31/2024 8:51 AM EDT CRV Stress echocardiography [facility] End: 02-15-2021 US ABDOMEN COMPLETE US ABDOMEN COMPLETE Imaging Routine Once for 1 Occurrences starting 02/15/2021 until 02/15/2021 [employer] Work Phone: Comment on above: Once for 1 Occurrences starting 02/16/20 21 until 02/15/2021 US ABDOMEN COMPLETE US ABDOMEN C OMPLETE Imaging Routine 02/15/2021 3:38 PM EDT [employer] Work Phone: End: 11-06-2021 XR KNEE RIGHT (MIN 4 VIEWS) [employer] Work Phone: Comment on above: Once for 1 Occurrences starting 11/07/19 until 11/06/2021 Payers Date Payer Category Payer Medicare HMO [employer] MEDICARE ADV ANTAGE [id number] 2024 Self-pay [id number] 2024 Self-pay [id number] 2024 Medicare [id number] 2024 Medicare [id number] 2020 Unknown 1957 Unknown [id number] 1957 Unknown [id number] 1957 Unknown [id number] [id number] Unknown [id number] [id number] Unknown [id number] 2.840.1.482058.3.579.2.462 Unknown [id number] 2.840.1.571896.3.579.2.462 Unknown [id number] 2.840.1.938947.3.579.2.462 Unknown [id number] 2.840.1.584569.3.579.2.462 Unknown [id number] 2.840.1.954002.3.579.2.462 Unknown [id number] 2.840.1.941998.3.579.2.462 Unknown [id number] 2.840.1.161747.3.579.2.462 Unknown [id number] 2.840.1.432053.3.579.2.462 Unknown [id number] 2.840.1.310210.3.579.2.462 Unknown [id number] 2.840.1.306046.3.579.2.462 Unknown [id number] 2.840.1.230578.3.579.2.462 Unknown [id number] 2.840.1.414162.3.579.2.462 Unknown [id number] 2.840.1.078305.3.579.2.462 Unknown [id number] 2.840.1.863501.3.579.2.462 Unknown [id number] 2.840.1.873452.3.579.2.462 Unknown [id number] 2.0.1.485451.3.579.2.462 Unknown [id number] 2.0.1.993947.3.579.2.462 Unknown [id number] [id number] Social History Date Type Detail [facility] [place] Start: 1955 Sex Assigned At Not on file M [place], [place] [facility] smoking consumption unknown [facility] Tobacco smoking status Never smo ked tobacco (finding) [facility] Sex Assigned At Sex [facility] Start: 02-14-2023 End: 08-05-2024 Alcohol intake Lifetime non-drinker (finding) [facility] Start: 02-14-2023 End: 08-04-2024 History of Social function [facility] Start: 02-14-2023 End: 08-04-2024 Tobacco use panel [facility] Start: 11-27-2021 End: 08-04-2024 Sex Male (finding) [facility] Start: 07-25-2024 End: 11-10-2024 Tobacco smoking status ILIS Ex-smoker (finding) [facility] Start: 1955 Sex Assigned At Male W [facility] How often do you nee d to have someone help you when you read instructions, pamphlets, or other written material from your doctor or pharmacy [SILS] Never [facility] Has the [employer], or [employer] threatened to shut off services in your home in past 12Mo No [facility] How often to you hav e a drink containing alcohol? Monthly or less [facility] How often do you hav e 6 or more drinks on 1 occasion? Less than monthly [facility] How often do you nee d to have someone help you when you read instructions, pamphlets, or other written material from your doctor or pharmacy [SILS] Never [facility] Start: 12-31-2024 Alcoholic beverage intake Current drinker of alcohol (finding) [facility] Start: 12-31-2024 Alcohol Comment occ [facility] ealt Goals Date Patient Goal Desired Activity /State Functional Status Date Assessment Result Facility 11-24-2024 Patient Health Questionnaire 2 item (PHQ- 2) [Reported] [facility] 10-02-2024 Patient Health Questionnaire 2 item (PHQ- 2) [Reported] [facility] Mental Status Date Assessment Result Facility 11-13-2024 Cognitive function Voice/Name [facility] Work Phone: Clinical Notes 05-14-2022 to 01-08-2025 Telephone Encounter - Ronnie Boston MD - 01/08/2025 5:13 PM EDTTelephone Encounter - Ronnie Boston MD - 01/08/2025 5:13 PM EDTTelephone Encounter - Thompson Hoover RN - 01/06/2025 6:41 PM EDT Note Date & Type Note Facility 01-08-2025 Telephone encount er Note Please put him on the cancellation list for all four of us. [facility] 01-08-2025 Miscellaneous Notes Formattin g of this note might be different from the original. Please put him on the cancellation list for all four of us. S: [facility] with complaints of vertigo. B: Symptoms began three months prior to call, worsening since nerve conduction test yesterday. A: Patient reporting vertigo, unsteady gait, head pressure, neck soreness, weakness in his legs, tunnel vision, and foggy feeling. Sensation exacerbated by movement. Is able, however, to stand and walk. Patient reports gradual loss of strength over the last few months. Denies earache, tinnitus, any pain, nausea, vomiting, or garbled speech. R: Dr. Boston paged for directive. Provider states these are not normal symptoms following an EMG/NCS, but it sounds like high blood pressure. Return call placed to patient, who reports BP of 137/86, NC 120. Provider directs patient to emergency department for tachycardia and stroke-like symptoms. Patient verbalizes understanding, however states he will proceed to ED in the morning. Reason for Disposition [1] Dizziness (vertigo) present now AND [2] one or more STROKE RISK FACTORS (i.e., hypertension, diabetes, prior stroke/TIA, heart attack) (Exception: Prior doctor or [employer] PRODUCT MANAGER/PA evaluation for this AND no different/worse than usual.) Protocols used: Dizziness - [id number] documented in this encounter [facility] 01-06-2025 Telephone encount er Note S: [facility] with complaints of vertigo. B: Symptoms began three months prior to call, worsening since nerve conduction test yesterday. A: Patient reporting vertigo, unsteady gait, head pressure, neck soreness, weakness in his legs, tunnel vision, and foggy feeling. Sensation exacerbated by movement. Is able, however, to stand and walk. Patient reports gradual loss of strength over the last few months. Denies earache, tinnitus, any pain, nausea, vomiting, or garbled speech. R: Dr. Boston paged for directive. Provider states these are not normal symptoms following an EMG/NCS, but it sounds like high blood pressure. Return call placed to patient, who reports BP of 137/86, NC 120. Provider directs patient to emergency department for tachycardia and stroke-like symptoms. Patient verbalizes understanding, however states he will proceed to ED in the morning. Reason for Disposition [1] Dizziness (vertigo) present now AND [2] one or more STROKE RISK FACTORS (i.e., hypertension, diabetes, prior stroke/TIA, heart attack) (Exception: Prior doctor or BIODIESEL PRODUCT MANAGER/PA evaluation for this AND no different/worse than usual.) Protocols used: Dizziness - [id number] [facility] 09-04-2025 History of Presen t illness Narrative Images from the original note were not included. [facility] [address] [address] [facility] [address] [facility] [address] Dept: [phone] Dept Loc: [phone] Ronnie Boston MD Thank you for your kind request for a neurological consultation on this patient. CHIEF COMPLAINT: Chief Complaint Patient presents with New Patient Extremity Weakness Gait Problem HISTORY OF PRESENT ILLNESS: The patient is a 69 y.o. person who presents with weakness from the waist down and trouble with his talking. He reports that he feels that his upper body is strong, but his legs from the hips down are getting steadily weak over the last 4-5 years. He reports that the weakness got worse after an illness in March. Later, he denies that it was an illness, just he got more easily short of breath. 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 He reports that sometimes he is having trouble getting in and out of truck. He has to physically lift up his knees with his hands to get in and out of his truck. He has tingling in the bottom of the feet and back of the distal leg. The tingling and weird sensation is present whatever he is doing on not doing things. They are also sensitive to touch. Ibuprofen helps. He reports that he has been having lower back pain during this. Not referrring from the lower back. He is having trouble with getting words out. He sometimes has trouble getting words out that he wants to say. Further questionning reveals a tendency to stutter. Past Medical History: has a past medical history of Concussion, Depression, Hypertension, Pelvic fracture (HCC), and Sacral fracture (HCC). Past Surgical History: has a past surgical history that includes Knee cartilage surgery; Appendectomy; Hernia repair; and Tonsillectomy. Medications: Current Medications[1] Allergies: Patient has no known allergies. Social History: Social History Socioeconomic History Marital status: Spouse name: Not on file Number of children: Not on file Years of education: Not on file Highest education level: Not on file Occupational History Not on file Tobacco Use Smoking status: Never Smokeless tobacco: Never Vaping Use Vaping status: Never Used Substance and Sexual Activity Alcohol use: Yes Comment: occ Drug use: Never Sexual activity: Yes Partners: Female Other Topics Concern Not on file Social History Narrative Not on file Social Drivers of Health Financial Resource Strain: Patient Declined (08/04/2024) Overall Financial Resource Strain (CARDIA) Difficulty of Paying Living Expenses: Patient declined Food Insecurity: Patient Declined (08/04/2024) Hunger Vital Sign Worried About Running Out of Food in the Last Year: Patient declined Ran Out of Food in the Last Year: Patient declined Transportation Needs: Patient Declined (08/04/2024) PRAPARE - Transportation Lack of Transportation (Medical): Patient declined Lack of Transportation (Non-Medical): Patient declined Physical Activity: Insufficiently Active (02/09/2022) Received from [facility] Exercise Vital Sign Days of Exercise per Week: 3 days Minutes of Exercise per Session: 30 min Stress: No Stress Concern Present (02/09/2022) Received from [facility] [place] [facility] [employer] [facility] - Occupational Stress Questionnaire Feeling of Stress : Only a little Social Connections: Unknown (08/04/2024) Social Connection and Isolation Panel [NHANES] Frequency of Communication with Friends and Family: More than three times a week Frequency of Social Gatherings with Friends and Family: Patient declined Attends Yazidism Services: Patient declined Active Member of Clubs or Organizations: Patient declined Attends Club or Organization Meetings: Patient declined Marital Status: Patient declined Intimate Partner Violence: Not At Risk (02/09/2022) Received from [facility] Humiliation, Afraid, Rape, and Kick questionnaire Fear of Current or Ex-Partner: No Emotionally Abused: No Physically Abused: No Sexually Abused: No Housing Stability: Unknown (08/04/2024) Housing Stability Vital Sign Unable to Pay for Housing in the Last Year: No Number of Times Moved in the Last Year: Not on file Homeless in the Last Year: No Family History: Family History[2] REVIEW OF SYSTEMS: Review of Systems Constitutional: Negative for appetite change, chills, diaphoresis, fever and unexpected weight change. HENT: Negative for dental problem and mouth sores. Eyes: Negative for discharge and itching. Respiratory: Negative for chest tightness. Cardiovascular: Negative for chest pain and leg swelling. Gastrointestinal: Negative for rectal pain and vomiting. Endocrine: Negative for polydipsia, polyphagia and polyuria. Genitourinary: Negative for decreased urine volume, flank pain and genital sores. Musculoskeletal: Negative for arthralgias. Skin: Negative for color change. Allergic/Immunologic: Negative for food allergies and immunocompromised state. Hematological: Negative for adenopathy. Does not bruise/bleed easily. Psychiatric/Behavioral: Negative for agitation, behavioral problems, decreased concentration, sleep disturbance and suicidal ideas. PHYSICAL EXAM: Vitals: BP (!) 173/100 (BP Location: Right arm, Patient Position: Sitting, BP Cuff Size: Adult) Pulse 109 Ht 6' 1 (1.854 m) Wt 231 lb (105 kg) BMI 30.48 kg/m General Appearance: Patient is in no apparent distress. Head is normocephalic, atraumatic Cardiovascular: Regular rate and rhythm. No heart murmurs. No carotid bruit Neurologic: Mentation: Alert and oriented to person, place and time. Speech and Language: Speech was normal. He occl stuttered but this occurred when I was asking him about the issues with his speech. Language normal Concentration and Attention: Concentration normal Memory: Memory 3/3 immed, 3/3 short Fund of Knowledge: Fund of knowledge normal Cranial Nerves: II, III, IV, V, , VII, VIII, IX, X, XI, XII tested and were intact including fundoscopic exam (optic discs) and visual field to confrontation. Motor: Strength:Strength 5 out of 5 with normal tone except mild 4+/5 in the hip flexors even with encouragement. Alternating Movements: Normal Cogwheel Rigidity: None Tone: Tone is normal Tremor / Involuntary Movements: Left high frequency postural and vertical tremor with posture and activity Deep Tendon Reflexes: 1 out of 4 symmetrical in all four limbs. Sensory: Decreased sensation in the medial (pinky) part of the palms relative to the lateral (index) area of the palms. Absent pinprick in the back of the ankles. Decreased in the medial anterior feet but ok in the lateral feet anterior Coordination: Normal coordination upper and lower extremities Gait and Station: Station is normal. Gait is normal DATA CBC: Lab Results Component Value Date WBC 7.7 09/04/2024 RBC 4.99 09/04/2024 HGB 15.3 09/04/2024 HCT 46.7 09/04/2024 MCV 93.6 09/04/2024 MCH 30.7 09/04/2024 MCHC 32.8 09/04/2024 RDW 12.7 09/04/2024 PLT 300 09/04/2024 MPV 10.5 09/04/2024 CMP: Lab Results Component Value Date NA 141 02/09/2022 K 4.3 02/09/2022 CL 108 (H) 02/09/2022 CO2 25 09/04/2024 BUN 22 09/04/2024 CREATININE 1.10 09/04/2024 AGRATIO 1.6 09/04/2024 GLUCOSE 89 09/04/2024 PROT 7.0 09/04/2024 CALCIUM 9.6 09/04/2024 BILITOT 0.6 09/04/2024 ALKPHOS 68 09/04/2024 AST 12 09/04/2024 ALT 12 09/04/2024 BMP: Lab Results Component Value Date NA 141 02/09/2022 K 4.3 02/09/2022 CL 108 (H) 02/09/2022 CO2 25 09/04/2024 BUN 22 09/04/2024 CREATININE 1.10 09/04/2024 CALCIUM 9.6 09/04/2024 GLUCOSE 89 09/04/2024 PT/INR: No results found for: PROTIME, INR PTT: No results found for: APTT, PTT[APTT} FLP: Lab Results Component Value Date TRIG 247 (A) 02/09/2022 HDL 48 02/09/2022 TSH: Lab Results Component Value Date TSH 0.69 09/04/2024 VITAMIN B12: VITAMIN B12 Date Value Ref Range Status 09/04/2024 653 200 - 1,100 pg/mL Final CTA HEART CORONARY ANGIOGRAM WITH PROV FFR-CT Addendum: Patient Name: LAUREN ESCALANTE : 1955 Exam Date/Time: 11/16/2024 13:26 Procedure: CT CORONARY CTA WITH PROV FFR-CT Ordering Provider: BACK JOHN Reason For Exam: shortness of breath, coronary calcifications on CT chest --------ADDENDUM #1 -------- Addendum: Extracardiac findings: Minimal left lower lobe subsegmental atelectasis versus parenchymal scar. No visualized pulmonary nodule or infiltrate. Small left medial hemidiaphragmatic fat containing hernia. No mediastinal or hilar adenopathy. Please refer to Dr. Junior's coronary CTA report for cardiac and vascular findings. Extracardiac impression: Left lower lobe subsegmental atelectasis versus parenchymal scar. Small left medial hemidiaphragmatic fat containing hernia Report Dictated on Electronically Signed By: Noel Santiago DO Electronically Signed Date/Time: 11/18/2024 5:40 PM EDT --------ORIGINAL REPORT -------- Coronary CTA Indication: 69 year-old man with chest discomfort. Study performed to evaluate for coronary artery disease. Technique: Computed tomography of the heart and surrounding structures was performed using a [employer] multidetector scanner with cardiac gating and dose reduction techniques. Images were reconstructed and analyzed on an advanced post-processing 3D workstation. Sublingual nitroglycerin was administered for coronary dilation and oral metoprolol was taken in advance for heart rate optimization. See nursing notes for additional details of medications given in the CT department. Contrast: 75 mL Total DLP = 756.8 mGy-cm Study Quality: excellent. Extracardiac Findings: For a complete description of extracardiac structures, please refer to the accompanying radiology addendum. Cardiac Chambers and Valves: The pericardium is normal in thickness; there is moderate pericardial and epicardial fat accumulation with CT attenuation value of -89 HU suggestive of high density fat. The left and right ventricles are normal in size. The left and right atria are normal in size. The left atrial appendage is normal in appearance. The mitral valve is unremarkable by CT appearance. The aortic valve is trileaflet. Great Vessels: The ascending aorta is normal in size. The aortic arch is not included in the present study. The included portions of the descending thoracic aorta are normal in size. Coronary Anatomy: The coronaries have normal origins. There is a pattern of co- coronary dominance. Left Main Trunk: This is a large vessel that bifurcates normally into the LAD and LCx. There is a partially calcified plaque in the proximal LM without significant stenosis. Left Anterior Descending Artery: This is a large vessel that wraps around the apex after providing 3 diagonal branches. There is a diffuse partially calcified plaque in the ostium/proximal LAD with <10% stenosis. The mid LAD (between the first and second diagonal branches) is short and without significant disease. There is a diffuse partially calcified plaque in the distal LAD (just after the second diagonal branch) with mild up to 40% stenosis. There is a smooth segments of myocardial bridging in the distal LAD without significant disease, stenosis or kinks. There is a calcified plaque in the proximal segment of D2 branch without significant stenosis. Left Circumflex Artery: This is a large co-dominant vessel that gives rise to 3 obtuse marginal branches and several posterolateral branches. There is diffuse partially calcified plaque in the proximal LCx with <10% stenosis. There is a calcified plaque in the mid LCx without significant stenosis. OM1 is a tiny vessel. OM 2 is large with a noncalcified plaque in its proximal segments and mild 30-40% stenosis. Right Coronary Artery: This is a large co-dominant vessel. It gives rise to a medium sized PDA. There is a noncalcified plaque in the proximal RCA with mild 40% stenosis. There is a calcified plaque in the distal RCA without significant stenosis. CONCLUSIONS: 1. Nonobstructive coronary atherosclerosis. 2. The coronary calcium score is 123 (Agatston method). 3. Normal cardiac chambers. FFR-CT OPTION: FFR-CT is not requested for this study. CAD-RADS 2, P4 Recommendation: Preventive pharmacotherapy and risk factor modification. Consider non-atherosclerotic causes of symptoms. Beverley Junior MD Report Dictated on Electronically Signed By: Beverley Junior Electronically Signed Date/Time: 11/17/2024 9:57 AM EDT Narrative: Patient Name: LAUREN ESCALANTE : 1955 Exam Date/Time: 11/16/2024 13:26 Procedure: CT CORONARY CTA WITH PROV FFR-CT Ordering Provider: BACK JOHN Reason For Exam: shortness of breath, coronary calcifications on CT chest Coronary CTA Indication: 69 year-old man with chest discomfort. Study performed to evaluate for coronary artery disease. Technique: Computed tomography of the heart and surrounding structures was performed using a Luis multidetector scanner with cardiac gating and dose reduction techniques. Images were reconstructed and analyzed on an advanced post-processing 3D workstation. Sublingual nitroglycerin was administered for coronary dilation and oral metoprolol was taken in advance for heart rate optimization. See nursing notes for additional details of medications given in the CT department. Contrast: 75 mL Total DLP = 756.8 mGy-cm Study Quality: excellent. Extracardiac Findings: For a complete description of extracardiac structures, please refer to the accompanying radiology addendum. Cardiac Chambers and Valves: The pericardium is normal in thickness; there is moderate pericardial and epicardial fat accumulation with CT attenuation value of -89 HU suggestive of high density fat. The left and right ventricles are normal in size. The left and right atria are normal in size. The left atrial appendage is normal in appearance. The mitral valve is unremarkable by CT appearance. The aortic valve is trileaflet. Great Vessels: The ascending aorta is normal in size. The aortic arch is not included in the present study. The included portions of the descending thoracic aorta are normal in size. Coronary Anatomy: The coronaries have normal origins. There is a pattern of co- coronary dominance. Left Main Trunk: This is a large vessel that bifurcates normally into the LAD and LCx. There is a partially calcified plaque in the proximal LM without significant stenosis. Left Anterior Descending Artery: This is a large vessel that wraps around the apex after providing 3 diagonal branches. There is a diffuse partially calcified plaque in the ostium/proximal LAD with <10% stenosis. The mid LAD (between the first and second diagonal branches) is short and without significant disease. There is a diffuse partially calcified plaque in the distal LAD (just after the second diagonal branch) with mild up to 40% stenosis. There is a smooth segments of myocardial bridging in the distal LAD without significant disease, stenosis or kinks. There is a calcified plaque in the proximal segment of D2 branch without significant stenosis. Left Circumflex Artery: This is a large co-dominant vessel that gives rise to 3 obtuse marginal branches and several posterolateral branches. There is diffuse partially calcified plaque in the proximal LCx with <10% stenosis. There is a calcified plaque in the mid LCx without significant stenosis. OM1 is a tiny vessel. OM 2 is large with a noncalcified plaque in its proximal segments and mild 30-40% stenosis. Right Coronary Artery: This is a large co-dominant vessel. It gives rise to a medium sized PDA. There is a noncalcified plaque in the proximal RCA with mild 40% stenosis. There is a calcified plaque in the distal RCA without significant stenosis. CONCLUSIONS: 1. Nonobstructive coronary atherosclerosis. 2. The coronary calcium score is 123 (Agatston method). 3. Normal cardiac chambers. FFR-CT OPTION: FFR-CT is not requested for this study. CAD-RADS 2, P4 Recommendation: Preventive pharmacotherapy and risk factor modification. Consider non-atherosclerotic causes of symptoms. Beverley Junior MD Report Dictated on Electronically Signed By: Beverley Junior Electronically Signed Date/Time: 11/17/2024 9:57 AM EDT Component Ref Range & Units 3 mo ago (10/02/24) 3 mo ago (10/02/24) ELLE-1 ANTIBODY <11 SI <11 <1.[address]-7 Ab <11 SI <11 PL-12 Ab <11 SI <11 EJ Ab <11 SI <11 OJ Ab <11 SI <11 SRP Ab <11 SI <11 UT-2 Alpha Ab <11 SI <11 UT-2 Beta Ab <11 SI <11 MDA5 Ab <11 SI <11 TIF1 Gamma Ab <11 SI <11 NXP-2 Ab <11 SI <11 Comment: Myositis-specific autoantibodies (MSAs) are highly selective, generally mutually exclusive, and are Component Ref Range & Units 3 mo ago (10/02/24) 3 mo ago (10/02/24) MARA SCREEN, IFA - [facility] NEGATIVE NEGATIVE Component Ref Range & Units 3 mo ago ACETYLCHOLINE RECEPTOR BLOCKING ANTIBODY <15 % Inhibition <15 ACETYLCHOLINE RECEPTOR BINDING ANTIBODY nmol/L <0.30 Comment: Reference Ranges for Acetylcholine Receptor Binding Antibody: Negative: < or =0.30 nmol/L Equivocal: 0.31-0.49 nmol/L Positive: > or =0.50 nmol/L ACETYLCHOLINE RECEPTOR MODULATING ANTIBODY % Inhibition 16 Comment: Reference Range: <32% INHIBITION Component Ref Range & Units 3 mo ago C-REACTIVE PROTEIN <8.0 mg/L <3.0 Component Ref Range & Units 3 mo ago SED RATE BY MODIFIED WESTERGREN < OR = 20 mm/h 6 Component Ref Range & Units 3 mo ago CREATINE KINASE, TOTAL 22 - 308 U/L 77 [facility] HEPATITIS C ANTIBODY Date Value Ref Range Status 02/09/2022 NOT DETECTED Not Detected NA Final Comment: Patients with DETECTED Hepatitis C Ab results should have a new specimen submitted for supplemental testing with a Hepatitis C Quantitative RNA assay (viral load), if clinically indicated. No results found for: CRP, ANATITER, ANCA Component Ref Range & Units 2 yr ago HEMOGLOBIN A1C % 5.4 Comment: Normal less than 5.7% Prediabetes 5.7% to 6.4% Diabetes 6.5% or higher --HgbA1C levels may not be accurate in patients who have renal disease, received recent blood transfusions, are anemic, or who have dyshemoglobinemia. ESTIMATED AVERAGE GLUCOSE mg/dL 108 ASSESSMENT AND PLAN: Diagnosis Plan 1. Bilateral leg weakness [facility] Immunofixation Electrophoresis Protein, Total and Protein Electrophoresis EMG two limbs Vitamin B6 Vitamin B1 ([facility]) TSH Hemoglobin A1c Heavy metals screen, urine Immunofixation Electrophoresis Vitamin B6 Vitamin B1 ([facility]) TSH Hemoglobin A1c XR lumbar spine 4-5 view Nerve conduction test with EMG 2. Tingling of both feet Immunofixation Electrophoresis Protein, Total and Protein Electrophoresis EMG two limbs Vitamin B6 Vitamin B1 ([facility]) TSH Hemoglobin A1c Heavy metals screen, urine Immunofixation Electrophoresis Vitamin B6 Vitamin B1 ([facility]) TSH Hemoglobin A1c 3. Dysphasia MR brain wo contrast 4. Bilateral low back pain without sciatica, unspecified chronicity XR lumbar spine 4-5 view Nerve conduction test with EMG 5. Bilateral hip pain XR hips bilateral 3 or 4 views 6. Exposure to heavy metals Heavy metals screen, urine Nerve conduction test with EMG 7. Fatigue, unspecified type Immunofixation Electrophoresis Protein, Total and Protein Electrophoresis EMG two limbs Vitamin B6 Vitamin B1 ([facility]) TSH Hemoglobin A1c Heavy metals screen, urine Immunofixation Electrophoresis Vitamin B6 Vitamin B1 ([facility]) TSH Hemoglobin A1c 8. Tremor MR brain wo contrast It is medically necessary for him to get EMG/NCS for polyradiculopathy v neuropathy causing the weakness and numbness in his legs and feet. Exam and history point toward a lower back issue, but could definitely be a neuropathic issue. Labs for common causes of neuropathy. MRI brain without. If neg, then needs to see ST for stuttering. Xrays of the lumbar spine. History c/w hip issues. The patient has exposure from work to heavy metals. Labs for causes. Atypical tremor. Will check MRI brain. Not parkinsonian. Not clear if neurological. Will follow. I, Ronnie Boston MD, furnish ongoing care related to Lauren Escalante single, serious and complex condition(s) weakness, numbness, trouble talking. I assume responsibility for the patient's ongoing medical care of this condition. I spent 60 minutes caring for this patient today, reviewing labs and records, seeing the patient, documenting in the record and arranging for studies. [1] Current Outpatient Medications: amphetamine-dextroamphetamine (Adderall) 20 MG tablet, Take 1 tablet by mouth 2 times daily. (Patient taking differently: Take 1 tablet by mouth Once as needed.), Disp: , Rfl: pantoprazole (ProtoNix) 40 MG EC tablet, Take 1 tablet (40 mg) by mouth daily. Do not crush, chew, or split. (Patient taking differently: Take 40 mg by mouth as needed. Do not crush, chew, or split.), Disp: 90 tablet, Rfl: 1 QUEtiapine (SEROquel) 25 MG tablet, Take 25 mg by mouth Nightly. (Patient taking differently: Take 25 mg by mouth as needed.), Disp: , Rfl: venlafaxine XR (Effexor XR) 37.5 MG 24 hr capsule, Take 37.5 mg by mouth daily., Disp: , Rfl: albuterol (ProAir HFA) 108 (90 Base) MCG/ACT inhaler, Inhale 2 puffs every 4 hours as needed for wheezing or shortness of breath. (Patient not taking: Reported on 12/31/2024), Disp: 8.5 g, Rfl: 3 amLODIPine (Norvasc) 10 MG tablet, TAKE 1 TABLET (10 MG) BY MOUTH DAILY. (Patient not taking: Reported on 12/31/2024), Disp: 90 tablet, Rfl: 1 losartan (Cozaar) 100 MG tablet, Take 1 tablet (100 mg) by mouth daily. (Patient not taking: Reported on 12/31/2024), Disp: 60 tablet, Rfl: 3 Probiotic Product (Align) 10 MG capsule, Take 1 capsule by mouth daily. (Patient not taking: Reported on 12/31/2024), Disp: 15 capsule, Rfl: 0 [2] Family History Problem Relation Name Age of Onset Heart disease Mother Ovarian cancer Mother High Blood Pressure Mother documented in this encounter [facility] 11-24-2024 History of Presen t illness Narrative Images from the original note were not included. . [facility] [address] [facility] [id number] Dept: [phone] Dept Visit type: Established Reason for Visit: Other (Pt wants to discuss health issues and CT scan, etc.) Assessment and Plan 1. Muscle weakness (generalized) 2. Primary hypertension 3. Essential hypertension 4. Shortness of breath Muscle weakness/shortness of breath -remains of unclear etiology. I reviewed his previous evaluation which was inclusive of stress test (normal), coronary CTA (negative for obstructive disease), PFTs (essentially normal). His auto inflammatory evaluation has been essentially unremarkable except for a mildly positive CARDIOVASCULAR INVASIVE SPECIALIST antibody. He is scheduled to be evaluated by rheumatology in 2 weeks. My primary concern is that there is a neuromuscular disorder that may be causing his symptoms. He is scheduled to be evaluated by neurology on 12/31/2024. Hypertension -stable, continue current therapies. Subjective HPI This is a 69-year-old gentleman with past medical history significant for ADHD, hypertension, obesity presents today for ongoing evaluation of shortness of breath and fatigue symptoms. In interval, feels like his symptoms are accelerating. States that he has noticed some cognitive changes. He states that he has been recollecting how symptoms have changed over time - with reflection, now feels that symptoms have been present for about the past 5 years. He states that he seems to be having more bad days than good days. Fatigue / weakness - has been struggling to go up and down stairs, feels less fatigue in the morning. Shortness of breath - has had evaluation w/ pulmonology, cardiology including stress test, CTA coronary, PFT. These have not revealed the cause of his symptoms. Abdominal pain - had interval colonoscopy with biopsies showing congested mucosa of the entire mucosa. On EGD he had erythematous mucosa at gastric body and duodenum. Right-sided weakness - since last visit, he has noticed that he has had increase in right-sided weakness, states that he needs to lead with left side to climb stairs Review of Systems Constitutional: Positive for fatigue. Respiratory: Positive for shortness of breath. Neurological: Positive for weakness. Allergies[1] Current Medications[2] Medical History[3] Social History Tobacco Use Smoking status: Never Smokeless tobacco: Never Substance Use Topics Alcohol use: Never Surgical History[4] Family History[5] Objective BP 138/80 Pulse (!) 125 Ht 6' 1 (1.854 m) Wt 241 lb (109 kg) SpO2 95% BMI 31.80 kg/m Physical Exam Constitutional: General: He is not in acute distress. Appearance: He is not toxic-appearing. HENT: Head: Normocephalic and atraumatic. Eyes: General: No scleral icterus. Pulmonary: Effort: No respiratory distress. Musculoskeletal: Cervical back: Normal range of motion. Skin: General: Skin is warm and dry. Neurological: Mental Status: He is alert. Mental status is at baseline. Psychiatric: Mood and Affect: Mood normal. Data Reviewed and Summarized Labs: Imaging/Testing: Rob Back MD [1] Not on File [2] Current Outpatient Medications Medication Sig Dispense Refill albuterol (ProAir HFA) 108 (90 Base) MCG/ACT inhaler Inhale 2 puffs every 4 hours as needed for wheezing or shortness of breath. 8.5 g 3 amLODIPine (Norvasc) 10 MG tablet TAKE 1 TABLET (10 MG) BY MOUTH DAILY. 90 tablet 1 amphetamine-dextroamphetamine (Adderall) 20 MG tablet Take 1 tablet by mouth 2 times daily. losartan (Cozaar) 100 MG tablet Take 1 tablet (100 mg) by mouth daily. 60 tablet 3 pantoprazole (ProtoNix) 40 MG EC tablet Take [...] capsule Take 37.5 mg by mouth daily. metoprolol tartrate (Lopressor) 100 MG tablet If resting HR >70 bpm then take 100mg PO metoprolol tartrate the evening prior and morning of exam. 2 tablet 0 predniSONE (Deltasone) 50 MG tablet Take 1 tablet (50 mg) by mouth daily. 5 tablet 0 No current facility-administered medications for this visit. [3] Past Medical History: Diagnosis Date Depression Hypertension [4] Past Surgical History: Procedure Laterality Date APPENDECTOMY HERNIA REPAIR KNEE CARTILAGE SURGERY TONSILLECTOMY (HISTORICAL) [5] Family History Problem Relation Name Age of Onset Heart disease Mother Ovarian cancer Mother High Blood Pressure Mother documented in this encounter [facility] 11-16-2024 Nurse Note Patient arrived to CT for CTA of coronary arteries. CT imaging and nitroglycerin administration explained. Patient conveys understanding and agrees to proceed. Baseline HR 64 , BP 136/89. Nitroglycerin 0.8 mg. administered per protocol. CT imaging completed. Repeat BP 119/73 HR 70 . Denies dizziness or lightheadedness. Patient assisted to sitting position, denies dizziness or lightheadedness. Discharge instructions provided. He conveys understanding. 1 bottle of water given. Ambulated from CT with steady gait. Discharged home. [facility] 11-16-2024 Nurse Note Patient arrived to CT for CTA of coronary arteries. CT imaging and nitroglycerin administration explained. Patient conveys understanding and agrees to proceed. Baseline HR 64 , BP 136/89. Nitroglycerin 0.8 mg. administered per protocol. CT imaging completed. Repeat BP 119/73 HR 70 . Denies dizziness or lightheadedness. Patient assisted to sitting position, denies dizziness or lightheadedness. Discharge instructions provided. He conveys understanding. 1 bottle of water given. Ambulated from CT with steady gait. Discharged home. documented in this encounter [facility] 11-13-2024 Consult note [facility] 11-13-2024 Procedure note [facility] 11-13-2024 Procedure note [facility] 11-13-2024 Procedure note [facility] 11-13-2024 Procedure note [facility] 11-13-2024 History and physi le note [facility] 11-13-2024 Note [facility] Medical Records Department [address] [place] [address] History Physical Exam 11/13/24 1218 MR#: [id number] Acct: [id number] Name: LAUREN ESCALANTE Rep #: [id number] : 1955 69 From: Rolan Friend DO PCP: Dr. Rob Back MD Status:[facility] Location: [place] [address] HPI - General General Date of Admission: 11/13/24 Date of Service: 11/13/24 Chief Complaint: Abdominal pain and diarrhea HPI Narrative LAUREN ESCALANTE, is a 69 M who presentsChief Complaint: abdominal pain and diarrhea PULMONARY CONSULT 08/27/2024 The patient reported that [...] mmHg. The patient has a very limited 64-[id number]-sxgk smoking history, having quit completely in 2019. [...] go and then reports he will sit there and when he finally goes it is watery - he does have some solid stools - denies any family h/o colon CA - brother with Crohn's - denies any melena but can have dark stools after taking pepto - Waking at night with bowel movements - denies any new medications - HB - can be severe, just started a medication - h/o smoking ABD US 2020 1. Dense liver consistent with fatty infiltration and/or hepatocellular disease. No evidence of cholelithiasis or biliary ductal dilatation. 2. 1.9 cm left renal cyst. 3. Suboptimal visualization of the pancreas. [facility] Medical History Wears glasses History of steroid therapy Blackout Former smoker Shortness of breath on exertion Leg cramps History of Holter monitoring History of stress test History of echocardiogram Cardiology follow-up encounter Chest pain TD (obstructive sleep apnea) Hypertension Depression SOB (shortness of breath) Pneumothorax Home Medications ???Medication ???Instructions ???Recorded ???Last Taken ???Type amlodipine 10 mg tablet 10 mg PO DAILY 07/25/24 07/24/24 H istory quetiapine 25 mg tablet 25 mg PO QHS 07/25/24 07/24/24 His tory venlafaxine 37.5 mg 37.5 mg PO DAILY 07/25/24 07/25/24 History capsule,extended release 24 hr albuterol sulfate 90 mcg/actuation 2 puff inhalation Q4 PRN shortne ss 08/27/24 Unknown History aerosol inhaler of breath or wheezing pantoprazole 40 mg tablet,delayed 40 mg PO QDAY 09/14/24 Unknown Hi story release peg 3350-electrolytes 236 240 ml PO Q10M #4,000 mL 09/14/24 Unknown Rx gram-22.74 gram-6.74 gram-5.86 gram solution (Golytely) dextroamphetamine-amphetamine 20 1 tab PO BID PRN ADHD 10/27/24 Unk nown History mg tablet losartan 100 mg tablet 200 mg PO QDAY 10/27/24 Unknown Hi story Allergy/AdvReac Type Severity Reaction Status Date / Time No Known Allergies Allergy Verified 11/13/24 10:54 Family History Mother Heart disease Cancer ovarian Hypertension Father Myocardial infarction Surgical History History of tonsillectomy H/O hernia repair History of appendectomy History of (more content not included)... [facility] 11-13-2024 Consult note [facility] 11-05-2024 History of Present illness Narrative Formatting of this note is different fro m the original. Images from the original note were not included. . [facility]ICINE [address] [facility] [address] Dept: [phone] Dept Visit type: Established Reason for Visit: Follow-up (No new concerns) Assessment and Plan 1. Shortness of breath 2. Essential hypertension 3. Fatigue, unspecified type Shortness of breath -has undergone multiple tests, been evaluated by pulmonology and cardiology with previous testing including PFT, sleep study, stress test without clear cause of symptoms. He is scheduled to see neurology in 2 months for potential neuromuscular causes of shortness of breath. Heart disease concerns -previous chest CT showed coronary calcifications. He also had a stress test that was negative. Patient has considerable anxiety regarding calcifications on prior stress test, requested additional evaluation. A CTA was ordered and is scheduled to be completed 11/16/2024. If this does not reveal any concerning abnormalities he plans to increase his activity to increased exercise tolerance and hopefully improve fatigue symptoms. Hypertension -slightly above goal 141/93, continue currently prescribed medications. Encourage patient to continue home monitoring. Subjective HPI This is a 69-year-old gentleman with past medical history significant for ADHD, hypertension, obesity presents today for ongoing evaluation of shortness of breath and fatigue symptoms. Having colonoscopy next Week Liver disease - had elastography ordered which showed risk of progression to severe fibrotic liver disease. Shortness of breath - still present, states that with going up or down stairs, or standing for longer periods he develops worsening shortness of breath. Has been evaluated by pulmonology in [place], completed PFT/6 minute walk test which were not remarkable. He is planning to be fitted for CPAP next week. He was also seen by a dip stand loader in [place] who did not feel that symptoms were heart related based on previous stress test. HTN - 141/93 on repeat, prescribed amlodipine 10, losartan 100 Review of Systems Constitutional: Positive for fatigue. Respiratory: Positive for shortness of breath. Neurological: Positive for weakness. Allergies[1] Current Medications[2] Medical History[3] Social History Tobacco Use Smoking status: Never Smokeless tobacco: Never Substance Use Topics Alcohol use: Never Surgical History[4] Family History[5] Objective BP (!) 151/106 Pulse 100 Ht 6' 1 (1.854 m) Wt 233 lb (106 kg) SpO2 96% BMI 30.74 kg/m Physical Exam Constitutional: General: He is not in acute distress. Appearance: He is not toxic-appearing. HENT: Head: Normocephalic and atraumatic. Eyes: General: No scleral icterus. Pulmonary: Effort: No respiratory distress. Musculoskeletal: Cervical back: Normal range of motion. Skin: General: Skin is warm and dry. Neurological: Mental Status: He is alert. Mental status is at baseline. Psychiatric: Mood and Affect: Mood normal. Data Reviewed and Summarized Labs: Imaging/Testing: Rob Back MD [1] No Known Allergies [2] Current Outpatient Medications Medication Sig Dispense Refill albuterol (ProAir HFA) 108 (90 Base) MCG/ACT inhaler Inhale 2 puffs every 4 hours as needed for wheezing or shortness of breath. 8.5 g 3 amLODIPine (Norvasc) 10 MG tablet TAKE 1 TABLET (10 MG) BY MOUTH DAILY. 90 tablet 1 amphetamine-dextroamphetamine (Adderall) 20 MG tablet Take 1 tablet by mouth 2 times daily. losartan (Cozaar) 100 MG tablet Take 1 tablet (100 mg) by mouth daily. 60 tablet 3 pantoprazole (ProtoNix) 40 MG EC tablet Take 1 tablet (40 mg) by mouth daily. Do not crush, chew, or split. 90 tablet 1 predniSONE (Deltasone) 50 MG tablet Take 1 tablet (50 mg) by mouth daily. 5 tablet 0 Probiotic Product (Align) 10 MG capsule Take 1 capsule by mouth daily. 15 capsule 0 venlafaxine XR (Effexor XR) 37.5 MG 24 hr capsule Take 37.5 mg by mouth daily. QUEtiapine (SEROquel) 25 MG tablet Take 25 mg by mouth Nightly. (Patient not taking: Reported on 11/05/2024) No current facility-administered medications for this visit. [3] Past Medical History: Diagnosis Date Depression Hypertension [4] Past Surgical History: Procedure Laterality Date APPENDECTOMY HERNIA REPAIR KNEE CARTILAGE SURGERY TONSILLECTOMY (HISTORICAL) [5] Family History Problem Relation Name Age of Onset Heart disease Mother Ovarian cancer Mother High Blood Pressure Mother documented in this encounter [facility] 11-03-2024 Telephone encounter Note Formatting of this note might be differe nt from the original. completed [facility] 11-03-2024 Miscellaneous Notes Formatting of this note might be differe nt from the original. completed Name of caller: Jeffrey Contact phone number: [phone] Relationship to Patient: [facility] Provider: Dr Back Practice: [facility] Chief Complaint/Reason for Call: Jeffrey is requesting information as to if the patient has any chronic conditions such as diabetes, cardiovascular disorders or heart failure. Requesting a callback states patient is enrolled into their special needs program use ref#[id number]. Thank you Best time of day caller can be reached: any Patient advised that office/PCP has 24-48 business hours to return their call: Yes documented in this encounter [facility] 11-03-2024 Telephone encounter Note Formatting of this note might be differe nt from the original. Name of caller: Jeffrey Contact phone number: [phone] Relationship to Patient: [facility] Provider: Dr Back Practice: [facility] Chief Complaint/Reason for Call: Jeffrey is requesting information as to if the patient has any chronic conditions such as diabetes, cardiovascular disorders or heart failure. Requesting a callback states patient is enrolled into their special needs program use ref#[id number]. Thank you Best time of day caller can be reached: any Patient advised that office/PCP has 24-48 business hours to return their call: Yes [facility] 10-21-2024 Telephone encounter Note Formatting of this note might be differe nt from the original. We have been unable to reach your patient to schedule their testing. Test Name: ct chest 1st Attempt: voice message full, unable to leave message 10/19/24 2nd Attempt: voice message full 10/21/24 [facility] 10-21-2024 Miscellaneous Notes Formatting of this note might be differe nt from the original. We have been unable to reach your patient to schedule their testing. Test Name: ct chest 1st Attempt: voice message full, unable to leave message 10/19/24 2nd Attempt: voice message full 10/21/24 Message released to patient as written. No answer, mailbox full. If pt calls back, okay to give him message from Dr. Back- Rob Back MD 10/12/24 4:12 PM Borderline positive CARDIOVASCULAR INVASIVE SPECIALIST without any other positive autoimmune marker is not necessarily meaningful. I will place a rheumatology referral since he is having a progressive decline, although I think it would be beneficial to see if we can get a neurology evaluation sooner rather than later - I am going to discuss with Radha tomorrow. Patient's further questions if applicable: Patient verbalized understanding. Patient stated he would like the referral to Neurology to [facility] in [place]. Patient would like the Rheumatology referral to them as well. Patient stated at his last visit he was taken off his Blood Pressure medication and there has been an increase in the Blood Pressure. Patient would like to know if he needs to double up on the medication. Please advise and call the Patient back. Were all questions from office addressed or relayed to the patient from encounter: yes No answer, mailbox full. If pt calls back, okay to give him message from Dr. Back- Rob Back MD 10/12/24 4:12 PM Borderline positive CARDIOVASCULAR INVASIVE SPECIALIST without any other positive autoimmune marker is not necessarily meaningful. I will place a rheumatology referral since he is having a progressive decline, although I think it would be beneficial to see if we can get a neurology evaluation sooner rather than later - I am going to discuss with Radha tomorrow. Name of caller: Lauren Escalante Contact phone number: [phone] Relationship to Patient: patient Provider: Dr. Back Practice: [facility] Chief Complaint/Reason for Call: Patient stated he saw on his MyChart his results for his blood work which were done 10.02.2024. Patient stated his CARDIOVASCULAR INVASIVE SPECIALIST Antibody came back positive and would like a call back from Dr. Back to discuss this result and to see what he should do next. Please advise. Thank you. Best time of day caller can be reached: Any Patient advised that office/PCP has 24-48 business hours to return their call: Yes documented in this encounter [facility] 10-20-2024 Telephone encounter Note Formatting of this note might be differe nt from the original. This was received. I scanned it in and routed it to you. [facility] 10-20-2024 Miscellaneous Notes Formatting of this note might be differe nt from the original. This was received. I scanned it in and routed it to you. documented in this encounter [facility] 10-15-2024 Radiology Diagnostic study note [facility] Imaging Services [address] [place] [address] Chest without Contrast MR#: [id number] Acct: [id number] Name: LAUREN ESCALANTE Rep #: [id number] : 1955 M 69 From: Jailyn Foster MD PCP: Dr. Rob Back MD Status: REG CL I Study:Chest without Contrast Date of Exam: 10/14/24 Exam# [id number] Ordering Dr: Iván Back MD PROCEDURE: CHEST WITHOUT CONTRAST 10/14/2024 REASON FOR EXAM: SOB TECHNIQUE: Chest CT without contrast. Coronal and Sagittal reconstruction series were provided. One or more dose reduction techniques were used (e.g., Automated exposure control, adjustment of the mA and/or kV according to patient size, use of iterative reconstruction technique RADIATION DOSE SUMMARY: CTDlvol: 17.05 mGy DLP: 741 mGycm COMPARISON: 07/25/2024. FINDINGS: Moderate coronary artery calcifications. 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 Subsegmental atelectatic changes/infiltrates in the left lower lobe. Please evaluate to exclude superimposed pneumonia. Fluid-filled, mildly prominent esophagus, probably mild reflux. Mild bilateral basilar atelectatic pulmonary changes. Moderate coronary artery calcifications. Mild diffuse spondylosis. Normal unenhanced main pulmonary artery and right and left pulmonary arteries. Normal bilateral peripheral pulmonary arteries. Normal thoracic aorta and visualized great vessels. There is no demonstrated aortic aneurysm. Normal heart and pericardium. Normal mediastinum. Normal hilar regions. Normal visualized trachea and bronchi. Normal pleura. Normal visualized upper abdomen. CT/Chest without Contrast IMPRESSION: IMPRESSION: Coronary artery calcification (CAC) is is present Moderate coronary artery calcifications. 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 Subsegmental atelectatic changes/infiltrates in the left lower lobe. Please evaluate to exclude superimposed pneumonia. Fluid-filled, mildly prominent esophagus, probably mild reflux. Mild bilateral basilar atelectatic pulmonary changes. Moderate coronary artery calcifications. Mild diffuse spondylosis. [facility] CC: Dr. Rob Back MD ~ Records Manager: Signed [facility] 10-13-2024 Telephone encounter Note Formatting of this note is different fro m the original. Message released to patient as written. No answer, mailbox full. If pt calls back, okay to give him message from Dr. Allison Back MD 10/12/24 4:12 PM Borderline positive CARDIOVASCULAR INVASIVE SPECIALIST without any other positive autoimmune marker is not necessarily meaningful. I will place a rheumatology referral since he is having a progressive decline, although I think it would be beneficial to see if we can get a neurology evaluation sooner rather than later - I am going to discuss with Radha tomorrow. Patient's further questions if applicable: Patient verbalized understanding. Patient stated he would like the referral to Neurology to [facility] in [place]. Patient would like the Rheumatology referral to them as well. Patient stated at his last visit he was taken off his Blood Pressure medication and there has been an increase in the Blood Pressure. Patient would like to know if he needs to double up on the medication. Please advise and call the Patient back. Were all questions from office addressed or relayed to the patient from encounter: yes [facility] 10-13-2024 Telephone encounter Note Formatting of this note might be differe nt from the original. No answer, mailbox full. If pt calls back, okay to give him message from Dr. Allison Back MD 10/12/24 4:12 PM Borderline positive CARDIOVASCULAR INVASIVE SPECIALIST without any other positive autoimmune marker is not necessarily meaningful. I will place a rheumatology referral since he is having a progressive decline, although I think it would be beneficial to see if we can get a neurology evaluation sooner rather than later - I am going to discuss with Radha tomorrow. [facility] 10-09-2024 Telephone encounter Note Formatting of this note might be differe nt from the original. Name of caller: Lauren Escalante Contact phone number: [phone] Relationship to Patient: patient Provider: Dr. Back Practice: [facility] Chief Complaint/Reason for Call: Patient stated he saw on his MyChart his results for his blood work which were done 10.02.2024. Patient stated his CARDIOVASCULAR INVASIVE SPECIALIST Antibody came back positive and would like a call back from Dr. Back to discuss this result and to see what he should do next. Please advise. Thank you. Best time of day caller can be reached: Any Patient advised that office/PCP has 24-48 business hours to return their call: Yes [facility] 10-02-2024 Procedure note [facility] 10-02-2024 History of Present illness Narrative Formatting of this note is different fro m the original. Images from the original note were not included. . [facility] INTER[facility] MEDICINE [address] [place] [id number] Dept: [phone] Dept Visit type: Established Reason for Visit: Follow-up (Pt not feeling well, waiting on testing and labs, fatigue, SOB, bloating, nausea, no appetite) Assessment and Plan 1. Muscle weakness (generalized) - CT chest wo IV contrast - predniSONE (Deltasone) 50 MG tablet; Take 1 tablet (50 mg) by mouth daily., Starting Sat10/02/2024, Until Sat03/31/2025, Normal - CK - Sedimentation rate, automated - C-reactive protein - Myasthenia Gravis Panel with Reflex to MuSK Ab - ANALYZER MARA, IFA WITH REFLEX TITER/PATTERN, SYSTEMIC AUTOIMMUNE PANEL 1 QUEST - MYOSITIS EXTENDED PANEL 2. Shortness of breath - CT chest wo IV contrast 3. Essential hypertension - losartan (Cozaar) 100 MG tablet; Take 1 tablet (100 mg) by mouth daily., Starting Sat10/02/2024, Normal Muscle weakness -patient indicates that symptoms have unfortunately not improved since the previous visit. He continues to have shortness of breath, brain fog, fatigue/muscle weakness. He is already following with a pulmonology provider and gastroenterology provider in [place] and scheduled to have colonoscopy in a month and a half. His previous cardiac and pulmonary testing have not revealed the cause of his symptoms. My previous evaluation for reversible causes of his symptoms has not revealed any abnormalities. We will proceed with additional testing for autoimmune abnormalities that could explain his symptoms, starting with ESR/CRP, myositis/myasthenia panels, MARA reflex panel. Patient had been taking steroids intermittently for joint pain but has not taken for several months. We will trial a prednisone burst to see if it improves any of his symptoms after he is completed his lab. Occasionally patients will develop unusual fatigue/brain fog symptoms with lisinopril. I advised him to discontinue lisinopril, continue to monitor his blood pressure, if he has uncontrolled blood pressure after discontinuing lisinopril, begin losartan 100 mg daily. Shortness of breath -previous evaluation has not revealed an explanation for worsening shortness of breath symptoms. CT chest was ordered to further evaluate. Subjective HPI This is a 69-year-old gentleman with past medical history significant for ADHD, hypertension, obesity presents today for ongoing evaluation of shortness of breath and fatigue symptoms. He states that the his most bothersome symptoms are weakness, shortness of breath, brain fog. Abdominal fullness / lack of appetite - having problems tolerating diet, not eating much. He has seen Dr. Grace in [place] (account officer) and is planning to have colonoscopy in mid November. Shortness of breath - he is following with a semiconductor wafer inspector in [place], had PFT and 6 minute walk test within the past month. Fatigue - is in bed most of the time now due to fatigue, not feeling well. He lacks the strength to sit up and walk. Review of Systems Constitutional: Positive for fatigue. Respiratory: Positive for shortness of breath. Gastrointestinal: Positive for abdominal distention and abdominal pain. Allergies[1] Current Medications[2] Medical History[3] Social History Tobacco Use Smoking status: Never Smokeless tobacco: Never Substance Use Topics Alcohol use: Never Surgical History[4] Family History[5] Objective There were no vitals taken for this visit. Physical Exam Constitutional: General: He is not in acute distress. Appearance: He is not toxic-appearing. HENT: Head: Normocephalic and atraumatic. Eyes: General: No scleral icterus. Pulmonary: Effort: No respiratory distress. Musculoskeletal: Cervical back: Normal range of motion. Skin: General: Skin is warm and dry. Neurological: Mental Status: He is alert. Mental status is at baseline. Psychiatric: Mood and Affect: Mood normal. Data Reviewed and Summarized Labs: Imaging/Testing: Rob Back MD [1] No Known Allergies [2] Current Outpatient Medications Medication Sig Dispense Refill albuterol (ProAir HFA) 108 (90 Base) MCG/ACT inhaler Inhale 2 puffs every 4 hours as needed for wheezing or shortness of breath. 8.5 g 3 amLODIPine (Norvasc) 10 MG tablet TAKE 1 TABLET (10 MG) BY MOUTH DAILY. 90 tablet 1 amphetamine-dextroamphetamine (Adderall) 20 MG tablet Take 1 tablet by mouth 2 times daily. lisinopril 40 MG tablet TAKE 1 TABLET BY MOUTH EVERY DAY 90 tablet 1 pantoprazole (ProtoNix) 40 MG EC tablet Take [...] Blood Pressure Mother documented in this encounter [facility] 09-25-2024 Radiology Diagnostic study note [facility] Imaging Services [address] [place], [place] [address] ABD Limited w/ Elastography MR#: [id number] Acct: [id number] Name: LAUREN ESCALANTE Rep #: [id number] : 1955 M 69 From: Lele Rojas MD PCP: Dr. Rob Back MD Status: REG CL I Study:ABD Limited w/ Elastography Date of Exa m: 09/25/24 Exam# [id number] Ordering Dr: Cynthia Brewer PROCEDURE: ABD LIMITED W/ ELASTOGRAPHY REASON FOR EXAM: ABD PAIN, BLOATING, NAUSEA COMPARISON: None. TECHNIQUE: Right upper quadrant abdominal ultrasound. Data Elite ElastQ Imaging shear wave elastography for non-invasive assessment of liver tissue stiffness. Lopez EPIQ [...] measurement may be in question. Reading Location: [place] [address] CC: MARCELO Brewer; Dr. Rob Back MD ~ Records Manager: Signed [facility] 09-23-2024 Telephone encounter Note Formatting of this note might be differe nt from the original. S: pt calling [facility] with question about labs B: today A: pt has been feeling unwell lately. Has been seen and had multiple tests done. Concerned about lyme disease. R: RN advised pt that he can have the lab test done whenever he is able. Pt asking for the lab requisition to be printed out for him to pickle sorter, he can be in tomorrow, he does not have a printer. Advised pt that RN will send message to the office for the morning, pt voiced understanding. Reason for Disposition Question about upcoming scheduled surgery, procedure or test, no triage required, and triager able to answer question Protocols used: Information Only Call - No Txhios-LPEYD-PZ [facility] 09-23-2024 Miscellaneous Notes Formatting of this note might be differe nt from the original. S: pt calling [facility] with question about labs B: today A: pt has been feeling unwell lately. Has been seen and had multiple tests done. Concerned about lyme disease. R: RN advised pt that he can have the lab test done whenever he is able. Pt asking for the lab requisition to be printed out for him to pickle sorter, he can be in tomorrow, he does not have a printer. Advised pt that RN will send message to the office for the morning, pt voiced understanding. Reason for Disposition Question about upcoming scheduled surgery, procedure or test, no triage required, and triager able to answer question Protocols used: Information Only Call - No Rgudih-ALUEL-KT documented in this encounter [facility] 09-22-2024 Telephone encounter Note Formatting of this note might be differe nt from the original. S: Patient is calling the [facility] with request for lab test B: Symptom [...] and SAME as normal Protocols used: Breathing Zzmjexilmi-XBANS-FY [facility] 09-22-2024 Miscellaneous Notes Formatting of this note might be differe nt from the original. S: Patient is calling the [facility] with request for lab test B: Symptom [...] tick bite R: Advised to keep his NOV 10/02/[address] Back. Advised a message would be sent to provider for review and consideration of his request. Patient verbalizes understanding. Advised patient to call back with new or worsening symptoms. Reason for Disposition MILD longstanding difficulty breathing (e.g., minimal/no SOB at rest, SOB with walking, pulse <100) and SAME as normal Protocols used: Breathing Vbplzvpnpn-FVHWY-DO documented in this encounter [facility] 09-10-2024 History of Present illness Narrative Formatting of this note is different fro m the original. Images from the original note were not included. . [facility] [address] [facility] [address] Dept: [phone] Dept Visit type: Established Reason for Visit: [...] type 4. Chest pain, unspecified type - [facility] 5. Slurred speech - [facility] [place] No follow-ups on file. Subjective This [...] Blood Pressure Mother documented in this encounter [facility] 09-10-2024 History of Present illness Narrative Formatting of this note is different fro m the original. Images from the original note were not included. . [facility] [address] [place] [address] [address] [facility] [address] Dept: [phone] Dept Visit type: Established Reason for Visit: [...] type 4. Chest pain, unspecified type - [facility] 5. Slurred speech - [facility] No follow-ups on file. Subjective This [...] Blood Pressure Mother documented in this encounter [facility] 09-02-2024 History of Present illness Narrative Formatting of this note is different fro m the original. Images from the original note were not included. . [facility] [address] [place] [address] [address] [facility] [address] Dept: [phone] Dept Visit type: Established Reason for Visit: [...] additional evaluation. Shortness of breath -following with semiconductor wafer inspector at [facility] in [place]. Subjective HPI This is a 69-year-old gentleman with past medical history significant for ADHD, hypertension, obesity presents today for ongoing evaluation of shortness of breath and fatigue symptoms. He had been seen most recently by Osman Brand on 07/24/2024. Shortness of breath - patient had interval follow up visit with [facility] in [place]. He is planning to have 6 minute [...] Rob Back MD documented in this encounter [facility] 08-27-2024 Evaluation note Diagnosis Onset Date Resolution SOB (shortness of breath) chronic August 27, 2024 9: 28am Abdominal pain acute September 14, 2024 1:51pm Bloating acute September 14, 2024 1:51pm Diarrhea acute September 14, 2024 1:51pm Nausea acute September 14, 2024 1:51pm [facility] Work Phone: 1(638) 856-400805-01-2025 Evaluation note* Diagnosis Onset Date Resolution Status Admit Date SOB (shortness of breath) chronic August 27, 2024 9:28am Abdominal pain acute September 14, 2024 1:51pm Bloating acute September 14, 2024 1:51pm Diarrhea acute September 14, 2024 1:51pm Nausea acute September 14, 2024 1:51pm Daytime hypersomnia acute October 13, 2024 8:58am [facility] Work Phone: 1(615) 692-386005-01-2025 Evaluation note* Diagnosis Onset Date Resolution Status Admit Date SOB (shortness of breath) chronic August 27, 2024 9:28am Abdominal pain acute September 14, 2024 1:51pm Bloating acute September 14, 2024 1:51pm Diarrhea acute September 14, 2024 1:51pm Nausea acute September 14, 2024 1:51pm Daytime hypersomnia acute October 13, 2024 8:58am Tachycardia with hypertension acute October 13, 2024 8:58am Hypertension chronic October 13, 2 025 8:58am Obesity chronic October 13 8:58am SOB (shortness of breath) chronic October 13, 2024 8:58am [facility] Work Phone: 1(182) 433-448705-01-2025 Evaluation note* Diagnosis Onset Date Resolution Status Admit Date SOB (shortness of breath) chronic August 27, 2024 9:28am Abdominal pain acute September 14, 2024 1:51pm Bloating acute September 14, 2024 1:51pm Diarrhea acute September 14, 2024 1:51pm Nausea acute September 14, 2024 1:51pm Daytime hypersomnia acute October 13, 2024 8:58am Tachycardia with hypertension acute October 13, 2024 8:58am Hypertension chronic October 13, 2 025 8:58am Obesity chronic October 13 8:58am SOB (shortness of breath) chronic October 13, 2024 8:58am TD (obstructive sleep apnea) acute October 26, 2024 10:38am Tachycardia with hypertension acute October 26, 2024 10:38am Hypertension chronic October 26, 025 10:38am Obesity chronic October 26 10:38am SOB (shortness of breath) chronic October 26, 2024 10:38am [facility] Work Phone: 1(720) 168-456105-01-2025 Evaluation note* Diagnosis Onset Date Resolution Status Admit Date SOB (shortness of breath) chronic August 27, 2024 9:28am Abdominal pain acute September 14, 2024 1:51pm Bloating acute September 14, 2024 1:51pm Diarrhea acute September 14, 2024 1:51pm Nausea acute September 14, 2024 1:51pm Daytime hypersomnia acute October 13, 2024 8:58am Tachycardia with hypertension acute October 13, 2024 8:58am Hypertension chronic October 13, 025 8:58am Obesity chronic October 13 8:58am SOB (shortness of breath) chronic October 13, 2024 8:58am TD (obstructive sleep apnea) acute October 26, 2024 10:38am Tachycardia with hypertension acute October 26, 2024 10:38am Hypertension chronic October 26, 025 10:38am Obesity chronic October 26 10:38am SOB (shortness of breath) chronic October 26, 2024 10:38am TD (obstructive sleep apnea) acute October 27, 2024 8:17am Tachycardia with hypertension acute October 27, 2024 8:17am SOB (shortness of breath) chronic October 27, 2024 8:17am Abdominal pain acute November 13, 2024 10:18am Bloating acute November 13 10:18am Diarrhea acute November 13 10:18am Nausea acute November 13 10:18am [facility] Work Phone: 1(529) 677-893705-01-2025 Evaluation note* Diagnosis Onset Date Resolution Status Admit Date SOB (shortness of breath) chronic August 27, 2024 9:28am Abdominal pain acute September 14, 2024 1:51pm Bloating acute September 14, 2024 1:51pm Diarrhea acute September 14, 2024 1:51pm Nausea acute September 14, 2024 1:51pm Daytime hypersomnia acute October 13, 2024 8:58am Tachycardia with hypertension acute October 13, 2024 8:58am Hypertension chronic October 13, 025 8:58am Obesity chronic October 13 8:58am SOB (shortness of breath) chronic October 13, 2024 8:58am TD (obstructive sleep apnea) acute October 26, 2024 10:38am Tachycardia with hypertension acute October 26, 2024 10:38am Hypertension chronic October 26, 025 10:38am Obesity chronic October 26 10:38am SOB (shortness of breath) chronic October 26, 2024 10:38am TD (obstructive sleep apnea) acute October 27, 2024 8:17am Tachycardia with hypertension acute October 27, 2024 8:17am SOB (shortness of breath) chronic October 27, 2024 8:17am Abdominal pain acute November 13, 2024 10:18am Bloating acute November 13 10:18am Diarrhea acute November 13 10:18am Nausea acute November 13 10:18am Abdominal pain acute November 10:16am Diarrhea acute December 02 10:16am GERD (gastroesophageal reflu x disease) acute December 02, 2024 10:16am [facility] Work Phone: 1(419) 298-794404-17-2025 Telephone encounter Note* Telephone Encounter - Radha Lee - 08/13/2024 7:19 AM EDT Faxed again to [facility]. [id number] Miscellaneous Notes* Telephone Encounter - Radha Lee - 08/13/2024 7:19 AM EDT Faxed again to [facility]. * Telephone Encounter - Loli Bhakta Yolanda - 08/12/2024 12:26 PM EDT Message released to patient as written. Please call [facility] for an appt [phone] Patient's further questions if applicable: Pt called and states that the pulm office has not received his referral. Please advise Were all questions from office addressed or relayed to the patient from encounter: Any * Telephone Encounter - Tristondominic Zhang - 08/10/2024 3:23 PM EDT Name of caller: Lauren Contact phone number: [phone] Relationship to Patient: patient Provider: Wong Practice: [facility] Chief Complaint/Reason for Call: A referral was placed for External referral to Pulmonology for Shortness of breath [R06.02] and weakness of legs. Patient has appointment with pulmonology on 08.27.2024. He wants to switch to [facility] because it is closer to his home and a sooner appointment. This is at [facility]. Wants it to be urgent. Best time of day caller can be reached: any Patient advised that office/PCP has 24-48 business hours to return their call: Yes documented in this encounterSMarion [id number] Telephone encounter Note* Telephone Encounter - Loli Bhakta Yolanda - 08/12/2024 12:26 PM EDT Message released to patient as written. Please call [facility] for an appt [phone] Patient's further questions if applicable: Pt called and states that the pulm office has not received his referral. Please advise Were all questions from office addressed or relayed to the patient from encounter: Any [facility] [id number] Telephone encounter Note* Telephone Encounter - Triston Zhang - 08/10/2024 3:23 PM EDT Name of caller: Lauren Contact phone number: [phone] Relationship to Patient: patient Provider: Wong Practice: [facility] Chief Complaint/Reason for Call: A referral was placed for External referral to Pulmonology for Shortness of breath [R06.02] and weakness of legs. Patient has appointment with pulmonology on 08.27.2024. He wants to switch to [facility] because it is closer to his home and a sooner appointment. This is at [facility]. Wants it to be urgent. Best time of day caller can be reached: any Patient advised that office/PCP has 24-48 business hours to return their call: Yes [facility] HospitalQldjjb31-48-4725 Telephone encounter Note* Telephone Encounter - Radha Lee - 08/06/2024 10:13 AM EDT Faxed to location [facility] HospitalCzcqiq09-43-0228 Miscellaneous Notes* Telephone Encounter - Radha Lee - 08/06/2024 10:13 AM EDT Faxed to location * Telephone Encounter - Yadi Rosario - 08/06/2024 9:44 AM EDT Name of caller: Lauren Contact phone number: [phone] Relationship to Patient: patient Provider: Dr Back Practice: [facility] Chief Complaint/Reason for Call: Please fax Please send referral to Dr. Gilberto Rice in [place] Best time of day caller can be reached: any Patient advised that office/PCP has 24-48 business hours to return their call: Yes documented in this encounterSMarion [id number] Telephone encounter Note* Telephone Encounter - Yadi Rosario - 08/06/2024 9:44 AM EDT Name of caller: Lauren Contact phone number: [phone] Relationship to Patient: patient Provider: Dr Back Practice: [facility] Chief Complaint/Reason for Call: Please fax Please send referral to Dr. Gilberto Rice in [place] Best time of day caller can be reached: any Patient advised that office/PCP has 24-48 business hours to return their call: Yes [facility] HospitalMfaskk20-20-9089 Telephone encounter Note* Telephone Encounter - Catherine Houser - 08/06/2024 9:35 AM EDT Name of caller: Lauren Contact phone number: [phone] Relationship to Patient: patient Provider: Wong Practice: [facility] Chief Complaint/Reason for Call: Patient states he still waiting for new inhaler prescription to besent to pharmacy [facility]/pharmacy #[facility] patient needs that as soon as possible. Please advise patient when done. Best time of day caller can be reached: any Patient advised that office/PCP has 24-48 business hours to return their call: Yes [facility] HospitalTpgvrb03-51-6270 Miscellaneous Notes* Telephone Encounter - Catherine Houser - 08/06/2024 9:35 AM EDT Name of caller: Lauren Contact phone number: [phone] Relationship to Patient: patient Provider: Wong Practice: [facility] Chief Complaint/Reason for Call: Patient states he still waiting for new inhaler prescription to besent to pharmacy [facility]/pharmacy #[id number] [facility], [place] [address] [address] [facility] patient needs that as soon as possible. Please advise patient when done. Best time of day caller can be reached: any Patient advised that office/PCP has 24-48 business hours to return their call: Yes documented in this encounterSMarion [id number] History of Present illness Narrative* Rob Back MD - 08/05/2024 1:40 PM EDT Images from the original note were not included. . [facility] [address] [facility] [address] [facility] [address] Dept: [phone] Dept Visit type: Established Reason for Visit: Results (To review labs from [facility], to know what the next step will [...] normal. Data Reviewed and Summarized Labs: Imaging/Testing: oRb Back MD documented in this encounterSMarion [id number] Telephone encounter Note* Telephone Encounter - Rukhsana Suárez MA - 08/03/2024 1:39 PM EDT Scanned into media [facility] [id number] Miscellaneous Notes* Telephone Encounter - Rukhsana Suárez MA - 08/03/2024 1:39 PM EDT Scanned into media * Telephone Encounter - Keena Saab LPN - 08/03/2024 1:17 PM EDT No records received yet. * Telephone Encounter - Allen Arteaga - 08/03/2024 12:21 PM EDT Name of caller: Lauren Contact phone number: [phone] Relationship to Patient: patient Provider: Wong Practice: [facility] Chief Complaint/Reason for Call: Patient following up on status of record request. Patient states he was originally seen in [place] ED for a suspected blockage, but declined [...] EDT Called to request medical records from [facility]. Recently lab results from 07/25/24. Patientis also requesting from results from stress test and cardio ultrasound. All records were requested * Telephone Encounter - Basilia Munson - 07/31/2024 10:36 AM EDT Name of caller: Lauren Contact phone number: [phone] Relationship to Patient: patient Provider: Practice: [facility] Chief Complaint/Reason for Call: Patient calling for lab result done at [facility]. Labs, stress trest and US of heart. Please advise. Best time of day caller can be reached: any Patient advised that office/PCP has 24-48 business hours to return their call: no documented in this encounterSMarion [id number] Telephone encounter Note* Telephone Encounter - Keena Saab LPN - 08/03/2024 1:17 PM EDT No records received yet. [place] [id number] Telephone encounter Note* Telephone Encounter - Allen Arteaga - 08/03/2024 12:21 PM EDT Name of caller: Lauren Contact phone number: [phone] Relationship to Patient: patient Provider: Wong Practice: [facility] Chief Complaint/Reason for Call: Patient following up on status of record request. Patient states he was originally seen in [place] ED for a suspected blockage, but declined admission and decided to come back for outpatient testing. Patient is anxious to get these results as he feels like something is wrong. Please advise. Best time of day caller can be reached: any Patient advised that office/PCP has 24-48 business hours to return their call: No [place] [id number] Telephone encounter Note* Telephone Encounter - Rukhsana Suárez MA - 07/31/2024 10:42 AM EDT Called to request medical records from [facility]. Recently lab results from 07/25/24. Patientis also requesting from results from stress test and cardio ultrasound. All records were requested [place] [id number] Telephone encounter Note* Telephone Encounter - Basilia Munson - 07/31/2024 10:36 AM EDT Name of caller: Lauren Contact phone number: [phone] Relationship to Patient: patient Provider: Practice: [facility] Chief Complaint/Reason for Call: Patient calling for lab result done at [facility]. Labs, stress trest and US of heart. Please advise. Best time of day caller can be reached: any Patient advised that office/PCP has 24-48 business hours to return their call: no [facility] [id number] Telephone encounter Note* Telephone Encounter - CLARIBEL [...] OV was just sent to ER . [facility] Work Phone: 1(855) 469-725404-03-2025 Miscellaneous Notes* Telephone Encounter - CLARIBEL Gong [...] follow up on file documented in this [facility]04-03-2025 Telephone encounter Note* Telephone Encounter - Rukhsana Suárez MA - 07/30/2024 7:01 AM EDT GARCIA: 07/24/2024, no follow up on file [facility] HospitalHqcaxv27-72-9645 Discharge summary [facility] Medical Records Department [address] [place] [address] Emergency Department Summary 07/25/24 MR#: [id number] Acct: [id number] Name: LAUREN ESCALANTE Rep #:[id number] : 1955 69 From: Yunior Edgar MD [...] Prior similar symptoms: Yes Recent Illness/Hospitalization: No PFSH PFSH Medical History (Updated 07/25/24 @ 11:30 by Radha Dixon) Pneumothorax Home Medications ?Medication ?Instructions ?Recorded ?Last Taken ?Type amlodipine 10 mg tablet 10 mg PO DAILY 07/25/24/12/21 History dextroamphetamine-amphetamine 20 1 tab PO BID 07/25/24 06/26/24 History mg tablet lisinopril 40 mg tablet 40 mg PO DAILY 07/25/24/12/21 History quetiapine 25 mg tablet 25 mg [...] all 4 extremities. 5 out of 5 medical management specialist strength. Dorsi plantarflexion intact.Equal symmetrical radial pulses. [...] % (Auto) 67.6 Lymph % (Auto) 21.1 [place] % (Auto) 6.5 Eos % (Auto) 3.9 [...] of an acute cardiopulmonary process Reading Location: [facility] Chest x-ray, portable, single view interpreted both [...] rate of 104 no acute signs of UT or ischemia. No S1Q3T3. Prior: No Prior [...] Echo W/Contrast (Routine) Timeframe: 1 Day Facility: [facility] - Location: [facility] Ordered By: Dr. Yunior Edgar Primary Care [...] sure your heart is okay. Print Language: [place]dean Disposition Disposition: Home, Self Care What to do if you have Problems For any increased pain, shortness of breath, bleeding, nausea or vomiting, chestpain, or any unexpected problems, contact your Primary Care Provider. Call [facility] ([phone]) or report tothe closest Emergency Room. Call 911 if necessary. 07/25/24 1540 Cosigner Signature (if applicable): CC: Dr. Rob Back MD ~ Signed [facility]03-29-2025 Discharge summary Author Yunior Edgar [facility] Note Date/Time July 25, 2024 3:4 0pm [facility] Medical Records Department [address] [place] [address] Emergency Department Summary 07/25/24 MR#: [id number] Acct: [id number] Name: LAUREN ESCALANTE Rep #:[id number] : 1955 69 From: Yunior Edgar MD [...] Prior similar symptoms: Yes Recent Illness/Hospitalization: No [facility] Medical History (Updated 07/25/24 @ 11:30 by [...] all 4 extremities. 5 out of 5 medical management specialist strength. Dorsi plantarflexion intact. Equal symmetrical radial [...] % (Auto) 67.6 Lymph % (Auto) 21.1 [place] % (Auto) 6.5 Eos % (Auto) 3.9 [...] of an acute cardiopulmonary process Reading Location: [facility] Chest x-ray, portable, single view interpreted both [...] rate of 104 no acute signs of UT or ischemia. No S1Q3T3. Prior: No Prior [...] Echo W/Contrast (Routine) Timeframe: 1 Day Facility: [facility] - Location: [facility] Ordered By: Dr. Yunior Edgar Primary Care [...] outpatient stress test. You can call them July 27 after 10AM and see what they [...] sure your heart is okay. Print Language: [place] Disposition Disposition: Home, Self Care What to do if you have Problems For any increased pain, shortness of breath, bleeding, nausea or vomiting, chestpain, or any unexpected problems, contact your Primary Care Provider. Call [facility] ([phone]) or report to the closest Emergency Room. Call 911 if necessary. 07/25/24 1540 <Electronically signed by Yunior Edgar MD> Cosigner Signature (if applicable): CC: Dr. Rob Back MD ~ Signed [facility] Work Phone: 1(999) 805-351403-29-2025 Radiology Diagnostic study note [facility] Imaging Services [address] [place] [id number] Chest 1 View (Portable) MR#: [id number] Acct: [id number] Name: LAUREN ESCALANTE Rep #: [id number] : 1955 M 69 From: Pet er Peer DO PCP: Status: PRE ER Study:Chest 1 View (Portable) Date of Exam: 07/25/24 Exam# [id number] Ordering Dr: Iván Edgar MD PROCEDURE: CHEST 1 VIEW (PORTABLE) 07/25/2024 REASON FOR EXAM: CHEST PAIN TECHNIQUE: Frontal view of the chest. COMPARISON: Chest radiograph 07/25/2024 FINDINGS: Hardware: None. Heart: Normal size and appearance. Lungs: Lungs are clear. Bones: Unremarkable. Other: No pleural effusions. No pneumothorax RAD/Chest 1 View (Portable) IMPRESSION: No radiographic evidence of an acute cardiopulmonary process Reading Location: [facility] CC: Dr. Yunior Edgar MD ~ Records Manager: Signed [facility]03-28-2025 History of Present illness Narrative* Osman Minor Cathie, CLIENT EXECUTIVE - [employer] - 07/24/2024 10:20 AM EDT Images from the original note were not included. . [facility] [address] [facility] [address] Dept: [phone] Dept Visit type: Established Reason for Visit: [...] care of his dog and go to [place] emergency room. 1. Secondary hypertension 2. Dyspnea, [...] Imaging/Testing: CLARIBEL Ludwig CNP documented in this [facility]03-24-2025 Telephone encounter Note* Telephone Encounter - Elise Nair RN - 07/20/2024 3:16 PM EDT S: Patient spoke with [facility] nurse regarding SOB with exertion, weak, HR [...] Advice Protocols used: Heart Rate and Heartbeat Irspbdclt-IOQEE-KY [facility]-0664 Miscellaneous Notes* Telephone Encounter - Elise Nair RN - 07/20/2024 3:16 PM EDT S: Patient spoke with [facility] nurse regarding SOB with exertion, weak, HR [...] Advice Protocols used: Heart Rate and Heartbeat Xygilmapv-RBIMV-WX documented in this [facility]SM[facility] HospitalNsmgic23-49-0624 Telephone encounter Note* Telephone Encounter - Ankur Stein MA - 03/06/2024 1:48 PM EST Pt informed, encouraged him to schedule a follow up after the first of the year when he has insurance [facility]jnghp56-19-1515 Miscellaneous Notes* Telephone Encounter - Ankur Stein [...] to answer question Protocols used: Medication Question Eomr-ZIHTS-KY documented in this [facility]11-08-2024 Telephone encounter Note* Telephone Encounter - Elise Nair RN - 03/06/2024 12:23 PM EST S: Patient spoke with [facility] nurse regarding medication request B: Onset of [...] to answer question Protocols used: Medication Question Bedd-BKSZN-GR [facility]qgbcf22-02-9962 Telephone encounter Note* Telephone Encounter - Rob Yun RN - 09/27/2023 3:44 PM EDT S: Patient spoke with [facility] nurse regarding achy joints B: Onset of symptoms/concern couple days A: Patient states all his joints ache. States this last happened 06/24/[address] Back prescribed Prednisone 20 mg to be taken daily as needed for joint pain. He is requesting a precription for the prednisone be sent to his pharmacy: [facility] [address] in [place]. R: Please call patient at # [phone] when prescription sent to pharmacy or with further recommendations. Allergies and Pharmacy reviewed. No further needs at this time. Reason for Disposition Prescription refill request for NON-ESSENTIAL medicine (i.e., no harm to patient if med not taken) and triager unable to refill per department policy Prescription request for new medicine (not a refill) Protocols used: Medication Refill and Renewal Reii-KVNDM-MD, Medication Question Oxij-CIDWP-UU [facility] [id number] Miscellaneous Notes* Telephone Encounter - Rob Yun [...] the prednisone be sent to his pharmacy: [facility] [address] in [place]. R: Please call patient at # [phone] when prescription sent to pharmacy or with further recommendations. Allergies and Pharmacy reviewed. No further needs at this time. Reason for Disposition Prescription refill request for NON-ESSENTIAL medicine (i.e., no harm to patient if med not taken) and triager unable to refill per department policy Prescription request for new medicine (not a refill) Protocols used: Medication Refill and Renewal Uiep-MXUUI-JN, Medication Question Eevq-GGZBI-BZ documented in this [facility]10-19-2023 History of Present illness Narrative* Rob Back MD - 02/14/2023 2:20 PM EDT Images from the original note were not included. . [facility] [address] [facility] [address] [facility] [address] Dept: [phone] Dept Visit type: Established Reason for Visit: [...] Imaging/Testing: Rob Back MD documented in this [facility]10-19-2023 Instructions* Patient Instructions* Rob Back MD - 02/14/2023 2:20 PM EDT To schedule your heart monitor, please call the following number: Central Scheduling [phone] documented in this [facility]10-19-2023 Telephone encounter Note* Telephone Encounter - Judy [...] Answer* Protocols used: Heart Rate and Heartbeat Tfyzvuxhf-TEOPI-PL [facility] HospitalFheehu48-16-5028 Miscellaneous Notes* Telephone Encounter - Judy Robison [...] Answer* Protocols used: Heart Rate and Heartbeat Ocpidsvlw-VASRJ-JZ documented in this [facility]01-16-2023 Telephone encounter Note* Telephone Encounter - Blanca Hdz - 05/14/2022 2:44 PM EST Name of caller: Lauren Contact phone number: [phone] Relationship to Patient: Pt Provider: Wong Practice: [facility] Chief Complaint/Reason for Call: [...] his last visit. Pharmacy verified [id number] - [place], [place] - [address] [place] [address] . Please advise. Best time of day caller can be reached: Any Patient advised that office/PCP has 24-48 business hours to return their call: No [facility] HospitalPdspsv13-94-6779 Miscellaneous Notes* Telephone Encounter - Blanca Hdz - 05/14/2022 2:44 PM EST Name of caller: Lauren Contact phone number: [phone] Relationship to Patient: Pt Provider: Wong Practice: [facility] Chief Complaint/Reason for Call: [...] his last visit. Pharmacy verified [id number] - [facility] [address] [phone]. Please advise. Best time of day caller can be reached: Any Patient advised that office/PCP has 24-48 business hours to return their call: No documented in this [facility] Author Caden Restrepo [facility] Note Date/Time November 13, 2024 11:5 7am [facility] Medical Records Department [address] [place] [address] Pre-Anesthesia Evaluation 11/13/24 1147 MR#: [id number] Acct: [id number] Name: LAUREN ESCALANTE Rep #:[id number] : 1955 69 From: Caden Restrepo MD PCP: Dr. Rob Back MD Status:REG SD C Y Race: C Location: [place] [address] ASA Classification* ASA Classification ASA Classification: 3 Assessment & Plan Anesthesia* Anesthesia Assessment Anesthesia Assessment: Discussed sedation and/or anesthesia options, risks, benefits, and alternatives with patient/parents/legal guardian/POA. Questions invited. The patient/parents/legal guardian/POA seems to understand and agrees to proceedwith anesthesia plan. Reviewed the physical assessment, medical history, allergy history and patient home medications list prior to surgery/procedure/anesthetic and documented any changes. Performed airway and anesthesia risk assessments. Anesthesia Type Anesthesia Type: MAC History Source History Obtained from:: Patient and Chart Anesthesia Focused Assessment* Temperature: 97.8 F Pulse Rate: 96 Blood Pressure: 168/98 Respiratory Rate: 16 Pulse Ox: 99 Oxygen Delivery Method: Room Air Airway Assessment Mouth opens: >3 cm Mallampati Score: II Teeth Condition: Intact, Chipped/Broken (Several chipped teeth.) and Missing (Patient is missing several teeth.) Neck Range of motion (ROM): Limited ROM (Decreased extension) Labs Anesthesia Preop lab: CBC WBC 8.1 K/mm3 (4.4-11.0) 07/25/24 11:45 07/25/24 RBC 4.64 M/mm3 (4.6-6.2) 07/25/24 11:45 07/25/24 Hgb 14.5 g/dL (13.0-16.5) 07/25/24 11:45 07/25/24 Hct 41.3 % (40-54) 07/25/24 11:45 07/25/24 Plt Count 317 K/mm3 (150-450) 07/25/24 11:45 07/25/24 CHEMISTRY Potassium 4.2 mmol/L (3.3-5.1) 07/25/24 11:45 07/25/24 Sodium 139 mmol/L (133-145) 07/25/24 11:45 07/25/24 BUN 28 mg/dL (4-19) H 07/25/24 11:45 07/25/24 Creatinine 1.13 mg/dL (0.70-1.20) 07/25/24 11:45 07/25/24 Glucose 98 mg/dL (70-99) 07/25/24 11:45 07/25/24 COAG Pre-Assessment Diagnosis/Proposed Procedure Planned Operative Procedure(s): EGD, COLONOSCOPY Anesthesia History Anesthesia History - instructor looping: Anesthesia History - instructor looping Hx Hospitalization No 11/10/24 14:53 Any Problems With Anesthesia No 11/10/24 14:53 Cholinesterase deficiency No 11/10/24 14:53 You/Your Family Experience No 11/10/24 14:53 fever (hyperthermia) with Relationship Recent Exposure to Contagious No 11/13/24 10:55 Disease Does patient have nerve No 11/10/24 14:53 stimulator Patient instructed to have device shut off --Does patient have Pacemaker No 11/13/24 10:55 or ICD? When Was Last Pacemaker Check QUESTION #4 FULL TEXT: You/Your Family Experience fever (hyperthermia) with Anesthesia Last Oral Intake Last Oral intake: Last Oral Intake NPO since 05:00 11/13/24 10:55 Meds taken in AM with sips of No 11/13/24 10:55 water? Meds patient instructed to take am of surgery Any additional information?: Yes NPO since: 05:00 (Patient finished prep at 5 AM.) Meds taken in AM with sips of water?: No PONV PONV - instructor looping: PONV - instructor looping Female No 11/10/24 14:53 HX of Motion Sickness Yes 11/10/24 14:53 HX of N/V After Surgery No 11/10/24 14:53 Non-Smoker Yes 11/10/24 14:53 Duration of Surgery greater No 11/10/24 14:53 than 60 minutes Number of Risk Factors 2 11/10/24 14:53 PONV Score Moderate Risk 11/10/24 14:53 Height & Weight Height & Weight: Anesthesia: Height & Weight Height 6 ft 1 in 11/13/24 10:55 Weight: 106.8 kg 11/13/24 10:55 Body Mass Index (BMI) 31.0 11/13/24 10:55 Respiratory Assessment Respiratory Assessment - instructor looping: Respiratory Tract Infection Hx - instructor looping Hx Respiratory Tract Infection No 11/10/24 14:53 STOP Sleep Apnea STOP Sleep Apnea - instructor looping: STOP Sleep Apnea - instructor looping Hx Hypertension Yes 11/10/24 14:53 Hx Sleep Apnea No 11/10/24 14:53 CPAP BIPAP Do you snore loudly (louder No 11/10/24 14:53 than talking or can be heard Do you often feel tired/ No 11/10/24 14:53 fatigued/ sleepy during daytime? Has anyone observed you stop No 11/10/24 14:53 breathing during sleep? STOP Results Negative 11/10/24 14:53 QUESTION #5 FULL TEXT : Do you snore loudly (louder than talking or can be heard through closed doors)? Tobacco Use History Tobacco Use History - instructor looping: Tobacco Use History - instructor looping Tobacco Use Smoking Status Former smoker 11/10/24 14:53 Hx Tobacco Use No 11/10/24 14:53 Years Smoking Packs Smoked per Day Smoking Cessation Date was Yes - quit smoking within 11/10/24 14:53 within the last 15 years years Hx Smoking Cessation Date Hx Smoking Cessation Counseling Hematologic Medial History Hematologic Hx - instructor looping: Hematologic Medical Hx - budget counselor Hx of Blood Transfusion No 11/10/24 14:53 Hx of Transfusion in last 3 No 11/10/24 14:53 Months Date of Last Transfusion (if within last 3 months) Ever experience any problems No 11/10/24 14:53 with transfusion(s)? Specify any problems Hx of Preganancy in last 3 N/A 11/10/24 14:53 Months Nurse Filling Out Transfusion VLEHMAN 11/10/24 14:53 & Questions: Date: 11/10/24 11/10/24 14:53 Time: 15:03 11/10/24 14:53 Patient unable to answer at this time (ie. confused, unrespo /Reproduction History /Reproductive History - instructor looping: /Reproductive Hx- instructor looping Hx Now No 11/10/24 14:53 Gestational Age (in weeks): EDC: Hx Hx Para Hx Section SAB No 11/10/24 14:53 Active Medications Active Medications: Current Medications Generic Name Dose Route Start Last Admin Trade Name Freq PRN Reason Stop Dose Admin Lactated Ringer's 1,000 mls @ 15 mls/hr 11/13/24 10:45 11/13/24 10:58 IV 15 mls/hr .Q48H DEJA Administration PFSH Medical History Wears glasses History of steroid therapy Blackout Former smoker Shortness of breath on exertion Leg cramps History of Holter monitoring History of stress test History of echocardiogram Cardiology follow-up encounter Chest pain TD (obstructive sleep apnea) Hypertension Depression SOB (shortness of breath) Pneumothorax Home Medications ?Medication ?Instructions ?Recorded ?Last Taken ?Type amlodipine 10 mg tablet 10 mg PO DAILY 07/25/24/12/21 History quetiapine 25 mg tablet 25 mg PO QHS 07/25/24 History venlafaxine 37.5 mg 37.5 mg PO DAILY 07/25/24 History capsule,extended release 24 hr albuterol sulfate 90 mcg/actuation 2 puff inhalation Q 4 PRN shortness 08/27/24 Unknown History aerosol inhaler of breath or wheezing pantoprazole 40 mg tablet,delayed 40 mg PO QDAY Unknown History release peg 3350-electrolytes 236 240 ml PO Q10M #4,000 mL Unknown Rx gram-22.74 gram-6.74 gram-5.86 gram solution (Golytely) dextroamphetamine-amphetamine 20 1 tab PO BID PRN ADHD 10/27/24 Unknown History mg tablet losartan 100 mg tablet 200 mg PO QDAY 10/27/24 Unkn own History Allergy/AdvReac Type Severity Reaction Status Date / Time No Known Allergies Allergy Verified 11/13/24 10:54 Family History Mother Heart disease Cancer ovarian Hypertension Father Myocardial infarction Surgical History History of tonsillectomy H/O hernia repair History of appendectomy History of right knee surgery Social History household members: none current occupational status: retired pets and animals: Yes pets and animals: dog(s) history of recent travel: No Smoking Status: Former smoker alcohol intake: current alcohol intake frequency: holidays/special occasions only substance use type: does not use well-balanced diet: about half the time caffeine: Yes what type of physical activity do you participate in: none Review of Systems (Anesthesia) ROS Narrative System reviewed and no additional complaints, except as documented. 11/13/24 1157 <Electronically signed by Caden cervantes MD> Date _ Caden Restrepo MD Cosigner Signature: Date CC: ~ Signed [facility] Work Phone: Consult note Author Hari Carvalho [facility] Note Date/Time November 13, 2024 12:5 7pm [facility] Medical Records Department [address] [place] [address] Anesthesia Postop Eval I 11/13/24 1256 MR#: [id number] Acct: [id number] Name: LAUREN ESCALANTE Rep #:[id number] : 1955 69 From: Hari Carvalho PCP: Dr. Rob Back MD Status:REG SD C Y Race: C Location: [place] [address] Anesthesia: Postop Eval I Current Vital Signs Temperature: 97 F Pulse Rate: 81 Blood Pressure: 100/63 Respiratory Rate: 16 Pulse Ox: 97 Oxygen Delivery Method: Room Air Assessment Airway patent: Yes Spontaneous unlabored respirations: Yes Mental status: Awake nausea: No Vomiting: No Anesthesia Complication: No Fluid Hydration Crystalloid volume administer (ml): 600 Total IV fluid infused: 600 Progress Note Anesthesia document: Postop Eval 1 completed: Yes 11/13/24 1257 <Electronically signed by Hari Carvalho > Date _ Hari Gomesignjuan pablo Signature: Date CC: ~ Signed [facility] Work Phone: Evaluation + Plan note No data available for this section [facility] Evaluation note* Diagnosis Syncope and collapse- Primary [facility] Diagnosis Syncope and collapse [facility] Diagnosis Syncope and collapse [facility]* Diagnosis Secondary hypertension- Primary Other secondary hypertension, unspecified Dyspnea, unspecified type Chest pain, unspecified type [facility] noteNo assessment information [facility]WC[facility] Work Phone: Evaluation note* Diagnosis Shortness of breath- Primary [facility]* Diagnosis Fatigue, unspecified type- Primary B12 deficiency Vitamin D deficiency Shortness of breath Encounter for screening prostate specific antigen (PSA) measurement Dyspepsia Dyspepsia and other specified disorders of function of stomach Generalized abdominal pain Abdominal pain, generalized Encounter for screening colonoscopy Abdominal distension Flatulence, eructation, and gas pain [facility]* Diagnosis Primary hypertension- Primary Unspecified essential hypertension Dyspepsia Dyspepsia and other specified disorders of function of stomach Fatigue, unspecified type Chest pain, unspecified type Slurred speech Other speech disturbance [facility]* Diagnosis Fatigue, unspecified type- Primary [facility]* Diagnosis Muscle weakness (generalized)- Primary Shortness of breath Essential hypertension Unspecified essential hypertension [facility]* Diagnosis Positive sm/CARDIOVASCULAR INVASIVE SPECIALIST antibody- Primary Weakness Other malaise and fatigue documented [facility]* Diagnosis Muscle weakness (generalized)- Primary [facility]* Diagnosis Shortness of breath- Primary Atherosclerosis of [place] coronary artery of [place] heart without angina pectoris [facility]* Diagnosis Shortness of breath- Primary Essential hypertension Unspecified essential hypertension Fatigue, unspecified type [facility]* Diagnosis Shortness of breath Atherosclerosis of [place] coronary artery of [place] heart without angina pectoris [facility]* Diagnosis Essential hypertension Unspecified essential hypertension [facility]* Diagnosis Dyspepsia Dyspepsia and other specified disorders of function of stomach documented [facility]* Diagnosis Dyspepsia Dyspepsia and other specified disorders of function of stomach [facility]* Diagnosis Muscle weakness (generalized)- Primary Primary hypertension Unspecified essential hypertension Essential hypertension Unspecified essential hypertension Shortness of breath [facility]* Diagnosis Bilateral leg weakness- Primary Muscle weakness (generalized) Tingling of both feet Dysphasia Other speech disturbance Bilateral low back pain without sciatica, unspecified chronicity Bilateral hip pain Pain in joint, pelvic region and thigh Exposure to heavy metals Contact with and (suspected) exposure to other hazardous metals Fatigue, unspecified type Tremor Abnormal involuntary movements [facility]* Diagnosis Bilateral leg weakness Muscle weakness (generalized) Bilateral low back pain without sciatica, unspecified chronicity Exposure to heavy metals Contact with and (suspected) exposure to other hazardous metals documented [facility] this encounter [facility] Author Rolan Grace [facility] Note Date/Time November 13, 2024 12:2 0pm [facility] Medical Records Department [address] [place] [address] [place] [address] History & Physical Exam 11/13/24 1218 MR#: [id number] Acct: [id number] Name: LAUREN ESCALANTE Rep #:[id number] : 1955 69 From: [facility] Friend DO PCP: Dr. Rob Back MD Status:REG SD C Location: [place] [address] HPI - General General Date of Admission: 11/13/24 Date of Service: 11/13/24 Chief Complaint: Abdominal pain and diarrhea HPI Narrative LAUREN ESCALANTE, is a 69 M who presentsChief Complaint: abdominal pain and diarrhea PULMONARY CONSULT 08/27/2024 The patient reported that he has been experiencing worsening dyspnea since the beginning of June 2024. His outpatient cardiac workup has been negative to date, including pharmacologic stress test and echocardiogram. Surface echocardiogram completed here in July 2024 did reveal evidence of stage I diastolic dysfunction with a pulmonary artery systolic pressure of 26 mmHg. Thepatient has a very limited [id number] smoking history, having quit completely in 2019. He did not grow up in a smoking household. The patient has never previously been diagnosed with asthma. The patient is currently retired, havingworked previously in the [employer]. The patient's primary care provider did provide him with an albuterol rescue inhaler in the past. However,the patient reported that the medication did not provide any symptom relief. Hedenied any recent medication changes. His weight has been steadily increasing over the course of the last several years. In fact, the patient reported that over the last year his weight has increased by approximately 30 pounds. He currently denies any fevers, chills or night sweats. In addition, he denies anychest tightness, wheezing or cough. - abdominal cramping, bloating - reports he is not one to go to the doctor - seen by pulmonology for SOB - reports he was not going to retire until he was 70y/o but had to retire due toincreased SOB 07/25/2024 HGB 14.5 - reports he [...] go and then reports he will sit there and when he finally goes it is watery - he does have some solid stools - denies any family h/o colon CA - brother with Crohn's - denies any melena but can have dark stools after taking pepto - Waking at night with bowel movements - denies any new medications - HB - can be severe, just started a medication - h/o smoking ABD US 2020 1. Dense liver consistent with fatty infiltration and/or hepatocellular disease. No evidence of cholelithiasis or biliary ductal dilatation. 2. 1.9 cm left renal cyst. 3. Suboptimal visualization of the pancreas. [facility] Medical History Wears glasses History of steroid therapy Blackout Former smoker Shortness of breath on exertion Leg cramps History of Holter monitoring History of stress test History of echocardiogram Cardiology follow-up encounter Chest pain TD (obstructive sleep apnea) Hypertension Depression SOB (shortness of breath) Pneumothorax Home Medications ?Medication ?Instructions ?Recorded ?Last Taken ?Type amlodipine 10 mg tablet 10 mg PO DAILY 07/25/24/12/21 History quetiapine 25 mg tablet 25 mg PO QHS 07/25/24 History venlafaxine 37.5 mg 37.5 mg PO DAILY 07/25/24 History capsule,extended release 24 hr albuterol sulfate 90 mcg/actuation 2 puff inhalation Q 4 PRN shortness 08/27/24 Unknown History aerosol inhaler of breath or wheezing pantoprazole 40 mg tablet,delayed 40 mg PO QDAY Unknown History release peg 3350-electrolytes 236 240 ml PO Q10M #4,000 mL Unknown Rx gram-22.74 gram-6.74 gram-5.86 gram solution (Golytely) dextroamphetamine-amphetamine 20 1 tab PO BID PRN ADHD 10/27/24 Unknown History mg tablet losartan 100 mg tablet 200 mg PO QDAY 10/27/24 Unkn own History Allergy/AdvReac Type Severity Reaction Status Date / Time No Known Allergies Allergy Verified 11/13/24 10:54 Family History Mother Heart disease Cancer ovarian Hypertension Father Myocardial infarction Surgical History History of tonsillectomy H/O hernia repair History of appendectomy History of right knee surgery Social History household members: none current occupational status: retired pets and animals: Yes pets and animals: dog(s) history of recent travel: No Smoking Status: Former smoker alcohol intake: current alcohol intake frequency: holidays/special occasions only substance use type: does not use well-balanced diet: about half the time caffeine: Yes what type of physical activity do you participate in: none ROS Constitutional Constitutional: Denies fatigue, fever(s), poor appetite, weight gain or weight loss Gastrointestinal Gastrointestinal: Denies belching, bloating, change in bowel habits, change in stool character, chewing difficulty, coffee ground emesis, constipation, cramping, diarrhea, dyspepsia, dysphagia, early satiety, excessive flatus, fecal incontinence, heartburn, hematemesis, hematochezia, hemorrhoids, loose stools, melena, nausea, odynophagia, rectal bleeding, tenesmus, vomiting or weight changes Vital Signs Vital Signs Vital Signs: 11/13/24 10:55 11/13/24 10:55 11/13/24 11:57 Temperature 97.8 F 97.8 F Temperature Source Temporal Pulse Rate 96 96 Respiratory Rate 16 16 Respiratory Pattern Normal Blood Pressure 168/98 H 168/98 H Blood Pressure Mean 121 Blood Pressure Source Monitor Blood Pressure Position Semi-Fowlers Blood Pressure Location Left Arm Pulse Ox 99 99 Oxygen Delivery Method Room Air Room Air Weight Weight: 235 lb 7.259 oz Body Mass Index (BMI) 31.0 Physical Exam Const alert, oriented x3, no apparent distress and healthy appearing General Appearance: cooperative GI normal to inspection, nondistended, normoactive bowel sounds, soft to palpation,non-tender and non-distended Percussion: normal to percussion Rectal Exam: deferred Assessment & Plan Assessment/Plan (1) Abdominal pain: (2) Nausea: (3) Bloating: (4) Diarrhea: PLAN: Assessment and Plan Assessment and Plan (1) Abdominal pain: Status: Acute (2) Bloating: Status: Acute (3) Nausea: Status: Acute (4) Diarrhea: Status: Acute Orders: Orders ABD Limited w/ Elastography Today R10.9 - Unspecified abdominal pain, R11.0 - Nausea, R14.0 - Abdominal distension (gaseous) Medications: New peg 3350-electrolytes 236-22.74-6.74 -5.86 gram (Golytely) as directed for split dose bowel prep 240 mL PO Q10M 4,000 mL 0RF Plan 69-year-old male presents for initial consultation with complaints of nausea, heartburn, bloating, RUQ pain, and change in bowel habits. Symptoms have been ongoing for the past 1 to 2 years with a reported weight weight gain of approximately 30 pounds in the past 18 months. He has noted moderate improvement in heartburn symptoms with pantoprazole daily. He reports a generalized malaise and retiring secondary to symptoms. He reports prior cardiacand pulmonary w/u were unremarkable. He reports experiencing watery stools with urgency and difficulty with evacuation. His family history is significant for brother with Crohn's disease. He denies any prior colonoscopy or endoscopy. Abdominal ultrasound was performed in 2020 and revealed liver steatosis. I haveordered an abdominal ultrasound, stool testing, and scheduled him for bidirectional endoscopies. He will follow-up in office post procedure. 11/13/24 1220 <Electronically signed by Rolan Grace DO> Cosigner Signature (if applicable): CC: Dr. Rob Back MD; Rolan Grace DO~ Signed [facility] Work Phone: Hospital Discharge instructions No data available for this section [facility] Hospital Discharge instructions Additional Instructions Tests today [...] till we make sure your heart is okay.[facility] Work Phone: Progress note No data available for this section [facility] Reason for referral (narrative)No reason for referral information availableWC[facility] Work Phone: Reason for visit Narrative* Imaging (Routine) - Closed Specialty Diagnoses / Procedures Referred By Contac t Referred To Contact Radiology Diagnoses Shortness of breath Atherosclerosis of [place] coronary artery of [place] heart without angina pectoris Procedures CTA HEART CORONARY ANGIOGRAM WITH PROV FFR-CT Rob Back MD [address] [facility] [address] [place] [address] Phone: tel: fax: Referral ID Status Reason Start Date Expiration Date Visits Re quested Visits Authorized [id number] Closed 10/29/2024 10/29/2025 1 1 [facility] for visit Narrative* Hospital - Outpatient (Routine) - Closed Specialty Diagnoses / Procedures Referred By Contac t Referred To Contact Neurology Diagnoses Bilateral leg weakness Bilateral low back pain without sciatica, unspecified chronicity Exposure to heavy metals Procedures Nerve conduction test with EMG Ronnie Boston MD [address] [facility] [address] [place] [address] Phone: tel: fax: Referral ID Status Reason Start Date Expiration Date Visits Re quested Visits Authorized [id number] Closed 12/31/2024 12/26/2025 1 1 [facility] Summary Purpose Family History Relationship Condition Age at Onset Recorded Date/T [place] mother Cardiac disease Unknown Malignant neoplasm Unknown Hypertension Unknown father Myocardial infarction Unknown Advance Directives Advance Directive Response Recorded Date/ Time Living Will Yes July 25, 2024 11:28am Do you have a Healthcare Power of Motion Graphics Artist? Yes July 25, 2024 11:28am Name of Medical Power of Motion Graphics Artist Garret July 25, 2024 11:28am Advance Directive Response Recorded Date/ Time Living Will Yes July 25, 2024 11:28am Do you have a Healthcare Power of Motion Graphics Artist? Yes July 25, 2024 11:28am Name of Medical Power of Motion Graphics Artist Garret July 25, 2024 11:28am Do you have a Healthcare Power of Motion Graphics Artist? Yes November 10, 2024 2:53pm Advance Directive Response Recorded Date/ Time Do you have a Healthcare Power of Motion Graphics Artist? Yes November 10, 2024 2:53pm Reason for Referral Specialty Diagnoses / Procedures Referred By Contac t Referred To Contact Cardiology Diagnoses Syncope and collapse Procedures Cardiac holter monitor (8- 15 days) NC EXTERNAL ECG REC>48HR<7D REVIEW & INTERPRETATION NC EXTERNAL ECG REC>48HR<7D RECORDING NC EXTERNAL ECG REC>7D<15D RECORDING NC EXTERNAL ECG REC>7D<15D REVIEW & INTERPRETATION Rob Back MD [address] [place] [address] [address] [place] [address] Referral ID Status Reason Start Date Expiration Date V isits Requested Visits Authorized [id number] Authorized 02/14/2023 08/13/2023 1 1 Chief Complaint [...] 9:28am R06.02 - Shortness of breath September 14 025 7:54am Right Upper Quadrant Pain September 14, 2024 1:51pm Reason for Visit Admit Date SOB (shortness of breath) August 27, 2024 9:28am Abdominal pain September 14, 2024 1:51p m Bloating September 14, 2024 1:51p m Diarrhea September 14, 2024 1:51p m Nausea September 14, 2024 1:51p m Chief Complaint Admit Date SOB July 25, 2024 11: 10am ROMERO July 29, 2024 6:12 am Shortness of breath August 27, 2024 9:28am R06.02 - Shortness of breath September 14 025 7:54am Right Upper Quadrant Pain September 14, 2024 1:51pm ABD PAIN, BLOATING, NAUSEA September 25 6:55am R06.02 - Shortness of breath October 01 025 12:17pm Chief Complaint Admit Date SOB July 25, 2024 11: 10am ROMERO July 29, 2024 6:12 am Shortness of breath August 27, 2024 9:28am R06.02 - Shortness of breath September 14 025 7:54am Right Upper Quadrant Pain September 14, 2024 1:51pm ABD PAIN, BLOATING, NAUSEA September 25 6:55am R06.02 - Shortness of breath October 01, 2 025 12:17pm R06.02 - Shortness of breath October 02 025 1:04pm Chief Complaint Admit Date SOB July 25, 2024 11: 10am ROMERO July 29, 2024 6:12 am Shortness of breath August 27, 2024 9:28am R06.02 - Shortness of breath September 14 025 7:54am Right Upper Quadrant Pain September 14, 2024 1:51pm ABD PAIN, BLOATING, NAUSEA September 25 6:55am R06.02 - Shortness of breath October 01 12:17pm R06.02 - Shortness of breath October 02 025 1:04pm 1 M FU October 13, 2024 8:58 am Reason for Visit Admit Date SOB (shortness of breath) August 27, 2024 9:28am Abdominal pain September 14, 2024 1:51p m Bloating September 14, 2024 1:51p m Diarrhea September 14, 2024 1:51p m Nausea September 14, 2024 1:51p m Daytime hypersomnia October 13, 2024 8:58 am Chief Complaint Admit Date SOB July 25, 2024 11: 10am ROMERO July 29, 2024 6:12 am Shortness of breath August 27, 2024 9:28am R06.02 - Shortness of breath September 14 025 7:54am R06.02 - Shortness of breath September 14 025 8:02am Right Upper Quadrant Pain September 14, 2024 1:51pm ABD PAIN, BLOATING, NAUSEA May 30th, 202 5 6:55am R06.02 - Shortness of breath October 01, 025 12:17pm R06.02 - Shortness of breath October 02 025 1:04pm 1 M FU October 13, 2024 8:58 am MUSCLE WEAKNESS, SOB October 14, 2024 5:1 9pm G47.33 - Obstructive sleep apnea (adult) (pediatri October 15, 2024 11:31am Reason for Visit Admit Date SOB (shortness of breath) August 27, 2024 9:28am Abdominal pain September 14, 2024 1:51p m Bloating September 14, 2024 1:51p m Diarrhea September 14, 2024 1:51p m Nausea September 14, 2024 1:51p m Daytime hypersomnia October 13, 2024 8:58 am Tachycardia with hypertension October 13, 2024 8:58am Hypertension October 13, 2024 8:58 am Obesity October 13, 2024 8:58 am SOB (shortness of breath) October 13 8:58am Chief Complaint Admit Date SOB July 25, 2024 11: 10am ROMERO July 29, 2024 6:12 am Shortness of breath August 27, 2024 9:28am R06.02 - Shortness of breath September 14 025 7:54am R06.02 - Shortness of breath September 14 025 8:02am Right Upper Quadrant Pain September 14, 2024 1:51pm ABD PAIN, BLOATING, NAUSEA September 25 6:55am R06.02 - Shortness of breath October 01 025 12:17pm R06.02 - Shortness of breath October 02, 2 025 1:04pm 1 M FU October 13, 2024 8:58 am MUSCLE WEAKNESS, SOB October 14, 2024 5:1 9pm G47.33 - Obstructive sleep apnea (adult) (pediatri October 15, 2024 11:31am Sleep study results October 26, 2024 10:3 8am Chief Complaint Admit Date SOB July 25, 2024 11: 10am ROMERO July 29, 2024 6:12 am Shortness of breath August 27, 2024 9:28am R06.02 - Shortness of breath September 14 025 7:54am R06.02 - Shortness of breath September 14 025 8:02am Right Upper Quadrant Pain September 14, 2024 1:51pm ABD PAIN, BLOATING, NAUSEA September 25 6:55am R06.02 - Shortness of breath October 01 2 025 12:17pm R06.02 - Shortness of breath October 02 025 1:04pm 1 M FU October 13, 2024 8:58 am MUSCLE WEAKNESS, SOB October 14, 2024 5:1 9pm G47.33 - Obstructive sleep apnea (adult) (pediatri October 15, 2024 11:31am Sleep study results October 26, 2024 10:[address] (Self) October 27, 2024 8:17a m Reason for Visit Admit Date SOB (shortness of breath) August 27, 2024 9:28am Abdominal pain September 14, 2024 1:51p m Bloating September 14, 2024 1:51p m Diarrhea September 14, 2024 1:51p m Nausea September 14, 2024 1:51p m Daytime hypersomnia October 13, 2024 8:58 am Tachycardia with hypertension October 13, 2024 8:58am Hypertension October 13, 2024 8:58 am Obesity October 13, 2024 8:58 am SOB (shortness of breath) October 13 8:58am TD (obstructive sleep apnea) October 26, 2024 10:38am Tachycardia with hypertension October 26, 2024 10:38am Hypertension October 26, 2024 10:3 8am Obesity October 26, 2024 10:3 8am SOB (shortness of breath) October 26 10:38am Reason for Visit Admit Date SOB (shortness of breath) August 27, 2024 9:28am Abdominal pain September 14, 2024 1:51p m Bloating September 14, 2024 1:51p m Diarrhea September 14, 2024 1:51p m Nausea September 14, 2024 1:51p m Daytime hypersomnia October 13, 2024 8:58 am Tachycardia with hypertension October 13, 2024 8:58am Hypertension October 13, 2024 8:58 am Obesity October 13, 2024 8:58 am SOB (shortness of breath) October 13 8:58am TD (obstructive sleep apnea) October 26, 2024 10:38am Tachycardia with hypertension October 26, 2024 10:38am Hypertension October 26, 2024 10:3 8am Obesity October 26, 2024 10:3 8am SOB (shortness of breath) October 26 10:38am TD (obstructive sleep apnea) October 27, 2024 8:17am Tachycardia with hypertension October 27, 2024 8:17am SOB (shortness of breath) October 27, 2024 8:17am Abdominal pain November 13, 2024 10:1 8am Bloating November 13, 2024 10:1 8am Diarrhea November 13, 2024 10:1 8am Nausea November 13, 2024 10:1 8am Chief Complaint Admit Date Shortness of breath August 27, 2024 9:28am R06.02 - Shortness of breath September 14, 025 7:54am R06.02 - Shortness of breath September 14 025 8:02am Right Upper Quadrant Pain September 14, 2024 1:51pm ABD PAIN, BLOATING, NAUSEA September 25 6:55am R06.02 - Shortness of breath October 01, 025 12:17pm R06.02 - Shortness of breath October 02, 025 1:04pm 1 M FU October 13, 2024 8:58 am MUSCLE WEAKNESS, SOB October 14, 2024 5:1 9pm G47.33 - Obstructive sleep apnea (adult) (pediatri October 15, 2024 11:31am Sleep study results October 26, 2024 10:[address] (Self) October 27, 2024 8:17a m FU December 02, 2024 10: 16am Reason for Visit Admit Date SOB (shortness of breath) August 27, 2024 9:28am Abdominal pain September 14, 2024 1:51p m Bloating September 14, 2024 1:51p m Diarrhea September 14, 2024 1:51p m Nausea September 14, 2024 1:51p m Daytime hypersomnia October 13, 2024 8:58 am Tachycardia with hypertension October 13, 2024 8:58am Hypertension October 13, 2024 8:58 am Obesity October 13, 2024 8:58 am SOB (shortness of breath) October 13 8:58am TD (obstructive sleep apnea) October 26, 2024 10:38am Tachycardia with hypertension October 26, 2024 10:38am Hypertension October 26, 2024 10:3 8am Obesity October 26, 2024 10:3 8am SOB (shortness of breath) October 26 10:38am TD (obstructive sleep apnea) October 27, 2024 8:17am Tachycardia with hypertension October 27, 2024 8:17am SOB (shortness of breath) October 27, 2024 8:17am Abdominal pain November 13, 2024 10:1 8am Bloating November 13, 2024 10:1 8am Diarrhea November 13, 2024 10:1 8am Nausea November 13, 2024 10:1 8am Abdominal pain December 02, 2024 10: 16am Diarrhea December 02, 2024 10: 16am GERD (gastroesophageal reflux disease) A ugust 2024 10:16am Additional Source Comments Source Comments (unrecognize d section and content) In the event this informatio n is protected by the Federal Confidentiality of Alcohol and Drug Abuse Patient Records regulations: The Federal rules restrict any use of the information to criminally investigate or prosecute any alcohol or drug abuse patient.[facility] Care Teams (unrecognized sec tion and content) Upholstery Covers Inspector Relationship Specialty Start Date End Date Paola Lofton MD PCP - General 08/15/16 Upholstery Covers Inspector Relationship Specialty Start Date End Date Rob Back MD [address] [place] [id number] PCP - General Internal Medicine 03/23/22 Upholstery Covers Inspector Relationship Specialty Start Date End Date Rob Back MD [address] [place] [address] [place] [address] PCP - General Internal Medicine 03/23/22 Upholstery Covers Inspector Relationship Specialty Start Date End Date Rob Back MD [address] [address] [place] [address] PCP - General Internal Medicine 03/23/22 Upholstery Covers Inspector Relationship Specialty Start Date End Date Rob Back MD [address] [place] [address] [place] [address] PCP - General Internal Medicine 03/23/22 Upholstery Covers Inspector Relationship Specialty Start Date End Date Rob Back MD [address] [place] [address] [place] [address] PCP - General Internal Medicine 03/23/22 Upholstery Covers Inspector Relationship Specialty Start Date End Date Rob Back MD [address] [place] [address] [place] [address] PCP - General Internal Medicine 03/23/22 Upholstery Covers Inspector Relationship Specialty Start Date End Date Rob Back MD [address] [place] [address] [place] [address] PCP - General Internal Medicine 03/23/22 Upholstery Covers Inspector Relationship Specialty Start Date End Date Rob Back MD [address] [place] [address] [place] [address] PCP - General Internal Medicine 03/23/22 Upholstery Covers Inspector Relationship Specialty Start Date End Date Rob Back MD [address] [address] [place] [address] PCP - General Internal Medicine 03/23/22 Team Status: Active Member Role Status Dates Dr. Rob Back MD Primary Care Provider Active Team Status: Inactive Member Role Status Dates Dr. Yunior Edgar MD Emergency Provider Active S tart: July 25, 2024 End: July 25, 2024 Dr. Rob Back MD Primary Care Provider Active Start: July 25, 2024 End: July 25, 2024 Upholstery Covers Inspector Relationship Specialty Start Date End Date Rob Back MD [address] [facility] [place] [address] [place] [address] PCP - General Internal Medicine 03/23/22 Upholstery Covers Inspector Relationship Specialty Start Date End Date Rob Back MD [address] [facility] [place] [address] PCP - General Internal Medicine 03/23/22 Team [...] Provider Active S tart: July 29, 2024 Upholstery Covers Inspector Relationship Specialty Start Date End Date Rob Back MD [address] [place] [address] [address] [place] [address] PCP - General Internal Medicine 03/23/22 Upholstery Covers Inspector Relationship Specialty Start Date End Date Rob Back MD [address] [place] [place] [address] [place] [address] PCP - General Internal Medicine 03/23/22 Upholstery Covers Inspector Relationship Specialty Start Date End Date Rob Back MD [address] [facility] [place] [address] PCP - General Internal Medicine 03/23/22 Upholstery Covers Inspector Relationship Specialty Start Date End Date Rob Back MD [address] [facility] [place] [address] [place] [address] PCP - General Internal Medicine 03/23/22 Team [...] September 14, 2024 End: September 14, 2024 Cynthia Brewer NP-[place] Attending Provider Active Start: September 14, 2024 End: September 14, 2024 Upholstery Covers Inspector Relationship Specialty Start Date End Date Rob Back MD [address] [facility] [place] [address] [place] [address] PCP - General Internal Medicine 03/23/22 Team Status: Inactive Member Role Status Dates Dr. Rob Back MD Primary Care Provider Active Start: September 14, 2024 End: September 14, 2024 Dr. Bryan Zhang , DO Attending Provider Active S tart: September 14, 2024 End: September 14, 2024 Dr. Bryan Zhang , DO Referring Provider Active S tart: September 14, 2024 End: September 14, 2024 Team Status: Inactive Member Role Status Dates Dr. Rob Back MD Primary Care Provider Active Start: September 25, 2024 End: September 25, 2024 MARCELO Delaney Attending Provider Active Start: September 25, 2024 End: September 25, 2024 MARCELO Delaney Referring Provider Active Start: September 25, 2024 End: September 25, 2024 Team Status: Active Member Role Status Dates Dr. Rob Back MD Primary Care Provider Active Start: October 01, 2024 Dr. Bryan Zhang , Attending Provider Active S tart: October 01, 2024 Dr. Bryan Zhang , DO Referring Provider Active S tart: October 01, 2024 Upholstery Covers Inspector Relationship Specialty Start Date End Date Rob Back MD [address] [facility] [place] [address] PCP - General Internal Medicine 03/23/22 Team Status: Inactive Member Role Status Dates Dr. Rob Back MD Primary Care Provider Active Start: October 01, 2024 End: October 01, 2024 Dr. Bryan Zhang , DO Attending Provider Active S tart: October 01, 2024 End: October 01, 2024 Dr. Bryan Zhang , DO Referring Provider Active S tart: October 01, 2024 End: October 01, 2024 Team Status: Active Member Role Status Dates Dr. Rob Back MD Primary Care Provider Active Start: October 02, 2024 Dr. Bryan Zhang , DO Attending Provider Active S tart: October 02, 2024 Dr. Bryan Zhang , DO Referring Provider Active S tart: October 02, 2024 Dr. Bryan Brown , DO Other Provider Active Start : October 02, 2024 Team Status: Inactive Member Role Status Dates Dr. Rob aBck MD Primary Care Provider Active Start: October 13, 2024 End: October 13, 2024 Dr. Rob Back MD Referring Provider Active S tart: October 13, 2024 End: October 13, 2024 Sara Brand BIODIESEL PRODUCT MANAGER, BIODIESEL PRODUCT MANAGER-C Attending Provider Active Start: October 13, 2024 End: October 13, 2024 Upholstery Covers Inspector Relationship Specialty Start Date End Date Rob Back MD [address] [facility] [place] [address] [place] [address] PCP - General Internal Medicine 03/23/22 Team Status: Inactive Member Role Status Dates Dr. Rob Back MD Primary Care Provider Active Start: October 14, 2024 End: October 14, 2024 Dr. Rob Back MD Attending Provider Active S tart: October 14, 2024 End: October 14, 2024 Dr. Rob Back MD Referring Provider Active S tart: October 14, 2024 End: October 14, 2024 Team Status: Active Member Role Status Dates Dr. Rob Back MD Primary Care Provider Active Start: October 15, 2024 Sara Brand BIODIESEL PRODUCT MANAGER, BIODIESEL PRODUCT MANAGER-C Attending Provider Active Start: October 15, 2024 Sara Brand BIODIESEL PRODUCT MANAGER, BIODIESEL PRODUCT MANAGER-C Referring Provider Active Start: October 15, 2024 Team Status: Active Member Role/Relationship Status Dates Dr. Rob Back MD Primary Care Provider Active Team Status: Inactive Member Role/Relationship Status Dates Dr. Yunior Edgar MD Attending Provider Active S tart: July 25, 2024 End: July 25, 2024 Dr. Yunior Edgar MD Emergency Provider Active S tart: July 25, 2024 End: July 25, 2024 Dr. Rob Back MD Primary Care Provider Active Start: July 25, 2024 End: July 25, 2024 Team Status: Inactive Member Role/Relationship Status Dates Dr. Yunior Edgar MD Attending [...] July 29, 2024 Team Status: Active Member Role/Relationship Status Dates Dr. Rob Back MD Primary Care Provider Active Start: July 29, 2024 Dr. Leon Boyd MD Attending Provider Active S tart: July 29, 2024 Team Status: Inactive Member Role/Relationship Status Dates Dr. Rob Back MD Primary Care Provider Active Start: August 27, 2024 End: August 27, 2024 Dr. Rob Back MD Referring Provider Active S tart: August 27, 2024 End: August 27, 2024 Dr. Bryan Zhang , Attending Provider Active S tart: August 27, 2024 End: August 27, 2024 Team Status: Inactive Member Role/Relationship Status Dates Dr. Rob Back MD Primary Care Provider Active Start: September 14, 2024 End: September 14, 2024 Dr. Bryan Zhang DO Attending Provider Active S tart: September 14, 2024 End: September 14, 2024 Dr. Bryan Zhang DO Referring Provider Active S tart: September 14, 2024 End: September 14, 2024 Team Status: Active Member Role/Relationship Status Dates Dr. Rob Back MD Primary Care Provider Active Start: September 14, 2024 Dr. Bryan Zhang DO Attending Provider Active S tart: September 14, 2024 Dr. Bryan Zhnag DO Referring Provider Active S tart: September 14, 2024 Team Status: Inactive Member Role/Relationship Status Dates Dr. Rob Back MD Primary Care Provider Active Start: September 14, 2024 End: September 14, 2024 Dr. Rob Back MD Referring Provider Active S tart: September 14, 2024 End: September 14, 2024 MARCELO Delaney Attending Provider Active Start: September 14, 2024 End: September 14, 2024 Team Status: Inactive Member Role/Relationship Status Dates Dr. Rob Back MD Primary Care Provider Active Start: September 25, 2024 End: September 25, 2024 MARCELO Delaney Attending Provider Active Start: September 25, 2024 End: September 25, 2024 RUBIA DelaneyC Referring Provider Active Start: September 25, 2024 End: September 25, 2024 Team Status: Inactive Member Role/Relationship Status Dates Dr. Rob Back MD Primary Care Provider Active Start: October 01, 2024 End: October 01, 2024 Dr. Bryan Zhang DO Attending Provider Active S tart: October 01, 2024 End: October 01, 2024 Dr. Bryan Zhang DO Referring Provider Active S tart: October 01, 2024 End: October 01, 2024 Team Status: Active Member Role/Relationship Status Dates Dr. Rob Back MD Primary Care Provider Active Start: October 02, 2024 Dr. Bryan Zhang DO Attending Provider Active S tart: October 02, 2024 Dr. Bryan Zhang DO Referring Provider Active S tart: October 02, 2024 Dr. Bryan Zhang DO Other Provider Active Start : October 02, 2024 Team Status: Inactive Member Role/Relationship Status Dates Dr. Rob Back MD Primary Care Provider Active Start: October 13, 2024 End: October 13, 2024 Dr. Rob Back MD Referring Provider Active S tart: October 13, 2024 End: October 13, 2024 Sara Brand NP, BIODIESEL PRODUCT MANAGER-C Attending Provider Active Start: October 13, 2024 End: October 13, 2024 Team Status: Inactive Member Role/Relationship Status Dates Dr. Rob Back MD Primary Care Provider Active Start: October 14, 2024 End: October 14, 2024 Dr. Rob Back MD Attending Provider Active S tart: October 14, 2024 End: October 14, 2024 Dr. Rob Back MD Referring Provider Active S tart: October 14, 2024 End: October 14, 2024 Team Status: Inactive Member Role/Relationship Status Dates Dr. Rob Back MD Primary Care Provider Active Start: October 15, 2024 End: October 15, 2024 Sara Brand BIODIESEL PRODUCT MANAGER, BIODIESEL PRODUCT MANAGER-C Attending Provider Active Start: October 15, 2024 End: October 15, 2024 Sara Brand BIODIESEL PRODUCT MANAGER, BIODIESEL PRODUCT MANAGER-C Referring Provider Active Start: October 15, 2024 End: October 15, 2024 Team Status: Inactive Member Role/Relationship Status Dates Dr. Rob Back MD Primary Care Provider Active Start: October 26, 2024 End: October 26, 2024 Dr. Rob Back MD Referring Provider Active S tart: October 26, 2024 End: October 26, 2024 Sara Brand BIODIESEL PRODUCT MANAGER, BIODIESEL PRODUCT MANAGER-C Attending Provider Active Start: October 26, 2024 End: October 26, 2024 Team Status: Active Member Role/Relationship Status Dates Dr. Leonie Sands MD Primary Care Provider Active Team Status: Inactive Member Role/Relationship Status Dates Dr. Rob Back MD Referring Provider Active S tart: October 27, 2024 End: October 27, 2024 Dr. Paola Samson MD Attending Provider Active Start: October 27, 2024 End: October 27, 2024 Dr. Leonie Sands MD Primary Care Provider Active Start: October 27, 2024 End: October 27, 2024 Upholstery Covers Inspector Relationship Specialty Start Date End Date Rob Back MD [address] [place] [address] [place] [address] PCP - General Internal Medicine 03/23/22 Upholstery Covers Inspector Relationship Specialty Start Date End Date Rob Back MD [address] [place] [address] [place] [address] PCP - General Internal Medicine 03/23/22 Team Status: Inactive Member Role/Relationship Status Dates Dr. Rolan Grace DO Attending Provider Active Start: November 13, 2024 End: November 13, 2024 Dr. Rolan Grace DO Referring Provider Active Start: November 13, 2024 End: November 13, 2024 Dr. Rob Back MD Primary Care Provider Active Start: November 13, 2024 End: November 13, 2024 Team Status: Active Member Role/Relationship Status Dates Dr. Rolan Grace DO Attending Provider Active Start: November 13, 2024 Dr. Rolan Grace DO Referring Provider Active Start: November 13, 2024 Dr. Rolan Grace DO Other Provider Active St art: November 13, 2024 Dr. Rob Back MD Primary Care Provider Active Start: November 13, 2024 Upholstery Covers Inspector Relationship Specialty Start Date End Date Rob Back MD [address] [place] [address] [place] [address] PCP - General Internal Medicine 03/23/22 Upholstery Covers Inspector Relationship Specialty Start Date End Date Rob Back MD [address] [address] [place] [address] PCP - General Internal Medicine 03/23/22 Upholstery Covers Inspector Relationship Specialty Start Date End Date Rob Back MD [address] [place] [address] [place] [address] PCP - General Internal Medicine 03/23/22 Team Status: Inactive Member Role/Relationship Status Dates Dr. Rob Back MD Primary Care Provider Active Start: August 27, 2024 End: August 27, 2024 Dr. Rob Back MD Referring Provider Active S tart: August 27, 2024 End: August 27, 2024 Dr. Bryan Zhang , DO Attending Provider Active S tart: August 27, 2024 End: August 27, 2024 Team Status: Inactive Member Role/Relationship Status Dates Dr. Rob Back MD Primary Care Provider Active Start: September 14, 2024 End: September 14, 2024 Dr. Bryan Zhang , DO Attending Provider Active S tart: September 14, 2024 End: September 14, 2024 Dr. Bryan Zhang , DO Referring Provider Active S tart: September 14, 2024 End: September 14, 2024 Team Status: Active Member Role/Relationship Status Dates Dr. Rob Back MD Primary Care Provider Active Start: September 14, 2024 Dr. Bryan Zhang , DO Attending Provider Active S tart: September 14, 2024 Dr. Bryan Zhang , DO Referring Provider Active S tart: September 14, 2024 Team Status: Inactive Member Role/Relationship Status Dates Dr. Rob Back MD Primary Care Provider Active Start: September 14, 2024 End: September 14, 2024 Dr. Rob Back MD Referring Provider Active S tart: September 14, 2024 End: September 14, 2024 MARCELO Delaney Attending Provider Active Start: September 14, 2024 End: September 14, 2024 Team Status: Inactive Member Role/Relationship Status Dates Dr. Rob Back MD Primary Care Provider Active Start: September 25, 2024 End: September 25, 2024 Cynthia Brewer NP-C Attending Provider Active Start: September 25, 2024 End: September 25, 2024 Cynthia Brewer NP-[place] Referring Provider Active Start: September 25, 2024 End: September 25, 2024 Team Status: Inactive Member Role/Relationship Status Dates Dr. Rob Back MD Primary Care Provider Active Start: October 01, 2024 End: October 01, 2024 Dr. Bryan Zhang DO Attending Provider Active S tart: October 01, 2024 End: October 01, 2024 Dr. Bryan Zhang DO Referring Provider Active S tart: October 01, 2024 End: October 01, 2024 Team Status: Active Member Role/Relationship Status Dates Dr. Rob Back MD Primary Care Provider Active Start: October 02, 2024 Dr. Bryan Zhang DO Attending Provider Active S tart: October 02, 2024 Dr. Bryan Zhang DO Referring Provider Active S tart: October 02, 2024 Dr. Bryan Zhang DO Other Provider Active Start : October 02, 2024 Team Status: Inactive Member Role/Relationship Status Dates Dr. Rob Back MD Primary Care Provider Active Start: October 13, 2024 End: October 13, 2024 Dr. Rob Back MD Referring Provider Active S tart: October 13, 2024 End: October 13, 2024 Sara Brand NP, BIODIESEL PRODUCT MANAGER-C Attending Provider Active Start: October 13, 2024 End: October 13, 2024 Team Status: Inactive Member Role/Relationship Status Dates Dr. Rob Back MD Primary Care Provider Active Start: October 14, 2024 End: October 14, 2024 Dr. Rob Back MD Attending Provider Active S tart: October 14, 2024 End: October 14, 2024 Dr. Rob Back MD Referring Provider Active S tart: October 14, 2024 End: October 14, 2024 Team Status: Inactive Member Role/Relationship Status Dates Dr. Rob Back MD Primary Care Provider Active Start: October 15, 2024 End: October 15, 2024 Sara Brand BIODIESEL PRODUCT MANAGER, BIODIESEL PRODUCT MANAGER-C Attending Provider Active Start: October 15, 2024 End: October 15, 2024 Sara Brand BIODIESEL PRODUCT MANAGER, BIODIESEL PRODUCT MANAGER-C Referring Provider Active Start: October 15, 2024 End: October 15, 2024 Team Status: Inactive Member Role/Relationship Status Dates Dr. Rob Back MD Primary Care Provider Active Start: October 26, 2024 End: October 26, 2024 Dr. Rob Back MD Referring Provider Active S tart: October 26, 2024 End: October 26, 2024 Sara Brand BIODIESEL PRODUCT MANAGER, BIODIESEL PRODUCT MANAGER-C Attending Provider Active Start: October 26, 2024 End: October 26, 2024 Team Status: Inactive Member Role/Relationship Status Dates Dr. Rob Back MD Referring Provider Active S tart: October 27, 2024 End: October 27, 2024 Dr. Paola Samson MD Attending Provider Active Start: October 27, 2024 End: October 27, 2024 Dr. Leonie Sands MD Primary Care Provider Active Start: October 27, 2024 End: October 27, 2024 Team Status: Inactive Member Role/Relationship Status Dates Dr. Rolan Grace DO Attending Provider Active Start: November 13, 2024 End: November 13, 2024 Dr. Rolan Grace DO Referring Provider Active Start: November 13, 2024 End: November 13, 2024 Dr. Rob Back MD Primary Care Provider Active Start: November 13, 2024 End: November 13, 2024 Team Status: Active Member Role/Relationship Status Dates Dr. Rolan Grace DO Attending Provider Active Start: November 13, 2024 Dr. Rolan Grace DO Referring Provider Active Start: November 13, 2024 Dr. Rolan Grace DO Other Provider Active St art: November 13, 2024 Dr. Rob Back MD Primary Care Provider Active Start: November 13, 2024 Team Status: Inactive Member Role/Relationship Status Dates Dr. Rob Back MD Referring Provider Active S tart: December 02, 2024 End: December 02, 2024 Dr. Edison Santos MD Attending Provider Active Start: December 02, 2024 End: December 02, 2024 Dr. Rob Back MD Primary Care Provider Active Start: December 02, 2024 End: December 02, 2024 Upholstery Covers Inspector Relationship Specialty Start Date End Date Rob Back MD [address] [facility] [place] [address] PCP - General Internal Medicine 03/23/22 Upholstery Covers Inspector Relationship Specialty Start Date End Date Rob Back MD [address] [facility] [place] [address] PCP - General Internal Medicine 03/23/22 Upholstery Covers Inspector Relationship Specialty Start Date End Date Rob Back MD [address] [facility] [place] [address] PCP - General Internal Medicine 03/23/22 (unrecognized sect ion and content) No Status Records FoundNo Status Records FoundNo Status Records FoundNo Status Records FoundNo Status Records Found INFORMATION SOURCE (unrecogn ized section and content) DATE CREATED AUTHOR 12/08/2021 [facility] dical Specialist DATE CREATED AUTHOR AUTHOR'S ORGANIZ ATION 12/30/2021 [facility] DATE CREATED AUTHOR AUTHOR'S ORGANIZ ATION 02/05/2022 [facility] DATE CREATED AUTHOR AUTHOR'S ORGANIZ ATION 12/11/2024 [facility] DATE CREATED AUTHOR AUTHOR'S ORGANIZ ATION 01/06/2025 [facility] Care Team (unrecognized sect ion and content) Care Team Personnel Name: PAOLA LOFTON MD Member Role: Primary Care Physician Address: Address: [address] [place] [address] [address] [place] [address]- Care Team Related Persons Name: GARRET ESCALANTE Reason for Visit (unrecogniz ed section and content) Reason Comments Follow-up Pt states their bp i s high and pt states they passed out at work Specialty Diagnoses / Procedures Referred By Contac t Referred To Contact Cardiology Diagnoses Syncope and collapse Procedures Cardiac holter monitor (8- 15 days) NC EXTERNAL ECG REC>48HR<7D REVIEW & INTERPRETATION NC EXTERNAL ECG REC>48HR<7D RECORDING NC EXTERNAL ECG REC>7D<15D RECORDING NC EXTERNAL ECG REC>7D<15D REVIEW & INTERPRETATION Rob Back MD [address] [place] [address] Referral ID Status Reason Start Date Expiration Date Visits Re quested Visits Authorized [id number] Closed 02/14/2023 08/13/2023 1 1 Reason Onset Date Comments Palpitations 02/14/2023 Reason Onset Date Comments Med Refill 09/30/2023 Reason Onset Date Comments Generalized Body Aches 09/27/2023 Reason Onset Date Comments Medication Problem 03/06/2024 Reason Onset Date Comments Med Refill 05/14/2022 Reason Onset Date Comments Palpitations 07/20/2024 Reason Comments Shortness of Breath States that SOB to j ust take a shower and go up stairs. States that he is weak at times with dizzy ness. Reason Onset Date Comments Med Refill 07/29/2024 Reason Onset Date Comments Results 07/31/2024 Reason Comments Results To review labs from [facility], to know what the next step will be Reason Onset Date Comments New Med Request 08/06/2024 Reason Onset Date Comments Other 08/06/2024 Please send refe rral to Dr. Gilberto Rice in [place] Reason Onset Date Comments Referral 08/10/2024 Reason Comments Med Refill Reason Comments Follow-up Follow up for abdomi nal fluid retention and bloating, SOB Reason Comments Follow-up Patient states here for lab results Reason Onset Date Comments Fatigue 09/22/2024 Reason Comments Follow-up Pt not feeling well, waiting on testing and labs, fatigue, SOB, bloating, nausea, no appetite Reason Onset Date Comments Other 09/23/2024 Reason Onset Date Comments Other 11/03/2024 Diagnosis codes Reason Comments Follow-up No new concerns Reason Onset Date Comments Med Refill 11/22/2024 Reason Onset Date Comments Med Refill 11/23/2024 Reason Comments Other Pt wants to discuss health issues and CT scan, etc. Reason Onset Date Comments Results 10/09/2024 Blood work from 10.02.2024 Test Scheduling 10/09/2024 Reason Comments New Patient Extremity Weakness Gait Problem Specialty Diagnoses / Procedures Referred By Contac t Referred To Contact Neurology Diagnoses Slurred speech Procedures NC OFFICE/OUTPATIENT NEW HIGH MDM 60 MINUTES Osman Brand, CLIENT EXECUTIVE - [employer] [address] [facility] [address] [facility] [address] [place] [address] Phone: tel: fax: [facility] [address] [facility] [place] [address] Phone: tel: fax: Referral ID Status Reason Start Date Expiration Date Visits Requested Visits Authorized [id number] Pending Review Specialty Services Required 09/10/2024 09/10/2025 1 1 Reason Onset Date Comments Vertigo 01/06/2025 Goals (unrecognized section and content) Goals may [...] BE BASED ON THE PRIMARY CLINICAL RECORDS. [facility] [employer] provides no warranty or guarantee of the accuracy or completeness of information in this document.
== END 2025-01-10 10:53 | disposition left against medical advice (07) ==
LOC: ED 10:53
PROVIDERS: Emergency Provider Emergency Medicine; PCP Obstetrics & Gynecology; Visit Provider Emergency Medicine
DX: R42 Dizziness and giddiness (principal); H53.9 Unspecified visual disturbance; I10 Essential (primary) hypertension; Z87.891 Personal history of nicotine dependence; F32.A Depression, unspecified; Z79.899 Other long term (current) drug therapy; Z90.49 Acquired absence of other specified parts of digestive tract

== ENCOUNTER → 2025-02-24 | Outpatient (CLI) | payer MEDICARE, SELFPAY ==
--- NOTE | 2025-02-24 11:30 | LES_PTH ---
PATIENT: LAUREN ZEE LOC: [facility] U#:[id number] AGE/SX: 69/M ROOM: RE02/24/[address]: Dr. Clarence Ellsworth MD : 1955 BED: DIS: 02/24/2025 SPEC #: [id number] RECD: 02/24/25 13:56 STATUS: REMY DOMINGUEZ #: [id number] ROSALVA: 02/24/25 11:[address]: Clarence Ellsworth DEPT: SURGICAL PATHOLOGY RECD BY: Kirit Rivera ENTERED: 02/24/25 15:56 SP TYPE: Lesion OTHR DR: Dr. Todd Swain MD Tissues: A - Skin of eyelid, NOS Procedures: Surgery Specimen Level IV HEADER OPERATION: Right lower eyelid lesion removal PRE-OP DIAGNOSIS: Right lower eyelid lesion TISSUE SUBMITTED: A- Right lower eyelid lesion removal MICROSCOPIC DIAGNOSIS A. Skin, right lower eyelid, excision: - Intradermal melanocytic nevus, benign. 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 MICROSCOPIC DESCRIPTION Slides are reviewed. GROSS DESCRIPTION A. Received in formalin labeled with the patient's name and date of . Designated as right lower lid is a 0.5 x 0.3 cm otoole and granular, hairbearing skin ellipse devoid of orientation, and excised to a maximum depth of 0.1 cm. Eccentrically on the epidermal surface is a 0.3 x 0.2 cm well-circumscribed, otoole-white focally disrupted cyst expelling white grumous material and abutting the peripheral edge. The resection margin is inked green and the specimen is bisected. Entirely submitted in 1 cassette. NC 02/24/2025 CPT:93953
== END | disposition home or self-care (01) ==
LOC: LABSPEC 14:00
PROVIDERS: PCP Obstetrics & Gynecology; Referring Provider Ophthalmology; Visit Provider Ophthalmology
DX: D23.112 Other benign neoplasm of skin of right lower eyelid, including canthus (principal)
CPT/HCPCS: 88305